=== PATIENT | female | born 1945 | race Caucasian/White ===

== ENCOUNTER → 2016-05-22 11:53 | Day surgery (SDC) | payer MEDICARE ==
[~2016-05-22 11:53] MED LIST: Buffered Lidocaine 1% SYR 3ML* 3 ML/SYR SYRINGE INTRADERM ONE; Buffered Lidocaine 1% SYR 3ML* 3 ML/SYR SYRINGE ONE; Bupivacaine 0.25% EPI 200,000* 30 ML SDV ONE; Dexamethasone IV* 4 MG/ML 1 ML (4 MG) ONE; DiMENhydriNATE IV* 50 MG/ML VIAL IV PUSH PRN; Famotidine IV* 10 MG/ML 2 ML (20 mg) IV ONE; Famotidine IV* 10 MG/ML 2 ML (20 mg) ONE; Gelfoam 12-7 ADSORBABL SPONGE* 1 EA SPONGE ONE; HYDROmorphone INJ* 1 MG/ML CARPUJECT SYRINGE IV PRN; KETAMINE HCL* 50 MG/ML 10 ML VIAL ONE; Ketorolac INJ* 30 MG/ML 1 ML VIAL ONE; Lidocaine 2% MPF* 2 ML VIAL ONE; Methylene Blue 1%* 10 ML VIAL ONE; Metoclopramide TAB* 10 MG ONE; Metoclopramide TAB* 10 MG PO ONE; Midazolam* 1 MG/ML 5 ML VIAL (5 MG) ONE; Ondansetron INJ* 2 MG/ML VIAL IV PRN; Ondansetron INJ* 2 MG/ML VIAL ONE; Propofol* 10 MG/ML 20 ML BTL IV PUSH ONE; ceFAZolin 2 GM PREMIX (*) 2 GM/50 ML BAG IVPB ONE; fentaNYL* 50 MCG/ML 2 ML VIAL (100 MCG VIAL) IV PRN; fentaNYL* 50 MCG/ML 2 ML VIAL (100 MCG VIAL) ONE; oxyCODONE/Acetamin 5/325 MG* TAB PO PRN
--- NOTE | 2016-05-22 15:58 | SURGPN ---
Brief Operative Note - Surgery Procedures: Procedures Pre-OP Diagnoses: Hemorrhoids Post-op Diagnosis: same Procedure: Exam under anesthesia, hemorrhoidectomy Surgeon: Candace Asst: none Anethesia: DARSHANA Togene EBL: minimal IVF: 900cc crystalloid Specimen: hemorrhoids Drains: none
[2016-05-22 17:19] VITALS: BP 121/88
--- NOTE | 2016-06-06 10:17 | OP ---
CC: [facility]; Barbara Jacinto MD OPERATIVE REPORT: This is a delayed dictation. DATE OF OPERATION: 05/22/16 DATE OF : 49 SURGEON: Markus Maria MD. FACILITY ENVIRONMENTAL TECHNICIAN: None. ANESTHESIOLOGIST: Carlos Olivares MD ANESTHESIA: General. PRE-OP DIAGNOSIS: Hemorrhoids. POST-OP DIAGNOSIS: Hemorrhoids. OPERATIVE PROCEDURE: Exam under anesthesia and hemorrhoidectomy. ESTIMATED BLOOD LOSS: Minimal blood loss. IV FLUIDS: 900 cc of crystalloid fluid given. SPECIMEN: Hemorrhoids. DRAINS: None. INDICATIONS: Ms. Bang is a 70-year-old female who I saw in my office two days prior to surgical intervention with complaints of hemorrhoidal pain. She underwent attempt at hemorrhoidal banding i n the office, but this failed with rubber bands falling off by the first postprocedure day. She was seen by my partner who booked her for surgical intervention with me. DESCRIPTION OF PROCEDURE: On day of surgery, I described the details of the procedure going over th e risks, benefits and alternatives. We spoke of again banding, but I did not recommend this, versus excision. We spoke about the possible complications which included but not limited to bleeding, in fection, incontinence, and need for additional procedures and recurrence. The patient agreed and si gned consent. Was taken to the operating room, general anesthesia delivered. The patient was place d prone on the OR table. Buttocks were taped apart and the anal area was prepped and draped in emerald dard surgical fashion. Time- out was performed. A digital rectal exam was performed, dilating the anus to three fingers. This allowed us to place t he anal retractors in, and review of the anal canal showed the hemorrhoids anteriorly in the midline and anteriorly just to the right. They extended towards the skin tag around the perianal skin. I placed a 2-0 Polysorb suture distal to the hemorrhoid and the anal mucosa to allow for traction. We injected lidocaine with epinephrine along the perianal skin and to the hemorrhoidal tissue. The skin was incised and, with the ligature device, we extended our dissection proximally to the 2-0 Jaret ysorb suture that was placed. This hemorrhoid was then passed off as specimen, and the suture was u tilized to gain hemostasis and reapproximate the mucosa as well as extend it subcuticularly at the a tiff of the perianal skin. Similar hemorrhoidectomy was carried out at the right side of the hemorrhoid in the exact same fashi on. We took care on dissection of the hemorrhoid not to extend into the musculature of the sphincte r. Hemostasis was excellent. Gelfoam was inserted into the anal canal. The patient was woken up, transferred to the stretcher extubated, and transferred to PACU in stable condition. [id number]/[facility] #: [id number]
== END | disposition home or self-care (01) ==
LOC: OR 11:53
PROVIDERS: ATTEND Surgery
DX: K64.1 Second degree hemorrhoids (principal); I10 Essential (primary) hypertension; D50.9 Iron deficiency anemia, unspecified
CPT/HCPCS: 88304; A9270-GY; J0690; J1100; J1885; J2250; J2405; J2704; J3010

== ENCOUNTER 2018-02-03 18:49 | Emergency (ER) | payer MEDICARE ==
--- OUTSIDE RECORDS SUMMARY | 2018-02-03 18:56 | XMS REPORT | Continuity of Care Document ---
:1945 External Reference #:[id number] Author Name Gunnar Wooten M.D. Address [address] [place] [address] Care Team Providers Name Role Phone Barbara Castro M.D. Primary Care Physician Unavailable Payers Type Date Identification Numbers Payment Provider Subscriber Policy Number: [id number] Medicare - [facility] Katherine Bang PayID: [id number] [address] [place] [address] Policy Number: [id number] [facility] Katherine Bang PayID: [id number] [address] [place] [address] Advance Directives Description No Information Available Problems Date Description Provider Status Onset: Essential hypertension Active Onset: Spinal stenosis Active Onset: Migraine Active Onset: 01/20/2018 Vitreous degeneration Gunnar Wooten M.D. Active Onset: 01/20/2018 Combined form of senile cataract Gunnar Wooten M.D. 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 ETOH Use Occasionally consumes alcohol Recreational Drug Use Denies Drug Use Tobacco Use Start: Unknown Patient has never smoked Smoking Status Reviewed: 01/20/18 Patient has never smoked Allergies, Adverse Reactions, Alerts Date Description Reaction Status Severity Comments 01/20/2018 Quinidina Active 01/20/2018 Sulfa Antibiotics Active 01/20/2018 Beta Blockers Active 01/20/2018 Cipro Active 01/20/2018 Paxil Active Medications Medication Date Status Form Strength Qnty SIG Indications Ordering Provider Pantoprazole / Active Tablets DR 40mg Take 1 Unknown Sodium 0000 Tablet By Mouth Two Times Daily Gabapentin / Active Capsules 300mg Take Two Unknown 0000 Capsules By Mouth Three Times A Day Oxycodone-Aceta / Active Tablets 10-325mg Take 1 Unknown minophen 0000 Tablet By Mouth Two Times Daily May Take A Third as Needed Maximum Daily Dose Of 3 Per Day Benazepril HCL / Active Tablets 10mg Take 1 Unknown 0000 Tablet By Mouth Every Day Amlodipine / Active Tablets 10mg Take 1 Unknown Besylate 0000 Tablet By Mouth Every Day Lorazepam / Active Tablets 1mg Take 1 Unknown 0000 Tablet By Mouth AT Bedtime. May Take Second Tablet as Needed. Maximum Daily Dose Of 2 Per Day. Vitamin D3 / Active Capsules 5000Unit Unknown 0000 B Complex / Active Tablets Unknown 0000 Vitamin B12 / Active Tablets ER 1000mcg Unknown 0000 Ferrous Sulfate / Active Tablets 325(65Fe) Unknown 0000 mg Immunizations Description No Information Available Vital Signs Description No Information Available Results Description No Information Available Procedures Description No Information Available Encounters Description No Information Available Plan of Treatment 01/20/2018 - Gunnar Wooten M.D.H35.371 Puckering of macula, right eyeComments :Smoking can increase the risk of developing or worsening any eye related disease, as well as affect your overall health. If you are a smoker, we strongly recommend that you quit.If you are not a smoker, we strongly recommend that you do not start. A Macular Pucker is a wrinkling of the retina tissue. It can cause distortion in your vision. Please contact the office if you notice any changes or new distortion in your vision.H35.342 Macular cyst, hole, or pseudohole, left eyeH25.813 Combined forms of age-related cataract, bilateralComments:You have been diagnosed with cataracts. They are limiting your vision, and I am unable to improve you with new glasses. Our next step is to schedule Cataract surgery and all necessary appointments, which [facility] will do for you. We recommend that you write down any questions you may have and bring them to your preoperative appointment so that Dr. Wooten can answer them for you. If you have any questions or concerns, you can reach Khushbu Pickens at .Follow up:For preop exam before surgery.H43.812 Vitreous degeneration, left eyeComments:You have a Posterior Vitreous Detachment in your left eye. If you have any changes in your floaters or flashing lights, please contact this office.
--- OUTSIDE RECORDS SUMMARY | 2018-02-03 18:56 | XMS REPORT ---
:1945 External Reference #:[id number] Author Organization [facility] Address [address] [address] Phone [phone] Care Team Providers Name Role Phone Barbara Castro MD Care Team Information Automatic Presser Unavailable Payers Type Date Identification Numbers Payment Provider Subscriber Medicare Primary Policy Number: [id number] Medicare Katherine Bang Group Name: [facility] [address] PayID: [id number] [place] [address] Medigap Part B Effective: Policy Number: [facility] Katherine Bang 2012 [id number] Options PayID: [id number] [address] [place] [address] Medigap Part B Effective: 2012 Policy Number: Medicare Katherine Bang [id number] Expires: 2014 Group Name: [facility] [address] PayID: [id number] [place] [address] Medigap Part B Expires: Policy Number: [facility] Katherine Bang 2014 [id number] Options PayID: [id number] [address] [place] [address] Problems Date Description Provider Status Onset: 02/23/2008 Benign essential hypertension Barbara Castro MD Active Onset: 01/29/2013 Peptic reflux disease Barbara Castro MD Active Onset: 05/16/2014 Spinal stenosis of lumbar region Barbara Castro MD Active Onset: 05/16/2014 Chronic pain syndrome Barbara Castro MD Active Onset: 01/16/2015 Lumbosacral stenosis Barbara Castro MD Active Onset: 01/16/2015 Essential hypertension Barbara Castro MD Active Onset: 02/21/2015 Essential hypertension Barbara Castro MD Active Family History Date Family Member(s) Problem(s) Comments First Son Parkinson's Disease First Daughter Parkinson's Disease Social History Type Date Description Comments Cigarette Use Never Smoked Cigarettes Smoking Patient has never smoked Allergies, Adverse Reactions, Alerts Date Description Reaction Status Severity Comments 01/29/2006 Sulfa active 01/29/2006 Inderal active Memory Loss 01/29/2006 Quinidine active 01/29/2006 Beta Blockers active 09/21/2015 Paxil active 09/21/2015 Cipro active Medications Medication Date Status Form Strength Qnty SIG Indications Ordering Provider Sucralfate 01/26/ Active Suspension 1GM/10ML 420ml 10ml Matthew, 2018 orally Barbara 4times MD Burke qac/hs prn Diclofenac 05/30/ Active Gel 1% 200gm apply 1 G89.4 Matthew, Sodium 2018 gram per Barbara joint MD Burke four times a day as needed for pain Fluticasone 05/23/ Active Suspension 50mcg/Act 16unit 2 sprays Matthew , Propionate 2018 s in each Barbara nostril MD Burke daily Amlodipine 05/16/ Active Tablets 10mg 1 by I10 Matthew Besylate 2018 mouth Barbara every day MD Burke Benazepril HCL 05/16/ Active Tablets 10mg 1 by I10 Matthew, 2018 mouth Barbara every day MD Burke TENS Unit 01/31/ Active dx: lbp G89.4 Matthew 2016 Barbara Kirkland MD Flector 10/14/ Active Patches 1.3% 60unit apply S39.012A Matthew 2016 s patch Barbara twice a MD Burke day as needed for acute pain G89.4 Narcan 06/07/2016 Active Liquid 4mg/0.1ML 2units as needed G89.4 Matthew intranasal for Barbara emergency MD Burke overdose only Ferrous 02/26/2016 Active Tablets 325(65Fe) 30tabs take 1 tablet D50.9 Jenniferdam, Sulfate mg by mouth bid Barbara with vitamin MD Burke c. Premarin 10/24/2015 Active Cream 0.625mg/GM 42.500g . 5 g every N95.2 burke Castro night at Barbara bedtime x 2 MD Burke wks then 2x/wk Lorazepam 09/26/2015 Active Tablets 1mg 60tabs take one every F41.9 Matthew, night at Barbara bedtime, august MD Burke take a second as needed Oxycodone-A 09/26/2014 Active Tablets 10-325mg 90tabs 1 by mouth G89.4 Matthew, cetaminophe twice a day Barbara n august take third MD Burke as needed Proair HFA 03/30/2013 Active Aerosol 108(90Base 8.5unit Inhale 2 Puffs Matthew, ) mcg/Act s By Mouth Four Barbara Times A Day as MD Burke Needed Vitamin B12 09/25/2012 Active Tablets ER 1000mcg 1 po qod D51.9 Barbara Castro MD Pantoprazol 02/27/[address] 40mg 180tabs Take 1 Tablet K21.0 Matthew, e Sodium By Mouth Two Barbara Times Daily MD Burke Vitamin D 07/22/2008 Active Capsules 1000Unit 2 po bid E55.9 Barbara Castro MD Gabapentin Active Capsules 300mg 2 by mouth G89.4 Unknown three times a day Tetracyclin 05/20/2017 Hx Capsules 250mg 28caps 1 po qid Matthew, e HCL - Barbara 05/22/2017 MD Burke Nitrofurant 05/19/2017 Hx Capsules 100mg 14caps 1 by mouth Matthew, oin Monohyd - twice a day Barbara Macro 08/15/2017 MD Burke Nitrofurant 05/16/2017 Hx Capsules 100mg 14caps 1 by mouth N30.01 Macajose antonio, oin Monohyd - twice a day Barbara Macro 05/16/2017 MD Burke Cephalexin 05/16/2017 Hx Capsules 500mg 28caps 1 by mouth N30.01 Macadam, - four times a Barbara 05/19/2017 day MD Burke Phenazopyri 05/15/2017 Hx Tablets 100mg 10tabs 1 by mouth Matthew, dine HCL - three times a Barbara 08/15/2017 day as needed MD Burke Nitrofurant 10/14/2016 Hx Capsules 100mg 14caps 1 by mouth N39.0 Matthew, oin Monohyd - twice a day Barbara Macro 01/27/2017 MD Burke Diclofenac 08/02/2016 Hx Gel 1% 100gm apply 1 gram M25.51 Macadam, Sodium - per joint four 1 Barbara 10/14/2016 times a day as MD Burke needed for pain Flector 07/25/2016 Hx Patches 1.3% 60units apply patch Macadam, - twice a day as Barbara 08/02/2016 needed MD Burke Lidoderm 05/06/2016 Hx Patches 5% 60units apply as Macadam, - directed 1-3 Barbara 10/14/2016 patches on x MD Burke 12 hours Ketorolac 12/18/2015 Hx Solution 60mg/2ML q 2 wks M48.07 Matthew, Tromethamin - Barbara e 06/07/2016 MD Burke Blood Draw 12/18/2015 Hx 2x/month-bmp I10 Macajose antonio, - (for med Barbara 01/27/2017 nanagement) MD Burke Metronidazo 10/26/2015 Hx Tablets 500mg 14tabs 1 by mouth two Macadam, le - times a day x Barbara 12/18/2015 7 d no etoh MD Burke with Gabapentin 10/10/2015 Hx Capsules 300mg 90caps Take One To F41.9 Macadam, - Three Capsules Barbara 01/27/2017 By Mouth Every MD Burke Night AT Bedtime as Needed Lorazepam 08/14/2015 Hx Tablets 2mg 30tabs 1 by mouth F41.9 Macadam, - every night at Barbara 09/26/2015 bedtime MD Burke Tizanidine 08/04/2015 Hx Tablets 4mg 90tabs 1 by mouth M48.07 Macadam, HCL - three times a Barbara 09/26/2015 day as needed MD Burke Voltaren 07/31/2015 Hx Gel 1% 300gm apply 1 g per Macadam, - joint four Barbara 09/26/2015 times a day as MD Burke needed Amoxicillin 07/18/2015 Hx Tablets 500mg 30tabs 1 by mouth Macadam, - three times a Barbara 09/21/2015 day MD Burke Tizanidine 06/20/2015 Hx Tablets 2mg 90tabs take 3 tablets M48.07 Macadam, HCL - by mouth every Barbara 08/04/2015 night at MD Burke bedtime as needed monitor bp's closely Cephalexin 05/29/2015 Hx Tablets 500mg 28tabs 1 by mouth Matthew, - four times a Barbara 07/10/2015 day MD Burke TENS Unit 05/26/2015 Hx 1units M48.07 Matthew, - Barbara 09/26/2015 MD Burke Gabapentin 02/21/2015 Hx Capsules 300mg 90caps take 1 to 3 M48.07 Matthew, - capsules by Barbara 08/04/2015 mouth every MMD evening at bedtime as needed Carisoprodo 11/22/2014 Hx Tablets 350mg 30tabs take 1/2 to 1 G47.00 Matthew l - every night at Barbara 06/20/2015 bedtime as MD Burke needed sleep/muscle spasm Lorazepam 10/21/2014 Hx Tablets 1mg 90tabs 1-3 every F41.9 Matthew, - night at Barbara 08/14/2015 bedtime as MD Burke needed sleep/nerves Sertraline 10/17/2014 Hx Tablets 50mg 30tabs 1 by mouth 309.81 Matthew, HCL - every day Barbara 10/17/2014 MD Burke Paroxetine 10/17/2014 Hx Tablets 20mg 30tabs take one half 309.81 Matthew, HCL - x 4 d then one Barbara 10/18/2014 tablet by MD Burke mouth once daily at bedtime Oxycontin 09/26/2014 Hx Tab ER 12H 40mg 60tabs 1 po bid-dose 338.4 Matthew, - Abuse-Det increase Barbara 10/17/2014 MD Burke Hydromorpho 09/12/2014 Hx Tablets 2mg 60tabs 1-2 pill by 338.4 perry Castro HCL - mouth every 6 Barbara 09/26/2014 hours as MD Burke needed pain Oxycontin 09/12/2014 Hx Tab ER 12H 30mg 60tabs 1 by mouth 338.4 Matthew , - Abuse-Det twice a day Barbara 09/26/2014 MD Burke Augmentin 08/18/2014 Hx Tablets 875-125mg 20tabs 1 tab by mouth Angel, - twice a day x Siomara 09/12/2014 10 days MD Shelly Ondansetron 07/11/2014 Hx Tablets 4mg 30tabs 1 by mouth 787.02 VIPUL Castro - three times a Barbara 11/15/2014 day as needed MD Burke n/v Fentanyl 07/11/2014 Hx Patches 100mcg/HR 10units on x 3 d then 338.4 Macadam, - 72HR replace every Barbara 09/12/2014 3 d MD Burke Fentanyl 06/13/2014 Hx Patches 75mcg/HR 10units on x 3 d 338.4 Macadam, - 72HR Barbara 07/11/2014 MD Burke Amlodipine 06/07/2014 Hx Tablets 5mg 30tabs Take 1 Tablet I10 Macadam, Besylate - By Mouth Every Barbara 05/16/2017 Day MD Burke Benazepril 06/07/2014 Hx Tablets 20mg 90tabs Take 1 Tablet I10 Macadam, HCL - By Mouth Every Barbara 05/16/2017 Day MD Burke Metaxalone 05/16/2014 Hx Tablets 800mg 90tabs take 1/2-1 po 719.41 Macadam, - bid 1 po qhs Barbara 01/16/2015 prn MD Burke Levofloxaci 05/02/2014 Hx Tablets 500mg 14tabs 1 by mouth 595.0 Macadam , n - every day Barbara 05/16/2014 MD Burke Levofloxaci 04/05/2014 Hx Tablets 500mg 10tabs 1 by mouth 461.0 Macadam , n - every day Barbara 05/02/2014 MD Burke Flector 03/14/2014 Hx Patches 1.3% 60units aply to Macadam, - painful area Barbara 10/24/2015 twice a day MD Burke dx: new acute shoulder pain, post op Fluticasone 02/22/2014 Hx Suspension 50mcg/Act 16units Inhale 2 J30.1 Macadam, Propionate - Sprays Into Barbara 01/27/2017 Each Nostril MD Burke One Time Daily Fentanyl 01/25/2014 Hx Patches 50mcg/HR 10units on x 3d 338.4 Macadam, - 72HR Barbara 06/13/2014 MD Burke Amoxicillin 01/25/2014 Hx Tablets 875mg 20tabs 1 by mouth 780.60 Macadam, - twice a day Barbara 02/22/2014 MD Burke Oxycodone-A 10/18/2013 Hx Tablets 10-325mg 120tabs 1/2-1 by mouth 338.4 Macadam, cetaminophe - four times a Barbara n 09/12/2014 day as needed MD Burke pain Work Note 05/17/2013 Hx this pt has no Macadam, - medical Barbara 08/27/2013 contraindicati MD Burke ons to fulltime employment Alprazolam 11/13/2012 Hx Tablets 0.25mg 10tabs 1/2-2 po tid [place], - prn anxiety Enedina 01/29/2013 Modesta, RN [employer] Viibryd 08/24/2012 Hx Tablets 40mg 30tabs 1 po qd 296.31 Macajose antonio, - Barbara 09/25/2012 MD Burke Lidoderm 06/02/2012 Hx Patches 5% 30units apply as 789.01 Macajose antonio, - directed 1-3 Barbara 05/17/2013 patches on x MD Burke 12 hrs Augmentin 05/14/2012 Hx Tablets 875-125mg 28tabs one tab bid Jens, - till gone Enedina 06/02/2012 Modesta RN [employer] Proair HFA 04/10/2012 Hx Aerosol 108(90Base 1Can 2 p qid prn 461.0 Macajose antonio, - ) mcg/ac Barbara 03/30/2013 MD Burke Amoxicillin 04/10/2012 Hx Tablets 875-125mg 28tabs 1 po bid 461.0 Macajose antonio, /Potassium - Barbara Clavulanate 05/14/2012 MD Burke Tramadol 03/24/2012 Hx Tablets ER 100mg 90tabs take one 338.4 Matthew, HCL ER - 24HR tablet by Barbara 05/17/2013 mouth tid as MD Burke needed Thumb Spica 03/24/2012 Hx 2units bilat dx: 727.04 Matthew, - dequervain's Barbara 06/02/2012 MD Burke Carisoprodo 03/24/2012 Hx Tablets 350mg 120tabs 1/2-1 by mouth 338.4 Matthew, l - four times a Barbara 10/21/2014 day as needed MD Burke Oxycodone/A 03/24/2012 Hx Tablets 10-325mg 120tabs 1/2-1 po Qid 733.90 Matthew cetaminophe - prn pain Barbara n 10/18/2013 MD Burke Premarin 02/04/2012 Hx Cream 0.625mg/GM 42.5uni use 627.3 Macajose antonio, - ts intravaginally Barbara 05/17/2013 twice weekly MD Burke as directed Dexilant 02/04/2012 Hx Capsules 60mg 90caps 1 po qd 787.02 Macajose antonio, - DR Jimenez 03/24/2012 M,MD Irizarry 11/04/2011 Hx Tablets 250mg 1Pack 2 tabs day one 461.0 Matthew, n - and 1 tab Barbara 12/09/2011 daily till M,MD martell Amlodipine 11/04/2011 Hx Capsules 5-20mg 30caps take one 401.1 Macajose antonio, Besylate/Be - capsule by Barbara nazepril 06/07/2014 mouth every M, Hydrochlorrani day de Amlodipine 10/15/2011 Hx Tablets 5mg 30tabs 1 po qd 401.1 Matthew, Besylate - Barbara 10/15/2011 MD Burke Amlodipine 10/15/2011 Hx Capsules 5-40mg 30caps 1 po qd 401.1 Matthew, Besylate/Be - Barbara nazepril 10/15/2011 MD Burke HCL Amlodipine 10/15/2011 Hx Capsules 5-10mg 30caps 1 po qd 401.1 Matthew, Besylate/Be - Barbara nazepril 11/04/2011 MMD Peterson de Azithromyci 07/19/2011 Hx Tablets 250mg 1Pack 2 tabs day one 461.0 Matthew, n - and 1 tab Barbara 10/15/2011 daily till M, gone Medrol 07/19/2011 Hx Tablets 4mg 1Pack as dir 461.0 Matthew, Dosepak - Barbara 10/15/2011 MD Burke Robitussin 07/19/2011 Hx 120ml 10 ml qid prn 466.0 Matthew, ac - Barbara 10/15/2011 MD Burke Meloxicam 06/21/2011 Hx Tablets 7.5mg 60tabs take 2 tablet 719.49 Macadam, - by mouth every Barbara 02/04/2012 day for pain MMD Gabapentin 06/21/2011 Hx Capsules 300mg 120caps take 1 338.4 Macadam, - capsules by Barbara 11/15/2014 mouth twice a M,MD day and 2 at bedtime Azithromyci 03/01/2011 Hx Tablets 250mg 6tabs 2 tabs day one Jens, n - and 1 tab [place]ed[place] 05/10/2011 daily till Modesta RN MS [employer] Tramadol 11/30/2010 Hx Tablets 50mg 60tabs take 1 to 2 Macadam, HCL - tablets 4 Barbara 03/24/2012 times a day as MD Burke needed for pain. Flector 11/30/2010 Hx Patches 1.3% 60units aply to 726.5 Macadam, - painful area Barbara 03/30/2013 bid MD Burke Alprazolam 10/08/2010 Hx Tablets 0.25mg 10tabs 1/2-2 po tid Macadam, - prn anxiety Barbara 10/15/2011 MD Burke Tramadol 08/10/2010 Hx Tablets ER 100mg 60tabs 1 PO bid prn Macadam, HCL ER - 24HR Barbara 11/30/2010 MD Burke Tramadol 07/24/2010 Hx Tablets 50mg 20tabs take 1 to 2 729.1 Macadam, HCL - tablets 4 Barbara 08/10/2010 times a day as MD Burke needed for pain. Percocet 04/24/2010 Hx Tablets 10-325mg 90tabs 1/2-1 po tid 733.90 Macadam, - prn pain Barbara 03/24/2012 MD Burke Flonase 04/04/2010 Hx Suspension 50mcg/Act 16gm 1 [place] q Macadam, - Nostril qd Barbara 05/17/2013 MD Burke Ciprofloxac 01/26/2010 Hx Tablets 500mg 14tabs 1 po bid 787.91 Macadam, in HCL - Barbara 07/24/2010 MD Burke Proctofoam 01/26/2010 Hx Foam 1-1% 10gm apply pr bid 569.3 Macadam, HC - prn Barbara 07/24/2010 MD Burke Blood Draw 01/26/2010 Hx cbc, bmp 401.1 Macadam, - Barbara 07/19/2011 dx: MD Burke HTN Flovent HFA 08/29/2009 Hx Aerosol 44mcg/Act 1Can 2 p bid rise [place], - mouth after Enedina 06/02/2012 C, RN [employer] Zithromax 02/27/2009 Hx Tablets 250mg 1Pak as dir 466.0 Matthew, Z-Kobe - Barbara 01/26/2010 MD Burke Silvadene 02/27/2009 Hx Cream 1% 1LGTube to aff area 786.2 Macajose antonio, - bid Barbara 01/26/2010 MD Burke Symbicort 02/27/2009 Hx Aerosol 160-4.5mcg 2 P bid 786.2 Macajose antonio, - /A Barbara 08/29/2009 MD Burke Meclizine 02/07/2009 Hx Tablets 25mg 20tabs 1/2-1 po tid 780.4 Macajose antonio, HCL - prn Barbara 07/24/2010 MD Burke Prednisone 02/07/2009 Hx Tablets 10mg 30tabs 4tabs qam x 3 493.00 Matthew, - days then 3 po Barbara 02/27/2009 qam x 3d then MD Burke 2 po qam x 3d then 1 po qam x 3 d Lidoderm 02/07/2009 Hx Patches 5% 30units apply as 493.00 Matthew, - directed 1-3 Barbara 01/26/2010 patches on x MD Burke 12 hrs Ventolin 02/07/2009 Hx Aerosol 108(90Base 1Can 2 p qid prn 493.00 LADY ColindresA - ) sob Enedina 04/10/2012 Modesta, RN [employer] Amoxicillin 01/30/2009 Hx Tablets 875mg 20tabs 1 po bid Jenniferdam, - Barbara 02/27/2009 MD Burke Blood Draw 01/23/2009 Hx cbc, cmp, esr, 268.9 Macadam, - crp, lipid Barbara 02/27/2009 panel, 25 oh MD Burke vit D, TSH dx: 719.49, 401.1, tremor Aspirin 01/23/2009 Hx Tablets 81mg 1 po qd 435.9 Matthew, - Barbara 08/27/2013 MD Burke Premarin 01/23/2009 Hx Cream 0.625mg/GM 42.5uni Use 627.3 Matthew, W/Applicato - ts Intravaginally Barbara r 02/04/2012 Twice Weekly MD Burke as Directed Vitamin D 03/22/2008 Hx Tablets 1000Unit 1 PO qd 268.9 Matthew, - Barbara 07/22/2008 MD Jacob Kirklandsol HC 03/22/2008 Hx 1% 1Bottle to ears 4 gtt 268.9 Matthew, - qid prn Barbara 01/26/2010 MD Burke Vitamin D 02/25/2008 Hx Capsules 63444Unts 8caps 1 PO QWK X 8 Macajose antonio, - WKS Barbara 03/22/2008 MD Burke Intal 02/23/2008 Hx Aerosol 800mcg/Act 1Can 2 p bid prn Jenniferjose antonio, Inhaler - Barbara 08/29/2009 MD Abisai Kirkland 02/23/[address] 30mg Sample 1 PO qd X 1 296.32 Matthew, - Part Week With Food Barbara 03/01/2008 Then 60 MG MD Abisai Kirkland 02/23/[address] 60mg 30caps 1 PO qd 296.32 Macadam, - Part Barbara 03/22/2008 MD Burke Fexofenadin 01/02/2007 Hx Tablets 180mg 30tabs 1 po qd prn Matthew, e HCL - Barbara 05/17/2013 MD Burke Medrol 11/25/2006 Hx Tablets 4mg 1Pack as Dir 724.2 Matthew, Dosepak - Barbara 01/02/2007 MD Burke Lidoderm 11/25/2006 Hx Patches 5% 30units apply as 724.2 Matthew, - directed 1-3 Barbara 07/22/2008 patches on x MD Burke 12 hrs Darvocet-N 11/25/2006 Hx Tablets 100 60tabs 1 po qid prn 724.2 Matthew, 100 - pain Barbara 04/24/2010 MD Burke Physical 11/25/2006 Hx eval and treat Macadam, Therapy - lbp Barbara 01/02/2007 MD Burke Alebarbara 10/20/2006 Hx 2 PO bid 724.2 Jenniferdam, - Barbara 07/22/2008 MD Burke Physical 09/30/2006 Hx eval and treat 845.00 Macadam, Therapy - l ankle Barbara 01/02/2007 MD Burke Protonix 09/30/[address] 40mg Sample 1 PO qd X 2 530.11 Matthew, - WKS Then prn Barbara 02/27/2009 MD Burke Stool 09/30/2006 Hx test for c 787.91 Matthew, Sample - diff Barbara 07/22/2008 MD Burke dx: diarrhea following abx Soma 09/30/2006 Hx Tablets 350mg 90tabs 1/2-1 po tid 724.2 Macadam, - prn Barbara 03/24/2012 MD Burke Lisinopril 01/29/2006 Hx Tablets 10mg 30tabs 1 po qd 401.1 Macajose antonio, - Barbara 10/15/2011 MD Burke Lunesta 01/29/2006 Hx Tablets 3mg 30tabs one po qhs prn Jens, - En[place] 09/30/2006 Modesta RN [employer] Bernadette 01/29/2006 Hx Tablets 60mg 60tabs bid [place], - [place] 09/30/2006 Modesta RN [employer] Flonase 01/29/2006 Hx Suspension 50mcg/Spra 1units 1 [place] q Macadam, - y Nostril qd Barbara 04/04/2010 MD Burke Lortab 01/29/2006 Hx Tablets 7.5mg;500 60tabs 1 po q4 hours 733.90 Jens, - mg prn pain [place] 01/29/2006 Modesta RN [facility] Percocet 01/29/2006 Hx Tablets 10mg;325 50tabs 1/2-1 po tid 733.90 Macadam, - mg prn pain Barbara 04/24/2010 MD Burke Medications Administered in Office Medication Date Status Form Strength Qnty SIG Indications Ordering Provider Depo Medrol 80 Administered Injection Macadam, MG 016 Barbara Kirkland MD Depo Medrol 80 Administered Injection [place], MG 015 Barbara Kirkland MD Depo Medrol 80 Administered Injection Macadam, MG 015 Barbara Kirkland MD Depo Medrol 80 Administered Injection Macadam, MG 012 Barbara Kirkland MD Depo Medrol 80 Administered Injection Macadam, MG 012 Barbara Kirkland MD PPD Administered Injection Nurses 012 Schedule Amalia Depo Medrol 80 Administered Injection Macadam, MG 011 Barbara Kirkland MD Immunizations CPT Code Status Date Vaccine Lot # 22650 Given 03/03/2003 Immunization Td 7 Yrs Or Older 87037 Refused 02/26/2016 Pneumococcal 23 Immunization Adult Or Immunosuppressed Patient 13846 Refused 02/26/2016 Tetanus And Diptheria Toxoids For Adult Use- preservative free 97958 Refused 02/26/2016 Influenza Virus Vaccine,Quadrivalent,Split,Preserv Free 3 Yrs+ 38289 Refused 02/26/2016 Prevnar 13 Pneumococal Conjugate Vaccine Vital Signs Date Vital Result Comment 01/26/2018 Weight 208.25 lb Heart Rate 95 /min BP Systolic 112 mmHg BP Diastolic 84 mmHg Height 64 inches 5'4" BMI (Body Mass Index) 35.7 kg/m2 12/05/2017 Weight 197.00 lb Heart Rate 76 /min BP Systolic 120 mmHg BP Diastolic 78 mmHg Height 64 inches 5'4" BMI (Body Mass Index) 33.8 kg/m2 10/10/2017 Weight 203.00 lb Heart Rate 96 /min BP Systolic 120 mmHg BP Diastolic 76 mmHg Height 64 inches 5'4" BMI (Body Mass Index) 34.8 kg/m2 08/15/2017 Weight 211.00 lb Heart Rate 60 /min BP Systolic 126 mmHg BP Diastolic 80 mmHg Height 64 inches 5'4" BMI (Body Mass Index) 36.2 kg/m2 05/16/2017 Weight 211.00 lb Heart Rate 88 /min BP Systolic 128 mmHg BP Diastolic 78 mmHg Height 64 inches 5'4" BMI (Body Mass Index) 36.2 kg/m2 01/27/2017 Body Temperature 98.5 F Weight 210.00 lb Heart Rate 80 /min BP Systolic 132 mmHg BP Diastolic 82 mmHg Height 64 inches 5'4" BMI (Body Mass Index) 36.0 kg/m2 10/14/2016 Body Temperature 97.9 F Weight 205.00 lb Heart Rate 80 /min BP Systolic 126 mmHg BP Diastolic 80 mmHg Height 64 inches 5'4" BMI (Body Mass Index) 35.2 kg/m2 08/02/2016 Weight 200.00 lb Heart Rate 76 /min BP Systolic 128 mmHg BP Diastolic 76 mmHg Height 64 inches 5'4" BMI (Body Mass Index) 34.3 kg/m2 06/07/2016 Body Temperature 98.3 F Weight 202.00 lb Heart Rate 80 /min BP Systolic 130 mmHg BP Diastolic 80 mmHg Height 64 inches 5'4" BMI (Body Mass Index) 34.7 kg/m2 02/26/2016 Weight 206.00 lb Heart Rate 80 /min BP Systolic 134 mmHg BP Diastolic 84 mmHg Height 64 inches 5'4" BMI (Body Mass Index) 35.4 kg/m2 12/18/2015 Weight 195.00 lb Heart Rate 98 /min BP Systolic 136 mmHg BP Diastolic 80 mmHg Height 64 inches 5'4" BMI (Body Mass Index) 33.5 kg/m2 10/24/2015 Weight 189.00 lb Heart Rate 98 /min BP Systolic 128 mmHg BP Diastolic 74 mmHg BP Systolic Recheck 118 mmHg BP Diastolic Recheck 68 mmHg Height 64 inches 5'4" BMI (Body Mass Index) 32.4 kg/m2 10/10/2015 Weight 185.00 lb Heart Rate 88 /min BP Systolic 140 mmHg BP Diastolic 82 mmHg BP Systolic Recheck 158 mmHg PTS Cuff BP Diastolic Recheck 110 mmHg PTS Cuff Height 64 inches 5'4" BMI (Body Mass Index) 31.8 kg/m2 09/26/2015 Weight 184.00 lb Heart Rate 120 /min BP Systolic 122 mmHg BP Diastolic 92 mmHg Height 64 inches 5'4" BMI (Body Mass Index) 31.6 kg/m2 09/21/2015 Weight 190.38 lb Heart Rate 92 /min BP Systolic 104 mmHg BP Diastolic 75 mmHg Height 64 inches 5'4" BMI (Body Mass Index) 32.7 kg/m2 07/10/2015 Weight 200.00 lb Heart Rate 88 /min BP Systolic 160 mmHg BP Diastolic 100 mmHg BP Systolic Recheck 142 mmHg BP Diastolic Recheck 96 mmHg Height 64 inches 5'4" BMI (Body Mass Index) 34.3 kg/m2 05/26/2015 Weight 193.00 lb Heart Rate 80 /min BP Systolic 130 mmHg BP Diastolic 82 mmHg Height 64 inches 5'4" BMI (Body Mass Index) 33.1 kg/m2 02/21/2015 Weight 181.00 lb Heart Rate 92 /min BP Systolic 120 mmHg BP Diastolic 80 mmHg Height 64 inches 5'4" BMI (Body Mass Index) 31.1 kg/m2 01/16/2015 Weight 176.00 lb Heart Rate 88 /min BP Systolic 120 mmHg BP Diastolic 78 mmHg Height 64 inches 5'4" BMI (Body Mass Index) 30.2 kg/m2 11/15/2014 Weight 183.00 lb Heart Rate 88 /min BP Systolic 128 mmHg BP Diastolic 78 mmHg Height 64 inches 5'4" BMI (Body Mass Index) 31.4 kg/m2 10/17/2014 Weight 185.00 lb Heart Rate 88 /min BP Systolic 120 mmHg BP Diastolic 90 mmHg Height 64 inches 5'4" BMI (Body Mass Index) 31.8 kg/m2 09/26/2014 Weight 185.00 lb Heart Rate 88 /min BP Systolic 136 mmHg BP Diastolic 92 mmHg Height 64 inches 5'4" BMI (Body Mass Index) 31.8 kg/m2 09/12/2014 Weight 187.38 lb Heart Rate 113 /min BP Systolic 101 mmHg BP Diastolic 74 mmHg Height 64 inches 5'4" BMI (Body Mass Index) 32.2 kg/m2 08/18/2014 Weight 188.00 lb Heart Rate 87 /min BP Systolic 131 mmHg BP Diastolic 86 mmHg Height 64 inches 5'4" BMI (Body Mass Index) 32.3 kg/m2 08/01/2014 Body Temperature 98.9 F Weight 184.00 lb Heart Rate 80 /min BP Systolic 140 mmHg BP Diastolic 82 mmHg Height 64 inches 5'4" BMI (Body Mass Index) 31.6 kg/m2 07/11/2014 Weight 186.00 lb Heart Rate 80 /min BP Systolic 126 mmHg BP Diastolic 72 mmHg Height 64 inches 5'4" BMI (Body Mass Index) 31.9 kg/m2 06/13/2014 Weight 192.00 lb Heart Rate 60 /min BP Systolic 130 mmHg BP Diastolic 74 mmHg Height 64 inches 5'4" BMI (Body Mass Index) 33.0 kg/m2 05/16/2014 Body Temperature 99.1 F Weight 191.00 lb Heart Rate 88 /min BP Systolic 124 mmHg BP Diastolic 78 mmHg Height 64 inches 5'4" BMI (Body Mass Index) 32.8 kg/m2 05/02/2014 Body Temperature 98.9 F Weight 193.00 lb Heart Rate 80 /min BP Systolic 130 mmHg BP Diastolic 80 mmHg Height 64 inches 5'4" BMI (Body Mass Index) 33.1 kg/m2 04/05/2014 Body Temperature 99.3 F Weight 197.00 lb Heart Rate 80 /min BP Systolic 130 mmHg BP Diastolic 78 mmHg Height 64 inches 5'4" BMI (Body Mass Index) 33.8 kg/m2 02/22/2014 Body Temperature 98.8 F Weight 202.00 lb Heart Rate 76 /min BP Systolic 110 mmHg BP Diastolic 72 mmHg Height 64 inches 5'4" BMI (Body Mass Index) 34.7 kg/m2 01/25/2014 Body Temperature 98.7 F Weight 201.00 lb Heart Rate 76 /min BP Systolic 130 mmHg BP Diastolic 84 mmHg Height 64 inches 5'4" BMI (Body Mass Index) 34.5 kg/m2 08/27/2013 Weight 200.00 lb Heart Rate 88 /min BP Systolic 126 mmHg BP Diastolic 78 mmHg Height 64 inches 5'4" BMI (Body Mass Index) 34.3 kg/m2 03/30/2013 Weight 204.00 lb Heart Rate 88 /min BP Systolic 126 mmHg BP Diastolic 76 mmHg Height 64 inches 5'4" BMI (Body Mass Index) 35.0 kg/m2 01/29/2013 Weight 203.00 lb Heart Rate 99 /min BP Systolic 119 mmHg BP Diastolic 78 mmHg 09/25/2012 Weight 200.00 lb Heart Rate 88 /min BP Systolic 100 mmHg BP Diastolic 64 mmHg Height 64 inches 5'4" BMI (Body Mass Index) 34.3 kg/m2 08/24/2012 Weight 204.00 lb Heart Rate 92 /min BP Systolic 128 mmHg BP Diastolic 88 mmHg Height 64 inches 5'4" BMI (Body Mass Index) 35.0 kg/m2 06/02/2012 Weight 201.00 lb Heart Rate 88 /min BP Systolic 132 mmHg BP Diastolic 88 mmHg Height 64 inches 5'4" BMI (Body Mass Index) 34.5 kg/m2 05/14/2012 Weight 209.00 lb Heart Rate 71 /min BP Systolic 121 mmHg BP Diastolic 90 mmHg 04/10/2012 Body Temperature 99.0 F Weight 199.00 lb Heart Rate 76 /min BP Systolic 130 mmHg BP Diastolic 86 mmHg Height 64 inches 5'4" BMI (Body Mass Index) 34.2 kg/m2 03/24/2012 Weight 204.00 lb Heart Rate 76 /min BP Systolic 130 mmHg BP Diastolic 80 mmHg Height 64 inches 5'4" BMI (Body Mass Index) 35.0 kg/m2 02/04/2012 Weight 204.00 lb Heart Rate 88 /min BP Systolic 126 mmHg BP Diastolic 78 mmHg Height 64.75 inches 5'4.75" BMI (Body Mass Index) 34.2 kg/m2 11/04/2011 Weight 196.00 lb Heart Rate 88 /min BP Systolic 120 mmHg BP Diastolic 78 mmHg BP Systolic Recheck 125 mmHg 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 BP Diastolic Recheck 82 mmHg 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 Height 64.75 inches 5'4.75" BMI (Body Mass Index) 32.9 kg/m2 10/15/2011 Weight 196.00 lb Heart Rate 72 /min BP Systolic 110 mmHg BP Diastolic 70 mmHg Height 64.75 inches 5'4.75" BMI (Body Mass Index) 32.9 kg/m2 07/19/2011 Body Temperature 97.7 F Weight 203.00 lb Heart Rate 76 /min BP Systolic 126 mmHg BP Diastolic 84 mmHg Height 64.75 inches 5'4.75" BMI (Body Mass Index) 34.0 kg/m2 06/21/2011 Weight 200.00 lb Heart Rate 88 /min BP Systolic 120 mmHg BP Diastolic 88 mmHg Height 64.75 inches 5'4.75" BMI (Body Mass Index) 33.5 kg/m2 11/30/2010 Weight 195.00 lb Heart Rate 80 /min BP Systolic 122 mmHg BP Diastolic 80 mmHg 08/20/2010 Weight 193.00 lb Heart Rate 72 /min BP Systolic 104 mmHg BP Diastolic 66 mmHg 07/24/2010 Weight 199.00 lb Heart Rate 80 /min BP Systolic 112 mmHg BP Diastolic 72 mmHg Height 64.75 inches 5'4.75" BMI (Body Mass Index) 33.4 kg/m2 01/26/2010 Body Temperature 97.7 F Weight 202.00 lb Heart Rate 88 /min BP Systolic 114 mmHg BP Diastolic 74 mmHg 08/29/2009 Body Temperature 97.9 F Weight 202.00 lb Heart Rate 80 /min BP Systolic 108 mmHg BP Diastolic 72 mmHg 08/29/2009 Weight 169.00 lb Heart Rate 92 /min BP Systolic 130 mmHg BP Diastolic 72 mmHg 02/27/2009 Body Temperature 96.7 F Weight 201.00 lb Heart Rate 96 /min BP Systolic 108 mmHg BP Diastolic 70 mmHg 02/07/2009 Weight 200.00 lb Heart Rate 77 /min BP Systolic 142 mmHg BP Diastolic 99 mmHg BP Systolic Recheck 138 mmHg BP Diastolic Recheck 92 mmHg 01/23/2009 Weight 200.00 lb Heart Rate 92 /min BP Systolic 126 mmHg BP Diastolic 78 mmHg Height 64.5 inches 5'4.50"With Shoes BMI (Body Mass Index) 33.8 kg/m2 07/22/2008 Weight 200.00 lb Heart Rate 72 /min BP Systolic 120 mmHg BP Diastolic 80 mmHg 03/22/2008 Weight 200.00 lb Heart Rate 88 /min BP Systolic 120 mmHg BP Diastolic 83 mmHg 02/23/2008 Body Temperature 97.4 F Weight 196.00 lb Heart Rate 88 /min BP Systolic 120 mmHg BP Diastolic 80 mmHg 01/02/2007 Weight 197.00 lb Heart Rate 70 /min BP Systolic 112 mmHg BP Diastolic 76 mmHg 11/25/2006 Weight 201.00 lb Heart Rate 70 /min BP Systolic 134 mmHg BP Diastolic 88 mmHg 10/20/2006 Weight 198.00 lb Heart Rate 120 /min BP Systolic 132 mmHg BP Diastolic 86 mmHg Urine Dipstick - Blood NEGATIVE Urine Dipstick - Protein NEGATIVE Urine Dipstick - Glucose NEGATIVE 09/30/2006 Weight 192.00 lb Stated Heart Rate 64 /min BP Systolic 138 mmHg BP Diastolic 90 mmHg Urine Dipstick - Blood NEGATIVE Urine Dipstick - Protein NEGATIVE Urine Dipstick - Glucose NEGATIVE 01/29/2006 Weight 200.00 lb Heart Rate 72 /min BP Systolic 108 mmHg BP Diastolic 62 mmHg Results Test Date Test Result H/L Range Note Drugs Of 12/05/2017 Amphetamines,Urine NEGATIVE <1000 ng/mL Abuse,Urine-[facility]G Barbiturates,Urine NEGATIVE <200 ng/mL Benzodiazepines, Urine NEGATIVE <200 ng/mL Bupernorphrine/Norbu,Urine NEGATIVE <10 ng/mL Cocaine Metabolites,Urine NEGATIVE <300 ng/mL Methadone,Urine NEGATIVE <300 ng/mL Opiates,Urine NEGATIVE <300 ng/mL Oxycodone,Urine POSITIVE <100 ng/mL Phencyclidine,Urine NEGATIVE <25 ng/mL Cannabinoids,Urine NEGATIVE <50 ng/mL Laboratory test finding 10/10/2017 Esr 34 mm/hr High 0-20 1 CRP (C-Reactive) 0.42 mg/dL 0.00-0.75 1 Lyme Igm/Igg AB -RL 10/10/2017 Lyme Igm/Igg AB @ NEGATIVE (Neg) 2, 3 Laboratory test finding 08/15/2017 Urine Culture <pending> CBC with Auto Diff-fcmg 08/15/2017 WBC 5.7 K/uL 4.1-11.0 2 RBC 4.46 M/uL 4.00-5.40 2 Hemoglobin 14.3 gm/dL 12.0-16.0 2 Hematocrit 42.3 % 36.0-47.0 2 MCV 94.8 fL 80.0-97.0 2 MCH 32.1 pg High 27.0-32.0 2 MCHC 33.9 g/dL 32.0-36.0 2 RDW 14.3 % 11.5-14.5 2 PLT Count 179 K/ul 140-400 2 MPV 9.5 FL 7.1-10.7 2 Neutrophil 55.6 % 35.0-75.0 2 Lymphocyte 34.3 % 16.0-52.0 2 Monocyte 7.4 % 2.0-10.0 2 Eosinophil 2.3 % 0.0-5.0 2 Basophil 0.4 % 0.0-4.0 2 Abs Neutrophils 3.2 K/uL 2.1-8.0 2 Abs Lymphocytes 2.0 K/uL 0.8-5.5 2 Abs Monocytes 0.4 K/uL 0.1-1.0 2 Abs Eosinophils 0.1 K/uL 0.0-0.5 2 Abs Basophils 0.0 K/uL 0.0-0.3 2 Comprehensive Met Panel[place] [place] 08/15/2017 Sodium 141 mmol/L 135-146 2, 4 Potassium 3.5 mmol/L 3.5-5.2 2 Chloride# 101 mmol/L 97-110 2, 5 Carbon Dioxide 31 mmol/L 24-34 2 Glucose 97 mg/dL 70-105 2 BUN 10 mg/dL 6-26 2 Creatinine 0.8 mg/dL 0.5-1.4 2 Calcium 9.5 mg/dL 8.5-10.2 2 Total Protein 7.0 g/dL 6.0-8.0 2 Albumin 4.6 g/dL 3.6-4.9 2 Globulin 2.4 g/dL 2.0-3.5 2 A/G Ratio 1.9 Ratio 1.0-2.2 2 Total Bilirubin 0.6 mg/dL 0.1-1.3 2 Alkaline Phosphatase 54 U/L 24-140 2 Alt 12 U/L 3-42 2 Ast 18 U/L 8-42 2 Milly Egfr >60 >60 2, 6 Non Milly Egfr >60 >60 2, 7 Anion Gap 9 mmol/L 5-15 2, 8 Lipid 08/15/2017 Cholesterol 161 mg/dL 50-199 2 Triglycerides 164 mg/dL 30-200 2 HDL 43 mg/dL 35-85 2, 9 Chol/ HDL Ratio 3.8 ratio 3.7-5.6 2 VLDL 33 mg/dL High 2-29 2 LDL (Calc) 85 mg/dL 20-99 2, 10 Iron Panel 08/15/2017 Iron, Total 92 g/dL 50-170 2 Transferrin 299.0 mg/dL 203.0-362.0 2 Tibc (calc) 419 g/dL 261-478 2 % Iron Saturation 22.0 % 13.0-45.0 2 Laboratory test finding 08/15/2017 Vitamin B12 700 pg/mL 180-914 2 Vitamin D 25 Hydroxy 69 ng/mL 30-100 2, 11 Laboratory test 05/16/2017 Urine Culture Microbiology res <SEE 12 finding NOTE> CMB Reflex 01/27/2017 CKMB 1.2 ng/mL (0.0-5.0) CKMB Relative Index 1.0 {index_val} (0.0-4.0) Laboratory test finding 01/27/2017 Troponin I <0.06 ng/mL (0.00-0.10) 2 , 13 CKMB Panel-RL 01/27/2017 CK 119 U/L (26-192) 2, 14 Laboratory test finding 01/27/2017 NT Pro BNP 52 pg/mL (0-125) 2, 15 CBC With Auto Diff 01/27/2017 WBC 8.0 K/uL 4.1-11.0 2 RBC 4.56 M/uL 4.00-5.40 2 Hemoglobin 14.9 gm/dL 12.0-16.0 2 Hematocrit 44.3 % 36.0-47.0 2 MCV 97.3 fL High 80.0-97.0 2 MCH 32.6 pg High 27.0-32.0 2 MCHC 33.5 g/dL 32.0-36.0 2 RDW 14.8 % High 11.5-14.5 2 PLT Count 200 K/ul 140-400 2 MPV 9.9 FL 7.1-10.7 2 Neutrophil 55.7 % 35.0-75.0 2 Lymphocyte 34.6 % 16.0-52.0 2 Monocyte 7.0 % 2.0-10.0 2 Eosinophil 2.4 % 0.0-5.0 2 Basophil 0.3 % 0.0-4.0 2 Abs Neutrophils 4.5 K/uL 2.1-8.0 2 Abs Lymphocytes 2.8 K/uL 0.8-5.5 2 Abs Monocytes 0.6 K/uL 0.1-1.0 2 Abs Eosinophils 0.2 K/uL 0.0-0.5 2 Abs Basophils 0.0 K/uL 0.0-0.3 2 Laboratory test finding 01/27/2017 Ferritin 24.4 ng/ml 11.0-306.0 2 Iron Panel 01/27/2017 Iron, Total 156 g/dL 50-170 2 Transferrin 350.0 mg/dL 203.0-362.0 2 Tibc (calc) 490 g/dL High 261-478 2 % Iron Saturation 31.8 % 13.0-45.0 2 Comprehensive Met Panel-[facility] 01/27/2017 Sodium 144 mmol/L 135-146 2, 16 Potassium 3.9 mmol/L 3.5-5.2 2 Chloride# 104 mmol/L 97-110 2, 17 Carbon Dioxide 25 mmol/L 24-34 2 Glucose 96 mg/dL 70-105 2 BUN 14 mg/dL 6-26 2 Creatinine 0.9 mg/dL 0.5-1.4 2 Calcium 10.1 mg/dL 8.5-10.2 2 Total Protein 7.6 g/dL 6.0-8.0 2 Albumin 4.8 g/dL 3.6-4.9 2 Globulin 2.8 g/dL 2.0-3.5 2 A/G Ratio 1.7 Ratio 1.0-2.2 2 Total Bilirubin 0.7 mg/dL 0.1-1.3 2 Alkaline Phosphatase 54 U/L 24-140 2 Alt 23 U/L 3-42 2 Ast 29 U/L 8-42 2 Milly Egfr >60 >60 2, 18 Non Milly Egfr >60 >60 2, 19 Anion Gap 15 mmol/L 7-16 2, 20 Laboratory test finding 01/27/2017 Vitamin B12 876 pg/mL 180-914 2 Vit D25oh 63 ng/mL 31-100 2 TSH 3.18 uIU/mL 0.35-4.94 2 Free T4 0.89 ng/dL 0.70-1.48 2 Magnesium 1.9 mg/dL 1.5-2.7 2 Lipid 01/27/2017 Cholesterol 166 mg/dL 50-199 2 Triglycerides 158 mg/dL 30-200 2 HDL 50 mg/dL 35-85 2, 21 Chol/ HDL Ratio 3.3 ratio Low 3.7-5.6 2 VLDL 32 mg/dL High 2-29 2 LDL (Calc) 85 mg/dL 20-99 2, 22 Laboratory test 01/27/2017 Urine Culture Microbiology res <SEE 2, 23 finding NOTE> Drugs Of 10/14/2016 Amphetamines,Uri Negative <1000 Abuse,Urine-FCMG ne ng/mL Barbiturates,Urine Negative <200 ng/mL Benzodiazepines, Urine Negative <200 ng/mL Bupernorphrine/Norbu,Urine Negative <10 ng/mL Cocaine Metabolites,Urine Negative <300 ng/mL Methadone,Urine Negative <300 ng/mL Opiates,Urine Negative <300 ng/mL Oxycodone,Urine Positive <100 ng/mL Phencyclidine,Urine Negative <25 ng/mL Cannabinoids,Urine Negative <50 ng/mL Laboratory test 10/14/2016 Urine Culture Microbiology res <SEE 24 finding NOTE> Laboratory test 02/26/2016 TSH 0.60 uIU/mL 0.35-4.94 25 finding Vit D,25 Hydroxy 63 ng/mL 31-100 25 Vitamin B12 575 pg/mL 180-914 25 Iron Panel 02/26/2016 Iron, Total 37 g/dL Low 50-170 25 Transferrin 372.5 mg/dL High 203.0-362.0 25 Tibc (calc) 522 g/dL High 261-478 25 % Iron Saturation 7.1 % Low 13.0-45.0 25 Lipid 02/26/2016 Cholesterol 160 mg/dL 50-199 25 Triglycerides 157 mg/dL 30-200 25 HDL 45 mg/dL 35-85 25, 26 Chol/ HDL Ratio 3.6 ratio Low 3.7-5.6 25 VLDL 31 mg/dL High 2-29 25 LDL (Calc) 84 mg/dL 20-99 25, 27 Comprehensive Metabolic (CMP) 02/26/2016 Sodium 139 mmol/L 134-142 25 Potassium 4.4 mmol/L 3.5-5.2 25 Chloride 103 mmol/L 97-109 25 Carbon Dioxide 32 mmol/L 24-34 25 Glucose 108 mg/dL High 70-105 25 BUN 9 mg/dL 6-26 25 Creatinine 0.9 mg/dL 0.5-1.4 25 Calcium 9.8 mg/dL 8.5-10.2 25 Total Protein 6.9 g/dL 6.0-8.0 25 Albumin 4.3 g/dL 3.6-4.9 25 Globulin 2.6 g/dL 2.0-3.5 25 A/G Ratio 1.7 Ratio 1.0-2.2 25 Total Bilirubin 0.5 mg/dL 0.1-1.3 25 Alkaline Phosphatase 58 U/L 24-140 25 Alt 11 U/L 3-42 25 Ast 20 U/L 8-42 25 Anion Gap 8 mmol/L 6-14 25 Milly Egfr >60 >60 25, 28 Non Milly Egfr >60 >60 25, 29 CBC With Auto Diff 02/26/2016 WBC 6.2 K/uL 4.1-11.0 25 RBC 4.13 M/uL 4.00-5.40 25 Hemoglobin 10.7 gm/dL Low 12.0-16.0 25 Hematocrit 34.0 % Low 36.0-47.0 25 MCV 82.2 fL 80.0-97.0 25 MCH 26.0 pg Low 27.0-32.0 25 MCHC 31.6 g/dL Low 32.0-36.0 25 RDW 18.7 % High 11.5-14.5 25 PLT Count 199 K/ul 140-400 25 Neutrophil 63.5 % 35.0-75.0 25 Lymphocyte 24.8 % 16.0-52.0 25 Monocyte 6.6 % 2.0-10.0 25 Eosinophil 4.6 % 0.0-5.0 25 Basophil 0.5 % 0.0-4.0 25 Abs Neutrophils 3.9 K/uL 2.1-8.0 25 Abs Lymphocytes 1.5 K/uL 0.8-5.5 25 Abs Monocytes 0.4 K/uL 0.1-1.0 25 Abs Eosinophils 0.3 K/uL 0.0-0.5 25 Abs Basophils 0.0 K/uL 0.0-0.3 25 Affirm 10/24/2015 Trichomonas Vaginalis Negative Negative Gardnerella Vaginalis Positive Negative Noemí Species Negative Negative Laboratory test 10/10/2015 Methylmalonic Acid (S) 0.23 umol/L (0.00-0.40 ) 30, 31 finding Laboratory test 10/10/2015 TSH 1.31 uIU/mL 0.35-4.94 30 finding Vitamin B12 482 pg/mL 180-914 30 Folate 7.5 ng/ml 5.9-24.8 30 Urine Culture Microbiology res <SEE NOTE> 30, 32 Iron Panel 10/10/2015 Iron, Total 35 g/dL Low 50-170 30 Transferrin 377.7 mg/dL High 203.0-362.0 30 Tibc (calc) 529 g/dL High 261-478 30 % Iron Saturation 6.6 % Low 13.0-45.0 30 Comprehensive Metabolic (CMP) 10/10/2015 Sodium 139 mmol/L 134-142 30 Potassium 4.1 mmol/L 3.5-5.2 30 Chloride 101 mmol/L 97-109 30 Carbon Dioxide 32 mmol/L 24-34 30 Glucose 118 mg/dL High 70-105 30 BUN 14 mg/dL 6-26 30 Creatinine 0.8 mg/dL 0.5-1.4 30 Calcium 10.2 mg/dL 8.5-10.2 30 Total Protein 7.6 g/dL 6.0-8.0 30 Albumin 4.7 g/dL 3.6-4.9 30 Globulin 2.9 g/dL 2.0-3.5 30 A/G Ratio 1.6 Ratio 1.0-2.2 30 Total Bilirubin 0.7 mg/dL 0.1-1.3 30 Alkaline Phosphatase 47 U/L 24-140 30 Alt 11 U/L 3-42 30 Ast 13 U/L 8-42 30 Anion Gap 10 mmol/L 6-14 30 Milly Egfr >60 >60 30, 33 Non Milly Egfr >60 >60 30, 34 CBC With Auto Diff 10/10/2015 WBC 5.7 K/uL 4.1-11.0 30 RBC 4.46 M/uL 4.00-5.40 30 Hemoglobin 12.3 gm/dL 12.0-16.0 30 Hematocrit 37.7 % 36.0-47.0 30 MCV 84.5 fL 80.0-97.0 30 MCH 27.5 pg 27.0-32.0 30 MCHC 32.6 g/dL 32.0-36.0 30 RDW 17.2 % High 11.5-14.5 30 PLT Count 232 K/ul 140-400 30 Neutrophil 62.7 % 35.0-75.0 30 Lymphocyte 27.8 % 16.0-52.0 30 Monocyte 6.1 % 2.0-10.0 30 Eosinophil 3.0 % 0.0-5.0 30 Basophil 0.4 % 0.0-4.0 30 Abs Neutrophils 3.6 K/uL 2.1-8.0 30 Abs Lymphocytes 1.6 K/uL 0.8-5.5 30 Abs Monocytes 0.3 K/uL 0.1-1.0 30 Abs Eosinophils 0.2 K/uL 0.0-0.5 30 Abs Basophils 0.0 K/uL 0.0-0.3 30 Laboratory test 07/10/2015 Urine Culture Microbiology res <SEE 35 finding NOTE> Laboratory test 05/26/2015 Urine Culture Microbiology res <SEE 36 finding NOTE> CBC With Auto Diff 01/16/2015 WBC 5.3 K/uL 4.1-11.0 30 RBC 4.37 M/uL 4.00-5.40 30 Hemoglobin 11.2 gm/dL Low 12.0-16.0 30 Hematocrit 36.1 % 36.0-47.0 30 MCV 82.8 fL 80.0-97.0 30 MCH 25.6 pg Low 27.0-32.0 30 MCHC 30.9 g/dL Low 32.0-36.0 30 RDW 18.0 % High 11.5-14.5 30 PLT Count 199 K/ul 140-400 30 Neutrophil 64.9 % 35.0-75.0 30 Lymphocyte 24.0 % 16.0-52.0 30 Monocyte 8.2 % 2.0-10.0 30 Eosinophil 2.5 % 0.0-5.0 30 Basophil 0.4 % 0.0-4.0 30 Abs Neutrophils 3.4 K/uL 2.1-8.0 30 Abs Lymphocytes 1.3 K/uL 0.8-5.5 30 Abmon 0.4 K/uL 0.1-1.0 30 Abs Eosinophils 0.1 K/uL 0.0-0.5 30 Abs Basophils 0.0 K/uL 0.0-0.3 30 Comprehensive Metabolic (CMP) 01/16/2015 Sodium 142 mmol/L 134-142 30 Potassium 4.1 mmol/L 3.5-5.2 30 Chloride 104 mmol/L 97-109 30 Carbon Dioxide 31 mmol/L 24-34 30 Glucose 115 mg/dL High 70-105 30 BUN 12 mg/dL 6-26 30 Creatinine 0.7 mg/dL 0.5-1.4 30 Calcium 9.2 mg/dL 8.5-10.2 30 Total Protein 6.8 g/dL 6.0-8.0 30 Albumin 4.5 g/dL 3.6-4.9 30 Globulin 2.3 g/dL 2.0-3.5 30 A/G Ratio 2.0 Ratio 1.0-2.2 30 Total Bilirubin 0.3 mg/dL 0.1-1.3 30 Alkaline Phosphatase 48 U/L 24-140 30 Alt 8 U/L 3-42 30 Ast 14 U/L 8-42 30 Anion Gap 11 mmol/L 6-14 30 Milly Egfr >60 >60 30, 37 Non Milly Egfr >60 >60 30, 38 Lipid 01/16/2015 Cholesterol 177 mg/dL 50-199 30 Triglycerides 145 mg/dL 30-200 30 HDL 55 mg/dL 35-85 30, 39 Chol/ HDL Ratio 3.2 ratio Low 3.7-5.6 30 VLDL 29 mg/dL 2-29 30 LDL (Calc) 93 mg/dL 20-99 30, 40 CBC With Auto Diff 08/01/2014 WBC 4.7 K/uL 4.1-11.0 41 RBC 4.38 M/uL 4.00-5.40 41 Hemoglobin 11.6 gm/dL Low 12.0-16.0 41 Hematocrit 36.1 % 36.0-47.0 41 MCV 82.4 fL 80.0-97.0 41 MCH 26.4 pg Low 27.0-32.0 41 MCHC 32.0 g/dL 32.0-36.0 41 RDW 17.5 % High 11.5-14.5 41 PLT Count 200 K/ul 140-400 41 Neutrophil 58.3 % 35.0-75.0 41 Lymphocyte 29.1 % 16.0-52.0 41 Monocyte 8.2 % 2.0-10.0 41 Eosinophil 3.8 % 0.0-5.0 41 Basophil 0.6 % 0.0-4.0 41 Abs Neutrophils 2.8 K/uL 2.1-8.0 41 Abs Lymphocytes 1.4 K/uL 0.8-5.5 41 Abmon 0.4 K/uL 0.1-1.0 41 Abs Eosinophils 0.2 K/uL 0.0-0.5 41 Abs Basophils 0.0 K/uL 0.0-0.3 41 Basic (BMP) 08/01/2014 Sodium 141 mmol/L 134-142 41 Potassium 4.8 mmol/L 3.5-5.2 41 Chloride 105 mmol/L 97-109 41 Carbon Dioxide 31 mmol/L 24-34 41 Glucose 92 mg/dL 70-105 41 BUN 13 mg/dL 6-26 41 Creatinine 0.8 mg/dL 0.5-1.4 41 Calcium 9.5 mg/dL 8.5-10.2 41 Anion Gap 10 mmol/L 6-14 41 Non Milly Egfr >60 >60 41, 42 Milly Egfr >60 >60 41, 43 Laboratory test 05/02/2014 Urine Culture Microbiology res <SEE 44, 45 finding NOTE> CBC With Auto Diff 05/02/2014 WBC 6.1 K/uL 4.1-11.0 44 RBC 4.54 M/uL 4.00-5.40 44 Hemoglobin 12.2 gm/dL 12.0-16.0 44 Hematocrit 38.0 % 36.0-47.0 44 MCV 83.7 fL 80.0-97.0 44 MCH 26.8 pg Low 27.0-32.0 44 MCHC 32.1 g/dL 32.0-36.0 44 RDW 18.3 % High 11.5-14.5 44 PLT Count 215 K/ul 140-400 44 Neutrophil 44.6 % 35.0-75.0 44 Lymphocyte 41.8 % 16.0-52.0 44 Monocyte 9.3 % 2.0-10.0 44 Eosinophil 3.9 % 0.0-5.0 44 Basophil 0.4 % 0.0-4.0 44 Abs Neutrophils 2.7 K/uL 2.1-8.0 44 Abs Lymphocytes 2.5 K/uL 0.8-5.5 44 Abmon 0.6 K/uL 0.1-1.0 44 Abs Eosinophils 0.2 K/uL 0.0-0.5 44 Abs Basophils 0.0 K/uL 0.0-0.3 44 Laboratory test finding 05/02/2014 TSH 1.90 uIU/mL 0.34-5.60 44 Free T4 0.75 ng/dL 0.50-1.60 44 Esr 22 mm/hr High 0-20 44 Hepatitis C Virus Antibody Non reactive Non reactive 44 Comprehensive Metabolic (CMP) 05/02/2014 Sodium 141 mmol/L 134-142 44 Potassium 4.1 mmol/L 3.5-5.2 44 Chloride 104 mmol/L 97-109 44 Carbon Dioxide 30 mmol/L 24-34 44 Glucose 81 mg/dL 70-105 44 BUN 14 mg/dL 6-26 44 Creatinine 0.8 mg/dL 0.5-1.4 44 Calcium 9.7 mg/dL 8.5-10.2 44 Total Protein 7.1 g/dL 6.0-8.0 44 Albumin 4.6 g/dL 3.6-4.9 44 Globulin 2.5 g/dL 2.0-3.5 44 A/G Ratio 1.8 Ratio 1.0-2.2 44 Total Bilirubin 0.5 mg/dL 0.1-1.3 44 Alkaline Phosphatase 59 U/L 24-140 44 Alt 16 U/L 3-42 44 Ast 32 U/L 8-42 44 Anion Gap 11 mmol/L 6-14 44 Milly Egfr >60 >60 44, 46 Non Milly Egfr >60 >60 44, 47 Rout Urine W/ Micro -RL 04/05/2014 Color LEXY Appearance TURBID Spec Grav Urine 1.034 High (1.003-1.030) PH Urine 5.5 (5.0-7.5) Leuk Esterase 1+ (Neg) Nitrite Urine NEGATIVE (Neg) Protein Urine NEGATIVE (Neg) Glucose Urine NEGATIVE (Neg) Ketone Urine NEGATIVE (Neg) Urobilinogen 0.2 mg/dL (0-1.0) Bilirubin Urine 1+ (Neg) 48 Blood/HGB Urine NEGATIVE (Neg) Urine WBC 0-2 [HPF] (0-5) Urine RBC 0-2 [HPF] (0-2) Amorphous 4+ [HPF] Caox Crystals 3+ [HPF] 49 Laboratory test 04/05/2014 Urine Culture Microbiology res <SEE 50 finding NOTE> Laboratory test 01/25/2014 Urine Culture Microbiology res <SEE 51 finding NOTE> CBC With Auto Diff 03/30/2013 WBC 8.4 K/uL 4.1-11.0 44 RBC 4.19 Consistent <SEE NOTE> M/uL 4.00-5.40 44, 52 Hemoglobin 11.1 Consistent <SEE NOTE> gm/dL Low 12.0-16.0 44, 53 Hematocrit 34.1 % Low 36.0-47.0 44 MCV 81.4 fL 80.0-97.0 44 MCH 26.6 pg Low 27.0-32.0 44 MCHC 32.7 g/dL 32.0-36.0 44 RDW 18.1 % High 11.5-14.5 44 PLT Count 211 K/ul 140-400 44 Neutrophil 66.2 % 35.0-75.0 44 Lymphocyte 21.7 % 16.0-52.0 44 Monocyte 8.4 % 2.0-10.0 44 Eosinophil 3.4 % 0.0-5.0 44 Basophil 0.3 % 0.0-4.0 44 Abs Neutrophils 5.6 K/uL 2.1-8.0 44 Abs Lymphocytes 1.8 K/uL 0.8-5.5 44 Abmon 0.7 K/uL 0.1-1.0 44 Abs Eosinophils 0.3 K/uL 0.0-0.5 44 Abs Basophils 0.0 K/uL 0.0-0.3 44 Iron Panel 03/30/2013 Iron, Total 26 g/dL Low 50-170 44 Transferrin 373.3 mg/dL High 203.0-362.0 44 Tibc (calc) 523 g/dL High 261-478 44 % Iron Saturation 5.0 % Low 13.0-45.0 44 CBC With Auto Diff 01/29/2013 WBC 6.8 K/uL 4.1-11.0 54 RBC 4.30 M/uL 4.00-5.40 54 Hemoglobin 11.4 gm/dL Low 12.0-16.0 54 Hematocrit 35.7 % Low 36.0-47.0 54 MCV 83.1 fL 80.0-97.0 54 MCH 26.5 pg Low 27.0-32.0 54 MCHC 31.9 g/dL Low 32.0-36.0 54 RDW 17.5 % High 11.5-14.5 54 PLT Count 221 K/ul 140-400 54 Neutrophil 63.5 % 35.0-75.0 54 Lymphocyte 25.1 % 16.0-52.0 54 Monocyte 6.9 % 2.0-10.0 54 Eosinophil 3.9 % 0.0-5.0 54 Basophil 0.6 % 0.0-4.0 54 Abs Neutrophils 4.3 K/uL 2.1-8.0 54 Abs Lymphocytes 1.7 K/uL 0.8-5.5 54 Abmon 0.5 K/uL 0.1-1.0 54 Abs Eosinophils 0.3 K/uL 0.0-0.5 54 Abs Basophils 0.0 K/uL 0.0-0.3 54 Comprehensive Metabolic (CMP) 01/29/2013 Sodium 141 mmol/L 134-142 54 Potassium 5.0 mmol/L 3.5-5.2 54 Chloride 105 mmol/L 97-109 54 Carbon Dioxide 31 mmol/L 24-34 54 Glucose 110 mg/dL High 70-105 54 BUN 18 mg/dL 6-26 54 Creatinine 1.0 mg/dL 0.5-1.4 54 Calcium 10.2 mg/dL 8.5-10.2 54 Total Protein 7.2 g/dL 6.0-8.0 54 Albumin 4.6 g/dL 3.6-4.9 54 Globulin 2.6 g/dL 2.0-3.5 54 A/G Ratio 1.8 Ratio 1.0-2.2 54 Total Bilirubin 0.4 mg/dL 0.1-1.3 54 Alkaline Phosphatase 64 U/L 24-140 54 Alt 11 U/L 3-42 54 Ast 18 U/L 8-42 54 Anion Gap 10 mmol/L 6-14 54 Milly Egfr >60 >60 54, 55 Non Milly Egfr 54 Low >60 54, 56 Laboratory test finding 01/29/2013 Vitamin B12 365 pg/mL 180-914 54 Vit D,25 Hydroxy 48 ng/mL 31-100 54 CBC With Auto Diff 08/24/2012 WBC 5.7 K/uL 4.1-11.0 57 RBC 4.25 M/uL 4.00-5.40 57 Hemoglobin 12.2 gm/dL 12.0-16.0 57 Hematocrit 37.8 % 36.0-47.0 57 MCV 89.1 fL 80.0-97.0 57 MCH 28.7 pg 27.0-32.0 57 MCHC 32.2 g/dL 32.0-36.0 57 RDW 16.4 % High 11.5-14.5 57 PLT Count 207 K/ul 140-400 57 Neutrophil 49.6 % 35.0-75.0 57 Lymphocyte 36.4 % 16.0-52.0 57 Monocyte 7.1 % 2.0-10.0 57 Eosinophil 6.3 % High 0.0-5.0 57 Basophil 0.6 % 0.0-4.0 57 Abs Neutrophils 2.8 K/uL 2.1-8.0 57 Abs Lymphocytes 2.1 K/uL 0.8-5.5 57 Abs Monocytes 0.4 K/uL 0.1-1.0 57 Abs Eosinophils 0.4 K/uL 0.0-0.5 57 Abs Basophils 0.0 K/uL 0.0-0.3 57 Comprehensive Metabolic (CMP) 08/24/2012 Sodium 140 mmol/L 134-142 57 Potassium 4.7 mmol/L 3.5-5.2 57 Chloride 102 mmol/L 97-109 57 Carbon Dioxide 33 mmol/L 24-34 57 Glucose 105 mg/dL 70-105 57 BUN 12 mg/dL 6-26 57 Creatinine 0.9 mg/dL 0.5-1.4 57 Calcium 9.9 mg/dL 8.5-10.2 57 Total Protein 7.1 g/dL 6.0-8.0 57 Albumin 4.3 g/dL 3.6-4.9 57 Globulin 2.8 g/dL 2.0-3.5 57 A/G Ratio 1.5 Ratio 1.0-2.2 57 Total Bilirubin 0.3 mg/dL 0.1-1.3 57 Alkaline Phosphatase 64 U/L 24-140 57 Alt 13 U/L 3-42 57 Ast 20 U/L 8-42 57 Anion Gap 10 mmol/L 6-14 57 Milly Egfr >60 >60 57, 58 Non Milly Egfr >60 >60 57, 59 Laboratory test finding 08/24/2012 Vitamin B12 314 pg/mL 180-914 57 Magnesium 2.0 mg/dL 1.5-2.7 57 Esr 17 mm/hr 0-20 57 Laboratory test 06/02/2012 Urine Culture Microbiology res <SEE 60 finding NOTE> Laboratory test 06/02/2012 [facility] Pap SEE NOTE 61 finding Laboratory test 03/24/2012 Vit D,25 Hydroxy 48 ng/mL 31-100 57 finding Amylase 47 U/L 29-103 57 Lipase 28 U/L 11-82 57 Comprehensive Metabolic (CMP) 03/24/2012 Sodium 142 mmol/L 134-142 57 Potassium 4.1 mmol/L 3.5-5.2 57 Chloride 102 mmol/L 97-109 57 Carbon Dioxide 32 mmol/L 24-34 57 Glucose 109 mg/dL High 70-105 57 BUN 13 mg/dL 6-26 57 Creatinine 1.0 mg/dL 0.5-1.4 57 Calcium 9.9 mg/dL 8.5-10.2 57 Total Protein 7.0 g/dL 6.0-8.0 57 Albumin 4.5 g/dL 3.6-4.9 57 Globulin 2.5 g/dL 2.0-3.5 57 A/G Ratio 1.8 Ratio 1.0-2.2 57 Total Bilirubin 0.5 mg/dL 0.1-1.3 57 Alkaline Phosphatase 62 U/L 24-140 57 Alt 13 U/L 3-42 57 Ast 17 U/L 8-42 57 Anion Gap 12 mmol/L 6-14 57 Milly Egfr >60 >60 57, 62 Non Milly Egfr 59 Low >60 57, 63 CBC With Auto Diff 03/24/2012 WBC 6.2 K/uL 4.1-11.0 57 RBC 4.08 M/uL 4.00-5.40 57 Hemoglobin 13.1 gm/dL 12.0-16.0 57 Hematocrit 38.5 % 36.0-47.0 57 MCV 94.2 fL 80.0-97.0 57 MCH 32.2 pg High 27.0-32.0 57 MCHC 34.2 g/dL 32.0-36.0 57 RDW 14.9 % High 11.5-14.5 57 PLT Count 189 K/ul 140-400 57 Neutrophil 58.4 % 35.0-75.0 57 Lymphocyte 30.9 % 16.0-52.0 57 Monocyte 7.1 % 2.0-10.0 57 Eosinophil 3.1 % 0.0-5.0 57 Basophil 0.5 % 0.0-4.0 57 Abs Neutrophils 3.6 K/uL 2.1-8.0 57 Abs Lymphocytes 1.9 K/uL 0.8-5.5 57 Abs Monocytes 0.4 K/uL 0.1-1.0 57 Abs Eosinophils 0.2 K/uL 0.0-0.5 57 Abs Basophils 0.0 K/uL 0.0-0.3 57 Laboratory test finding 02/04/2012 H Pylori AB Igg <0.40 U/ML (<0.90) 57 , 64 Laboratory test finding 02/04/2012 TSH 1.97 uIU/mL 0.34-5.60 57 CBC With Auto Diff 02/04/2012 WBC 5.6 K/uL 4.1-11.0 57 RBC 3.98 M/uL Low 4.00-5.40 57 Hemoglobin 12.7 gm/dL 12.0-16.0 57 Hematocrit 37.8 % 36.0-47.0 57 MCV 95.1 fL 80.0-97.0 57 MCH 31.9 pg 27.0-32.0 57 MCHC 33.6 g/dL 32.0-36.0 57 RDW 15.1 % High 11.5-14.5 57 PLT Count 184 K/ul 140-400 57 Neutrophil 52.5 % 35.0-75.0 57 Lymphocyte 35.5 % 16.0-52.0 57 Monocyte 7.3 % 2.0-10.0 57 Eosinophil 4.1 % 0.0-5.0 57 Basophil 0.6 % 0.0-4.0 57 Abs Neutrophils 3.0 K/uL 2.1-8.0 57 Abs Lymphocytes 2.0 K/uL 0.8-5.5 57 Abs Monocytes 0.4 K/uL 0.1-1.0 57 Abs Eosinophils 0.2 K/uL 0.0-0.5 57 Abs Basophils 0.0 K/uL 0.0-0.3 57 Laboratory test finding 02/23/2008 Esr 17 MM/HR 0-20 65 TSH 2.03 uIU/ml 0.34-5.60 65 Vitamin D, 25 Hydroxy 21 ng/mL 19-58 65 CMP 09/25/2001 Sodium 142 mmol/L 137-145 Potassium 3.8 mmol/L 3.6-5.0 Chloride 102 mmol/L 98-107 Carbon Dioxide 26 mmol/L 22-30 Glucose 94 mg/dL 65-105 BUN 14 mg/dL 7-18 Creatinine, Serum 0.9 mg/dL 0.7-1.2 BUN/CR Ratio 15.7 Ratio 12-20 Calcium 9.5 mg/dL 8.7-10.5 Total Protein 7.9 g/dL 6.3-8.2 Albumin 4.6 g/dL 3.5-5.0 Globulin 3.4 g/dL 2.7-4.3 A/G Ratio 1.4 1.0-2.2 Total Bilirubin 0.8 mg/dL 0.2-1.3 Ast 29 U/L 14-36 Alt 29 U/L 9-52 Alkaline Phosphatase 85 U/L 38-126 Laboratory test finding 09/25/2001 Esr 17 MM/HR 0-20 TSH 1.13 uIU/ml 0.50-6.00 66 CBC 09/25/2001 WBC 5.4 K/ul 4.1-10.9 RBC 4.54 M/ul 4.2-6.3 Hemoglobin 14.2 GM/dl 12.0-16.0 Hematocrit 42.1 % 37.0-51.0 MCV 92.8 FL 80-97 MCH 31.3 pg 26.0-32.0 MCHC 33.7 g/dL 31.0-36.0 RDW 14.2 % 11.5-14.5 Platelet Count 199 K/ul 140-440 Neutrophils 50.9 % 50-70 Lymphocytes 38.9 % 20-44 Monocytes 6.9 % 2-9 Eosinophil 2.9 % 0-4 Basophil 0.4 % 0-2 Absolute Neutrophils 2.7 K/ul 2.05-7.63 Absolute Lymphocytes 2.1 K/ul 0.8-4.8 Absolute Monocytes 0.4 K/ul 0.1-1.0 Absolute Eosinophils 0.2 K/ul 0.1-0.5 Absolute Basophils 0.0 K/ul Low 0.1-0.3 1 Specimen received unspun This sample is drawn by:NB. 2 This sample is drawn by:NB. 3 A Negative serologic test for Lyme Disease indicates no serologic evidence of infection with B burgdorferi at the time this specimen was collected. A repeat specimen should be collected in 2 to 4 weeks if clinically indicated. Unless otherwise specified, testing performed by [facility] ([facility]) [address] [place] [address] [id number] 4 Updated reference range on new analyzer 5 Updated reference range on new analyzer 6 Concerning GFR Guidelines for Americans: Normal function or mild renal disease, if clinically at risk: >/=60 mL/min Moderately decreased: 30-59 Severely decreased: 15-29 Renal failure: <15 7 Concerning GFR Guidelines: Normal function or mild renal disease, if clinically at risk: >/=60 mL/min Moderately decreased: 30-59 Severely decreased: 15-29 Renal failure: <15 Glomerular Filtration Rate (GFR) is estimated based on the MDRD equation, which assumes a steady state for creatinine as recommended by the National Kidney Disease Education Program in conjunction with the National Institutes of Health and the National Kidney Foundation. Clinical conditions in which it may be necessary to measure GFR by using clearance methods include extremes of age and body size, severe malnutrition or obesity, diseases of skeletal muscle, paraplegia or quadriplegia, vegetarian diet, rapidly changing kidney function, and calculation of the dose of potentially toxic drugs that are excreted by the kidneys. 8 Updated Reference Range 9 Per NCEP ATP III Guidelines: Results lower than 40 mg/dL are suggestive of increased risk for coronary artery disease. Results > or=to 60 mg/dL are considered a negative risk factor. 10 Per NCEP ATP III Guidelines: Normal Population <130 Patients with medical conditions: CHD/DM Optimal: <100 Borderline high: 130-159 High: 160-189 Very high: >189 11 Clinical Guidelines for recommended serum 25(OH)Vitamin D Deficient at less than 20 ng/mL Insufficient at 20 to <30 ng/mL Sufficient at 30-100 ng/mL Toxicity at greater than 100 ng/mL 12 Microbiology results SOURCE Clean Catch Midstream COLONY COUNT >100,000 CFU/ML FINAL RESULT Staphylococcus epidermidis (Isolate 1) Sensitivity Analysis Isolate 1 --------- CIPROFLOXACIN <=1 S GENTAMYCIN <=4 S LINEZOLID 2 S NITROFURANTOIN <=32 S TETRACYCLINE <=4 S TRIMETHOPRIM/SULFAMETHOXAZ > R VANCOMYCIN 2 S S=Sensitive;I=Indeterminate;R=Resistant 13 TROPONIN LEVELS TWO TIMES THE UPPER LIMIT OF NORMAL ARE MORE PREDICTIVE OF MYOCARDIAL INJURY THAN LESSER ELEVATIONS. ([facility] 361:9, 2009) Unless otherwise specified, testing performed by [facility] [employer] [place] [address] 14 Unless otherwise specified, testing performed by [facility] [employer] [place] [address] 15 Unless otherwise specified, testing performed by [facility] [employer] [place] [address] 16 Updated reference range on new analyzer 17 Updated reference range on new analyzer 18 Concerning GFR Guidelines for Americans: Normal function or mild renal disease, if clinically at risk: >/=60 mL/min Moderately decreased: 30-59 Severely decreased: 15-29 Renal failure: <15 19 Concerning GFR Guidelines: Normal function or mild renal disease, if clinically at risk: >/=60 mL/min Moderately decreased: 30-59 Severely decreased: 15-29 Renal failure: <15 Glomerular Filtration Rate (GFR) is estimated based on the MDRD equation, which assumes a steady state for creatinine as recommended by the National Kidney Disease Education Program in conjunction with the National Institutes of Health and the National Kidney Foundation. Clinical conditions in which it may be necessary to measure GFR by using clearance methods include extremes of age and body size, severe malnutrition or obesity, diseases of skeletal muscle, paraplegia or quadriplegia, vegetarian diet, rapidly changing kidney function, and calculation of the dose of potentially toxic drugs that are excreted by the kidneys. 20 Updated reference range on new analyzer 21 Per NCEP ATP III Guidelines: Results lower than 40 mg/dL are suggestive of increased risk for coronary artery disease. Results > or=to 60 mg/dL are considered a negative risk factor. 22 Per NCEP ATP III Guidelines: Normal Population <130 Patients with medical conditions: CHD/DM Optimal: <100 Borderline high: 130-159 High: 160-189 Very high: >189 23 Microbiology results SOURCE Clean Catch Midstream FINAL RESULT No growth 24 Microbiology results SOURCE Clean Catch Midstream FINAL RESULT <10,000 CFU/ML Urogenital iona consistent with contamination. Request fresh specimen if indicated. 25 Fax Phone This sample is drawn by:STEPHANI. 26 Per NCEP ATP III Guidelines: Results lower than 40 mg/dL are suggestive of increased risk for coronary artery disease. Results > or=to 60 mg/dL are considered a negative risk factor. 27 Per NCEP ATP III Guidelines: Normal Population <130 Patients with medical conditions: CHD/DM Optimal: <100 Borderline high: 130-159 High: 160-189 Very high: >189 28 Concerning GFR Guidelines for Americans: Normal function or mild renal disease, if clinically at risk: >/=60 mL/min Moderately decreased: 30-59 Severely decreased: 15-29 Renal failure: <15 29 Concerning GFR Guidelines: Normal function or mild renal disease, if clinically at risk: >/=60 mL/min Moderately decreased: 30-59 Severely decreased: 15-29 Renal failure: <15 Glomerular Filtration Rate (GFR) is estimated based on the MDRD equation, which assumes a steady state for creatinine as recommended by the National Kidney Disease Education Program in conjunction with the National Institutes of Health and the National Kidney Foundation. Clinical conditions in which it may be necessary to measure GFR by using clearance methods include extremes of age and body size, severe malnutrition or obesity, diseases of skeletal muscle, paraplegia or quadriplegia, vegetarian diet, rapidly changing kidney function, and calculation of the dose of potentially toxic drugs that are excreted by the kidneys. 30 This sample is drawn by:STEPHANI. 31 PLEASE NOTE: METHOD IS LC/MS/MS Unless otherwise specified, testing performed by [facility] ([facility]) [address] [place] [address] [id number] 32 Microbiology results SOURCE URINE FINAL RESULT No growth 33 Concerning GFR Guidelines for Americans: Normal function or mild renal disease, if clinically at risk: >/=60 mL/min Moderately decreased: 30-59 Severely decreased: 15-29 Renal failure: <15 34 Concerning GFR Guidelines: Normal function or mild renal disease, if clinically at risk: >/=60 mL/min Moderately decreased: 30-59 Severely decreased: 15-29 Renal failure: <15 Glomerular Filtration Rate (GFR) is estimated based on the MDRD equation, which assumes a steady state for creatinine as recommended by the National Kidney Disease Education Program in conjunction with the National Institutes of Health and the National Kidney Foundation. Clinical conditions in which it may be necessary to measure GFR by using clearance methods include extremes of age and body size, severe malnutrition or obesity, diseases of skeletal muscle, paraplegia or quadriplegia, vegetarian diet, rapidly changing kidney function, and calculation of the dose of potentially toxic drugs that are excreted by the kidneys. 35 Microbiology results SOURCE URINE COLONY COUNT 50,000 CFU/ML FINAL RESULT Beta hemolytic strep group B. NOTE: Streptococcal sensitivities are predictable and are therefore not routinely performed. If you need specific antibiotics tested, please consult the laboratory. 36 Microbiology results SOURCE URINE COLONY COUNT 25,000 CFU/ML FINAL RESULT Beta Hemolytic Streptococci Group B 37 Concerning GFR Guidelines for Americans: Normal function or mild renal disease, if clinically at risk: >/=60 mL/min Moderately decreased: 30-59 Severely decreased: 15-29 Renal failure: <15 38 Concerning GFR Guidelines: Normal function or mild renal disease, if clinically at risk: >/=60 mL/min Moderately decreased: 30-59 Severely decreased: 15-29 Renal failure: <15 Glomerular Filtration Rate (GFR) is estimated based on the MDRD equation, which assumes a steady state for creatinine as recommended by the National Kidney Disease Education Program in conjunction with the National Institutes of Health and the National Kidney Foundation. Clinical conditions in which it may be necessary to measure GFR by using clearance methods include extremes of age and body size, severe malnutrition or obesity, diseases of skeletal muscle, paraplegia or quadriplegia, vegetarian diet, rapidly changing kidney function, and calculation of the dose of potentially toxic drugs that are excreted by the kidneys. 39 Per NCEP ATP III Guidelines: Results lower than 40 mg/dL are suggestive of increased risk for coronary artery disease. Results > or=to 60 mg/dL are considered a negative risk factor. 40 Per NCEP ATP III Guidelines: Normal Population <130 Patients with medical conditions: CHD/DM Optimal: <100 Borderline high: 130-159 High: 160-189 Very high: >189 41 This sample is drawn by:STEPHANI.FAX RESULTS [phone] 42 Concerning GFR Guidelines: Normal function or mild renal disease, if clinically at risk: >/=60 mL/min Moderately decreased: 30-59 Severely decreased: 15-29 Renal failure: <15 Glomerular Filtration Rate (GFR) is estimated based on the MDRD equation, which assumes a steady state for creatinine as recommended by the National Kidney Disease Education Program in conjunction with the National Institutes of Health and the National Kidney Foundation. Clinical conditions in which it may be necessary to measure GFR by using clearance methods include extremes of age and body size, severe malnutrition or obesity, diseases of skeletal muscle, paraplegia or quadriplegia, vegetarian diet, rapidly changing kidney function, and calculation of the dose of potentially toxic drugs that are excreted by the kidneys. 43 Concerning GFR Guidelines for Americans: Normal function or mild renal disease, if clinically at risk: >/=60 mL/min Moderately decreased: 30-59 Severely decreased: 15-29 Renal failure: <15 44 This sample is drawn by:STEPHANI. 45 Microbiology results SOURCE URINE COLONY COUNT 50,000 CFU/ML FINAL RESULT Beta hemolytic strep group B. NOTE: Streptococcal sensitivities are predictable and are therefore not routinely performed. If you need specific antibiotics tested, please consult the laboratory. 46 Concerning GFR Guidelines for Americans: Normal function or mild renal disease, if clinically at risk: >/=60 mL/min Moderately decreased: 30-59 Severely decreased: 15-29 Renal failure: <15 47 Concerning GFR Guidelines: Normal function or mild renal disease, if clinically at risk: >/=60 mL/min Moderately decreased: 30-59 Severely decreased: 15-29 Renal failure: <15 Glomerular Filtration Rate (GFR) is estimated based on the MDRD equation, which assumes a steady state for creatinine as recommended by the National Kidney Disease Education Program in conjunction with the National Institutes of Health and the National Kidney Foundation. Clinical conditions in which it may be necessary to measure GFR by using clearance methods include extremes of age and body size, severe malnutrition or obesity, diseases of skeletal muscle, paraplegia or quadriplegia, vegetarian diet, rapidly changing kidney function, and calculation of the dose of potentially toxic drugs that are excreted by the kidneys. 48 CONFIRMATION TEST TEMPORARILY NOT AVAILABLE DUE TO A NATIONAL REAGENT BACKORDER. 49 Unless otherwise specified, testing performed by [facility] ([facility]) [address] [place] [id number] 50 Microbiology results SOURCE URINE COLONY COUNT 75,000 CFU/ML FINAL RESULT Beta hemolytic strep group B. NOTE: Streptococcal sensitivities are predictable and are therefore not routinely performed. If you need specific antibiotics tested, please consult the laboratory. 51 Microbiology results SOURCE URINE FINAL RESULT Mixed urethral iona consistent with contamination. No further workup. 52 4.19 Consistent with previous result(s). 53 11.1 Consistent with previous result(s). 54 This sample is drawn by:CT 55 Concerning GFR Guidelines for Americans: Normal function or mild renal disease, if clinically at risk: >/=60 mL/min Moderately decreased: 30-59 Severely decreased: 15-29 Renal failure: <15 56 Concerning GFR Guidelines: Normal function or mild renal disease, if clinically at risk: >/=60 mL/min Moderately decreased: 30-59 Severely decreased: 15-29 Renal failure: <15 Glomerular Filtration Rate (GFR) is estimated based on the MDRD equation, which assumes a steady state for creatinine as recommended by the National Kidney Disease Education Program in conjunction with the National Institutes of Health and the National Kidney Foundation. Clinical conditions in which it may be necessary to measure GFR by using clearance methods include extremes of age and body size, severe malnutrition or obesity, diseases of skeletal muscle, paraplegia or quadriplegia, vegetarian diet, rapidly changing kidney function, and calculation of the dose of potentially toxic drugs that are excreted by the kidneys. 57 This sample is drawn by:STEPHANI. 58 Concerning GFR Guidelines for Americans: Normal function or mild renal disease, if clinically at risk: >/=60 mL/min Moderately decreased: 30-59 Severely decreased: 15-29 Renal failure: <15 59 Concerning GFR Guidelines: Normal function or mild renal disease, if clinically at risk: >/=60 mL/min Moderately decreased: 30-59 Severely decreased: 15-29 Renal failure: <15 Glomerular Filtration Rate (GFR) is estimated based on the MDRD equation, which assumes a steady state for creatinine as recommended by the National Kidney Disease Education Program in conjunction with the National Institutes of Health and the National Kidney Foundation. Clinical conditions in which it may be necessary to measure GFR by using clearance methods include extremes of age and body size, severe malnutrition or obesity, diseases of skeletal muscle, paraplegia or quadriplegia, vegetarian diet, rapidly changing kidney function, and calculation of the dose of potentially toxic drugs that are excreted by the kidneys. 60 Microbiology results SOURCE URINE FINAL RESULT No growth 61 [facility] [address] GYNECOLOGIC CYTOLOGY REPORT Accession Number: [id number] Source of Specimen(s): A: [facility] Vaginal/ Cervical/ Endocervical Pap Smear - One Vial Clinical Diagnosis and History: Date of Last Menstrual Period: None Provided Other Clinical Conditions: REFLEX TO DIGENE HPV ASSAY IF RESULTS OF THIS PAP ARE ASCUS Specimen Adequacy Satisfactory for evaluation Absence of endocervical/transformation zone component General Categorization Negative for intraepithelial lesion or malignancy Interpretation NEGATIVE FOR INTRAEPITHELIAL LESION OR MALIGNANCY Reported: 06/04/2012 Electronically Signed Out By Ya De La Fuente SCT(ASCP)([facility]) Oil Dispatcher: Odilia Santiago CT(ASCP) [facility] QC Reviewed: Y Unless otherwise specified, [facility] [address] [id number] 62 Concerning GFR Guidelines for Americans: Normal function or mild renal disease, if clinically at risk: >/=60 mL/min Moderately decreased: 30-59 Severely decreased: 15-29 Renal failure: <15 63 Concerning GFR Guidelines: Normal function or mild renal disease, if clinically at risk: >/=60 mL/min Moderately decreased: 30-59 Severely decreased: 15-29 Renal failure: <15 Glomerular Filtration Rate (GFR) is estimated based on the MDRD equation, which assumes a steady state for creatinine as recommended by the National Kidney Disease Education Program in conjunction with the National Institutes of Health and the National Kidney Foundation. Clinical conditions in which it may be necessary to measure GFR by using clearance methods include extremes of age and body size, severe malnutrition or obesity, diseases of skeletal muscle, paraplegia or quadriplegia, vegetarian diet, rapidly changing kidney function, and calculation of the dose of potentially toxic drugs that are excreted by the kidneys. 64 < 0.90 NEGATIVE > 0.89 AND < 1.09 INDETERMINATE > 1.09 POSITIVE Unless otherwise specified, testing performed by [facility] ([facility]) [address] [place] [id number] 65 This sample is drawn by:STEPHANI 66 New Method as of 09/17/01 using Third Generation TSH methodolgy Procedures Date CPT Code Description Status Comment 08/15/2017 13145 Brief Emotional/Behav Completed Assessment W/ Scoring Doc Per Standard Inst 08/15/2017 17791 Electrocardiogram Complete Completed 06/25/2017 Mammogram Completed 01/27/2017 69960 Electrocardiogram Complete Completed 05/22/2016 Colonoscopy Completed Document: 05/22/16 - Colonoscopy 03/15/2016 Mammogram Completed 08/19/2015 Colonoscopy Completed 08/17/2015 Colonoscopy Completed 07/10/201559263 Inject/Drain Joint/Bursa Major Completed W/Out Ultrasound Guidance 02/21/201537300 Inject/Drain Joint/Bursa Major Completed W/Out Ultrasound Guidance 02/21/201525644 Inject/Drain Joint/Bursa Major Completed W/Out Ultrasound Guidance 01/30/2015 Mammogram Completed 01/16/2015 68314 Electrocardiogram Complete Completed 08/01/2014 98621 Electrocardiogram Complete Completed 09/17/2012 Bone Mineral Density Test Completed 09/17/2012 Mammogram Completed 04/29/2011 52111 Admin Of Inj (Therapeutic Completed Phrophylactic Or Diagnostic Subq Inj 11/30/2010 Inject/Drain Joint/Bursa Major Completed W/Out Ultrasound Guidance 11/30/2010 57322 Electrocardiogram Complete Completed 08/09/2010 Mammogram Completed 07/24/2010 87392 Electrocardiogram Complete Completed 03/15/2010 Colonoscopy Completed 01/23/2009 02791 Electrocardiogram Complete Completed 09/26/2008 Mammogram Completed 03/09/2008 95987 Mammography Screening Bilateral Completed 08/20/2000 33402 Electrocardiogram Complete Completed Encounters Type Date Location Provider CPT E/M Dx Office Visit 12/05/2017 11:00[place] [address] I10 R51 G89.4 M25.50 K21.0 E55.9 D51.9 M16.0 Z68.33 Office Visit 10/10/2017 11:30[place] [address] I10 F33.40 R51 M54.5 G89.4 F41.9 M25.50 Z68.34 Office Visit 08/15/2017 11:00a Barbara Rivera MD G0439 Z00.01 I10 F33.40 N95.2 F41.9 M54.5 G89.4 D50.9 E55.9 D51.9 R00.2 Z12.11 Z12.31 E04.2 K21.0 Z13.89 M25.551 M13.0 Z01.818 Z68.36 Office Visit 05/16/2017 2:15p [place] [address] N30.01 D48.5 N95.2 I10 S39.012A F41.9 Office Visit 01/27/2017 10:30[place] [address] I10 R06.02 H53.9 G89.4 F41.9 D50.9 E55.9 D51.9 R00.2 N39.0 Office Visit 10/14/2016 4:15p [place] [address] I10 D50.9 M48.07 G89.4 M25.511 F41.9 N39.0 D73.89 Z12.11 R92.2 N64.4 Z79.891 Office Visit 08/02/2016 3:00[place] [address] I10 G89.4 M48.07 D50.9 D73.89 R25.3 F41.9 Z79.891 M25.511 M25.512 Office Visit 06/07/2016 4:00[place] [address] I10 G89.4 M48.07 D50.9 K64.8 R19.7 D73.89 F41.9 R25.3 Office Visit 02/26/2016 3:15p Barbara Rivera MD G0439 Z00.00 I10 G89.4 M48.07 F41.9 D50.9 N95.2 D51.9 E55.9 M54.2 K21.0 Z12.31 Z12.11 F33.40 R63.5 Office Visit 12/18/2015 3:00[place] [address] I10 G89.4 M48.07 Office Visit 10/24/2015 2:00[place] [address] I10 G89.4 F41.9 D50.9 N95.2 Office Visit 10/10/2015 1:45[place] [address] I10 R55 G89.4 F41.9 D64.9 D51.9 E55.9 N39.0 M54.2 Office Visit 09/26/2015 11:00[place] [address] R55 N18.9 G89.4 F41.9 Z79.899 I10 S06.0x1A Office Visit 09/21/2015 1:00p Enedina Jiang RN [facility] [address]3044 R55 Z48.02 G89.4 Office Visit 07/10/2015 4:45[place] [address] M25.511 G89.4 I10 M70.62 M48.07 N30.00 Office Visit 05/26/2015 1:00[place] [address] G89.4 I10 M16.12 N30.00 M48.07 M70.62 K21.0 F41.9 Office Visit 02/21/2015 1:00p Barbara Rivera MD G0439 Z00.00 M70.62 G89.4 M48.07 K21.0 G47.00 F41.9 I10 Z00.01 Office Visit 01/16/2015 1:00[place] [address] Z00.01 G89.4 I10 K21.0 M48.07 Z12.39 Z12.11 G47.00 F41.9 Office Visit 11/15/2014 10:30[place] [address] 300.00 338.4 719.41 787.01 787.91 362.50 Office Visit 10/17/2014 8:45[place] [address] 401.1 338.4 719.41 787.02 530.11 477.0 362.50 309.81 Office Visit 09/26/2014 2:45[place] [address] 338.4 401.1 Office Visit 09/12/2014 1:00[place] [address] 401.1 338.4 719.41 724.02 787.02 461.8 Office Visit 08/18/2014 2:40[place] [address] 461.8 Office Visit 08/01/2014 3:00[place] [address] 719.41 338.4 787.02 V72.81 401.1 Office Visit 07/11/2014 11:15[place] [address] 719.41 338.4 724.02 787.02 401.1 Office Visit 06/13/2014 11:15[place] [address] 724.02 719.41 338.4 401.1 788.41 598.9 296.32 Office Visit 05/16/2014 2:45[place] [address] 719.41 724.02 788.41 780.60 338.4 Office Visit 05/02/2014 2:00[place] [address] 788.41 595.0 780.60 041.02 787.02 783.21 280.8 338.4 789.07 719.45 V69.8 Office Visit 04/05/2014 4:00[place] [address] 461.0 724.2 595.0 719.45 Office Visit 02/22/2014 1:15p Barbara Rivera MD G0439 V70.0 401.1 780.60 338.4 530.11 V76.10 V76.51 477.0 780.52 Office Visit 01/25/2014 3:15[place] [address] 780.60 338.4 532.30 268.9 281.1 401.1 780.52 Office Visit 08/27/2013 3:30[place] [address] 401.1 338.4 530.11 296.31 719.49 368.9 Office Visit 03/30/2013 8:00[place] [address] 401.1 338.4 285.9 530.11 Office Visit 01/29/2013 2:00[place] [address] 401.1 338.4 530.11 281.1 268.9 790.21 593.2 Office Visit 09/25/2012 11:00[place] [address] 296.31 401.1 V82.81 532.30 Office Visit 08/24/2012 11:00[place] [address] 401.1 532.30 593.2 719.49 281.1 275.2 V76.10 V82.81 783.1 296.31 719.40 Office Visit 06/02/2012 10:45a Barbara Rivera MD G0402 V72.31 401.1 780.60 V76.10 V82.81 780.52 790.21 268.9 530.11 789.01 V70.0 789.06 627.3 Office Visit 05/14/2012 1:00p Enedina Jiang RN [facility] [employer] [facility] 55232 780.60 Office Visit 04/10/2012 2:30[place] [address] 461.0 Office Visit 03/24/2012 10:45[place] [address] 401.1 787.02 726.5 338.4 727.04 789.06 Office Visit 02/04/2012 11:15[place] [address] 787.02 401.1 338.4 726.5 Office Visit 11/04/2011 11:00[place] [address] 401.1 461.0 Office Visit 10/15/2011 1:45[place] [address] 786.51 401.1 719.49 Office Visit 07/19/2011 11:00[place] [address] 401.1 780.52 719.49 461.0 790.21 466.0 Office Visit 06/21/2011 1:45[place] [address] 726.5 780.52 401.1 719.49 786.51 Office Visit 11/30/2010 11:30[place] [address] 401.1 726.5 786.51 Office Visit 08/20/2010 12:45[place] [address] 611.72 786.2 726.5 401.1 Office Visit 07/24/2010 2:30[place] [address] 401.1 786.2 V76.10 729.1 611.72 Office Visit 01/26/2010 3:45[place] [address] 723.1 787.91 569.3 401.1 Office Visit 08/29/2009 2:30[place] [address] 466.0 Office Visit 02/27/2009 1:30[place] [address] 786.2 Office Visit 02/07/2009 2:00[place] [address] 493.00 780.4 Office Visit 01/23/2009 3:00[place] [address] V72.31 268.9 719.49 401.1 296.32 477.0 627.3 333.1 435.9 530.11 V76.51 Office Visit 07/22/2008 2:00[place] [address] 268.9 719.49 401.1 V76.10 Office Visit 03/22/2008 2:00[place] [address] 296.32 268.9 Office Visit 02/23/2008 2:15p [place] [address] 719.49 401.1 530.11 296.32 V76.10 Office Visit 01/02/2007 2:45[place] [address] 724.2 477.0 Office Visit 11/25/2006 10:00[place] [address] 724.2 Office Visit 10/20/2006 4:45p [place] [address] 724.2 530.11 Office Visit 09/30/2006 3:30[place] [address] 401.1 845.00 787.91 530.11 724.2 Office Visit 01/29/2006 11:00a Enedina Jiang RN [facility] [employer] 65853 733.90 719.41 401.1 Office Visit 03/03/2003 9:40a [place] [address] 627.2 Office Visit 08/17/2002 11:00[place] [address] 627.2 733.90 Office Visit 10/23/2001 1:30p [place] [address] 780.79 789.00 780.52 Office Visit 09/25/2001 1:50p [place] [address] 780.79 789.00 789.36 240.9 790.0 729.1 Office Visit 08/20/2000 6:50[place] [address] Plan of Care Future Appointment(s):04/10/2018 11:15 am - Barbara Castro MD at [place]8801/26 - Rex Oakes PAZ01.818 Encounter for other preprocedural examinationComments:Moderate risk for a low risk surgery. HTN controlled. Cardio to complete a Holter monitor for 24hrs this week.She is clear for cataract surgery pending cardio okay.I10 Essential (primary) hypertensionComments:well controlled. Sinus tachy with cardio and to get Holter monitor for 24hrs.F33.40 Major depressive disorder, recurrent, in remission, unspComments:no uytciixnbN60.0 Bilateral primary osteoarthritis of hipComments:see tjjdqC67.5 Low back painComments:see ycjmqF73.07 Spinal stenosis , lumbosacral regionComments:see goesuN68.4 Chronic pain syndromeComments: treatment and injections with pain mgt.R51 HeadacheComments:h/o migraines. stable and seeing MhidoT22.2 Nontoxic multinodular goiterComments:[address] by Dr Benavides.Z68.35 Body mass index (BMI) 35.0-35.9, adultAllNew Medication:Sucralfate 1 GM/10ML
--- OUTSIDE RECORDS SUMMARY | 2018-02-03 18:56 | XMS REPORT ---
:1945 External Reference #:[id number] Author Organization [facility] Address [address] [place] [address] [place] [address] Phone [phone] Care Team Providers Name Role Phone Barbara Castro MD Primary Care Physician Unavailable Payers Type Date Identification Numbers Payment Provider Subscriber Medicare Primary Effective: Policy Number: Medicare Katherine Ramirez 2012 [id number] PayID: [id number] [address] [place] [address] [facility] Part [facility] Effective: Policy Number: [facility] Katherine Ramirez 2015 [id number] Healthcare PayID: [id number] [address] [place] [address] Problems Date Description Provider Status Onset: 06/01/2015 Sciatica Omkar Muller M.D. Active Onset: 06/01/2015 Iliotibial band friction syndrome Omkar Muller M.D. Active Onset: 03/24/2017 Abnormal results function studies of Luis Felipe Caal M.D. Active central nervous system Onset: 03/24/2017 Palpitations Luis Felipe Caal M.D. Active Onset: 12/12/2017 Trochanteric bursitis Michelle Arenas M.D. 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 Active Family History Date Family Member(s) Problem(s) Comments General No Current Problems Father due to surgical complications. 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 ETOH Use Rarely consumes alcohol Smoking Patient has never smoked Recreational Drug Use Denies Drug Use Daily Caffeine Does Not Consume Caffeine Exercise Type/Frequency Exercises sporadically Allergies, Adverse Reactions, Alerts Date Description Reaction Status Severity Comments 06/01/2015 Quinidine Rash active Moderate to Severe 06/01/2015 Sulfa Antibiotics Bone Marrow active Severe Suppression 06/01/2015 Paxil "Electric shock active Moderate to Severe feeling" 06/01/2015 Cipro Nausea and Vomiting active Moderate to Severe 05/20/2016 Beta Blockers memory & eye sight active Severe loss, bone marrow suppression 04/22/2017 Verapamil insomnia, head active Moderate pressure 04/22/2017 Diltiazem insomnia, head active Moderate pressure, HTN Medications Medication Date Status Form Strength Qnty SIG Indications Ordering Provider Amlodipine 05/12/ Active Tablets 10mg 90tabs 1 by I10 Jay Banks 2018 mouth F. Mauser, every day M.DJimmy Lorazepam 01/29/ Active Tablets 1mg 1 tab by Unknown 2017 mouth at night Vitamin D / Active Tablets 5000Unita every Unknown 0000 other day by mouth Vitamin B / Active Tablets 1 by Unknown Complex 0000 mouth every day Pantoprazole / Active Tablets DR 20mg 1 by Unknown Sodium 0000 mouth bid Percocet / Active Tablets 10-325mg 1/2 tab Unknown 0000 by mouth every 12 hours as needed pain Benazepril HCL / Active Tablets 10mg 90tabs 1 by Aldo 0000 mouth S. every day David Conroy Dayquil / Active 15cc prn Unknown 0000 Melatonin / Active Tablets 10mg hs Unknown 0000 Vitamin B12 / Active Tablets ER 1000mcg 1 by Unknown 0000 mouth 2x month Iron / Active Tablets 325mg 1 by Unknown High-Potency 0000 mouth every day Flector / Active Patches 1.3% apply 1 Unknown 0000 patch to the skin two times daily as needed Gabapentin / Active Capsules 300mg 1 cap in Unknown 0000 the morning, 1 at 2 pm, 2 at hs and 1-2 through out the night Amlodipine 04/22/ Hx Tablets 5mg 30tabs 2 tabs by I10 Aldo Banks 2017 - mouth S. 05/12/ every day Marycarmen 2018 David Verapamil HCL 04/14/ Hx Tablets ER 120mg 30tabs 1 tab Qutaybeh ER 2017 - daily S. 04/22/ Marycarmen, 2016 David Dilt-CD 03/19/ Hx Caps ER 120mg 30caps one po Qutaybeh 2017 - 24HR daily S. 04/16/ Marycarmen, 2016 David Bernadette Allergy / Hx Tablets 60mg 1 by Unknown 0000 mouth every day as needed Soma / Hx Tablets 250mg 1 tab q8 Unknown 0000 hours by mouth as needed muscle spasms Lorazepam / Hx Tablets 0.25mg 1 at Unknown 0000 - bedtime 01/30/ as needed 2017 Gabapentin / Hx Capsules 300mg 2 po QHS Unknown 0000 - 2016 Amlodipine / Hx Tablets 5mg 1 by Unknown Besylate 0000 - mouth 03/19/ every day 2016 Ferrous Sulfate / Hx Tablets 325mg 1 by Unknown 0000 mouth twice a day Medications Administered in Office Medication Date Status Form Strength Qnty SIG Indications Ordering Provider Triamcinolone 11/25/ Administered Injection Zaneb (Kenalog) 2017 MD Kevin Triamcinolone 11/25/ Administered Injection Zaneb (Kenalog) 2017 MD Kevin Triamcinolone 10/10/ Administered Injection Zaneb (Kenalog) 2017 MD Kevin Triamcinolone 10/10/ Administered Injection Zaneb (Kenalog) 2017 MD Kevin Triamcinolone 08/28/ Administered Injection Zaneb (Kenalog) 2017 MD Kevin Triamcinolone 08/28/ Administered Injection Zaneb (Kenalog) 2017 MD Kevin Vital Signs Date Vital Result Comment 01/16/2018 Height 64 inches 5'4" Weight 205.25 lb w/ shoes Heart Rate 90 /min 45 BP Systolic Sitting 102 mmHg lue large cuff BP Diastolic Sitting 78 mmHg lue large cuff BMI (Body Mass Index) 35.2 kg/m2 Ejection Fraction 55-60% echo 02/27/17 12/12/2017 Height 64 inches 5'4" Weight 202.00 lb Heart Rate 76 /min BP Systolic Sitting 114 mmHg BP Diastolic Sitting 78 mmHg Body Temperature 98.6 F Pain Level 0 BMI (Body Mass Index) 34.7 kg/m2 11/25/2017 Height 63 inches 5'3" Weight 201.00 lb Respiratory Rate 15 /min Pain Level 6 BMI (Body Mass Index) 35.6 kg/m2 10/10/2017 Height 63 inches 5'3" Weight 206.00 lb BP Systolic 114 mmHg BP Diastolic 66 mmHg Respiratory Rate 20 /min Pain Level 4 BMI (Body Mass Index) 36.5 kg/m2 09/12/2017 Height 64 inches 5'4" Weight 200.00 lb Heart Rate 76 /min BP Systolic Sitting 120 mmHg BP Diastolic Sitting 90 mmHg Respiratory Rate 16 /min BMI (Body Mass Index) 34.3 kg/m2 08/28/2017 Height 63 inches 5'3" Weight 206.00 lb Heart Rate 88 /min BP Systolic 100 mmHg BP Diastolic 74 mmHg Respiratory Rate 20 /min Body Temperature 97.8 F Pain Level 4 constant BMI (Body Mass Index) 36.5 kg/m2 05/12/2017 Heart Rate 84 /min BP Systolic Sitting 126 mmHg BP Diastolic Sitting 84 mmHg Respiratory Rate 18 /min Body Temperature 97.1 F 04/22/2017 Height 63 inches 5'3" Weight 210.00 lb No shoes Heart Rate 98 /min BP Systolic Sitting 130 mmHg Rue lrg cuff BP Diastolic Sitting 88 mmHg Rue lrg cuff BP Systolic Standing 124 mmHg Rue lrg cuff BP Diastolic Standing 86 mmHg Rue lrg cuff Respiratory Rate 17 /min BMI (Body Mass Index) 37.2 kg/m2 Ejection Fraction 55-60% 02/27/2017-echo 04/04/2017 Heart Rate 88 /min Apical BP Systolic 142 mmHg Ra, lcuff BP Diastolic 84 mmHg Ra, lcuff BP Systolic Sitting 144 mmHg LA, lcuff BP Diastolic Sitting 82 mmHg LA, lcuff BP Systolic Standing 138 mmHg Ra, lcuff BP Diastolic Standing 88 mmHg Ra, lcuff 03/24/2017 Height 64 inches 5'4" Weight 206.00 lb Heart Rate 72 /min BP Systolic 122 mmHg BP Diastolic 78 mmHg Respiratory Rate 14 /min BMI (Body Mass Index) 35.4 kg/m2 03/19/2017 Height 64 inches 5'4" Weight 208.00 lb with shoes Heart Rate 98 /min BP Systolic Sitting 125 mmHg LA large cuff BP Diastolic Sitting 76 mmHg LA large cuff BMI (Body Mass Index) 35.7 kg/m2 Ejection Fraction 55-60% 02/27/17 echo 01/30/2017 Height 64 inches 5'4" Weight 209.25 lb with shoes Heart Rate 112 /min BP Systolic Sitting 122 mmHg LA lrg cuff BP Diastolic Sitting 78 mmHg LA lrg cuff BMI (Body Mass Index) 35.9 kg/m2 11/13/2016 Height 64 inches 5'4" Weight 203.00 lb Heart Rate 74 /min BP Systolic 122 mmHg BP Diastolic 78 mmHg Respiratory Rate 18 /min Body Temperature 99.1 F BMI (Body Mass Index) 34.8 kg/m2 07/04/2016 Heart Rate 90 /min BP Systolic 118 mmHg BP Diastolic 82 mmHg Respiratory Rate 18 /min Body Temperature 98.1 F 06/06/2016 Height 65 inches 5'5" Weight 200.00 lb Heart Rate 72 /min BP Systolic 126 mmHg BP Diastolic 80 mmHg Respiratory Rate 16 /min Body Temperature 96.7 F BMI (Body Mass Index) 33.3 kg/m2 05/21/2016 Weight 200.00 lb BP Systolic Sitting 120 mmHg BP Diastolic Sitting 82 mmHg 05/20/2016 Height 65 inches 5'5" Weight 200.00 lb Heart Rate 84 /min BP Systolic 124 mmHg BP Diastolic 72 mmHg Respiratory Rate 18 /min Body Temperature 98.1 F BMI (Body Mass Index) 33.3 kg/m2 06/01/2015 Height 65 inches 5'5" Weight 180.00 lb BP Systolic Sitting 128 mmHg BP Diastolic Sitting 78 mmHg Respiratory Rate 16 /min Pain Level 0 BMI (Body Mass Index) 30.0 kg/m2 Results Test Date Test Result H/L Range Note Laboratory test finding 03/13/2017 Cytology Non-Beta Tester SEE RESULT BELOW 1 Laboratory test finding 11/21/2016 Ferritin 20.2 ng/mL 11-307 Iron & Iron Binding 11/21/2016 Iron 75 g/dL 50-212 Capacity Unsaturated Iron Binding 367 g/dL Total Iron Binding Capacity 442 g/dL 250-450 % Iron Saturation 17 % 15-55 CBC Auto Diff 11/21/2016 White Blood Count 5.6 10^3/uL 3.5-10.8 Red Blood Count 4.24 10^6/uL 4.0-5.4 Hemoglobin 13.8 g/dL 12.0-16.0 Hematocrit 42 % 35-47 Mean Corpuscular Volume 98 fL High 80-97 Mean Corpuscular Hemoglobin 33 pg High 27-31 Mean Corpuscular HGB Conc 33 g/dL 31-36 Red Cell Distribution Width 14 % 10.5-15 Platelet Count 184 10^3/uL 150-450 Mean Platelet Volume 10 um3 7.4-10.4 Abs Neutrophils 3.1 10^3/uL 1.5-7.7 Abs Lymphocytes 1.9 10^3/uL 1.0-4.8 Abs Monocytes 0.4 10^3/uL 0-0.8 Abs Eosinophils 0.1 10^3/uL 0-0.6 Abs Basophils 0 10^3/uL 0-0.2 Abs Nucleated RBC 0 10^3/uL Granulocyte % 55.8 % 38-83 Lymphocyte % 33.6 % 25-47 Monocyte % 7.7 % 1-9 Eosinophil % 2.5 % 0-6 Basophil % 0.4 % 0-2 Nucleated Red Blood Cells % 0.1 Laboratory test finding 07/31/2016 Iron (Fe) 124 g/dL 50-212 Ferritin 30.7 ng/mL 11-307 Basic Metabolic Panel 07/31/2016 Sodium 139 mmol/L 133-145 Potassium 3.9 mmol/L 3.5-5.0 Chloride 103 mmol/L 101-111 Co2 Carbon Dioxide 29 mmol/L 22-32 Anion Gap 7 mmol/L 2-11 Glucose 104 mg/dL High 70-100 Blood Urea Nitrogen 10 mg/dL 6-24 Creatinine 0.91 mg/dL 0.51-0.95 BUN/Creatinine Ratio 11.0 8-20 Calcium 9.5 mg/dL 8.6-10.3 Egfr Non- 61.3 >60 Egfr 78.8 >60 2 CBC No Diff 07/31/2016 White Blood Count 6.2 10^3/uL 3.5-10.8 Red Blood Count 4.50 10^6/uL 4.0-5.4 Hemoglobin 14.5 g/dL 12.0-16.0 Hematocrit 43 % 35-47 Mean Corpuscular Volume 96 fL 80-97 Mean Corpuscular Hemoglobin 32 pg High 27-31 Mean Corpuscular HGB Conc 34 g/dL 31-36 Red Cell Distribution Width 14 % 10.5-15 Platelet Count 168 10^3/uL 150-450 Mean Platelet Volume 10 um3 7.4-10.4 Laboratory test finding 05/22/2016 Surgical Pathology SEE RESULT BELOW 3 1 SEE RESULT BELOW Name: KATHERINE RAMIREZ : [address]: Brandon Pruitt MD Acct: [id number] Unit: [id number] AGE: 71 Location: THYROID Re03/13/17 SEX: F Status: REG REF SPEC: [id number] [place]: 03/13/[address] [facility] [address]: Brandon Pruitt MD REQ: [id number] RECD: 03/13/17 STATUS: CED GUPTA DR: Barbara Farias MD _ ORDERED: FNA-IMG GUID BX, CYTO ADEQ-1ST P FINAL DIAGNOSIS Thyroid, left, Ultrasound guided, fine needle aspiration: Benign thyroid nodule- involutional type ([place] class II). The specimen demonstrates abundant watery proteinaceous fluid, an abundant amount of benign appearing follicular epithelium arranged in uniform sheets, medium sized follicles and only occasional small groups. Abundant pigmented and non-pigmented macrophages are seen in the background. No features of papillary carcinoma are seen. In this clinical setting the risk of malignancy is less than 3%. Clinical management of this thyroid nodule should be based on clinical and radiographic features as well as the above findings. THYROID LEFT - US GUIDED FINE NEEDLE ASPIRATION CLINICAL HISTORY Left nodule-1.5x 1.0x 1.1cm CONTINUED ON NEXT PAGE * ML=Testing performed at Main Lab DEPARTMENT OF PATHOLOGY, [address] [place] [address] Jona Head M.D. Director ARCHIE # [id number] RUN DATE: 03/13/17 [facility] LAB LIVE PAGE 2 Patient: KATHERINE RAMIREZ [id number] (Continued) IMMEDIATE INTERPRETATION (Continued) IMMEDIATE INTERPRETATION Pass 1, and 2-adequate GROSS DESCRIPTION 3- alcohol fixed slide(s) 2- passes Signed (signature on file) Joan Head MD 1000 END OF REPORT * ML=Testing performed at Main Lab DEPARTMENT OF PATHOLOGY, [address] [place] [address] Jona Head M.D. Director ARCHIE # [id number] 2 Because ethnic data is not always readily available, this report includes an eGFR for both -Americans and non- Americans. The National Kidney Disease Education Program (NKDEP) does not endorse the use of the MDRD equation for patients that are not between the ages of 18 and 70, are , have extremes of body size, muscle mass, or nutritional status, or are non- or non-. According to the National Kidney Foundation, irrespective of diagnosis, the stage of the disease is based on the level of kidney function: Stage Description GFR(mL/min/1.73 m(2)) 1 Kidney damage with normal or decreased GFR 90 2 Kidney damage with mild decrease in GFR 60-89 3 Moderate decrease in GFR 30-59 4 Severe decrease in GFR 15-29 5 Kidney failure <15 (or dialysis) 3 SEE RESULT BELOW Name: KATHERINE RAMIREZ : [address]: Markus Maria MD Acct: [id number] Unit: [id number] AGE: 70 Location: OR Re05/22/16 SEX: F Status: REG [facility] SPEC: [id number] ANDERSON: 05/22/16-[address] [facility] [address]: Markus Maria MD REQ: [id number] RECD: 05/22/16 STATUS: SOUT _ ORDERED: LEVEL III FINAL DIAGNOSIS Anal mucosa, excision: -- Benign anal mucosa with thrombosed, dilated vessels in the lamina propria , compatible with hemorrhoids. -- No evidence of neoplasia. PRE-OPERATIVE DIAGNOSIS Second degree hemorrhoids GROSS DESCRIPTION The specimen is received in formalin labeled, Hemorrhoids, and consists of three redman-mark irregular wrinkled mucosal tissue fragments ranging from 1.7 x 0.8 x 0.7 cm to 3.2 x 1.8 x 0.6 cm. Sectioning reveals engorged vessels. The specimen is inked, serially sectioned and entirely submitted in cassettes A through D to include largest fragment in cassettes A and B. Signed (signature on file) Patricia Carrillo MD 1356 END OF REPORT * ML=Testing performed at Main Lab DEPARTMENT OF PATHOLOGY, [address] [place] [address] Jona Head M.D. Director [facility] # [id number] Procedures Date CPT Code Description Status 01/16/2018 09997 EKG Tracing & Interpretation Completed 11/25/201779036 Inject/Drain Joint/Bursa Major W/O US Completed 10/10/2017 Inj/Aspir Major JT Or Bursa W/ US Completed 08/28/2017 25062 Inject/Drain Joint/Bursa Major W/O US Completed 06/25/2017 Mammogram Completed 03/05/2017 42679 Treadmill Interp/Report Only Completed 03/05/2017 81107 Stress Test Supervsn W/Out I/R Completed 02/27/2017 40727 ECHO Transthoracic, Real-Time 2D With Doppler And Color Completed Flow 02/26/2017 09886 Holter Monitor Review (24 hr)dr review & interp only Completed 02/25/2017 81421 ECG Monitor/Recording W/Visual Superimposition Scanning Completed 01/30/2017 89949 EKG Tracing & Interpretation Completed 05/22/2016 12396 Hemorrhoidectomy Internal & External 2 Or More Completed Columns/Groups 05/20/2016 53346 Hemorrhoidectomy, Internal, By Rubber Band Ligation(S) Completed 03/15/2016 Mammogram Completed 09/24/2015 31971 EKG, Interpretation Only Completed 09/19/2015 92289 EKG, Interpretation Only Completed Encounters Type Date Location Provider CPT E/M Dx Office Visit 12/12/2017 11:00a [facility] Arenas M.D. 23398 M16.0 [facility] M70.62 M70.61 M25.551 M25.552 Office Visit 11/25/2017 3:30p [facility] [place] [address] M16.0 [facility] M54.5 Office Visit 09/12/2017 2:15p [facility] Luis Felipe Caal [address] R51 Services Of Farrah Hernandez Office Visit 08/28/2017 8:30a [place] [address] M54.5 Of [facility] M16.0 M70.62 M70.61 Office Visit 05/12/2017 1:30p [facility] [place] [address] N64.4 [facility] R92.8 Office Visit 04/22/2017 2:00p [facility] KIARA Valles 36292 R00.2 I10 Office Visit 04/04/2017 11:00a [facility] Nurse Visit 78037 I10 Office Visit 03/24/2017 8:30a [facility] Luis Felipe Caal 26434 R94.02 [facility] Farrah Hernandez R00.2 Office Visit 03/19/2017 4:20p [facility] Aldo Conroy 69410 I10 MSamantha I49.3 I49.1 Office Visit 01/30/2017 3:00p [facility] Aldo Conroy 00408 R00.0 David R00.2 R06.02 R53.83 I10 E66.9 R94.31 Office Visit 11/13/2016 10:45a [facility] [place] [address] N63 [facility] N64.4 Office Visit 05/20/2016 2:30p [facility] [place] [address] K64.1 [facility] K62.5 Office Visit 09/23/2015 11:12a [facility] Scott Karmaximiliano, 45030 N17.9 Hospitalists David R29.6 M79.7 Office Visit 09/19/2015 10:17a [facility] [address] N17.9 Hospitalists S06.0x1A S01.81xA I10 Office Visit 09/18/2015 10:[facility] [address] N17.9 Assoc,pc Hospitalists David S06.0x1A S01.81xA Office Visit 06/01/2015 11:00a [facility] Omkar Muller, 61094 M54.32 C.[facility]Gilda Hernandez M76.32 Office Visit 09/10/2014 5:24p [facility], 18825 719.41 Assoc,pc Hospitalists David Plan of Care Future Appointment(s):02/16/2018 2:30 pm - Bibiana Altman NP at [facility]01/29/2018 1:30 pm - Nurse Visit cc at [facility]01/28/2018 3 :00 pm - Nurse Visit cc at [facility]03/27/2018 1:00 pm - Michelle Arenas M.D. at [facility]03/11/2018 8:30 am - Christy Diego MD at [facility]03/27/2018 11:00 am - Luis Felipe Caal M.D. 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
--- NOTE | 2018-02-03 19:07 | UC ---
General HPI - HPI Summary HPI Summary: 72 yo female presents with a question about her prescriptions. She tells me that tomorrow she is scheduled for cataract surgery with Dr. Wooten and her discharge paperwork from her OV a few days ago says to begin her CIPRO eye drops the day before surgery, but today she realized that she has an rx for gentamicin and not cipro. She tried to call Dr. Wooten, but their office is closed. She does have an allergy to Cipro, but this is nausea from the po pill. - History of Current Complaint Stated Complaint: PRESCIPTION REFILL Time Seen by Provider: 02/03/18 19:06 Current Severity: None - Allergy/Home Medications Allergies/Adverse Reactions: Allergies Allergy/AdvReac Type Severity Reaction Status Date / Time ciprofloxacin [From Cipro] Allergy Nausea Verified 02/03/18 19:22 duloxetine [From Cymbalta] Allergy Unknown Verified 02/03/18 19:22 Reaction Details paroxetine [From Paxil] Allergy Shakes Verified 02/03/18 19:22 quinidine Allergy Rash Verified 02/03/18 19:22 Sulfa (Sulfonamide Allergy Unknown Verified 02/03/18 19:22 Antibiotics) Reaction Details BETA BLOCKERS Allergy Intermediate See Comment Uncoded 02/03/18 19:22 Home Medications: Home Medications Ketorolac 0.5% OPHTH (NF) 02/03/18 [History] Predforte Eye Drops* 02/03/18 [History] PMH/Surg Hx/FS Hx/Imm Hx Psychological History: Anxiety, Depression - Surgical History Surgical History: Yes Surgery Procedure, Year, and Place: gallbladder, tubal ligation, partial hysterectomy, right breast lumpectomy, right shoulder rotator cuff. MACULAR PUCKER - REMOVAL OF EXCESS TISSUE/FILM ON EYE - Family History Known Family History: Positive: None - Social History Occupation: Retired Lives: With Family Alcohol Use: Occasionally Alcohol Amount: 2 DRINKS A MONTH Substance Use Type: None Smoking Status (MU): Never Smoked Tobacco Have You Smoked in the Last Year: No Household Exposure Type: Cigarettes - Immunization History Most Recent Influenza Vaccination: 2014 Most Recent Tetanus Shot: unknown Most Recent Pneumonia Vaccination: declined Review of Systems Constitutional: Negative Skin: Negative Eyes: Negative ENT: Negative Respiratory: Negative Cardiovascular: Negative Gastrointestinal: Negative Neurovascular: Negative Neurological: Negative Psychological: Negative All Other Systems Reviewed And Are Negative: Yes Physical Exam - Summary Physical Exam Summary: GENERAL: NAD. WDWN. No pain distress. SKIN: No streaking, bleeding, or drainage. CHEST: No accessory muscle use. Breathing comfortably and in no distress. CV: Pulses intact. Cap refill <2seconds NEURO: Alert. PSYCH: Age appropriate behavior. Triage Information Reviewed: Yes Vital Signs: Vital Signs: Temp Pulse Resp BP Pulse Ox 97.8 F 125 20 113/77 96 02/03/18 19:14 02/03/18 19:14 02/03/18 19:14 02/03/18 19:14 02/03/18 19:14 Course/Dx - Course Course Of Treatment: I spoke to Dr. Randall (Dr. Wooten's on-call) and she informed me that - per Dr. Wooten's visit notes - he wants her on gentamicin. I discussed this with the pt and she voiced understanding. - Differential Dx - Multi-Symptom Provider Diagnoses: Right eye cataract Discharge - Sign-Out/Discharge Documenting (check all that apply): Patient Departure All imaging exams completed and their final reports reviewed: No Studies - Discharge Plan Condition: Stable Disposition: HOME Referrals: Barbara Jacinto MD [Primary Care Provider] - Additional Instructions: If you develop a fever, shortness of breath, chest pain, new or worsening symptoms - please call your PCP or go to the ED. - Billing Disposition and Condition Condition: STABLE Disposition: Home
[2018-02-03 19:21] VITALS: BP 113/77
== END 2018-02-03 19:59 | disposition home or self-care (01) ==
LOC: UCEAST 18:49
DX: H25.11 Age-related nuclear cataract, right eye (principal); Z88.1 Allergy status to other antibiotic agents; Z88.2 Allergy status to sulfonamides; Z88.8 Allergy status to other drugs, medicaments and biological substances
CPT/HCPCS: 99212; G0463

== ENCOUNTER 2018-02-04 10:28 | Day surgery (SDC) | payer MEDICARE ==
[~2018-02-04 10:28] MED LIST changes: +Acetaminophen TAB* 325 MG PO PRN; +Buffered Lidocaine 0.9% SYRIN* 5 ML/SYR SYRINGE INTRADERM ONE; -Buffered Lidocaine 1% SYR 3ML* 3 ML/SYR SYRINGE INTRADERM ONE; -Buffered Lidocaine 1% SYR 3ML* 3 ML/SYR SYRINGE ONE; -Bupivacaine 0.25% EPI 200,000* 30 ML SDV ONE; -Dexamethasone IV* 4 MG/ML 1 ML (4 MG) ONE; -DiMENhydriNATE IV* 50 MG/ML VIAL IV PUSH PRN; -Famotidine IV* 10 MG/ML 2 ML (20 mg) IV ONE; -Famotidine IV* 10 MG/ML 2 ML (20 mg) ONE; -Gelfoam 12-7 ADSORBABL SPONGE* 1 EA SPONGE ONE; -HYDROmorphone INJ* 1 MG/ML CARPUJECT SYRINGE IV PRN; -KETAMINE HCL* 50 MG/ML 10 ML VIAL ONE; -Ketorolac INJ* 30 MG/ML 1 ML VIAL ONE; -Lidocaine 2% MPF* 2 ML VIAL ONE; -Methylene Blue 1%* 10 ML VIAL ONE; -Metoclopramide TAB* 10 MG ONE; -Metoclopramide TAB* 10 MG PO ONE; -Midazolam* 1 MG/ML 5 ML VIAL (5 MG) ONE; -Ondansetron INJ* 2 MG/ML VIAL IV PRN; -Ondansetron INJ* 2 MG/ML VIAL ONE; -Propofol* 10 MG/ML 20 ML BTL IV PUSH ONE; -ceFAZolin 2 GM PREMIX (*) 2 GM/50 ML BAG IVPB ONE; -fentaNYL* 50 MCG/ML 2 ML VIAL (100 MCG VIAL) IV PRN; -fentaNYL* 50 MCG/ML 2 ML VIAL (100 MCG VIAL) ONE; -oxyCODONE/Acetamin 5/325 MG* TAB PO PRN
[2018-02-04] MEDS ORDERED: Midazolam* 1 MG/ML 5 ML VIAL (5 MG) ONE (12:13)
[2018-02-04] MEDS ORDERED: fentaNYL* 50 MCG/ML 2 ML VIAL (100 MCG VIAL) ONE (12:13)
[2018-02-04] MEDS ORDERED: Ketorolac 0.5% OPHTH (NF) 0.5 % 5 ML BTL ONE (13:07)
[2018-02-04] MEDS ORDERED: Neomycin/Polymy/Dex OPTH.SUSP* MAXITROL 0.1% 5 ML ONE (13:07)
[2018-02-04] MEDS ORDERED: Cyclopentolate 1% OPTH.SOL* 2 ML BTL ONE (13:07)
[2018-02-04] MEDS ORDERED: Lidocaine 2% EPI 1:200000 MPF*10-20 ML VIAL ONE (13:07)
[2018-02-04] MEDS ORDERED: Lidocaine 1%* 5 ML VIAL ONE (13:07)
[2018-02-04] MEDS ORDERED: Phenylephrine 2.5% OPTH.SOL* 2 ML BTL ONE (13:07)
[2018-02-04] MEDS ORDERED: Povidone Iodine 5% OPTH* 30 ML BTL ONE (13:07)
[2018-02-04] MEDS ORDERED: Proparacaine 0.5% OPHTH.SOL* 15 ML BTL ONE (13:08)
[2018-02-04 13:12] VITALS: BP 117/77
--- NOTE | 2018-02-05 09:26 | OP ---
OPERATIVE NOTE: DATE OF OPERATION: 02/04/18 - [facility] DATE OF : 49 SURGEON: Gunnar Wooten M.D. PREOPERATIVE DIAGNOSIS: Cataract, right eye. POSTOPERATIVE DIAGNOSIS: Cataract, right eye. OPERATIVE PROCEDURE: Extracapsular cataract extraction with intraocular lens implant and CTR, right eye. PROCEDURE: The patient was brought to the operating room after being given 1/2 % Alcaine with epinephrine drops in the preoperative area. The eye was prepped and draped in the usual sterile fashion. Sterile drape and eyelid speculum were placed. Again, topical 1/2% Alcaine with epinephrine was given. A paracentesis incision was made at the 9 o'clock position with the No.75 blade. Clear cornea incision 2.2 x 2.2-mm was created at the 12 o'clock position starting at the anterior limbus using the 2.2-mm keratome. The anterior chamber was irrigated with 0.4 mL of 1% non-preservative intracameral lidocaine and filled with DisCoVisc. A capsulorrhexis was completed using the cystotome and the Utrata forceps. Hydrodissection was performed with balanced salt solution. The lens nucleus was removed with the Phacoemulsification handpiece without incident. Cortex was removed with the irrigation-aspiration handpiece. The capsular bag was re-inflated using DisCoVisc and an SN60WF 23.5 followed by an ACTR10 capsular tension ring inserted with its shooter. The irrigation- aspiration handpiece was used to remove all residual DisCoVisc. The eye was refilled with balanced salt solution and the wound checked and found to be watertight. Topical Maxitrol drops were given. Indication for complex cataract surgery: Status post vitrectomy requiring capsular tension device. [id number] #: [id number] MTDD
== END 2018-02-04 13:18 | disposition home or self-care (01) ==
LOC: OREAST 10:28
PROVIDERS: ATTEND Specialist
DX: H25.811 Combined forms of age-related cataract, right eye (principal); H35.371 Puckering of macula, right eye; H35.342 Macular cyst, hole, or pseudohole, left eye; H43.812 Vitreous degeneration, left eye; I10 Essential (primary) hypertension; D50.9 Iron deficiency anemia, unspecified
CPT/HCPCS: A9270-GY; J2250; J3010; V2632

== ENCOUNTER → 2018-02-12 13:16 | Emergency (ER) | payer MEDICARE ==
[~2018-02-12 13:16] MED LIST changes: -Acetaminophen TAB* 325 MG PO PRN; -Buffered Lidocaine 0.9% SYRIN* 5 ML/SYR SYRINGE INTRADERM ONE; +Ketorolac INJ* 30 MG/ML 1 ML VIAL IV PUSH ONE; +LORazepam TAB(*) 1 MG PO ONE; +NS 0.9% 1000 ML* 1,000 ML IV ONE; +PROCHLORPERAZINE INJ 5 MG/ML 2 ML VIAL IV ONE
[2018-02-12 14:39] LABS: ABS Basophils 0 10^3/ul (0-0.2); ABS Eosinophils 0.1 10^3/ul (0-0.6); ABS Lymphocytes 1.9 10^3/ul (1.0-4.8); ABS Monocytes 0.6 10^3/ul (0-0.8); ABS Neutrophils 4.9 10^3/ul (1.5-7.7); ABS Nucleated RBC 0 10^3/ul; Eosinophil % 0.7 % (0-6); Hematocrit 43 % (35-47); Hemoglobin 14.7 g/dl (12.0-16.0); Lymphocyte % 25.4 % (25-47); Mean Corpuscular HGB Conc 34 g/dl (31-36); Mean Corpuscular Hemoglobin 33 pg (27-31); Mean Corpuscular Volume 98 fL (80-97); Nucleated Red Blood Cells % 0.1; Platelet Count 198 10^3/ul (150-450); Red Blood Count 4.44 10^6/ul (4.00-5.40); Red Cell Distribution Width 15 % (10.5-15); White Blood Count 7.5 10^3/ul (3.5-10.8)
--- NOTE | 2018-02-12 14:50 | ED ---
Headache - HPI Summary HPI Summary: This patient is a 72 year old F presenting to [facility] accompanied by her friend with a chief complaint of diffuse pressure 7/10 migraine since 2100. 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 Pt denies visual sx and emesis. Pt notes SHx eye surgery yesterday (02/11/18), felt no sx s/p surgery; she was able to sleep afterwards, then sx onset after eating dinner. Pt endorses taking lorazepam and gabapentin due to onset of neuropathy, knowing these meds sometimes help with GARCIA sx. She denies taking other medications. PMHx denies angina, ND. She endorses PMHx HTN, migraines (past year, MRI non-diagnostic). - History Of Current Complaint Chief Complaint: EDHeadache Stated Complaint: HEADACHE/WEAKNESS/CHEST PRESSURE Time Seen by Provider: 02/12/18 14:08 Hx Obtained From: Patient Onset/Duration: Gradual Onset, Started hours ago, Still Present, Worse Since - gradually Initially Headache Was: Moderate Currently Pain Is: Current Pain Scale(0-10)= - 7, Moderate Timing: Constant Character: Pressure, Migraine Location of Headache: Diffuse Aggravating Factor: Nothing Allevating Factors: Nothing Associated Signs And Symptoms: Nausea, Other (Noted In Comments) - CP Related History: Similar Episode/DX As: - PMHx migraines 1 year, Recent Trauma: - eye surgery yesterday - Allergies/Home Medications Allergies/Adverse Reactions: Allergies Allergy/AdvReac Type Severity Reaction Status Date / Time ciprofloxacin [From Cipro] Allergy Nausea Verified 02/12/18 13:19 duloxetine [From Cymbalta] Allergy Unknown Verified 02/12/18 13:19 Reaction Details paroxetine [From Paxil] Allergy Shakes Verified 02/12/18 13:19 quinidine Allergy Rash Verified 02/12/18 13:19 Sulfa (Sulfonamide Allergy Unknown Verified 02/12/18 13:19 Antibiotics) Reaction Details BETA BLOCKERS Allergy Intermediate See Comment Uncoded 02/12/18 13:19 PMH/Surg Hx/FS Hx/Imm Hx Endocrine/Hematology History: Reports: Hx Thyroid Disease - 5 POLYPS FOUND 1 NEG 4 REMAINING ON NO MEDS Denies: Hx Diabetes, Hx Anemia Cardiovascular History: Reports: Hx Angina, Hx Hypertension Denies: Hx Congestive Heart Failure, Hx Hypercholesterolemia, Hx Myocardial Infarction, Hx Pacemaker/ICD, Hx Valvular Heart Disease, Other Cardiovascular Problems/Disorders Respiratory History: Reports: Hx Asthma - A CHILD GI History: Reports: Hx Gall Bladder Disease - [place] 1967, Hx Ulcer - bleeding ulcers in past, Other GI Disorders - HX OF POLYPS IN COLON Denies: Hx Jaundice History: Reports: Other Problems/Disorders - UTIs Denies: Hx Renal Disease Musculoskeletal History: Reports: Hx Arthritis - GENERALIZED, Hx Back Problems, Hx Bursitis, Hx Fibromyalgia - pt describes as having for "years", Hx Orthopedic Injury - torn right shoulder, Hx Osteoporosis Denies: Hx Rheumatoid Arthritis Sensory History: Reports: Hx Cataracts - BILAT, Hx Contacts or Glasses Denies: Hx Deafness, Hx Hearing Aid Opthamlomology History: Reports: Hx Cataracts - BILAT, Hx Contacts or Glasses EENT History: Denies: Hx Deafness Neurological History: Reports: Hx Headaches, Hx Migraine - 2-3 WEEKLY LAST ONE 01/23/18, Hx Nerve Disease - NEUOPATHY IN RIGHT LEG, Other Neuro Impairments/ Disorders - pt states she has nerve problems that cause "shocks down her arms and body" Psychiatric History: Denies: Hx Panic Disorder - Cancer History Hx Chemotherapy: No Hx Radiation Therapy: No - Surgical History Surgery Procedure, Year, and Place: gallbladder, tubal ligation, partial hysterectomy, right breast lumpectomy, right shoulder rotator cuff. 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 PUCKER - REMOVAL OF EXCESS TISSUE/FILM ON EYE Hx Anesthesia Reactions: No Infectious Disease History: No Infectious Disease History: Denies: Hx Clostridium Difficile, Hx Hepatitis, Hx Human Immunodeficiency Virus (HIV), Hx of Known/Suspected MRSA, Hx Shingles, Hx Tuberculosis, Hx Known/ Suspected VRE, Hx Known/Suspected VRSA, History Other Infectious Disease, Traveled Outside the [place] in Last 30 Days - Family History Known Family History: Negative: Blood Disorder - Social History Occupation: Retired Alcohol Use: Occasionally Alcohol Amount: 2 DRINKS A MONTH Substance Use Type: Reports: None Smoking Status (MU): Never Smoked Tobacco Have You Smoked in the Last Year: No Review of Systems Positive: Fatigue. Negative: Fever Negative: Blurred Vision, Diplopia Positive: Chest Pain Positive: no symptoms reported Positive: Headache, Weakness All Other Systems Reviewed And Are Negative: Yes Physical Exam - Summary Physical Exam Summary: This patient is a 72 year old F presenting to [facility] accompanied by her friend with a chief complaint of diffuse pressure 7/10 migraine since 2100. 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 Pt denies visual sx and emesis. Pt notes SHx eye surgery yesterday (02/11/18), felt no sx s/p surgery; she was able to sleep afterwards, then sx onset after eating dinner. Pt endorses taking lorazepam and gabapentin due to onset of neuropathy, knowing these meds sometimes help with GARCIA sx. She denies taking other medications. PMHx denies angina, ND. She endorses PMHx HTN, migraines (past year, MRI non-diagnostic). Triage Information Reviewed: Yes Vital Signs On Initial Exam: Initial Vitals Temp Pulse Resp BP Pulse Ox 97.1 F 131 22 128/99 90 02/12/18 13:19 02/12/18 13:19 02/12/18 13:19 02/12/18 13:19 02/12/18 13:19 Vital Signs Reviewed: Yes Diagnostics - Vital Signs Vital Signs Temp Pulse Resp BP Pulse Ox 02/12/18 13:19 97.1 F 131 22 128/99 90 - Laboratory Lab Results: Lab Results 02/12/18 Range/Units 14:23 WBC 7.5 (3.5-10.8) 10^3/ul RBC 4.44 (4.00-5.40) 10^6/ul Hgb 14.7 (12.0-16.0) g/dl Hct 43 (35-47) % MCV 98 H (80-97) fL MCH 33 H (27-31) pg MCHC 34 (31-36) g/dl RDW 15 (10.5-15) % Plt Count 198 (150-450) 10^3/ul MPV 9.0 (7.4-10.4) um3 Neut % (Auto) 65.2 (38-83) % Lymph % (Auto) 25.4 (25-47) % Hamilton % (Auto) 8.1 H (0-7) % Eos % (Auto) 0.7 (0-6) % Baso % (Auto) 0.6 (0-2) % Absolute Neuts (auto) 4.9 (1.5-7.7) 10^3/ul Absolute Lymphs (auto) 1.9 (1.0-4.8) 10^3/ul Absolute Monos (auto) 0.6 (0-0.8) 10^3/ul Absolute Eos (auto) 0.1 (0-0.6) 10^3/ul Absolute Basos (auto) 0 (0-0.2) 10^3/ul Absolute Nucleated RBC 0 10^3/ul Nucleated RBC % 0.1 Result Diagrams: 02/12/18 14:23 02/12/18 14:23 Lab Statement: Any lab studies that have been ordered have been reviewed, and results considered in the medical decision making process. - Radiology CXR Xray Interpretation: No Acute Changes Radiology Interpretation Completed By: Radiologist - No active cardiopulmonary disease. Dr. Levy has reviewed this report. - EKG 1422 Cardiac Rate: NL - 91 EKG Rhythm: Sinus Rhythm ST Segment: Normal Ectopy: None EKG Interpretation: Nl EKG, no STEMI Re-Evaluation - Re-Evaluation First Eval Re-Evaluation Time: 15:58 Change: Improved Comment: Per RN Dwight, pt feels better and desires discharge. Headache Course/Dx - Course Course Of Treatment: A 72-year-old F presents to the ED with a CC of pressure 7/ 10 migraine GARCIA for hours. (+) weakness, fatigue, insomnia, nausea, CP. (-) emesis, visual changes/sx. Eye surgery yesterday, noted no sx s/p; they onset many hours later. PMHx migraine, an MRI was (-). An EKG reveals NSR at 91 BPM with no STEMI. A CXR was (-). In the ED course, pt was given ativan, toradol, nl saline, and compazine. Pt labs show high MCV, high MCH, high mono %, high creatinine, high glucose. - Diagnoses Provider Diagnoses: Migraine headache Discharge - Sign-Out/Discharge Documenting (check all that apply): Patient Departure - discharge - Discharge Plan Referrals: Barbara Jacinto MD [Primary Care Provider] - - Attestation Statements Document Initiated by Scribe: Yes Documenting Scribe: Karri Sanches Provider For Whom Scribe is Documenting (Include Credential): Dr. Ruperto Levy MD Scribe Attestation: I, Karri Sanches, scribed for Dr. Ruperto Levy MD on 02/12/18 at 1558.
--- NOTE | 2018-02-12 14:58 | RAD ---
HISTORY: chest pain,tachycardia COMPARISONS: September 23, 2015 VIEWS: 1: frontal AP view of the chest at 2:50 PM FINDINGS: LINES AND TUBES: None. CARDIOMEDIASTINAL SILHOUETTE: The cardiomediastinal silhouette is normal for portable technique. PLEURA: The costophrenic angles are sharp. No pleural abnormalities are noted. LUNG PARENCHYMA: The lungs are clear. ABDOMEN: The upper abdomen is clear. There is no subphrenic gas. BONES AND SOFT TISSUES: No bone or soft tissue abnormalities are noted. IMPRESSION: NO ACTIVE CARDIOPULMONARY DISEASE.
[2018-02-12 15:04] LABS: EGFR Non-African American 56.8 (>60)
[2018-02-12 16:31] VITALS: BP 122/82
== END | disposition home or self-care (01) ==
LOC: ED 13:16
DX: G43.909 Migraine, unspecified, not intractable, without status migrainosus (principal); I10 Essential (primary) hypertension; E07.9 Disorder of thyroid, unspecified; G62.9 Polyneuropathy, unspecified
CPT/HCPCS: 36415; 71045; 80053; 84484; 85025; 93005; 96361; 96374; 99282; A9270-GY; J0780; J1885

== ENCOUNTER 2018-04-09 04:08 | Observation (INO) | payer MEDICARE ==
--- OUTSIDE RECORDS SUMMARY | 2018-04-09 04:22 | XMS REPORT | Continuity of Care Document ---
:1945 External Reference #:[id number] Author Name Teresa Ceja Care Team Providers Name Role Phone Barbara Castro MD Primary Care Physician Unavailable Payers Type Date Identification Numbers Payment Provider Subscriber Effective: Policy Number: [id number] Medicare Katherine Ramirez 2012 PayID: [id number] [address] [place] [address] Effective: 2015 Policy Number: [facility] Katherine Ramirez [id number] PayID: [id number] [address] [place] [address] Advance Directives Description No Information Available Problems Date Description Provider Status Onset: 06/01/2015 [...] 2 Social History Type Date Description Comments Sex Unknown Marital Status Lives With Alone 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 ETOH Use Rarely consumes alcohol Tobacco Use Start: Unknown Patient has never smoked Recreational Drug Use Denies Drug Use Smoking Status Reviewed: 03/25/18 Patient has never smoked Exercise Type/Frequency Exercises sporadically Allergies, Adverse Reactions, Alerts Date Description Reaction Status Severity Comments 06/01/2015 Quinidine Rash Active Severe 06/01/2015 Sulfa Antibiotics Bone Marrow Suppression Active Severe 06/01/2015 Paxil "Electric shock feeling" Active Severe 06/01/2015 Cipro Nausea and Vomiting Active Severe 05/20/2016 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 Mauser, every day M.DJimmy Lorazepam 01/29/ Active Tablets 1mg 2 tab by Unknown 2017 mouth at night as needed Vitamin D / Active Tablets 5000Unita every [...] / Active Tablets 10mg 90tabs 1 by Qutaybeh 0000 mouth S. every day David Conroy Dayquil / Active 15cc prn Unknown 0000 Melatonin / Active Tablets 10mg hs prn Unknown 0000 Vitamin B12 / Active Tablets ER 1000mcg 1 by Unknown 0000 mouth once a month Iron / Active Tablets 325mg 1 by Unknown High-Potency 0000 mouth every day Flector / Active Patches 1.3% apply 1 Unknown 0000 patch to the skin two times daily as needed Gabapentin / Active Capsules 300mg 2 at hs Unknown 0000 and 1-2 through out the night Amlodipine 04/22/ Hx Tablets 5mg 30tabs 2 tabs by I1Bao Banks 2017 - mouth S. 05/12/ every day Alysia Conroy M.D. Verapamil HCL 04/14/ Hx Tablets ER 120mg [...] Unknown 0000 - bedtime 01/30/ as needed 2016 Gabapentin / Hx Capsules 300mg 2 po QHS Unknown 0000 - 2016 Amlodipine / Hx Tablets 5mg 1 by Unknown Besylate 0000 - mouth every day 2016 Ferrous Sulfate / Hx [...] Administered Injection Zaneb (Kenalog) 2017 MD Kevin Immunizations Description No Information Available Vital Signs Date Vital Result Comment 03/25/2018 10:39am Height 64 inches 5'4" Weight 202.00 lb BP Systolic 127 mmHg BP Diastolic 74 mmHg Respiratory Rate 16 /min Pain Level 3 BMI (Body Mass Index) 34.7 kg/m2 03/24/2018 2:49pm Height 64 inches 5'4" Weight 202.00 lb Heart Rate 78 /min reg BP Systolic Sitting 138 mmHg left , reg BP Diastolic Sitting 72 mmHg left , reg BMI (Body Mass Index) 34.7 kg/m2 Ejection Fraction 55%-60% echo 02/27/17 02/16/2018 2:19pm Height 64 inches 5'4" Weight 207.12 lb w/ shoes Heart Rate 84 /min BP Systolic Sitting 118 mmHg Rue Reg Cuff BP Diastolic Sitting 82 mmHg Rue Reg Cuff BMI (Body Mass Index) 35.5 kg/m2 Ejection Fraction 55-60% echo 02/27/17 01/16/2018 1:27pm Height 64 inches 5'4" Weight 205.25 lb w/ shoes Heart Rate 90 /min 45 BP Systolic Sitting 102 mmHg lue large cuff BP Diastolic Sitting 78 mmHg lue large cuff BMI (Body Mass Index) 35.2 kg/m2 Ejection Fraction 55-60% echo 02/27/17 12/12/2017 11:17am Height 64 inches 5'4" Weight 202.00 lb Heart Rate 76 /min BP Systolic Sitting 114 mmHg BP Diastolic Sitting 78 mmHg Body Temperature 98.6 F Pain Level 0 BMI (Body Mass Index) 34.7 kg/m2 11/25/2017 3:35pm Height 63 inches 5'3" Weight 201.00 lb Respiratory Rate 15 /min Pain Level 6 BMI (Body Mass Index) 35.6 kg/m2 10/10/2017 8:52am Height 63 inches 5'3" Weight 206.00 lb BP Systolic 114 mmHg BP Diastolic 66 mmHg Respiratory Rate 20 /min Pain Level 4 BMI (Body Mass Index) 36.5 kg/m2 09/12/2017 1:56pm Height 64 inches 5'4" Weight 200.00 lb Heart Rate 76 /min BP Systolic Sitting 120 mmHg BP Diastolic Sitting 90 mmHg Respiratory Rate 16 /min BMI (Body Mass Index) 34.3 kg/m2 08/28/2017 8:33am Height 63 inches 5'3" Weight 206.00 lb Heart Rate 88 /min BP Systolic 100 mmHg BP Diastolic 74 mmHg Respiratory Rate 20 /min Body Temperature 97.8 F Pain Level 4 constant BMI (Body Mass Index) 36.5 kg/m2 05/12/2017 1:27pm Heart Rate 84 /min BP Systolic Sitting 126 mmHg BP Diastolic Sitting 84 mmHg Respiratory Rate 18 /min Body Temperature 97.1 F 04/22/2017 1:42pm Height 63 inches 5'3" Weight 210.00 lb No shoes Heart Rate 98 /min BP Systolic Sitting 130 mmHg Rue lrg cuff BP Diastolic Sitting 88 mmHg Rue lrg cuff BP Systolic Standing 124 mmHg Rue lrg cuff BP Diastolic Standing 86 mmHg Rue lrg cuff Respiratory Rate 17 /min BMI (Body Mass Index) 37.2 kg/m2 Ejection Fraction 55-60% 02/27/2017-echo 04/04/2017 11:02am Heart Rate 88 /min Apical BP Systolic 142 mmHg Ra, lcuff BP Diastolic 84 mmHg Ra, lcuff BP Systolic Sitting 144 mmHg LA, lcuff BP Diastolic Sitting 82 mmHg LA, lcuff BP Systolic Standing 138 mmHg Ra, lcuff BP Diastolic Standing 88 mmHg Ra, lcuff 03/24/2017 8:18am Height 64 inches 5'4" Weight 206.00 lb Heart Rate 72 /min BP Systolic 122 mmHg BP Diastolic 78 mmHg Respiratory Rate 14 /min BMI (Body Mass Index) 35.4 kg/m2 03/19/2017 3:49pm Height 64 inches 5'4" Weight 208.00 lb with shoes Heart Rate 98 /min BP Systolic Sitting 125 mmHg LA large cuff BP Diastolic Sitting 76 mmHg LA large cuff BMI (Body Mass Index) 35.7 kg/m2 Ejection Fraction 55-60% 02/27/17 echo 01/30/2017 2:21pm Height 64 inches 5'4" Weight 209.25 lb with shoes Heart Rate 112 /min BP Systolic Sitting 122 mmHg LA lrg cuff BP Diastolic Sitting 78 mmHg LA lrg cuff BMI (Body Mass Index) 35.9 kg/m2 11/13/2016 10:31am Height 64 inches 5'4" Weight 203.00 lb Heart Rate 74 /min BP Systolic 122 mmHg BP Diastolic 78 mmHg Respiratory Rate 18 /min Body Temperature 99.1 F BMI (Body Mass Index) 34.8 kg/m2 07/04/2016 9:47am Heart Rate 90 /min BP Systolic 118 mmHg BP Diastolic 82 mmHg Respiratory Rate 18 /min Body Temperature 98.1 F 06/06/2016 10:49am Height 65 inches 5'5" Weight 200.00 lb Heart Rate 72 /min BP Systolic 126 mmHg BP Diastolic 80 mmHg Respiratory Rate 16 /min Body Temperature 96.7 F BMI (Body Mass Index) 33.3 kg/m2 05/21/2016 11:22am Weight 200.00 lb BP Systolic Sitting 120 mmHg BP Diastolic Sitting 82 mmHg 05/20/2016 2:29pm Height 65 inches 5'5" Weight 200.00 lb Heart Rate 84 /min BP Systolic 124 mmHg BP Diastolic 72 mmHg Respiratory Rate 18 /min Body Temperature 98.1 F BMI (Body Mass Index) 33.3 kg/m2 06/01/2015 11:24am Height 65 inches 5'5" Weight 180.00 lb BP Systolic Sitting 128 mmHg BP Diastolic Sitting 78 mmHg Respiratory Rate 16 /min Pain Level 0 BMI (Body Mass Index) 30.0 kg/m2 Results Test Date Facility Test Result H/L Range Note Lipid Panel - 02/19/2018 [facility] Creatine 34 U/L N 10-223 1 [address]) [place] [address] [phone] Comp Metabolic 02/19/2018 [facility] Sodium 140 mmol/L N 135- [address] [place] [address] [phone] Potassium 4.3 mmol/L N 3.5-5.0 Chloride 103 mmol/L N 101-111 Co2 Carbon Dioxide 29 mmol/L N 22-32 Anion Gap 8 mmol/L N 2-11 Glucose 105 mg/dL High 70-100 Blood Urea Nitrogen 25 mg/dL High 6-24 Creatinine 0.95 mg/dL N 0.51-0.95 BUN/Creatinine Ratio 26.3 High 8-20 Calcium 9.6 mg/dL N 8.6-10.3 Total Protein 6.6 g/dL N 6.4-8.9 Albumin 4.2 g/dL N 3.2-5.2 Globulin 2.4 g/dL N 2-4 Albumin/Globulin Ratio 1.8 N 1-3 Total Bilirubin 0.70 mg/dL N 0.2-1.0 Alkaline Phosphatase 54 U/L N 34-104 Alt 14 U/L N 7-52 Ast 15 U/L N 13-39 Egfr Non- 58.2 >60 Egfr 70.4 >60 2 Lipid Profile 02/19/2018 [facility] Triglycerides 126 mg/dL 3 (Trig/Chol/HDL) [place] [address] [phone] Cholesterol 178 mg/dL 4 HDL Cholesterol 58.7 mg/dL 5 LDL Cholesterol 94 mg/dL 6 Laboratory test 02/19/2018 [facility] TSH (Thyroid 0.79 mcIU/mL N 0.34-5.60 7 finding Stim [place]orm) [place] [address] [phone] Free T4 (Free Thyroxine) 0.77 ng/dL N 0.61-1.12 8 T3 Free 3.00 pg/mL N 2.5-3.9 9 Laboratory test 03/13/2017 [facility] Cytology SEE RESULT [address] [employer] [place] [place] [address] [phone] Laboratory test 11/21/2016 [facility] Ferritin 20.2 ng/mL N 11 -[address] [place] [address] [phone] Iron & Iron 11/21/2016 [facility] Iron 75 g/dL N 50-212 Binding Capacity [address] [place] [address] [phone] Unsaturated Iron Binding 367 g/dL N Total Iron Binding Capacity 442 g/dL N 250-450 % Iron Saturation 17 % N 15-55 CBC Auto Diff 11/21/2016 [facility] White Blood 5.6 10^3/uL N 3.5-10.[address] [place] [address] [phone] Red Blood Count 4.24 10^6/uL N 4.0-5.4 Hemoglobin 13.8 g/dL N 12.0-16.0 Hematocrit 42 % N 35-47 Mean Corpuscular Volume 98 fL High 80-97 Mean Corpuscular Hemoglobin 33 pg High 27-31 Mean Corpuscular HGB Conc 33 g/dL N 31-36 Red Cell Distribution Width 14 % N 10.5-15 Platelet Count 184 10^3/uL N 150-450 Mean Platelet Volume 10 um3 N 7.4-10.4 Abs Neutrophils 3.1 10^3/uL N 1.5-7.7 Abs Lymphocytes 1.9 10^3/uL N 1.0-4.8 Abs Monocytes 0.4 10^3/uL N 0-0.8 Abs Eosinophils 0.1 10^3/uL N 0-0.6 Abs Basophils 0 10^3/uL N 0-0.2 Abs Nucleated RBC 0 10^3/uL N Granulocyte % 55.8 % N 38-83 Lymphocyte % 33.6 % N 25-47 Monocyte % 7.7 % N 1-9 Eosinophil % 2.5 % N 0-6 Basophil % 0.4 % N 0-2 Nucleated Red Blood Cells % 0.1 N Laboratory test 07/31/2016 [facility] Iron (Fe) 124 g/dL N 50-[address] [place] [address] [phone] Ferritin 30.7 ng/mL N 11-307 Basic Metabolic Panel 07/31/2016 [facility] Sodium 139 mmol/L N 133-[address] [place] [address] [phone] Potassium 3.9 mmol/L N 3.5-5.0 Chloride 103 mmol/L N 101-111 Co2 Carbon Dioxide 29 mmol/L N 22-32 Anion Gap 7 mmol/L N 2-11 Glucose 104 mg/dL High 70-100 Blood Urea Nitrogen 10 mg/dL N 6-24 Creatinine 0.91 mg/dL N 0.51-0.95 BUN/Creatinine Ratio 11.0 N 8-20 Calcium 9.5 mg/dL N 8.6-10.3 Egfr Non- 61.3 N >60 Egfr 78.8 N >60 11 CBC No Diff 07/31/2016 [facility] White Blood 6.2 10^3/uL N 3.5-10.[address] [place] [address] [phone] Red Blood Count 4.50 10^6/uL N 4.0-5.4 Hemoglobin 14.5 g/dL N 12.0-16.0 Hematocrit 43 % N 35-47 Mean Corpuscular Volume 96 fL N 80-97 Mean Corpuscular Hemoglobin 32 pg High 27-31 Mean Corpuscular HGB Conc 34 g/dL N 31-36 Red Cell Distribution Width 14 % N 10.5-15 Platelet Count 168 10^3/uL N 150-450 Mean Platelet Volume 10 um3 N 7.4-10.4 Laboratory test 05/22/2016 [facility] Surgical SEE RESULT [address] [place] [address] [phone] 1 FASTING 2 Because ethnic data is not always [...] 5 Kidney failure <15 (or dialysis) 3 Desirable: <150 Borderline High: 150-199 High: 200-499 Very High: >500 4 Desirable: <200 Borderline High: 200-239 High: >239 5 Low: <40 Desirable: 40-60 High: >60 6 Desirable: <100 Near Optimal: 100-129 Borderline High: 130-159 High: 160-189 Very High: >189 7 FASTING 8 FASTING 9 FASTING 10 SEE RESULT BELOW Name: KATHERINE RAMIREZ : [address]: Brandon Pruitt MD Acct: [id number] Unit: [id number] AGE: 71 Location: THYROID Re03/13/17 SEX: F Status: REG REF SPEC: [id number] ANDERSON: 03/13/17-[address] [facility] [address]: Brandon Pruitt MD REQ: [id number] RECD: 03/13/17 STATUS: CED GUPTA DR: Barbara Farias MD _ ORDERED: FNA-IMG GUID BX, CYTO ADEQ-1ST P FINAL DIAGNOSIS Thyroid, left, Ultrasound guided, fine needle aspiration: Benign thyroid nodule- involutional type ([place] class II). The specimen demonstrates abundant watery [...] performed at Main Lab DEPARTMENT OF PATHOLOGY, [address] [place] [address] Jona Head M.D. Director [facility] # [id number] RUN DATE: 03/13/17 [facility] LAB LIVE PAGE 2 Patient: KATHERINE RAMIREZ [id number] (Continued) IMMEDIATE INTERPRETATION (Continued) IMMEDIATE INTERPRETATION Pass 1, and 2-adequate GROSS DESCRIPTION 3- alcohol fixed slide(s) 2- passes Signed (signature on file) Jona Head MD 1000 END OF REPORT * ML=Testing performed at Main Lab DEPARTMENT OF PATHOLOGY, [address] [place] [address] Jona Head M.D. Director [facility] # [id number] 11 Because ethnic data is not always readily [...] 15-29 5 Kidney failure <15 (or dialysis) 12 SEE RESULT BELOW Name: KATHERINE RAMIREZ : [address]: Markus Maria MD Acct: [id number] Unit: [id number] AGE: 70 Location: OR Re05/22/16 SEX: F Status: REG SDC SPEC: [id number] ANDERSON: 05/22/16-[address] [facility] [address]: Markus Maria MD REQ: [id number] RECD: 05/22/16 STATUS: SOUT _ ORDERED: LEVEL [...] performed at Main Lab DEPARTMENT OF PATHOLOGY, [address] [place] [address] Jona Head M.D. Director [facility] # [id number] Procedures Date Code Description Status 01/29/2018 73235 Holter Monitor Review (24 hr)dr review & interp only Completed 01/28/2018 94957 ECG Monitor/Recording W/Visual Superimposition Scanning Completed 01/28/2018 10750 ECG Monitor/Recording W/Visual Superimposition Scanning Completed 01/16/2018 40997 EKG Tracing & Interpretation Completed 11/25/201775246 Inject/Drain Joint/Bursa Major W/O US Completed 10/10/2017 40294 Inj/Aspir Major JT Or Bursa W/ US Completed 08/28/2017 37276 Inject/Drain Joint/Bursa Major W/O US Completed 06/25/2017 55031934 Mammogram Completed 03/05/2017 65423 Stress Test Supervsn W/Out I/R Completed 03/05/2017 89844 Treadmill Interp/Report Only Completed 02/27/2017 17420 ECHO Transthoracic, Real-Time 2D With Doppler And Color Completed Flow 02/26/2017 88498 Holter Monitor Review (24 hr)dr review & interp only Completed 02/25/2017 65544 ECG Monitor/Recording W/Visual Superimposition Scanning Completed 01/30/2017 37968 EKG Tracing & Interpretation Completed 05/22/2016 30874 Hemorrhoidectomy Internal & External 2 Or More Completed Columns/Groups 05/20/2016 44109 Hemorrhoidectomy, Internal, By Rubber Band Ligation(S) Completed 03/15/2016 82990764 Mammogram Completed 09/24/2015 14051 EKG, Interpretation Only Completed 09/19/2015 51448 EKG, Interpretation Only Completed Encounters Type Date Location Provider Dx Diagnosis Office Visit 02/16/2018 [facility] Bibiana Altman NP R07.89 Other chest pain 2:30p R00.0 Tachycardia, unspecified I10 Essential (primary) hypertension Office Visit 01/16/2018 1:40p [facility] Aldo Alegria I10 Essential David Conroy (primary) hypertension R94.31 Abnormal electrocardiogram [ECG] [EKG] E66.9 Obesity, unspecified R00.0 Tachycardia, unspecified Office Visit 12/12/2017 11:00a Orthopedic Michelle M16.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 hip M70.62 Trochanteric bursitis, left hip M70.61 Trochanteric bursitis, right hip M25.551 Pain in right hip M25.552 Pain in left hip Office Visit 11/25/2017 3:30p Orthopedic Miguel Brown, M16.0 Bilateral primary Services Of osteoarthritis of C.M.A. hip M54.5 Low back pain Office Visit 09/12/2017 2:15p [facility] Luis Felipe Caal, R51 Headache Services Of Farrah Kirkland.DJimmy Office Visit 08/28/2017 8:30a Orthopedic Miguel Brown MD M54.5 Low back pain Services Of C.[facility]. M16.0 Bilateral primary osteoarthritis of hip M70.62 Trochanteric bursitis, left hip M70.61 Trochanteric bursitis, right hip Office Visit 05/12/2017 1:30p [facility] Christy Diego, N64.4 Mastodynia Of [facility] R92.8 Oth abn and inconclusive findings on dx imaging of breast Office Visit 04/22/2017 2:00p [facility] Of KIARA Valles R00.2 Palpitations [facility] I10 Essential (primary) hypertension Office Visit 04/04/2017 [facility] Nurse Visit cc I10 Essential 11:00a Cardiology (primary) hypertension Office Visit 03/24/2017 [facility] Luis Felipe Caal, R94.02 Abnormal brain 8:30a Neurologic MJimmyDJimmy scan [facility] R00.2 Palpitations Office Visit 03/19/2017 4:20p [facility] Georgiataroseeh S. I10 Essential David Conroy (primary) hypertension I49.3 Ventricular premature depolarization I49.1 Atrial premature depolarization Office Visit 01/30/2017 [facility] Qutaybeh S. R00.0 Tachycardia, 3:00p Cardiology David Conroy unspecified R00.2 Palpitations R06.02 Shortness of breath R53.83 Other fatigue I10 Essential (primary) hypertension E66.9 Obesity, unspecified R94.31 Abnormal electrocardiogram [ECG] [EKG] Office Visit 11/13/2016 10:45a Surgical Christy Ortiz N63 Unspecified lump [facility] Farrah Diego MD in breast N64.4 Mastodynia Office Visit 05/20/2016 2:30p Surgical Markus Valdez K64.1 Second degree [facility] MD Candace, hemorrhoids FACS K62.5 Hemorrhage of anus and rectum Office [facility] 09/23[facility]2015 [facility] N17.9 [facility] kidney Assoc,odilia Eid M.D. failure, Hospitalists unspecified R29.6 Repeated falls M79.7 Fibromyalgia Office Visit 09/19/2015 10:17a [facility] Oskar N17.9 Acute kidney Assoc,odilia Jeong MD failure, Hospitalists unspecified S06.0x1A Concussion w Loc of 30 minutes or less, init S01.81xA Laceration w/o foreign body of oth part of head, init encntr I10 Essential (primary) hypertension Office Visit 09/18/2015 [facility] N17.9 Acute kidney 10:16a Assoc,odilia AKINS M.D. failure, Hospitalists unspecified S06.0x1A Concussion w Loc of 30 minutes or less, init S01.81xA Laceration w/o foreign body of oth part of head, init encntr Office Visit 06/01/2015 11:00a Orthopedic Omkar Muller, M54.32 Sciatica , left Services Of David side C.M.A. M76.32 Iliotibial band syndrome, left leg Office Visit 09/10/2014 [facility] 719.41 Pain Joint 5:24p Assocodilia II, M.D. [facility] Hospitalists [facility] Plan of Treatment Future Appointment(s):04/16/2018 1:30 pm - Christy Diego MD at [facility]03/27/2018 11:00 am - Luis Felipe Caal M.D. at [facility]03/25/2018 - Michelle Arenas M.D.M25.551 Pain in right hipM25.552 Pain in left hipM70.62 Trochanteric bursitis, left hipM70.61 Trochanteric bursitis, right hipFollow up:Follow up: As [id number] Unilateral primary osteoarthritis, left hipM16.11 Unilateral primary osteoarthritis, right hip
--- OUTSIDE RECORDS SUMMARY | 2018-04-09 04:22 | XMS REPORT | Continuity of Care Document ---
:1945 External Reference #:[id number] Author Name Roshan Hughes Care Team Providers Name Role Phone Barbara Castro MD Primary Care Physician Unavailable Payers Type Date Identification Numbers Payment Provider Subscriber Effective: Policy Number: [id number] Medicare Katherine Ramirez 2012 PayID: [id number] [address] [place] [address] Effective: 2015 Policy Number: [facility] Katherine Ramirez [id number] PayID: [id number] [address] [place] [address] Advance Directives Description No Information Available Problems [...] Use Denies Drug Use Smoking Status Reviewed: 03/24/18 Patient has never smoked Exercise Type/Frequency Exercises [...] 0.25mg 1 at Unknown 0000 - bedtime as needed 2017 Gabapentin / Hx Capsules [...] Available Vital Signs Date Vital Result Comment 03/24/2018 2:49pm Height 64 inches 5'4" Weight [...] H/L Range Note Lipid Panel - 02/19/2018 [facility] Creatine 34 U/L N 10-[address] Kinase(CK) [place] [address] [phone] Comp Metabolic 02/19/2018 [facility] Sodium 140 mmol/L N 135- [address] [place] [address] [phone] Potassium 4.3 mmol/L N 3.5-5.0 Chloride 103 [...] Egfr 70.4 >60 2 Lipid Profile 02/19/2018 [facility] Triglycerides 126 mg/dL 3 (Trig/Chol/HDL) [place] [address] [phone] Cholesterol 178 mg/dL 4 HDL Cholesterol 58.7 mg/dL 5 LDL Cholesterol 94 mg/dL 6 Laboratory test 02/19/2018 [facility] TSH (Thyroid 0.79 mcIU/mL N 0.34-5.[address] Stim [place]) [place] [address] [phone] Free T4 (Free Thyroxine) 0.77 ng/dL N 0.61-1.12 8 T3 Free 3.00 pg/mL N 2.5-3.9 9 Laboratory test 03/13/2017 [facility] Cytology SEE RESULT [address] [employer] [address] [phone] Laboratory test 11/21/2016 [facility] Ferritin 20.2 ng/mL N 11 -[address] [place] [address] [phone] Iron & Iron 11/21/2016 [facility] Iron 75 g/dL N 50-[address] [place] [address] [phone] Unsaturated Iron Binding 367 g/dL N Total Iron Binding Capacity 442 g/dL N 250-450 % Iron Saturation 17 % N 15-55 CBC Auto Diff 11/21/2016 [facility] White Blood 5.6 10^3/uL N 3.5-10.[address] [place] [address] [phone] Red Blood Count 4.24 10^6/uL N 4.0-5.4 [...] Cells % 0.1 N Laboratory test 07/31/2016 [facility] Iron (Fe) 124 g/dL N 50-[address] [place] [address] [phone] Ferritin 30.7 ng/mL N 11-307 Basic Metabolic Panel 07/31/2016 [facility] Sodium 139 mmol/L N 133-[address] [place] [address] [phone] Potassium 3.9 mmol/L N 3.5-5.0 Chloride 103 [...] N >60 11 CBC No Diff 07/31/2016 [facility] White Blood 6.2 10^3/uL N 3.5-10.[address] [place] [address] [phone] Red Blood Count 4.50 10^6/uL N 4.0-5.4 Hemoglobin 14.5 g/dL N 12.0-16.0 Hematocrit 43 % N 35-47 Mean Corpuscular Volume 96 fL N 80-97 Mean Corpuscular Hemoglobin 32 pg High 27-31 Mean Corpuscular HGB Conc 34 g/dL N 31-36 Red Cell Distribution Width 14 % N 10.5-15 Platelet Count 168 10^3/uL N 150-450 Mean Platelet Volume 10 um3 N 7.4-10.4 Laboratory test 05/22/2016 [facility] Surgical SEE RESULT [address] [place] [address] [phone] 1 FASTING 2 Because ethnic data is [...] [address]: Brandon Pruitt MD Acct: [id number] Unit: [id number] AGE: 71 Location: THYROID Re03/13/17 SEX: F Status: REG REF SPEC: [id number] ANDERSON: 03/13/17-[address] [facility] [address]: Brandon Pruitt MD REQ: [id number] RECD: 03/13/17 STATUS: CED GUPTA DR: Barbara Farias MD _ ORDERED: FNA-IMG GUID BX, CYTO ADEQ-1ST P FINAL DIAGNOSIS Thyroid, left, Ultrasound guided, fine needle aspiration: Benign thyroid nodule- involutional type ([place] class II). The specimen demonstrates abundant watery [...] performed at Main Lab DEPARTMENT OF PATHOLOGY, [address] [place] [address] Jona Head M.D. Director [facility] # [id number] RUN DATE: 03/13/17 [facility] LAB LIVE PAGE 2 Patient: KATHERINE RAMIREZ [id number] (Continued) IMMEDIATE INTERPRETATION (Continued) IMMEDIATE INTERPRETATION Pass 1, and 2-adequate GROSS DESCRIPTION 3- alcohol fixed slide(s) 2- passes Signed (signature on file) Jona Head MD 1000 END OF REPORT * ML=Testing performed at Main Lab DEPARTMENT OF PATHOLOGY, [address] [place] [address] Jona Head M.D. Director [facility] # [id number] 11 Because ethnic data is not always [...] [address]: Markus Maria MD Acct: [id number] Unit: [id number] AGE: 70 Location: OR Re05/22/16 SEX: F Status: REG [facility] [place]: [id number] ANDERSON: 05/22/16-[address] [facility] [address]: Markus Maria MD REQ: [id number] RECD: 05/22/16 STATUS: SOUT _ ORDERED: LEVEL III FINAL DIAGNOSIS Anal mucosa, excision: -- Benign anal mucosa with thrombosed, dilated vessels in the lamina propria , compatible with hemorrhoids. -- No evidence of neoplasia. PRE-OPERATIVE DIAGNOSIS Second degree hemorrhoids GROSS DESCRIPTION The specimen is received in formalin labeled, Hemorrhoids, and consists of three redmna-mark irregular wrinkled mucosal tissue fragments ranging from [...] performed at Main Lab DEPARTMENT OF PATHOLOGY, [address] [place] [address] Jona Head M.D. Director [facility] # [id number] Procedures Date Code Description Status 01/29/2018 77144 Holter Monitor Review (24 hr)dr review & interp only Completed 01/28/2018 50610 ECG Monitor/Recording W/Visual Superimposition Scanning Completed 01/28/2018 45583 ECG Monitor/Recording W/Visual Superimposition Scanning Completed 01/16/2018 04759 EKG Tracing & Interpretation Completed 11/25/201759832 Inject/Drain Joint/Bursa Major W/O US Completed 10/10/2017 01318 Inj/Aspir Major JT Or Bursa W/ US Completed 08/28/2017 82216 Inject/Drain Joint/Bursa Major W/O US Completed 06/25/2017 61307910 Mammogram Completed 03/05/2017 00440 Stress Test Supervsn W/Out I/R Completed 03/05/2017 18428 Treadmill Interp/Report Only Completed 02/27/2017 27021 ECHO Transthoracic, Real-Time 2D With Doppler And Color Completed Flow 02/26/2017 87862 Holter Monitor Review (24 hr)dr review & interp only Completed 02/25/2017 69404 ECG Monitor/Recording W/Visual Superimposition Scanning Completed 01/30/2017 09052 EKG Tracing & Interpretation Completed 05/22/2016 27690 Hemorrhoidectomy Internal & External 2 Or More Completed Columns/Groups 05/20/2016 24158 Hemorrhoidectomy, Internal, By Rubber Band Ligation(S) Completed 03/15/2016 80532444 Mammogram Completed 09/24/2015 71355 EKG, Interpretation Only Completed 09/19/2015 97664 EKG, Interpretation Only Completed Encounters Type Date Location Provider Dx Diagnosis Office Visit 02/16/2018 [facility] Bibiana Altman NP R07.89 Other chest pain 2:30p R00.0 Tachycardia, unspecified I10 Essential (primary) hypertension Office Visit 01/16/2018 1:40p [facility] Aldo Alegria I10 Essential David Conroy [...] Low back pain Office Visit 09/12/2017 2:15p [place] [facility] Luis Felipe Caal, R51 [facility] Office Visit 08/28/2017 8:30a Orthopedic Miguel Brown MD M54.5 Low back [facility] M16.0 Bilateral primary osteoarthritis of hip M70.62 Trochanteric bursitis, left hip M70.61 Trochanteric bursitis, right hip Office Visit 05/12/2017 1:30p [facility] Christy Diego, N64.4 Mastodynia Of [facility] R92.8 Oth abn and inconclusive findings on dx imaging of breast Office Visit 04/22/2017 2:00p [facility] KIARA Valles R00.2 Palpitations [facility] I10 Essential (primary) hypertension Office Visit 04/04/2017 [place] Nurse Visit cc I10 Essential 11:00a Cardiology (primary) hypertension Office Visit 03/24/2017 [place] Luis Felipe Caal, R94.02 Abnormal brain 8:30a Neurologic M.DJimmy scan Services [facility] R00.2 Palpitations Office Visit 03/19/2017 4:20p [facility] Aldo S. I10 Essential David Conroy (primary) hypertension I49.3 Ventricular premature depolarization I49.1 Atrial premature depolarization Office Visit 01/30/2017 [place] Ququinn S. R00.0 Tachycardia, 3:00p Cardiology David Conroy unspecified R00.2 Palpitations R06.02 Shortness of breath R53.83 Other fatigue I10 Essential (primary) hypertension E66.9 Obesity, unspecified R94.31 Abnormal electrocardiogram [ECG] [EKG] Office Visit 11/13/2016 10:45a Surgical Christy Ortiz N63 Unspecified lump [facility] MD in breast N64.4 Mastodynia Office Visit 05/20/2016 2:30p Surgical Markus Valdez K64.1 Second degree [facility] Maria MD, hemorrhoids FACS K62.5 Hemorrhage of anus and rectum Office Visit 09/23/2015 11:12a [place] [facility] Scott N17.9 Acute kidney Assoc,odilia Eid M.D. failure, Hospitalists unspecified R29.6 Repeated falls M79.7 Fibromyalgia Office Visit 09/19/2015 10:17a [facility] Oskar N17.9 Acute kidney Assoc,odilia Jeong MD failure, Hospitalists unspecified S06.0x1A Concussion w Loc of 30 minutes or less, init S01.81xA Laceration w/o foreign body of oth part of head, init encntr I10 Essential (primary) hypertension Office Visit 09/18/2015 [facility] N17.9 Acute kidney 10:16a Assoc,odilia AKINS M.D. failure, Hospitalists unspecified S06.0x1A Concussion w Loc of 30 minutes or less, init S01.81xA Laceration w/o foreign body of oth part of head, init encntr Office Visit 06/01/2015 11:00a Orthopedic Omkar Muller, M54.32 Sciatica , left Services [facility] M76.32 Iliotibial band syndrome, left leg Office Visit 09/10/2014 [facility] 719.41 Pain Joint 5:24p Assoc,odilia AKINS M.D. Shoulder Hospitalists [facility] Plan of Treatment Future Appointment(s):04/16/2018 1:30 pm - Christy Diego MD at [facility]03/25/2018 10:15 am - Michelle Arenas M.D. at [facility]03/27/2018 11:00 am - Luis Felipe Caal M.D. at [place] [facility]03/24/2018 - Aldo Conroy M.D.R00.0 Tachycardia, [id number] Essential (primary) hypertensionFollow up:10 months ovE66.9 Obesity, unspecified
[2018-04-09] MEDS ORDERED: NS 0.9% 1000 ML* 1,000 ML IV ONE (05:03)
[2018-04-09] MEDS ORDERED: Morphine VIAL* 4 MG/ML VIAL (1 ml vial) IV ONE ×2 (05:04→05:55)
[2018-04-09] MEDS ORDERED: Ondansetron INJ* 2 MG/ML VIAL IV ONE (05:04)
[2018-04-09] MEDS ORDERED: Pantoprazole IV* 40 MG IV ONE (05:04)
--- NOTE | 2018-04-09 05:07 | ED ---
GI/ HPI - HPI Summary HPI Summary: This patient is a 72 year old F presenting to [facility] accompanied by her with a chief complaint of nausea and vomiting since 19:00 last night. Patient notes that she thinks she ate bad [place] food and that no one in her family ate the same food as her. The patient rates the pain 0/10 in severity. Symptoms aggravated by nothing. Symptoms alleviated by nothing. Patient reports epigastric pain that began after vomiting. Patient denies diarrhea. Patient notes her last BM was this morning. Hx cholecystectomy. - History of Current Complaint Chief Complaint: EDNauseaVomitDiarrh Time Seen by Provider: 04/09/18 04:51 Stated Complaint: VOMITING Hx Obtained From: Patient Onset/Duration: Started Hours Ago, Atraumatic, Still Present Timing: Constant Severity: Mild Current Severity: Mild Pain Intensity: 0 Location of Pain: Epigastric Associated Signs and Symptoms: Positive: Nausea, Vomiting. Negative: Diarrhea Aggravating Factor(s): Nothing Alleviating Factor(s): Nothing - Additional Pertinent History Primary Care Physician: RON - Allergy/Home Medications Allergies/Adverse Reactions: Allergies Allergy/AdvReac Type Severity Reaction Status Date / Time ciprofloxacin [From Cipro] Allergy Nausea Verified 04/09/18 04:16 duloxetine [From Cymbalta] Allergy Unknown Verified 04/09/18 04:16 Reaction Details paroxetine [From Paxil] Allergy Shakes Verified 04/09/18 04:16 quinidine Allergy Rash Verified 04/09/18 04:16 Sulfa (Sulfonamide Allergy Unknown Verified 04/09/18 04:16 Antibiotics) Reaction Details BETA BLOCKERS Allergy Intermediate See Comment Uncoded 04/09/18 04:16 PMH/Surg Hx/FS Hx/Imm Hx Endocrine/Hematology History: Reports: Hx Thyroid Disease - 5 POLYPS FOUND 1 NEG 4 REMAINING ON NO MEDS Denies: Hx Diabetes, Hx Anemia Cardiovascular History: Reports: Hx Angina, Hx Hypertension Denies: Hx Congestive Heart Failure, Hx Coronary Artery Disease, Hx Hypercholesterolemia, Hx Myocardial Infarction, Hx Pacemaker/ICD, Hx Valvular Heart Disease, Other Cardiovascular Problems/Disorders Respiratory History: Reports: Hx Asthma - A CHILD GI History: Reports: Hx Gall Bladder Disease - [place] 1968, Hx Ulcer - bleeding ulcers in past, Other GI Disorders - HX OF POLYPS IN COLON Denies: Hx Jaundice History: Reports: Other Problems/Disorders - UTIs Denies: Hx Renal Disease Musculoskeletal History: Reports: Hx Arthritis - GENERALIZED, Hx Back Problems, Hx Bursitis, Hx Fibromyalgia - pt describes as having for "years", Hx Orthopedic Injury - torn right shoulder, Hx Osteoporosis Denies: Hx Rheumatoid Arthritis Sensory History: Reports: Hx Cataracts - BILAT, Hx Contacts or Glasses Denies: Hx Deafness, Hx Hearing Aid Opthamlomology History: Reports: Hx Cataracts - BILAT, Hx Contacts or Glasses Neurological History: Reports: Hx Headaches, Hx Migraine - 2-3 WEEKLY LAST ONE 01/23/18, Hx Nerve Disease - 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 Psychiatric History: Denies: Hx Panic Disorder - Cancer History Hx Chemotherapy: No Hx Radiation Therapy: No - Surgical History Surgery Procedure, Year, and Place: gallbladder, tubal ligation, partial hysterectomy, right breast lumpectomy, right shoulder rotator cuff. 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 02/11/18 - bilateral cataract removal Hx Anesthesia Reactions: No Infectious Disease History: No Infectious Disease History: Denies: Hx Clostridium Difficile, Hx Hepatitis, Hx Human Immunodeficiency Virus (HIV), Hx of Known/Suspected MRSA, Hx Shingles, Hx Tuberculosis, Hx Known/ Suspected VRE, Hx Known/Suspected VRSA, History Other Infectious Disease, Traveled Outside the [place] in Last 30 Days - Family History Known Family History: Negative: Blood Disorder - Social History Alcohol Use: Weekly Alcohol Amount: 1 DRINK Substance Use Type: Reports: None Smoking Status (MU): Never Smoked Tobacco Have You Smoked in the Last Year: No Review of Systems Negative: Fever Negative: Epistaxis Negative: Chest Pain Negative: Shortness Of Breath Positive: Abdominal Pain - epigastric pain, Vomiting, Nausea. Negative: Diarrhea All Other Systems Reviewed And Are Negative: Yes Physical Exam - Summary Physical Exam Summary: VITAL SIGNS: Reviewed. GENERAL: Patient is a well-developed and nourished FEMALE who is lying comfortable in the stretcher. Patient is not in any acute respiratory distress. HEAD AND FACE: No signs of trauma. No ecchymosis, hematomas or skull depressions. No sinus tenderness. EYES: PERRLA, EOMI x 2, No injected conjunctiva, no nystagmus. EARS: Hearing grossly intact. Ear canals and tympanic membranes are within normal limits. MOUTH: Oropharynx within normal limits. NECK: Supple, trachea is midline, no adenopathy, no JVD, no carotid bruit, no c- spine tenderness, neck with full ROM. CHEST: Symmetric, no tenderness at palpation LUNGS: Clear to auscultation bilaterally. No wheezing or crackles. CVS: Regular rate and rhythm, S1 and S2 present, no murmurs or gallops appreciated. ABDOMEN: Soft. Mild mid-abdominal tenderness and epigastric tenderness. No signs of distention. No rebound no guarding, and no masses palpated. Hyperactive bowel sounds. EXTREMITIES: FROM in all major joints, no edema, no cyanosis or clubbing. NEURO: Alert and oriented x 3. No acute neurological deficits. Speech is normal and follows commands. SKIN: Dry and warm Triage Information Reviewed: Yes Vital Signs On Initial Exam: Initial Vitals Temp Pulse Resp BP Pulse Ox 97.5 F 98 16 138/91 92 04/09/18 04:09 04/09/18 04:09 04/09/18 04:09 04/09/18 04:09 04/09/18 04:09 Vital Signs Reviewed: Yes Diagnostics - Vital Signs Vital Signs Temp Pulse Resp BP Pulse Ox 04/09/18 04:09 97.5 F 98 16 138/91 92 - Laboratory Result Diagrams: 04/09/18 05:13 04/09/18 05:13 Lab Statement: Any lab studies that have been ordered have been reviewed, and results considered in the medical decision making process. GIGU Course/Dx - Course Course Of Treatment: This patient is a 72 year old F with hx cholecystectomy reporting nausea and vomiting since 19:00 last night. Patient notes that she thinks she ate bad [place] food. Patient reports epigastric pain began after vomiting. Patient denies diarrhea. Patient notes her last BM was this morning. Test results with no significant abnormalities. In the ED course the patient was given morphine, IV fluids, Protonix, and Zofran. Patient will be signed out to Dr. Lewis upon provider shift change pending CT Abd/Pelvis. - Diagnoses Provider Diagnoses: Abdominal pain Discharge - Sign-Out/Discharge Documenting (check all that apply): Sign-Out Patient Signing out patient TO: Travis Lewis - Discharge Plan Condition: Stable Referrals: Barbara Jacinto MD [Primary Care Provider] - - Attestation Statements Document Initiated by Scribe: Yes Documenting Scribe: Patricia Jimenez Provider For Whom Scribe is Documenting (Include Credential): Clemente Matthew MD Scribe Attestation: Patricia Park, scribed for Clemente Matthew MD on 04/09/18 at 0626. Status of Scribe Document: Ready
[2018-04-09 05:20] LABS: ABS Basophils 0.1 10^3/ul (0-0.2); ABS Eosinophils 0.1 10^3/ul (0-0.6); ABS Lymphocytes 1.8 10^3/ul (1.0-4.8); ABS Monocytes 0.5 10^3/ul (0-0.8); ABS Neutrophils 4.2 10^3/ul (1.5-7.7); ABS Nucleated RBC 0 10^3/ul; Eosinophil % 1.3 %; Hematocrit 42 % (35-47); Hemoglobin 14.4 g/dl (12.0-16.0); Lymphocyte % 26.6 %; Mean Corpuscular HGB Conc 34 g/dl (31-36); Mean Corpuscular Hemoglobin 33 pg (27-31); Mean Corpuscular Volume 95 fL (80-97); Mean Platelet Volume 9.4 fL (7.4-10.4); Nucleated Red Blood Cells % 0; Platelet Count 191 10^3/ul (150-450); Red Blood Count 4.41 10^6/ul (4.00-5.40); Red Cell Distribution Width 15 % (10.5-15); White Blood Count 6.6 10^3/ul (3.5-10.8)
[2018-04-09 05:36] LABS: EGFR Non-African American 56.1 (>60); INR 0.92 (0.77-1.02)
[2018-04-09] MEDS ORDERED: Metoclopramide IV* 5 MG/ML 2 ML VIAL IV SLOW PU ONE (05:55)
[2018-04-09] MEDS ORDERED: Iodixanol 320 (CONTRAST) 100 ML SDV IV ONE (06:27)
--- NOTE | 2018-04-09 07:25 | ED ---
Progress - Progress Note Progress Note: Receiving sign out from Dr. Matthew, pending CT A/P. CT A/P: 1. Right renal cyst. 2. Subtle area of diminished attenuation involving the lower aspect of the liver, most likely small perfusion defect. 3. Cholecystectomy. 4. Dilatation of the common hepatic duct and some of the intrahepatic biliary radicles. 5. Hepatomegaly. 6. Hysterectomy. 7. Colonic diverticulosis. Liver US: 1. BILIARY DILATATION WITHOUT APPRECIABLE CHOLEDOCHOLITHIASIS. 2. STATUS POST CHOLECYSTECTOMY. 3. FATTY INFILTRATION OF THE LIVER. Pt is admitted to Dr. Eid, with final dx of nausea and vomiting and dilation of biliary duct. Re-Evaluation - Re-Evaluation First Eval Re-Evaluation Time: 07:53 Change: Unchanged Comment: Informed pt of CT results. Pt has RUQ tenderness. Will repeat LFTs and get an US. Second Eval Re-Evaluation Time: 08:56 Change: Unchanged Comment: Pt is now having some jovita magdi. Course/Dx - Course Course Of Treatment: Patient with persistent nausea and dilated biliary tree. Ultrasound fails to reveal any stone. Discussed with GI who wishes to have the patient admitted given her persistent nausea for MRI/MRCP. Discussed with the hospitalist who will admit. Stability of choledocholithiasis, obstructing mass , etc. LFT 2 have been negative. - Diagnoses Provider Diagnoses: Nausea & vomiting, Dilation of biliary tract - Provider Notifications Discussed Care Of Patient With: Severino Eid Time Discussed With Above Provider: 08:03 Instructed by Provider To: Other - Dr. Eid would like to wait for the LFTs and US. At 8:[address] De Souza, who said if the pt is still nauseated to admit her and do MRCP. At 9:32 Dr. Eid accepts pt for admission. - Critical Care Time Critical Care Time: 30-74 min - CCT is EXCLUSIVE of separately billable procedures Discharge - Sign-Out/Discharge Documenting (check all that apply): Patient Departure - Admit, Receiving Sign- Out Receiving patient FROM: Clemente Matthew - Discharge Plan Condition: Fair Disposition: ADMITTED TO [facility] Referrals: Barbara Jacinto MD [Primary Care Provider] - - Billing Disposition and Condition Condition: FAIR Disposition: Admitted to [facility] - Attestation Statements Document Initiated by Scribe: Yes Documenting Scribe: Destinee Hinds Provider For Whom Scribe is Documenting (Include Credential): Travis Lewis MD Scribe Attestation: IDestinee, scribed for Travis Lewis MD on 04/09/18 at 1046. Scribe Documentation Reviewed: Yes Provider Attestation: The documentation as recorded by the eleuterioibeDestinee accurately reflects the service I personally performed and the decisions made by me, Travis Lewis MD Status of Scribe Document: Viewed
[2018-04-09] MEDS ORDERED: PROCHLORPERAZINE INJ 5 MG/ML 2 ML VIAL IV ONE (08:00)
[2018-04-09] MEDS: DiMENhydriNATE IV* 50 MG/ML VIAL IV PUSH ONE ×2 (08:09→08:32)
[2018-04-09] MEDS ORDERED: Acetaminophen TAB* 325 MG PO PRN (10:54)
[2018-04-09] MEDS ORDERED: oxyCODONE/Acetamin 5/325 MG* TAB PO PRN (10:54)
[2018-04-09] MEDS ORDERED: Magnesium Sulfate 1 GM IV* 1 GM/100 ML BAG IV ONE (10:57)
[2018-04-09] MEDS ORDERED: Gabapentin CAP(*) 300 MG PO PRN (10:58)
[2018-04-09] MEDS ORDERED: NON FORMULARY MED* (Melatonin [Melatonin] 10 MG) PO PRN (10:58)
[2018-04-09 12:04] LABS: Urine Appearance Clear; Urine Blood Negative (Negative); Urine Color Yellow; Urine Ketones Negative (Negative); Urine Protein Negative (Negative); Urine Specific Gravity 1.054 (1.010-1.030); Urine Urobilinogen Negative (Negative)
[2018-04-09] MEDS: Heparin VIAL(*) 5000 UNITS/ML VIAL (FIVE THOUSAND) SUBCUT SCH ×2 (14:18→22:23)
[2018-04-09] MEDS: Ondansetron ODT TAB* 4 MG SL PRN ×2 (14:18→20:47)
[2018-04-09] MEDS ORDERED: amLODIPine TAB* 5 MG PO SCH (18:00)
--- NOTE | 2018-04-09 19:37 | CONS ---
CC: Dr. Vijay Tim; Dr. Barbara Castro; Dr. Otero * CONSULTATION REPORT: DATE OF CONSULT: 04/09/18 REASON FOR CONSULT: Nausea, vomiting, abnormal CT scan. HISTORY OF PRESENT ILLNESS: This is a very pleasant 72-year-old female with a history of hypertension, remote cholecystectomy in 1967, peptic ulcer disease, and colon polyps, presenting with abrupt onset of nausea and vomiting about 7 hours after eating [place]ese food on 04/08/18. She states that she believes the [place] food was a little bit undercooked and she was not feeling well. She denies any diarrhea, but around 1900 last night, started to have profuse nausea with emesis. The emesis was mostly clear in nature with some retching. She did have associated epigastric and right upper quadrant pain. The nausea persisted through the evening. It was not cyclic in nature and was not related to prandial association. She denies any dysphagia, odynophagia. She denies any NSAID use after her previous run-in with peptic ulcer disease in the past. She states that her son accompanied her to the [place] food buffet, but they ate separate dishes from the buffet. She was seen in the emergency room and her nausea was unable to be controlled and she was admitted for further workup. She did have a CT scan in the emergency room, which showed dilation to not only the CBD of 1 cm, but also to some intrahepatic dilation as well. She denies any episodes of jaundice. No history of hepatitis in the past. She states that her gallbladder did come out for gallstones in 1967 and it was an open procedure. She denies any black or blood in her stool. No other abdominal pain. She states at this point that her nausea is improved, but is still having some epigastric tenderness. She normally takes pantoprazole 1 to 2 times daily, but over the last month has had to supplement this with additional Carafate. She denies any weight loss or weight gain. The remainder of the 14- point review of systems is grossly negative. PAST MEDICAL HISTORY: Significant for hypertension, lumbosacral stenosis and peptic ulcer disease. PAST SURGICAL HISTORY: Esophagogastroduodenoscopy on 04/11/16 revealed gastric polyp and gastritis. She had a colonoscopy in July 2015 that revealed a cecal ulceration and a single colon polyp and internal and external hemorrhoids. In addition, she had a small bowel capsule endoscopy on 05/08/16 that did not reveal any cause of anemia, but the image quality was poor. Additional surgical history includes cholecystectomy in 1967. MEDICATIONS: Home medications include: 1. Amlodipine. 2. Benazepril. 3. Carafate. 4. Fluticasone. 5. Gabapentin. 6. Iron. 7. Lorazepam. 8. Oxycodone. 9. Pantoprazole. 10. Tramadol. 11. Vitamin D. ALLERGIES TO MEDICATIONS: Include CIPROFLOXACIN, DULOXETINE, PAROXETINE, QUINIDINE, SULFA, and BETA-BLOCKERS. SOCIAL HISTORY: Denies tobacco. Has less than 1 drink a week. REVIEW OF SYSTEMS: The remainder of the 14-point review of systems is grossly negative. OBJECTIVE DATA: Vital Signs: Blood pressure is 102/69, pulse is 58, respiratory rate of 20, she is 94% on room air, temperature is 97.7. In general , she is alert and oriented, no acute distress. HEENT: Atraumatic, normocephalic. Pupils equal, round, reactive to light. Extraocular movements are intact. Sclerae are anicteric. Conjunctivae are pink. Cardiovascular: Regular rate and rhythm. S1, S2. Respiratory: Clear to auscultation bilaterally. Abdomen: Obese, soft with tenderness to palpation in the epigastric region that is moderate in intensity. No guarding or rebound. Bowel sounds are positive times all 4 quadrants. Extremities: No clubbing, no cyanosis, no edema. DIAGNOSTIC STUDIES/LAB DATA: She had a CT of the abdomen and pelvis that showed diminished attenuation in the inferior tip of the liver measuring 1.9 x 3 x 1 cm. In addition, there is a 1 cm CBD dilation. In addition, the common hepatic duct is dilated with diameter of 1.7 mm. There is also dilation of a few of the intrahepatic biliary ducts as well. Laboratory data: Hemoglobin is 14.4, platelet count is 191, INR is 0.92. Her bilirubin is 0.90, AST is 14, ALT is 11, creatinine 0.98, glucose 128, magnesium 1.7, alkaline phosphatase 57. Amylase and lipase were 80 and 35 respectively. ASSESSMENT AND PLAN: This is a 72-year-old female with rapid onset nausea, vomiting, and abnormal CT scan. 1. Abnormal nausea and vomiting, seems to have a temporal correlation to her recent illness of undercooked [place] food, it was not reheated, it was at a buffet, but she said that it tasted very unusual from the normal food she has had. Her nausea does seem to be improving with antiemetics and IV fluid hydration at this point. I would recommend continued supportive care. However , she does have quite a bit of epigastric discomfort. If there is ongoing epigastric discomfort, would have low threshold for endoscopic evaluation. 2. Epigastric pain. Continue with PPI and Carafate p.r.n., may need endoscopic evaluation if ongoing. 3. Biliary dilation, both common bile duct and hepatic duct and some intrahepatic dilation. Given this constellation of findings, it is hard to lay the blame completely at the prior cholecystectomy and age. I would recommend MRCP for better evaluation. [id number]/[facility] #: [id number] MTDEverardo
[2018-04-09] MEDS ORDERED: Lisinopril TAB* 10 MG PO SCH (21:00)
[2018-04-09] MEDS: Pantoprazole TAB (NF) 20 MG TAB PO SCH (21:05)
[2018-04-10] MEDS ORDERED: Sucralfate TAB* 1 GM PO PRN (00:12)
[2018-04-10] MEDS: Ondansetron ODT TAB* 4 MG SL PRN ×3 (02:07→17:02)
[2018-04-10] MEDS: Heparin VIAL(*) 5000 UNITS/ML VIAL (FIVE THOUSAND) SUBCUT SCH ×2 (05:18→13:20)
[2018-04-10 07:09] LABS: ABS Basophils 0 10^3/ul (0-0.2); ABS Eosinophils 0.1 10^3/ul (0-0.6); ABS Lymphocytes 1.8 10^3/ul (1.0-4.8); ABS Monocytes 0.4 10^3/ul (0-0.8); ABS Neutrophils 2.8 10^3/ul (1.5-7.7); ABS Nucleated RBC 0 10^3/ul; Eosinophil % 2.7 %; Hematocrit 40 % (35-47); Hemoglobin 13.3 g/dl (12.0-16.0); Lymphocyte % 34.1 %; Mean Corpuscular HGB Conc 33 g/dl (31-36); Mean Corpuscular Hemoglobin 32 pg (27-31); Mean Corpuscular Volume 97 fL (80-97); Mean Platelet Volume 9.2 fL (7.4-10.4); Nucleated Red Blood Cells % 0.2; Platelet Count 163 10^3/ul (150-450); Red Blood Count 4.15 10^6/ul (4.00-5.40); Red Cell Distribution Width 15 % (10.5-15); White Blood Count 5.2 10^3/ul (3.5-10.8)
[2018-04-10 07:26] LABS: EGFR Non-African American 61.9 (>60)
[2018-04-10] MEDS: Pantoprazole TAB (NF) 20 MG TAB PO SCH (08:16)
--- NOTE | 2018-04-10 08:34 | HP ---
CC: Dr. Jacinto * HISTORY AND PHYSICAL: DATE OF ADMISSION: 04/09/18 PROVIDER: Kiesha Christensen NP PRIMARY CARE PROVIDER: Dr. Barbara Jacinto. ATTENDING PHYSICIAN WHILE IN THE HOSPITAL: Dr. Severino Eid * (dictated by Kiesha Christensen NP). CHIEF COMPLAINT: Nausea and vomiting. HISTORY OF PRESENT ILLNESS: Ms. Bang is a 72-year-old female with a past medical history significant for hypertension, peptic ulcer disease, history of colon polyps, lumbar sacral stenosis, iron-deficiency anemia, who presented to the emergency room with complaints of nausea and vomiting that was abrupt onset , approximately 7 hours after eating [place] food on 04/08/18. The patient reports that approximately 7 p.m. on 04/08/18, she started with nausea and vomiting. She denied any fever or chills. She did have some upper epigastric pain that lasted through the night but has since resolved since presentation to the emergency room. She does continue to complain of nausea. She does report that she did eat at a [place] buffet, and approximately 7 hours after eating at the [place] buffet, she developed nausea and vomiting. She denied any diarrhea. She denied any fever, loss of appetite, chest pain, shortness of breath, cough, or hemoptysis. She does report nausea and vomiting. No diarrhea. Does report upper abdominal pain. Denies any gross hematuria or dysuria. Denies any focal weakness or sensory loss. Denies any visual complaints. Denies any dysphagia, arthralgias, myalgias, rashes, lesions, psychosis, or anxiety. Due to her intractable nausea and vomiting, we were asked to see and evaluate her for admission. While in the emergency room, the patient had routine lab works drawn and GI, Dr. De Souza, was consulted, who recommended an MRCP. PAST MEDICAL HISTORY: Significant for: 1. Hypertension. 2. Iron-deficiency anemia. 3. Peptic ulcer disease. 4. History of colon polyps. 5. Lumbar sacral stenosis. PAST SURGICAL HISTORY: 1. Cholecystectomy in 1967. 2. Lumpectomy on the right. 3. Rotator cuff repair in 2014. 4. Bilateral cataract surgeries in January 2018. 5. Partial hysterectomy. MEDICATIONS: Home medications include: 1. Pantoprazole 20 mg p.o. b.i.d. 2. Ferrous sulfate 325 mg p.o. b.i.d. 3. Vitamin D 5000 units. 4. Amlodipine 5 mg, which is weaning to be discontinued. 5. Acetaminophen 650 mg p.o. q.6 hours as needed. 6. Oxycodone 5/325 one tablet p.o. b.i.d. 7. Vitamin B complex 1 tablet p.o. q.a.m. 8. Melatonin 10 mg p.o. at bedtime. 9. Lorazepam 2 mg p.o. at bedtime. 10. Gabapentin 300 mg at bedtime. 11. Diclofenac 1.3% patch b.i.d. p.r.n. 12. Vitamin D3 of 5000 units p.o. every other day. 13. Benazepril 10 mg p.o. at bedtime. 14. Vitamin B12 1000 mcg sublingually. ALLERGIES TO MEDICATIONS: Allergy to CIPRO, DULOXETINE, PAROXETINE, QUINIDINE, SULFA, and BETA BLOCKERS. FAMILY HISTORY: Brother with a history of hypertension. No reported history of diabetes. Mother with a history of colon cancer. Grandfather with a history of kidney cancer. SOCIAL HISTORY: Denies any tobacco or illicit drug use. Reports rare alcohol use. She is ; she lives with her son. Unique Merino would be her surrogate decision maker in the event she is unable to make her own decisions. She is a full code. REVIEW OF SYSTEMS: There is no documented fever. No unintended weight loss. Denies any chest pain or edema. Denies any cough, hemoptysis, or shortness of breath. She does report nausea and vomiting. She denies any diarrhea. She does report upper epigastric pain and right upper quadrant pain. Denies any gross hematuria, dysuria, focal weakness, or sensory loss. Denies any visual complaints. Denies any dysphagia, arthralgias, myalgias, rashes, lesions, psychosis, or anxiety. Review of 14 systems was completed and all others were negative. PHYSICAL EXAMINATION GENERAL: At this time, Ms. Bang is a 72-year-old female, she appears well, sitting on the stretcher in the emergency room. She is not in any acute distress. VITAL SIGNS: Temperature was 98.4, heart rate was 60, respirations 16, O2 saturation 93% on room air, and blood pressure 105/71. HEENT: Head: Atraumatic and normocephalic. Eyes: EOMs are intact. Sclerae anicteric and not pale. Oral mucosa appeared to be moist. NECK: Supple. LUNGS: Clear to auscultation bilaterally. No wheezes, rales, or rhonchi. CARDIAC: S1 and S2. Regular rate and rhythm. No murmurs, rubs, or gallops. ABDOMEN: Right upper quadrant with tenderness with palpation. Mid upper abdomen, epigastric region, with tenderness with palpation. Bowel sounds are present x4. EXTREMITIES: Pedal pulses are +2 bilaterally. She is able to move all 4 extremities with 5/5 strength. NEUROLOGIC: She is awake, alert, and oriented x3. Speech is clear. There are no gross focal deficits. SKIN: Intact. DIAGNOSTIC STUDIES/LAB DATA: WBCs are 6.6, RBC 4.41, hemoglobin 14.4, hematocrit was 42, platelet count 191. INR was 0.92. Sodium 148, potassium 3.7 , chloride 104, carbon dioxide was 27, anion gap was 9, BUN was 12, creatinine 0.98, magnesium was 1.7, lactic acid was 1.4. Total bilirubin 0.8, ASTs were 14 , ALTs were 11, alkaline phosphatase of 57. C-reactive protein 5.72. Lipase was 35, repeat was 25. Amylase was 80. Urine was yellow; clear; pH was 5.0; specific gravity 0.054; urine protein, ketones, blood, nitrites, bilirubin, urobilinogen, leukocyte esterase, and urine glucose were all negative. She had a liver ultrasound. Radiology impression: Biliary dilation without appreciable cholelithiasis, status post cholecystectomy, fatty infiltration of the liver. She had a CT of the abdomen and pelvis. Radiologist's impression: Right renal cyst; area of diminished attenuation and volume, lower aspect of the liver , most likely small perfusion deficit. Cholecystectomy, dilation of the common hepatic duct and some of the intrahepatic biliary radicles, hepatomegaly, hysterectomy, and colonic diverticulosis. ASSESSMENT AND PLAN: Ms. Bang is a 72-year-old female, who presented to the emergency room with complaints of intractable nausea and vomiting. We were asked to evaluate her due to her nausea and vomiting. She will be admitted under observation for: 1. Intractable nausea and vomiting. The patient reports significant amount of nausea and vomiting since last night at 7 p.m. She will be admitted under observation. We will give her gentle IV hydration and antiemetics with Zofran as needed for nausea. She was seen in consultation by Gastroenterology, who recommended an MRCP, which will be completed. We will continue on PPI and Carafate as needed for upper epigastric pain. I suspect this is probably related to the [place] buffet that the patient ate and she probably has some mild gastroenteritis, but we will rule out any biliary duct dilation or concern for stones in the bile duct. 2. Iron-deficiency anemia. We will continue ferrous sulfate 325 mg p.o. daily. 3. Hypertension. We will continue on amlodipine 5 mg with medication currently being weaned and benazepril 10 mg p.o. daily. 4. Gastroesophageal reflux disease. We will continue on pantoprazole 20 mg p.o. b.i.d. and add Carafate as needed for upper epigastric discomfort. 5. FEN. She can have a regular diet as tolerated. 6. Code status. She is a full code. 7. DVT prophylaxis. I will place her on heparin subcu. TIME SPENT: Time spent on this admission was 60 minutes, greater than half that time was spent [id number] with the patient obtaining my history and physical and the other half the time was spent performing my physical exam and reviewing my plan of care. I have discussed this with my attending, Dr. Severino Eid; he is in agreement with my plan. KIESHA CHRISTENSEN, BRODY [id number]/[facility] #: [id number] HERIBERTO
[2018-04-10] MEDS ORDERED: Ferrous Sulfate TAB* 325 MG PO SCH (09:00)
[2018-04-10 15:41] VITALS: BP 118/78
[2018-04-11] MEDS ORDERED: Cholecalciferol TAB* 1000 UNITS PO SCH (09:00)
--- NOTE | 2018-04-11 14:40 | DS ---
CC: Dr. Jacinto * DISCHARGE SUMMARY: DATE OF ADMISSION: 04/09/18 DATE OF DISCHARGE: 04/10/18 PRIMARY CARE PROVIDER: Dr. Barbara Jacinot. ATTENDING FOR THIS ADMISSION: Dr. Severino Eid.* (DICTATED BY CORA LARIOS NP) HOSPITAL COURSE: This is a 72-year-old female with a past medical history of hypertension, peptic ulcer disease, lumbar stenosis and some mild iron- deficiency anemia, who presented with intractable nausea and vomiting after eating [place] food on 04/08/18. The patient states that she felt the [place] food was undercooked and was attributing her symptoms to the recent intake of this meal. The patient denied any hematemesis. No diarrhea. However, she was not able to keep down any fluids or food. She came to the emergency department and was admitted for intractable nausea and vomiting. She was given IV fluids, kept on observation. She had antiemetics in the form of Zofran IV for her nausea. She was seen by Gastroenterology because the patient had a history of cholecystectomy. They recommended MRCP. She had the MRCP, which was negative for any acute pathology. She was continued on a PPI and Carafate for her epigastric pain and also to enable the patient to be able tolerate fluids. Her diet was advanced from clear liquids to full liquids and then ultimately soft diet. She tolerated well throughout the day today and responded well to fluids. The patient stated that her abdomen was still a bit sore; however, she was tolerating meals just fine and showed no signs or symptoms of dehydration or further decompensation. The patient was cleared for discharge on 04/10/18. She was instructed to follow up with Dr. Jacinto, her primary care provider, on an as needed basis. There was not a need for her to follow up with GI on an outpatient basis unless she had a change in status. DISCHARGE DIAGNOSES: 1. Intractable nausea and vomiting, likely secondary to gastroenteritis from undercooked food. 2. Iron deficiency anemia, on ferrous sulfate. H and H stable. 3. Hypertension, stable on current home medication regimen. 4. History of gastroesophageal reflux disease, on PPI. DISCHARGE MEDICATIONS: No changes to medication regimen. The patient was discharged on her home medications, which are: 1. Norvasc 5 mg in the evening. 2. Vitamin D 5000 units every other day. 3. Ferrous sulfate 325 mg daily. 4. Gabapentin 300 mg p.o. at bedtime. 5. Diclofenac patch topical b.i.d. as needed. 6. Vitamin B12 1000 mcg sublingual daily. 7. Pantoprazole 20 mg p.o. b.i.d. 8. Benazepril 10 mg at bedtime. 9. Melatonin 10 mg p.o. at bedtime as needed. 10. B complex one cap p.o. daily. 11. Percocet 10/325, half a tablet p.o. b.i.d. as needed. REVIEW OF SYSTEMS: On the day of discharge, the patient denies any fever, fatigue or chills. No chest pain. No shortness of breath. She has some mild epigastric pain that improved with oral intake. No nausea, vomiting or diarrhea active. No arthralgias or myalgias and no further constitutional complaints. PHYSICAL EXAMINATION: Physical exam reveals a well-appearing woman, in no acute distress. Vital signs are blood pressure 118/78, heart rate 85, respiratory rate 18, O2 saturation 93% on room air, with a temperature of 98.2. HEENT: The patient is atraumatic, normocephalic. PERRLA, with anicteric sclerae. Oral mucosa is moist. Tongue is midline. Neck is supple, nontender. No thyromegaly appreciated. No JVD noted. Cardiovascular: S1 and S2 present. Rate and rhythm are regular. No murmurs, gallops or rubs noted. Lungs : Clear bilaterally to auscultation, with no wheezing, rhonchi or rales. Abdomen: Soft, nontender, no organomegaly appreciated. Positive bowel sounds in all 4 quadrants. : Deferred. Musculoskeletal: There is no clubbing, no cyanosis, no edema. She has +2 distal pulses palpable. Gross motor and sensation are intact. She has a stead gait. Full range of motion. Neurologic: Grossly intact, with no focal deficits. Psychiatric: She is cooperative and appropriate. DIAGNOSTIC STUDIES/LAB DATA: WBC is 5.2, RBC is 4.15, hemoglobin 13.3, hematocrit 40, platelets 163. Sodium 141, potassium 3.7, chloride 106, CO2 of 28, BUN 6, creatinine 0.90, down from 0.98, GFR 61.9, glucose 105, lactic acid 1.4, calcium 9.2, bilirubin 0.80, direct bili 0.10, indirect bili 0.7, AST 14, ALT 11, alk phos 57. CRP 5.72, total protein 6.5, albumin 3.9, globulin 2.6. Amylase 80, lipase 35 and 25 upon discharge. Urinalysis is negative for any acute infective process. Coagulation time is well within normal range. Imaging: Liver ultrasound dated 04/09/18 showed biliary dilatation without appreciable cholelithiasis, status post cholecystectomy, fatty infiltration of the liver. MRCP dated 04/09/18, also showed post-cholecystectomy biliary dilatation, with no choledocholithiasis, type 1 pancreatic divisum, Bosniak type 1 renal cyst, no followup indicated. DISPOSITION: The patient was discharged to home to the care of family. All questions were answered. The patient stated understanding of her discharge diagnoses. FOLLOWUP: The patient was instructed to follow up with her primary care physician as needed. DIET: She was instructed to have a soft diet as tolerated and advance as tolerated. She was advised to stay hydrated. ACTIVITY: As tolerated. The patient was discharged in stable condition to the care of family. The patient states her understanding of her discharge instructions. CORA LARIOS NP [id number]/[facility] #: [id number] HERIBERTO
== END 2018-04-10 17:20 | disposition home or self-care (01) ==
LOC: ED 04:08 → MED 11:55
PROVIDERS: ADMIT Internal Medicine; ATTEND Internal Medicine
DX: R11.2 Nausea with vomiting, unspecified (principal); D50.9 Iron deficiency anemia, unspecified; I10 Essential (primary) hypertension; K21.9 Gastro-esophageal reflux disease without esophagitis; Z88.6 Allergy status to analgesic agent
CPT/HCPCS: 36415; 74177; 74181; 76376; 76705; 80048; 80053; 80076; 81003; 82150; 83605; 83690; 83735; 85025; 85610; 85730; 86140; 96365; 96366; 96375; 96376; 99282; A9270-GY; G0378; J0780; J1240; J1644; J2270; J2405; J2765; J3475; Q9967

== ENCOUNTER 2018-10-12 11:12 | Inpatient (IN) | payer MEDICARE ==
[2018-10-12] MEDS ORDERED: NS 0.9% 1000 ML** 1,000 ML IV ONE (11:18)
--- NOTE | 2018-10-12 11:20 | ED ---
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 She states she was on the way to work, and suddenly became lost and confused. Her vision turned "silvery" and she was missing vision in her central field of vision on the L. She states waking up at baseline. ED provider met patient in SW immediately from triage. - History of Current Complaint Stated Complaint: POSS STROKE PER PT Hx Obtained From: Patient Onset/Duration: Sudden Onset, Started minutes ago, Still Present Timing: Constant Onset Severity: Moderate Current Severity: Moderate Number of Seizures: 0 Character: Confusion Associated Signs and Symptoms: Positive: Visual Changes - Additional Pertinent History Primary Care Physician: RON - Allergy/Home Medications Allergies/Adverse Reactions: Allergies Allergy/AdvReac Type Severity Reaction Status Date / Time ciprofloxacin [From Cipro] Allergy Nausea Verified 08/14/18 10:50 diltiazem Allergy Insomnia, Verified 08/14/18 10:50 head pressure, HTN duloxetine [From Cymbalta] Allergy Unknown Verified 08/14/18 10:50 Reaction Details paroxetine [From Paxil] Allergy Shakes Verified 08/14/18 10:50 quinidine Allergy Rash Verified 08/14/18 10:50 Sulfa (Sulfonamide Allergy Unknown Verified 08/14/18 10:50 Antibiotics) Reaction Details verapamil Allergy Insomnia, Verified 08/14/18 10:50 head pressure BETA BLOCKERS Allergy Intermediate See Comment Uncoded 04/29/18 10:06 Home Medications: Home Medications Benazepril HCl 40 mg PO BEDTIME 10/12/18 [History Confirmed 10/12/18] Gabapentin CAP(*) [Neurontin 300 CAP(*)] 600 mg PO BEDTIME MDD 1200mg 10/12/18 [ History Confirmed 10/12/18] LORazepam TAB(*) [Ativan 1 MG TAB (*)] 1 mg PO BID PRN 10/12/18 [History Confirmed 10/12/18] Pantoprazole TAB * [Protonix TAB*] 40 mg PO QAM 10/12/18 [History Confirmed ] PMH/Surg Hx/FS Hx/Imm Hx Previously Healthy: No Endocrine/Hematology History: Reports: Hx Thyroid Disease - 5 POLYPS FOUND 1 NEG 4 REMAINING ON NO MEDS Denies: Hx Diabetes, Hx Anemia Cardiovascular History: Reports: Hx Angina, Hx Hypertension Denies: Hx Congestive Heart Failure, Hx Coronary Artery Disease, Hx Hypercholesterolemia, Hx Myocardial Infarction, Hx Pacemaker/ICD, Hx Valvular Heart Disease, Other Cardiovascular Problems/Disorders Respiratory History: Reports: Hx Asthma - A CHILD GI History: Reports: Hx Gall Bladder Disease - [place] 1967, Hx Ulcer - bleeding ulcers in past, Other GI Disorders - HX OF POLYPS IN COLON Denies: Hx Jaundice History: Reports: Other Problems/Disorders - UTIs Denies: Hx Renal Disease Musculoskeletal History: Reports: Hx Arthritis - GENERALIZED, Hx Back Problems, Hx Bursitis, Hx Fibromyalgia - pt describes as having for "years", Hx Orthopedic Injury - torn right shoulder, Hx Osteoporosis Denies: Hx Rheumatoid Arthritis Sensory History: Reports: Hx Cataracts - BILAT Denies: Hx Contacts or Glasses, Hx Deafness, Hx Hearing Aid Opthamlomology History: Reports: Hx Cataracts - BILAT Denies: Hx Contacts or Glasses Neurological History: Reports: Hx Headaches, Hx Migraine - 2-3 WEEKLY LAST ONE 01/23/18, Hx Nerve Disease - 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 Psychiatric History: Denies: Hx Panic Disorder - Cancer History Hx Chemotherapy: No Hx Radiation Therapy: No - Surgical History Surgery Procedure, Year, and Place: CHOLECYSECTOMY; RIGHT LUMPECTOMY; RIGHT RTC REPAIR; BILAT CATARACTS Hx Anesthesia Reactions: No Infectious Disease History: Denies: Hx Clostridium Difficile, Hx Hepatitis, Hx Human Immunodeficiency Virus (HIV), Hx of Known/Suspected MRSA, Hx Shingles, Hx Tuberculosis, Hx Known/ Suspected VRE, Hx Known/Suspected VRSA, History Other Infectious Disease - Family History Known Family History: Negative: Blood Disorder - Social History Occupation: Retired Lives: Alone Alcohol Use: Rare Alcohol Amount: 1 DRINK Hx Substance Use: No Substance Use Type: Reports: None Hx Tobacco Use: No Smoking Status (MU): Never Smoked Tobacco Have You Smoked in the Last Year: No Review of Systems Positive: Other - pos: "silvery" vision, loss of vision in central L field Neurological: Other - pos: confusion All Other Systems Reviewed And Are Negative: Yes Physical Exam - Summary Physical Exam Summary: Appearance: The patient is well-nourished in no acute distress and in no acute pain. Skin: The skin is warm and dry and skin color reflects adequate perfusion. HEENT: The head is normocephalic and atraumatic. The pupils are equal and reactive. The conjunctivae are clear and without drainage. Nares are patent and without drainage. Mouth reveals moist mucous membranes and the throat is without erythema and exudate. The external ears are intact. The ear canals are patent and without drainage. The tympanic membranes are intact. Neck: the neck is supple with full range of motion and non-tender. There are no carotid bruits. There is no neck vein distension. Respiratory: Chest is non-tender. Lungs are clear to auscultation and breath sounds are symmetrical and equal. Cardiovascular: Heart is regular rate and rhythm. There is no murmur or rub auscultated. There is no peripheral edema and pulses are symmetrical and equal. Abdomen: The abdomen is soft and non-tender. There are normal bowel sounds heard in all four quadrants and there is no organomegaly palpated. Musculoskeletal: There is no back tenderness noted. Extremities are non-tender with full range of motion. There is good capillary refill. There is no peripheral edema or calf tenderness elicited. Neurological: Patient is alert and oriented to person, place and time. The patient has symmetrical motor strength in all four extremities. Cranial nerves are grossly intact. Deep tendon reflexes are symmetrical and equal in all four extremities. Psychiatric: The patient has an appropriate affect and does not exhibit any anxiety or depression. Triage Information Reviewed: Yes Vital Signs Reviewed: Yes - Scot Coma Scale Best Eye Response: 4 - Spontaneous Best Motor Response: 6 - Obeys Commands Best Verbal Response: 5 - Oriented Coma Scale Total: 15 Diagnostics - Laboratory Result Diagrams: 10/12/18 11:47 10/12/18 11:47 Lab Statement: Any lab studies that have been ordered have been reviewed, and results considered in the medical decision making process. - Radiology CXR Radiology Interpretation Completed By: Radiologist Summary of Radiographic Findings: IMPRESSION: NO ACTIVE CARDIOPULMONARY DISEASE. ED provider has reviewed this report. - CT Brain CT CT Interpretation Completed By: Radiologist Summary of CT Findings: IMPRESSION: 1. NO EVIDENCE FOR GROSS ACUTE INFARCT, MASS EFFECT OR HEMORRHAGE. 2. FINDINGS SUGGESTIVE OF MILD CHRONIC SMALL VESSELS ISCHEMIC CHANGES. ED provider has reviewed this report. Head/Neck CTA CT Interpretation Completed By: Radiologist Summary of CT Findings: IMPRESSION: NO INTERNAL CAROTID ARTERY STENOSIS BY NASCET CRITERIA. NO ANEURYSM, VASCULAR MALFORMATION, OCCLUSION, OR STENOSIS OF THE VISUALIZED INTRACRANIAL CIRCULATION. ED provider has reviewed this report. - EKG 1157 Cardiac Rate: NL - 90 bpm EKG Rhythm: Sinus Rhythm ST Segment: Normal Ectopy: None Summary of EKG Findings: No STEMI. 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-Paretic Hand: Both Correctly Best Gaze (Only Horizontal Eye Movement): Normal Visual Field Testing: Partial Hemianopia Facial Paresis-Pt to Smile & Close Eyes or Grimace Symmetry: Normal/Symmetrical Motor Function - Right Arm: No Drift-Holds 10 Seconds Motor Function - Left Arm: No Drift-Holds 10 Seconds Motor Function - Right Leg: No Drift-Holds 10 Seconds Motor Function - Left Leg: No Drift-Holds 10 Seconds Limb Ataxia-Must be out of Proportion to Weakness Present: Absent Sensory (Use Pinprick to Test Arms/Legs/Trunk/Face): Normal Best Language (Describe Picture, Name Items): No Aphasia Dysarthria (Read Several Words): Normal Extinction and Inattention: No Abnormality Total Score: 1 Course/Dx - Course Course Of Treatment: Ms. Bang presented about 45 minutes after the acute onset of visual changes. She was driving to work and all of a sudden she was having difficulty seeing in the left visual field. She tells me she can see the right side of my face but not the left however she can see peripheral vision on her left. She denies a headache. She is rates that she was confused but it seems more like she was having difficulty figuring out where she was because of her visual cut. Her NIH stroke scale is 1 for her vision although she did have good peripheral vision. A megan mark was called and Dr. Mcdonald came to see her after CT scan was negative. He felt that this quite possibly was an atypical migraine but recommended admission to the hospitalist for further workup. - Diagnoses Provider Diagnoses: Atypical migraine, CVA (cerebral vascular accident) During the Visit The Following Alert/Code Occurred: Megan Rico - called at 11:17 - Physician Notifications Discussed Care Of Patient With: Kelechi Mcdonald - neuro Time Discussed With Above Provider: 11:26 Instructed by Provider To: Will See In ED - Discussing case. Consulted again at 11:50: Patient has PMHx: occular migraines that lasts for days; recommends CTA. - Critical Care Time Critical Care Time: 30-74 min Discharge - Sign-Out/Discharge Documenting (check all that apply): Patient Departure - ADMIT Patient Received Moderate/Deep Sedation with Procedure: No - Discharge Plan Condition: Stable Disposition: ADMITTED TO [facility] Referrals: Barbara Jacinto MD [Primary Care Provider] - - Billing Disposition and Condition Condition: STABLE Disposition: Admitted to [facility] - Attestation Statements Document Initiated by Scribe: Yes Documenting Scribe: Woo Durand Provider For Whom Orliniblatha is Documenting (Include Credential): Dr. Ruperto Catherine MD Scribe Attestation: Woo [place], scribed for Dr. Ruperto Catherine MD on 10/12/18 at 1521. Scribe Documentation Reviewed: Yes Provider Attestation: The documentation as recorded by the orlinibe, Woo Durand accurately reflects the service I personally performed and the decisions made by me, Dr. Ruperto Catherine MD Status of Scribe Document: Viewed Consult Consult: 1133: Consult with Dr Olivia, radiology Brain CT is negative. 1251: Consult with Dr. Pleitez, hospitalist Will admit patient.
[2018-10-12 12:04] LABS: ABS Lymphocytes 2.3 10^3/ul (1.0-4.8); ABS Monocytes 0.6 10^3/ul (0-0.8); ABS Neutrophils 5.1 10^3/ul (1.5-7.7); Eosinophil % 0.6 %; Hematocrit 42 % (35-47); Hemoglobin 14.3 g/dL (12.0-16.0); Lymphocyte % 28.3 %; Mean Corpuscular HGB Conc 34 g/dL (31-36); Mean Corpuscular Hemoglobin 33 pg (27-31); Mean Corpuscular Volume 97 fL (80-97); Mean Platelet Volume 9.6 fL (7.4-10.4); Platelet Count 180 10^3/uL (150-450); Red Blood Count 4.36 10^6 /uL (3.70-4.87); Red Cell Distribution Width 16 % (10-15)
[2018-10-12] MEDS ORDERED: Magnesium Sulfate 1 GM IV* 1 GM/100 ML BAG IV ONE (12:16)
[2018-10-12 12:17] LABS: Albumin 4.3 g/dL (3.2-5.2); Albumin/Globulin Ratio 1.3 (1-3); BUN/Creatinine Ratio 16.2 (8-20); Calcium 10.3 mg/dL (8.6-10.3); EGFR African American 58.6 (>60); EGFR Non-African American 48.5 (>60); Globulin 3.2 g/dL (2-4); HDL Cholesterol 48.5 mg/dL; Potassium 3.7 mmol/L (3.5-5.0); Total Protein 7.5 g/dL (6.4-8.9)
[2018-10-12 12:22] LABS: Activated Partial Thrombo Time 35.5 seconds (26.0-38.0); INR 0.97 (0.82-1.09)
[2018-10-12] MEDS ORDERED: Iodixanol* (CONTRAST) 320 MG/ML 100 ML SDV IV ONE (12:25)
--- NOTE | 2018-10-12 15:22 | CONS ---
CC: Dr. Caal; Dr. Castro * NEUROLOGY CONSULTATION: REFERRING PROVIDER: Dr. Catherine DATE OF CONSULTATION: 10/12/18 LOCATION: She is in the emergency room to be admitted. CHIEF COMPLAINT: Head pressure, visual changes. HISTORY OF PRESENT ILLNESS: Katherine Bang is a 73-year-old woman who was driving to work this morning when she noted some blurry vision out of her left eye. It involved a central area, but to the left side of the center. She could see in the periphery. First it was a bright and shimmery pattern, but overtime it became just distorted and dark. She has experienced episodes like this before, but it was more profound than usual. She had some left hemicranial and posterior head pressure, but it was not very bad. There is no photophobia or nausea. She felt disoriented in terms of driving herself and when she looked at the car in front of her, she could not see to the left portion of her visual field out of the left eye only. She presented to the emergency room and a code mark was called. When I evaluated her, it has been going on for about 45 minutes initially and since then I reevaluated her a couple of more times. She has a persistent visual field defect out of the left eye only. When she looks at my face, she has difficulty seeing my right eye, but can see around it and to the left side clearly. When she looks out of her right eye, her vision is clear. Her head pressure has built over the hour or more that she has been here. She has not had any nausea or photophobia. She says that she has been diagnosed with ocular migraines in the past. She said the episodes were similar to this, but not as dense of visual deficit. She says the episodes could last for days. She said she does not take anything preventively for them. She says it has been perhaps 2 months since her last one. In reviewing the records, she has had MRIs of the brain in 2016 and 2017 and interpretation is showing stable nonspecific white matter changes. PAST MEDICAL HISTORY: Notable for chronic back pain, chronic gastric ulcers, insomnia, anxiety, a fall with concussion in 2016 for which she was hospitalized overnight, hypertension, and osteoarthritis. MEDICATIONS AT HOME: Consist of: 1. Gabapentin 600 mg p.o. q.h.s. 2. Lorazepam 1 mg p.o. b.i.d. p.r.n. 3. Protonix 40 mg p.o. q.a.m. 4. Vitamin B12 1000 mcg sublingual monthly. 5. Oxycodone 10/325 one to one-half tablet p.o. q. day as needed. 6. Vitamin B-complex. 7. Benazepril 40 mg p.o. q.h.s. 8. Diclofenac gel topically q. day. 9. Diclofenac patch. 10. Ferrous sulphate 325 mg p.o. 2 days per week. ALLERGIES: She has reactions or allergies to several medications. VERAPAMIL caused insomnia and head pressure, QUINIDINE caused a rash, PAROXETINE caused tremor, DILTIAZEM aggravated insomnia and head pressure, CIPROFLOXACIN caused nausea. REVIEW OF SYSTEMS: Negative for recent weight change. She has been taking her oxycodone typically about every third day. No recent falls or head injuries. No history of heart disease or diabetes. She was evaluated for benign thyroid nodule in the past. No recent fevers or infections. No new medications recently. No faints or lightheadedness. She goes to the pain treatment center for her chronic back pain. No history of stroke or seizures. PHYSICAL EXAMINATION: She is well-nourished and little overweight. Temperature is 99.1 by temporal scan, blood pressure 122/87, heart rate in the 90s and regular. Respiratory rate is 16 and oxygen saturation is 93% on room air. Lungs are clear bilaterally. Heart is in a regular rate and rhythm without murmurs. Neck is supple. Carotid pulses are present. There were no cervical bruits. Oral mucosa is moist and atraumatic. Neurological exam: Pupils react equally to light from 4 down to 2 mm. There is no afferent pupillary defect. Eye movements are normal. Funduscopic exam is normal bilaterally. I do not see any embolic material. Visual garcia are normal in the right eye. When checked in the left eye, she describes a scotoma in the central area, but a little left to midline. She describes it as blurry and hard to make out any detail. She can see fine in the periphery of the visual garcia when tested in the each quadrant separately. Facial musculature is symmetric. Facial sensation to light touch and pin are symmetrical. Palate and tongue appear normal, palate rises symmetrically, there is no dysarthria. Motor exam reveals normal strength in the limbs proximally and distally. There is no drift of any limb. [id number] maneuver is normal bilaterally. [id number] maneuver is normal bilaterally. Sensory exam to pin and light touch is intact in the hands and feet symmetrically. Reflexes are present and symmetric. Plantar responses are flexor. I did not ambulate her. She is alert, oriented, and a good detailed historian. Memory is intact and language is fluent. She has adequate attention , concentration, fund of knowledge. DIAGNOSTIC STUDIES/LABORATORY DATA: Laboratory data includes a CT scan of the brain interpreted as normal other than possible chronic ischemic changes. I reviewed the images and I agree. She also had MRI of the brain from 2017, I reviewed which revealed a small amount of nonspecific white matters changes. She had a carotid ultrasound study done in January 2017, which revealed some atheromatous changes, but no stenosis. Laboratory data today is notable for normal CBC. Chemistry profile is normal other than the creatinine of 1.11, which is similar to her historical norms. Glucose today is 112. Cholesterol this morning is 149 and LDL is 75. Rest of the chemistry profile is unremarkable. 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 She has had episodes like this before, but she finds this to be a bit more intense. It is present in just one eye and it could be ischemic, but it is not following a vascular pattern. Specifically, it is more of a central and left of the central rather than a quadrant, altitudinal, or hemianopia. I think she should have a CT angiogram of her neck. I think she should be admitted to get an MRI scan. Prolonged visual events lasting hours to even days would be very atypical for primary migrainous phenomena. Nevertheless that has been her history and it seems to be fairly consistent with that prior history. She has a history of peptic ulcer disease and avoids nonsteroidals and so I will hold off on antiplatelet agents. If we did opt to use an antiplatelet agent, I would probably use Plavix as this is less likely to cause gastric irritation, but nonetheless could increase risk of GI bleeding. I have ordered for some intravenous magnesium sulphate to see if that will help with her visual symptoms and head pain. I will continue to follow her along with you. [id number]/[facility] #: [id number] [facility]
--- NOTE | 2018-10-12 16:57 | ECHO ---
*[facility]* [place] [address] Fax #: [phone] Transthoracic Echocardiogram Patient: Beti, Height: 65 in / Katherine Perdue 165.1 cm : 1945 Weight: 187.6 lb / Study Date: 10/12/2018 85.3 kg Age: 73 BP: 115 / 83 Gender: F BMI/BSA: 31.3 kg/m^2 HR: 83 bpm / 1.93 m^2 *Data Migration Lead: * Rukhsana Andrews [facility] *Referring Physician: * Karolyn Pleitez *Reading Physician: * Anton Taylor MD Indications: CVA. History: Angina pectoris. Risk factors: Hypertension. Conclusions Summary: 1. Left ventricle: Systolic function is normal. The estimated ejection fraction is 60-65%. Wall motion is normal; there are no regional wall motion abnormalities. 2. Right ventricle: Systolic function is normal. 3. Atrial septum: A PFO is demonstrated by agitated saline contrast. 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 4. Mitral valve: There is trace regurgitation. 5. Aortic valve: There is no evidence of stenosis. There is no significant regurgitation. 6. Tricuspid valve: There is physiologic regurgitation. 7. Pericardium, extracardiac: There is no significant pericardial effusion. 8. Study data: No prior study is available for comparison. Study data: Transthoracic echocardiogram. Procedure: Transthoracic echocardiography was performed. Image quality was fair. The study was technically limited due to body habitus. A bubble study was performed. Complete 2D, spectral Doppler, and color flow Doppler. Location: Emergency department. Patient status: Inpatient. Patient room number: ED-17. No prior study is available for comparison. Rhythm: Normal sinus rhythm. Findings Left ventricle: The cavity size is normal. Wall thickness is normal. Systolic function is normal. The estimated ejection fraction is 60-65%. Wall motion is normal; there are no regional wall motion abnormalities. Doppler parameters are consistent with abnormal left ventricular relaxation (grade 1 diastolic dysfunction). Right ventricle: The cavity size is normal. Systolic function is normal. The tricuspid jet envelope definition is inadequate for estimation of RV systolic pressure. There are no indirect findings (abnormal RV volume or geometry, altered pulmonary flow velocity profile, or leftward septal displacement) which would suggest moderate or severe pulmonary hypertension. Left atrium: The atrium is mildly dilated. Right atrium: The atrium is at the upper limits of normal in size. Atrial septum: A PFO is demonstrated by agitated saline contrast. Images 11-13. 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 Mitral valve: The leaflets are mildly thickened. There is no evidence of stenosis. There is trace regurgitation. Aortic valve: The valve is trileaflet. The leaflets are mildly thickened. There is no evidence of stenosis. There is no significant regurgitation. Tricuspid valve: The leaflets are normal thickness. There is no evidence of stenosis. There is physiologic regurgitation. Pulmonic valve: Not well visualized. The leaflets are normal thickness. There is no evidence of stenosis. There is trivial regurgitation. Aorta: Aortic root: The aortic root is mildly dilated. Ascending aorta: The ascending aorta is mildly dilated. Aortic arch: The aortic arch is appears normal. Pericardium: A prominent pericardial fat pad is present. There is no significant pericardial effusion. Pulmonary arteries: Not well visualized. Systolic pressure can not be accurately estimated. Systemic veins: Inferior vena cava: The vessel is normal in size. The respirophasic diameter changes are in the normal range (>= 50%). Measurements Left ventricle Value Ref Right atrium continued Value Ref DEJUAN, LAX 4.4 cm 3.8 - 5.2 SI dim, ES, A4C 5.3 cm 3.4 - 5.3 ESD, LAX 2.6 cm 2.2 - 3.5 Estimated RAP 3 mm Hg --------- FS, LAX 41 % 27 - 45 PW, ED, LAX (H) 1.0 cm 0.6 - 0.9 Aortic valve Value Ref FS 41 % 27 - 45 Phyllis diam, ED 1.9 cm --------- PW, ED (H) 1.0 cm 0.6 - 0.9 Peak v, S 1.09 m/sec --------- E', lat phyllis, TDI (L) 7.4 cm/sec >=10.0 VTI, S 18.7 cm -- ------- E/e', lat phyllis, 9 Mean grad, S 2.0 mm Hg ----- ---- TDI Peak grad, S 5.0 mm Hg --------- E', med phyllis, TDI 7.4 cm/sec >=7.0 LVOT/AV, VTI ratio 1.07 -- ------- E/e', med phyllis, 9 TDI Mitral valve Value Ref E', avg, TDI 7.4 cm/sec Peak E 0.66 m/sec ----- ---- E/e', avg, TDI 9 <=14 Peak A 1.13 m/sec -- ------- Decel time 190 ms --------- LVOT Value Ref Peak E/A ratio 0.6 --------- Peak leann, S 1.07 m/sec VTI, S 20.0 cm Pulmonic valve Value Ref Mean grad, S 2 mm Hg Peak v, S 0.83 m/sec --------- Peak grad, S 3.0 mm Hg --------- Ventricular septum Value Ref IVS, ED 0.9 cm 0.6 - 0.9 Aortic root Value Ref Root diam 3.9 cm <4.1 Right ventricle Value Ref DEJUAN, LAX 3.7 cm Ascending aorta Value Ref DEJUAN minor ax, (H) 3.7 cm 1.9 - 3.5 AAo AP diam, S 3.7 cm --------- A4C mid Aortic arch Value Ref Left atrium Value Ref Arch diam 2.4 cm --------- AP dim, ES (H) 4.00 cm 2.70 - 3.80 Decending aorta Value Ref ML dim, A4C 3.4 cm Kamini peak leann 0.52 m/sec --------- SI dim, A4C 4.9 cm Vol/bsa, ES, 1-p 18 ml/m^2 11 - 40 Inferior vena cava Value Ref A4C Diam 1.7 cm --------- Vol/bsa, ES, A/L 20 ml/m^2 16 - 34 Right atrium Value Ref SI dim, ES 5.3 cm 3.4 - 5.3 ML dim, ES, A4C 2.9 cm 2.6 - 4.4 Legend: (L) and (H) stefany values outside specified reference range. Prepared and electronically signed by Anton Taylor MD 10/12/2018 16:57
[2018-10-12] MEDS: Acetaminophen TAB* 325 MG PO PRN (17:04)
[2018-10-12] MEDS: Enoxaparin(*) 30 MG/0.3 ML SYR SUBCUT SCH (17:04)
[2018-10-12] MEDS ORDERED: LORazepam TAB(*) 1 MG PO PRN (19:09)
[2018-10-12] MEDS ORDERED: Melatonin 3 MG TAB PO PRN (19:09)
[2018-10-12] MEDS ORDERED: Gabapentin CAP(*) 300 MG PO SCH (21:00)
[2018-10-12] MEDS ORDERED: Lisinopril TAB* 10 MG PO SCH (21:00)
--- NOTE | 2018-10-12 21:12 | HP ---
CC: Dr. Barbara Castro * HISTORY AND PHYSICAL: DATE OF ADMISSION: 10/12/18 PRIMARY CARE PHYSICIAN: Barbara Castro MD. HEALTHCARE PROXY: The patient denies having one. CODE STATUS: Full code. CHIEF COMPLAINT: Visual field changes for several hours. HISTORY OF PRESENT ILLNESS: Ms. Bang is a 73-year-old woman with hypertension, ocular migraines with aura, peptic ulcer disease, lumbar stenosis and iron- deficiency anemia, who is presenting with several hours of changes in her visual garcia. 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 She reports that this is because she was not able to see clearly. She states that her vision in the center was obscured by a sparkling mark cloud. This visual field deficit was associated with diffuse head pressure. She denies associated dysarthria, focal weakness or numbness, nausea or vomiting, abdominal pain, chest pain, shortness of breath, and dysuria. She states that she does have a history of ocular headaches, which present similarly with pressure and visual field changes. However, she reports the visual field changes with her ocular headaches are seeing her legs as "numbers" and seeing other people's faces as " a fidencio of spades and the lorena of hearts." She states that she has never had this sparkling mark cloud before. She also reports that her ocular migraines can frequently last hours to days. Given the confusion on her way to work and the new visual changes, she decided to present to the emergency room. She was considered a code mark here in the emergency room. She had an evaluation by Neurology with a brain CT and head CTA that were largely unremarkable. It was thought that she likely was having a migrainous scotoma, but given the new nature of her visual aura, it was recommended that she be admitted for brain MRI. So, Medicine was contacted for admission. In the ER she was given fluids and IV magnesium. PAST MEDICAL HISTORY: 1. Hypertension. 2. Peptic ulcer disease. 3. Lumbar stenosis. 4. Ocular headaches with associated aura. 5. History of colon polyps. 6. History of iron-deficiency anemia HOME MEDICATIONS: 1. Percocet 10/325, half-a-tab daily as needed for her back pain. 2. Pantoprazole 40 mg daily. 3. Lorazepam 1 mg nightly as needed for sleep. 4. Gabapentin 600 mg nightly. 5. Ferrous sulfate 325 daily. 6. Benazepril 40 mg daily. 7. Hydrochlorothiazide 25 mg daily. 8. Vitamin D, vitamin B complex, melatonin, B12. 9. Diclofenac gel 1% applied topically as needed for pain. 10. Fluticasone nasal spray. ALLERGIES: The patient with multiple allergies, reviewed. Please see chart for further details. FAMILY HISTORY: Mother with history of stroke. Mother also had colon cancer and Alzheimer's disease. Colon cancer and stroke were of unknown ages. Brother with history of hypertension. SOCIAL HISTORY: The patient lives alone. 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 She denies tobacco or illicit drug use. She reports 1 glass of wine per week. She states that she does not have a healthcare proxy currently, but her children all very involved, most notably her daughter, Janelle, is her emergency contact. PHYSICAL EXAMINATION GENERAL: She is a well-appearing woman, alert and interactive, answering questions appropriately, in no acute distress. VITAL SIGNS: T. max 99.1, heart rate 80, blood pressure 116/81, respiratory rate 14, oxygen saturation 97% on room air. NECK: Supple. Full range of motion. No JVD. LUNGS: Clear to auscultation bilaterally. HEART: Regular rate and rhythm. No murmurs, gallops or rubs. ABDOMEN: Soft, nontender, nondistended. BACK: No CVA tenderness. EXTREMITIES: Warm and well perfused. No evidence of edema. NEUROLOGIC: CN II through XII are intact. Strength 5/5 in 4 extremities. Sensation intact bilaterally. No pronator drift. [id number] normal bilaterally. DIAGNOSTIC STUDIES/LAB DATA: CBC, coags, LFTs, and lipids are unremarkable. BMP significant for creatinine of 1.11, which is the patient's baseline. Brain CT without evidence for gross acute infarct, mass effect or hemorrhage, with findings suggestive of mild chronic small vessel ischemic changes. Head CTA with no internal carotid artery stenosis or aneurysm, vascular malformation, occlusion, or stenosis of the visualized intracranial circulation. ASSESSMENT AND PLAN: 1. Visual field disturbance: Ms. Bang is a 73-year-old woman with a history of ocular migraines and hypertension, who is presenting with symptoms concerning for a migrainous scotoma. This is moderately different than her history of aura preceding ocular migraines. It was recommended by neurology consult to obtain a brain MRI. TTE with bubbles has also been ordered. Recommended to hold off on on starting antiplatelet agents for now given the history of peptic ulcer disease. 2. Hypertension: Continue the patient's home hydrochlorothiazide and benazepril. 3. History of peptic ulcer disease: Continue PPI. 4. History of back pain: Continue home oxycodone/acetaminophen 10/325, half tablet. 5. Insomnia: Continue the patient's home lorazepam nightly as needed and melatonin nightly. 6. DVT prophylaxis: Initiate Lovenox 30 mg subcu daily. 7. Code status: Full code. TIME SPENT: Approximately 60 minutes were spent on the admission of this patient, more than of half of which was spent at the bedside for interview and exam. [id number]/[facility] #: [id number] HERIBERTO
[2018-10-12] MEDS: Sucralfate TAB* 1 GM PO SCH (21:25)
[2018-10-12] MEDS: Pantoprazole TAB * 40 MG TAB PO SCH (21:25)
[2018-10-12] MEDS: oxyCODONE/Acetamin 5/325 MG* TAB PO PRN (21:26)
[2018-10-12] MEDS ORDERED: SUMAtriptan TAB* 100 MG PO ONE (22:32)
[2018-10-13] MEDS: Acetaminophen TAB* 325 MG PO PRN (01:27)
[2018-10-13] MEDS ORDERED: Ondansetron INJ* 2 MG/ML VIAL IV PRN (04:45)
[2018-10-13] MEDS: Sucralfate TAB* 1 GM PO SCH ×3 (07:15→16:23)
[2018-10-13] MEDS: Pantoprazole TAB * 40 MG TAB PO SCH (07:15)
[2018-10-13 07:23] LABS: BUN/Creatinine Ratio 14.5 (8-20); Calcium 9.6 mg/dL (8.6-10.3); EGFR African American 59.2 (>60); Magnesium 2.1 mg/dL (1.9-2.7); Potassium 3.4 mmol/L (3.5-5.0)
[2018-10-13] MEDS: oxyCODONE/Acetamin 5/325 MG* TAB PO PRN (08:19)
[2018-10-13] MEDS ORDERED: Hydrochlorothiazide TAB* 25 MG PO SCH (09:00)
[2018-10-13] MEDS ORDERED: Ferrous Sulfate TAB* 325 MG PO SCH (09:00)
[2018-10-13] MEDS ORDERED: Pantoprazole TAB * 40 MG TAB PO SCH (09:00)
[2018-10-13] MEDS ORDERED: Potassium Chlor TAB* 20 MEQ TAB.ER PO ONE (12:28)
[2018-10-13] MEDS ORDERED: Morphine INJ* 2 MG/ML 1 ML SYRINGE (TWO MG - NEW SYRINGE VERSION) IV PRN (14:05)
[2018-10-13] MEDS: Enoxaparin(*) 30 MG/0.3 ML SYR SUBCUT SCH (14:08)
--- NOTE | 2018-10-13 19:40 | PN ---
NEUROLOGICAL FOLLOWUP NOTE: DATE OF SERVICE: 10/13/18. PATIENT OF: Dr. Pleitez and Dr. Caal.* HISTORY: This is a 73-year-old woman I am seeing in followup for her visual symptoms. Her sparkling mark cloud in her central vision is persisting today more than 24 hours and she notes that her visual symptoms with headache which occurred once or twice a month often last including the visual symptoms for more than a day, sometimes 2 days. She still has a central scotomata sparkling today but she is no longer confused. She, of note, still has active gastritis. She has had a prior concussion in 2016, insomnia, anxiety, and some depression. MEDICINES AT HOME: Include: 1. Oxycodone p.r.n. 2. For her migraines, gabapentin 600 at night. 3. Lorazepam p.r.n. 4. Diclofenac patch. ALLERGIES: She has been on CYMBALTA in the past and may have caused vomiting. PHYSICAL EXAM: On exam, temperature 98.4, pulse 77, respirations 16, blood pressure 88/56. She is alert and oriented with normal speech and comprehension. Cranial nerves II through XII were normal. Motor exam revealed normal tone and strength, finger to nose. Chest: Clear. Cardiovascular: Regular rate and rhythm. Abdomen: Soft. DIAGNOSTIC STUDIES/LABORATORY DATA: Her MRI scan reviewed and showed mild white matter disease that is stable by report. She has had a negative CTA of the neck. Her left atrium is mildly dilated. There is a PFO that is demonstrated by a bubble study with a septum secundum aneurysm. She has no temporal tenderness on exam. I discussed this patient with hospitalist that her visual symptoms with her headaches are most likely migrainous, but the concern is that they are persisting for a long time and she is at some risk for migrainous stroke. I would recommend that she be on aspirin if at all tolerated, possibly if the primary would prefer rectal aspirin as this may help both her headache but also limit the chance of persistent visual symptoms that could be permanent related to her migraines rather migrainous stroke. I would also send off anticardiolipin antibodies. She has no temporal tenderness. This does not sound like temporal arteritis, but I am recommending that the sed rate be checked now. Significance of the PFO on bubble study is unclear and I refer to Dr. Taylor how significant he thinks it is. There is a septal aneurysm but does not appear that she had a stroke. I would begin the aspirin and she needs to follow up with Dr. Caal as well as her primary neurologist to sort this out within the next 2 to 3 weeks. Thank you for sharing her case and I am also recommending low dose of Cymbalta to see if this helps her migraines as well as her psychological symptoms. Thank you for sharing her case. [id number]/[facility] #: [id number] HERIBERTO
--- NOTE | 2018-10-13 23:24 | DS ---
CC: Dr. Barbara Castro; Dr. Chay Real; Dr. Luis Felipe Caal* DISCHARGE SUMMARY: DATE OF ADMISSION: 10/12/18 DATE OF DISCHARGE: 10/13/18 PRIMARY CARE PROVIDER: Dr. Barbara Castro. ATTENDING PHYSICIAN: Dr. Alicja Easton* (dictated by Gavi Dominguez NP). PRIMARY DIAGNOSIS: 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 ocular manifestation. SECONDARY DIAGNOSES: 1. Hypertension. 2. History of peptic ulcer disease. 3. Chronic back pain. STUDIES WHILE IN THE HOSPITAL: 1. Brain CT on 10/12/18, reads as no evidence for gross acute infarct, mass effect, or hemorrhage. Findings suggestive of mild chronic small vessel ischemic changes. 2. Chest x-ray on 10/12/18, reads as no active cardiopulmonary disease. 3. EKG on 10/12/18, shows normal sinus rhythm with a rate of 90, QTc 465, Q waves present in III and aVF, inverted T waves in A1 and V2. This was consistent with previous EKG on file from 2018. 4. Chest CTA on 10/12/18, reads as no internal carotid artery stenosis by NASCET criteria. No aneurysm, vascular malformation, occlusion, or stenosis of the visualized intracranial circulation. 5. Brain MRI on 10/12/18, reads as stable scattered nonspecific white matter changes. No restricted diffusion to suggest acute infarct. 6. Transthoracic echocardiogram on 10/12/18, reads as the left ventricular systolic function is normal. The estimated ejection fraction is 60% to 65%. Wall motion is normal. There are no regional wall motion abnormalities. Right ventricular systolic function is normal. A PFO is demonstrated by agitated saline contrast. 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 There is trace mitral regurgitation. There is no evidence of aortic stenosis. There is no significant aortic regurgitation. There is physiologic tricuspid regurgitation. There is no significant pericardial effusion. No prior study is available for comparison. HISTORY OF PRESENT ILLNESS AND HOSPITAL COURSE: Ms. Bang is a 73-year-old female with past medical history of hypertension, peptic ulcer disease, chronic back pain, and ocular migraines, who presented to the emergency room on with complaints of visual field changes. Please see the history and physical by Dr. Pleitez for complete summary of the events leading up to this hospitalization. In short, the patient reported sudden onset of visual disturbances which were different from her typical visual changes that she has had with ocular migraines in the past. Because of this, she presented to the emergency room. In the emergency room, a code mark was called, although, was felt that there was low probability of CVA. was seen by Dr. Mcdonald from Neurology in the emergency room who felt that all those represented a migrainous scotoma. He recommended CTA of the head and neck and a brain MRI. The patient was admitted by the hospitalist service. The patient did have a relatively uneventful night though continued to have what she describes as band-like pain around her head with continued visual disturbances, similar to those she experienced on arrival to the emergency room. She was monitored on telemetry without any notable arrhythmias. She did have imaging as noted above and there was no CVA noted on MRI. She is noted to have a PFO on echocardiogram, although, at this point this is just an incidental finding. On exam today, the patient reports continued 6/10 pain with continued visual disturbances such as areas of missing vision, although, no other focal neurological deficits. On exam, her heart rate is regular rate and rhythm without murmurs, rubs, or gallops. Her lungs are clear to auscultation without rhonchi, wheezes, or rales. Physical exam is otherwise benign. The patient was seen today by Dr. Berman from Neurology, who felt as though this did represent migraine activity. He did recommend checking labs to rule out antiphospholipid syndrome as well as checking an ESR to rule out temporal arteritis. ESR came back at 28 and so temporal arteritis is not a concern at this point. Labs to rule out antiphospholipid syndrome are pending at this point as they are sent out and will take approximately 3 to [address] Berman did feel as though she was stable for discharge. He did recommend that she be placed on Cymbalta and/or aspirin. 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 Additionally, she had used CYMBALTA in the past and it is listed as an allergy as she experienced vomiting, so she is unwilling to start this medication at this time. The patient does have Percocet at home that she feels she can use to adequately manage her headache and she is agreeable to discharge today. Ms. Bang is stable for discharge today. Vital signs are as follows: Temp 98.4, heart rate 77, respiratory rate 16, oxygen saturation 93% on room air, blood pressure 88/56. DISCHARGE MEDICATIONS: Continued medications: 1. Benazepril 40 mg p.o. at bedtime. 2. Ferrous sulfate 325 mg p.o. Friday and Friday. 3. Gabapentin 600 mg p.o. at bedtime. 4. Lorazepam 1 mg p.o. b.i.d. p.r.n. anxiety. 5. Melatonin 10 mg p.o. at bedtime p.r.n. insomnia. 6. Percocet 10/325 one-half tab p.o. daily p.r.n. pain. 7. Pantoprazole 40 mg p.o. daily. 8. Cholecalciferol 5000 units p.o. weekly. 9. Vicks DayQuil 30 mL p.o. daily p.r.n. cough or cold. 10. Diclofenac 1% gel 1 application topically daily p.r.n. pain. 11. Diclofenac 1.3% patch, 1 patch transdermal q. 12 hours p.r.n. pain. 12. Fluticasone nasal spray, 2 sprays both nares daily. 13. Methylcobalamin 1000 mcg sublingual monthly. 14. Vitamin B complex, 1 cap p.o. daily. DISCHARGE PLAN: Ms. Bang will be discharged home. Activity will be as tolerated. Diet will be regular as tolerated. Medications are noted above. The patient can continue her usual medications and there has not been any changes made at this time. As noted above, her recommended that the patient be placed on a daily aspirin and/or low-dose Cymbalta to try to manage her migraine symptoms, though she is not willing to start either of these medications at this time. She would like to speak with her snow technician and primary care provider before making any medication changes. She should follow up with her primary care provider in 4 to 7 days and should follow up with Dr. Caal in the next 1 to 2 weeks. She can follow up with Dr. Real as needed. The patient has been advised to return to the emergency room or nearest hospital for any worsening of symptoms, shortness of breath, lightheadedness, dizziness, chest discomfort, high fever, chills, night sweats, loss of consciousness, or any other worrisome signs or symptoms. DISCHARGE CONDITION: Stable. DISCHARGE DISPOSITION: Home. This is a summarized report of a complex medical history and hospital stay. For further details, please see the entire medical record. TIME SPENT: Approximately 60 minutes was spent on this discharge. GAVI DOMINGUEZ, VIROLOGY TEACHER [id number]/[facility] #: [id number] HERIBERTO
[2018-10-13 23:47] VITALS: BP 90/55
[2018-10-14] MEDS ORDERED: Aspirin 81 mg CHEW TAB* 81 MG TAB.CHEW PO SCH (09:00)
[2018-10-14 14:09] LABS: LAC APTT 35 sec (26 - 36)
[2018-10-14] MEDS ORDERED: DULoxetine DR CAP* 30 MG CAP.DR PO SCH (15:48)
[2018-10-15 12:46] LABS: Phospholipid Ab IgG < 9.4 GPL; Phospholipid Ab IgM, S < 9.4 MPL
[2018-10-15 16:45] LABS: Beta 2 Glycoprotein IgG <9.4 U/mL
== END 2018-10-13 19:54 | disposition home or self-care (01) | DRG 103 ==
LOC: ED 11:12 → MEDTELE 14:16
PROVIDERS: ADMIT Internal Medicine; ATTEND Internal Medicine
DX: G43.101 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 aura, not intractable, with status migrainosus (principal); Q21.1 Atrial septal defect; I10 Essential (primary) hypertension; M54.89 Other dorsalgia; K27.9 Peptic ulcer, site unspecified, unspecified as acute or chronic, without hemorrhage or perforation; M48.061 Spinal stenosis, lumbar region without neurogenic claudication; G47.00 Insomnia, unspecified; K29.70 Gastritis, unspecified, without bleeding; Z79.899 Other long term (current) drug therapy; Z82.3 Family history of stroke; Z82.49 Family history of ischemic heart disease and other diseases of the circulatory system; Z80.0 Family history of malignant neoplasm of digestive organs; Z88.1 Allergy status to other antibiotic agents; Z88.2 Allergy status to sulfonamides; Z88.8 Allergy status to other drugs, medicaments and biological substances
CPT/HCPCS: 36415; 70450; 70496; 70498; 70551; 71045; 80048; 80053; 80061; 83605; 83735; 84484; 85025; 85610; 85613; 85652; 85730; 86146; 86147; 86850; 86900; 86901; 93005; 93306; 99284; A9270-GY; G8978-GP-CI; G8979-GP-CI; G8987-GO-CH; G8988-GO-CH; G8989-GO-CH; J1650; J2270; J2405; J3475; Q9967

== ENCOUNTER 2018-11-05 15:27 | Emergency (ER) | payer MEDICARE ==
--- OUTSIDE RECORDS SUMMARY | 2018-11-05 15:54 | XMS REPORT | Continuity of Care Document ---
:1945 External Reference #:[id number] Author Name Latoya Mckeon Care Team Providers Name Role Phone Barbara Jacinto MD Care Team Information Ingredient Handler Unavailable Barbara Jacinto MD Primary Care Physician Unavailable Payers Date Identification Numbers Payment Provider Subscriber Effective: 2012 Policy Number: [id number] Medicare Katherine Ramirez PayID: [id number] [address] [place] [address] Effective: 2015 Policy Number: [facility] Katherine Ramirez [id number] PayID: [id number] [address] [place] [address] Problems Active Problems Provider Date Sciatica Omkar Muller M.D. Onset: 06/01/2015 Iliotibial band friction syndrome Omkar Muller M.D. Onset: 06/01/2015 Abnormal results function studies of central Luis Felipe Caal M.D. Onset: nervous system Palpitations Luis Felipe Caal M.D. Onset: 03/24/2017 Headache Luis Felipe Caal M.D. Onset: 09/12/2017 Note: migraine admission 10/12/18 Localized, primary osteoarthritis of the Miguel Brown MD Onset: 10/10/2017 pelvic region and thigh Trochanteric bursitis Michelle Arenas M.D. Onset: 12/12/2017 Gastric ulcer Chay Real MD Onset: 07/03/2012 Note: - HP / Clotest negative while on much Excedrin Iron deficiency anemia Chay Real MD Onset: 03/31/2013 Note: many arthritic pelvic girdle pains and chronic headaches; MCV dipped to 80 with Hg 11.6 this date; on Fe SO4 in 2019 with no listings for parenteral iron at [facility]; [facility] consult 04/13/17 Family History Date Family Member(s) Observation Comments General No Current Problems Father due to surgical complications. 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 ETOH Use Currently consumes alcohol Tobacco Use Start: Unknown Patient has never smoked Recreational Drug Use Denies Drug Use Smoking Status Reviewed: 10/26/18 Patient has never smoked Exercise Type/Frequency Exercises sporadically Allergies, Adverse Reactions, Alerts Active Allergies Reaction Severity Comments Date Quinidine Rash Severe 06/01/2015 Sulfa Antibiotics Bone Marrow Suppression Severe 06/01/2015 Paxil "Electric shock feeling" Severe 06/01/2015 Cipro Nausea and Vomiting Severe 06/01/2015 Beta Blockers memory & eye sight loss, bone Severe 05/20/2016 marrow suppression Verapamil insomnia, head pressure Moderate 04/22/2017 Diltiazem insomnia, head pressure, HTN Moderate 04/22/2017 Calcium Channel Blockers 05/21/2018 Amlodipine 05/28/2018 Medications Active Medications SIG Qnty Indications Ordering Date Provider Benazepril HCL one by mouth 60tabs Georgiatalala S. 05/21/2018 20mg Tablets daily David Conroy Lorazepam 2 tab by mouth Unknown 01/29/2017 1mg Tablets at night as needed Carafate Take 10ML (2 Unknown 1GM/10ML Suspension Teaspoonfuls) By Mouth Up To 4 Times Daily, Take 1/2 Hour Prior To Eating For Stomach Pain Hydrochlorothiazide Take 1 Tablet Unknown 25mg Tablets By Mouth Every Morning Pantoprazole Sodium 1 daily Unknown 40mg Tablets DR Diclofenac Sodium apply 1 grams Unknown 1% Gel as needed at hs Iron (Ferrous Gluconate) 1 by mouth Unknown 65mg twice a week Tablets Fluticasone Propionate 2 sprays each Unknown 50mcg/Act nostril qd.prn Suspension Gabapentin 2 at hs and Unknown 300mg Capsules 1-2 through out the night Flector apply 1 patch Unknown 1.3% Patches to the skin as needed Vitamin B12 1 by mouth Unknown 1000mcg Tablets ER once a month Melatonin hs prn Unknown 10mg Tablets Dayquil 15cc prn Unknown Percocet 1 tab by mouth Unknown 5-325mg Tablets every 12 hours as needed pain Vitamin B Complex 1 by mouth Unknown Tablets twice weekly Vitamin D 1 tab per week Unknown 5000Unita Tablets History Medications Amlodipine Besylate 1 by mouth every 90tabs I10 Jay Lovell 05/12/2017 - 10mg day David Sr Unknown Tablets Amlodipine Besylate 2 tabs by mouth 30tabs I10 Aldo S. 04/22/2017 - 5mg every day David Conroy 05/12/2017 Tablets Verapamil HCL ER 1 tab daily 30tabs Aldo S. 04/14/2017 - 120mg David Conroy 04/22/2017 Tablets ER Dilt-CD one po daily 30caps Aldo S. 03/19/2017 - 120mg Caps ER David Conroy 04/16/2017 24HR Benazepril HCL 1 by mouth every Unknown - 20mg day 05/21/2018 Tablets Zofran 1 every 12 hours Unknown - 4mg Tablets as needed Unknown Premarin Unknown - 0.625mg Tablets 05/20/2018 Zolpidem Tartrate 1/2 to 1 tab by Unknown - 10mg mouth every night 05/20/2018 Tablets at bedtime as needed Amoxicillin 1 three times a Unknown - 250mg day for 10 days 05/27/2018 Capsules Metronidazole three times a day Unknown - 250mg for 7 days 05/27/2018 Tablets Iron High-Potency 1 by mouth every Unknown - 325mg day 05/20/2018 Tablets Ferrous Sulfate 1 by mouth twice a Unknown - 325mg day Unknown Tablets Benazepril HCL 2 by mouth every 90tabs Bibiana Altman, - 10mg day (med increased CLAY ARTISAN 05/20/2018 Tablets by PMD) Amlodipine Besylate 1 by mouth every Unknown - 5mg day 03/19/2017 Tablets Gabapentin 2 po QHS Unknown - 300mg Capsules 01/29/2017 Lorazepam 1 at bedtime as Unknown - 0.25mg Tablets needed 01/30/2017 Soma 1 tab q8 hours by Unknown - 250mg Tablets mouth as needed Unknown muscle spasms Bernadette Allergy 1 by mouth every Unknown - 60mg day as needed Unknown Tablets Pantoprazole Sodium 1 by mouth bid Unknown - 20mg 05/20/[address] Medications Administered in Office Medication SIG Qnty Indications Ordering Provider Date Depomedrol 40MG Michelle Arenas M.D. 07/20/2018 Injection Depomedrol 40MG Mihcelle Arenas M.D. 07/20/2018 Injection Triamcinolone (Kenalog) Miguel Brown MD 11/25/2017 Injection Triamcinolone (Kenalog) Miguel Brown MD 11/25/2017 Injection Triamcinolone (Kenalog) Miguel Brown MD 10/10/2017 Injection Triamcinolone (Kenalog) Miguel Brown MD 10/10/2017 Injection Triamcinolone (Kenalog) Miguel Brown MD 08/28/2017 Injection Triamcinolone (Kenalog) Miguel Brown MD 08/28/2017 Injection Vital Signs Date Vital Result Comment 10/26/2018 11:05am Height 65 inches 5'5" Weight 190.00 lb Heart Rate 103 /min BP Systolic 118 mmHg BP Diastolic 92 mmHg BMI (Body Mass Index) 31.6 kg/m2 10/15/2018 11:35am Height 65 inches 5'5" Weight 191.00 lb Heart Rate 93 /min BP Systolic 93 mmHg BP Diastolic 71 mmHg O2 % BldC Oximetry 94 % BMI (Body Mass Index) 31.8 kg/m2 09/17/2018 1:23pm Weight 193.00 lb Heart Rate 72 /min BP Systolic 118 mmHg BP Diastolic 82 mmHg Respiratory Rate 16 /min Body Temperature 98.7 F 07/20/2018 10:47am Height 65 inches 5'5" Weight 193.00 lb Heart Rate 126 /min Body Temperature 96.9 F O2 % BldC Oximetry 98 % BMI (Body Mass Index) 32.1 kg/m2 05/28/2018 1:42pm Heart Rate 96 /min BP Systolic Sitting 128 mmHg Lue, large cuff BP Diastolic Sitting 90 mmHg Lue, large cuff BP Systolic Standing 110 mmHg Lue, large cuff BP Diastolic Standing 84 mmHg Lue, large cuff Respiratory Rate 16 /min 05/21/2018 1:43pm Height 64 inches 5'4" Weight 201.00 lb no shoes Heart Rate 88 /min BP Systolic Sitting 132 mmHg lue reg cuff BP Diastolic Sitting 90 mmHg lue reg cuff BP Systolic Standing 134 mmHg lue reg cuff BP Diastolic Standing 90 mmHg lue reg cuff Respiratory Rate 14 /min BMI (Body Mass Index) 34.5 kg/m2 Ejection Fraction 55-60% echo. 02/27/17 04/24/2018 9:34am Height 64 inches 5'4" Weight 202.12 lb Heart Rate 118 /min BP Systolic 133 mmHg BP Diastolic 93 mmHg Body Temperature 98.6 F Pain Level 5 mid abdomen radiating to right upper quadrant. O2 % BldC Oximetry 94 % BMI (Body Mass Index) 34.7 kg/m2 04/16/2018 2:08pm Height 64 inches 5'4" Weight 201.00 lb Heart Rate 80 /min BP Systolic 128 mmHg BP Diastolic 82 mmHg Respiratory Rate 16 /min Body Temperature 97.8 F BMI (Body Mass Index) 34.5 kg/m2 03/25/2018 10:39am Height 64 inches 5'4" Weight [...] Date Facility Test Result H/L Range Note Laboratory test 05/08/2018 [facility] Surgical SEE RESULT [address] [place] [address] [phone] Laboratory test 05/08/2018 [facility] Clotest SEE RESULT [address] [place] [address] [phone] Comp Metabolic 04/24/2018 [facility] Sodium 143 mmol/L N 135- [address] [place] [address] [phone] Potassium 3.7 mmol/L N 3.5-5.0 Chloride 105 mmol/L N 101-111 Co2 Carbon Dioxide 30 mmol/L N 22-32 Anion Gap 8 mmol/L N 2-11 Glucose 104 mg/dL High 70-100 Blood Urea Nitrogen 13 mg/dL N 6-24 Creatinine 1.03 mg/dL High 0.51-0.95 BUN/Creatinine Ratio 12.6 N 8-20 Calcium 9.7 mg/dL N 8.6-10.3 Total Protein 6.5 g/dL N 6.4-8.9 Albumin 4.3 g/dL N 3.2-5.2 Globulin 2.2 g/dL N 2-4 Albumin/Globulin Ratio 2.0 N 1-3 Total Bilirubin 0.50 mg/dL N 0.2-1.0 Alkaline Phosphatase 59 U/L N 34-104 Alt 12 U/L N 7-52 Ast 23 U/L N 13-39 Egfr Non- 53.0 >60 Egfr 64.1 >60 3 Liver Function 04/24/2018 [facility] Direct 0.10 mg/dL N 0.03- 0.[address] [place] [address] [phone] Indirect Bilirubin 0.4 mg/dL N 0.3-1.0 CBC Auto Diff 04/24/2018 [facility] White Blood 7.1 10^3/uL N 3.5-10.[address] [place] [address] [phone] Red Blood Count 4.58 10^6/uL N 4.00-5.40 Hemoglobin 14.7 g/dL N 12.0-16.0 Hematocrit 44 % N 35-47 Mean Corpuscular Volume 96 fL N 80-97 Mean Corpuscular Hemoglobin 32 pg High 27-31 Mean Corpuscular HGB Conc 33 g/dL N 31-36 Red Cell Distribution Width 15 % N 10.5-15 Platelet Count 196 10^3/uL N 150-450 Mean Platelet Volume 10.0 fL N 7.4-10.4 Abs Neutrophils 4.6 10^3/uL N 1.5-7.7 Abs Lymphocytes 1.8 10^3/uL N 1.0-4.8 Abs Monocytes 0.6 10^3/uL N 0-0.8 Abs Eosinophils 0.1 10^3/uL N 0-0.6 Abs Basophils 0 10^3/uL N 0-0.2 Abs Nucleated RBC 0 10^3/uL Granulocyte % 64.3 % Lymphocyte % 26.0 % Monocyte % 8.2 % Eosinophil % 0.8 % Basophil % 0.7 % Nucleated Red Blood Cells % 0.1 Lipid Panel - 02/19/2018 [facility] Creatine 34 U/L N 10-223 [address] Kinase(CK) [place] [address] [phone] Comp Metabolic 02/19/2018 [facility] Sodium 140 N 135-[address] mmol/L [place], [place] [id number] [phone] Potassium 4.3 mmol/L N 3.5-5.0 Chloride 103 [...] Egfr Non- 58.2 >60 Egfr 70.4 >60 5 Lipid Profile 02/19/2018 [facility] Triglycerides 126 mg/dL 6 (Trig/Chol/HDL) [place] [address] [phone] Cholesterol 178 mg/dL 7 HDL Cholesterol 58.7 mg/dL 8 LDL Cholesterol 94 mg/dL 9 Laboratory test 02/19/2018 [facility] TSH (Thyroid 0.79 mcIU/mL N 0.34-5.60 10 finding [facility] Stim Horm) [place] [address] [phone] Free T4 (Free Thyroxine) 0.77 ng/dL N 0.61-1.12 11 T3 Free 3.00 pg/mL N 2.5-3.9 12 Laboratory test 03/13/2017 [facility] Cytology SEE RESULT 13 finding [facility] [place] [address] [phone] Laboratory test 11/21/2016 [facility] Ferritin 20.2 ng/mL N 11 -307 [place] [address] [phone] Iron & Iron 11/21/2016 [facility] Iron 75 g/dL N 50-212 [place] [address] [phone] Unsaturated Iron Binding 367 g/dL N Total Iron Binding Capacity 442 g/dL N 250-450 % Iron Saturation 17 % N 15-55 CBC Auto Diff 11/21/2016 [facility] White Blood 5.6 10^3/uL N 3.5-10.8 [facility] [place] [address] [phone] Red Blood Count 4.24 10^6/uL N 4.0-5.4 [...] Cells % 0.1 N Laboratory test 07/31/2016 [facility] Iron (Fe) 124 g/dL N 50-212 finding [address] [place] [address] [phone] Ferritin 30.7 ng/mL N 11-307 Basic Metabolic Panel 07/31/2016 [facility] Sodium 139 mmol/L N 133-145 [address] [place] [address] [phone] Potassium 3.9 mmol/L N 3.5-5.0 Chloride 103 mmol/L N 101-111 Co2 Carbon Dioxide 29 mmol/L N 22-32 Anion Gap 7 mmol/L N 2-11 Glucose 104 mg/dL High 70-100 Blood Urea Nitrogen 10 mg/dL N 6-24 Creatinine 0.91 mg/dL N 0.51-0.95 BUN/Creatinine Ratio 11.0 N 8-20 Calcium 9.5 mg/dL N 8.6-10.3 Egfr Non- 61.3 N >60 Egfr 78.8 N >60 14 CBC No Diff 07/31/2016 [facility] White Blood 6.2 10^3/uL N 3.5-10.[address] [place] [address] [phone] Red Blood Count 4.50 10^6/uL N 4.0-5.4 Hemoglobin 14.5 g/dL N 12.0-16.0 Hematocrit 43 % N 35-47 Mean Corpuscular Volume 96 fL N 80-97 Mean Corpuscular Hemoglobin 32 pg High 27-31 Mean Corpuscular HGB Conc 34 g/dL N 31-36 Red Cell Distribution Width 14 % N 10.5-15 Platelet Count 168 10^3/uL N 150-450 Mean Platelet Volume 10 um3 N 7.4-10.4 Laboratory test 05/22/2016 [facility] Surgical SEE RESULT [address] [place] [address] [phone] 1 SEE RESULT BELOW Name: KATHERINE RAMIREZ : [address]: Chay Real MD Acct: [id number] Unit: [id number] AGE: 72 Location: ENDO Re05/08/18 SEX: F Status: DEP REF SPEC: [id number] ANDERSON: 05/08/18- [facility] DR: Chay Real MD REQ: [id number] RECD: 05/08/18 STATUS: CED GUPTA DR: Barbara Jacinto MD _ ORDERED: LEVEL 4/2 FINAL DIAGNOSIS 1. Stomach, greater curvature, biopsy: -- Body-type gastric mucosa with mild chronic gastritis. -- No evidence of Helicobacter organisms. 2. Stomach, fundus, biopsy: -- Fundic gland polyp. CLINICAL HISTORY Epigastric pain; weight - no change; emesis for 5 days in March POST-OPERATIVE DIAGNOSIS EGD: larynx - symmetric; esophagus - normal esophagogastric junction 39 cm; stomach - gastropathy biopsy (4); polyps approximately 10 largest cold snare; duodenum - normal x 35 cm; conclusions: PPI gastropathy with polyps; abdominal pain - unknown; iron deficiency anemia GROSS DESCRIPTION 1. The specimen is received in formalin labeled, Gastric Greater Curvature Biopsy, and consists of two redman irregular soft tissue fragments measuring 0.5 x 0.3 x 0.2 cm and 0.9 x 0.2 x 0.1 cm which are submitted entirely in one cassette. 2. The specimen is received in formalin labeled, Gastric Fundus Polyp, and consists of a 0.6 x 0.4 x 0.2 cm aggregate of redman-brown irregular to polypoid soft tissue fragments which is submitted entirely in one cassette. CONTINUED ON NEXT PAGE DEPARTMENT OF PATHOLOGY, [address] [place] [address] Jona Head M.D. Director [facility] # [id number] RUN DATE: 05/12/18 [facility] LAB LIVE PAGE 2 Patient: KATHERINE RAMIREZ [id number] (Continued) GROSS DESCRIPTION (Continued) Signed by and Reported on: aPtricia Carrillo MD 05/12/18 1036 END OF REPORT DEPARTMENT OF PATHOLOGY, [address] [place] [address] Jona Head M.D. Director [facility] # [id number] 2 SEE RESULT BELOW Name: KATHERINE RAMIREZ : [address]: Chay Real MD Acct: [id number] Unit: [id number] AGE: 72 Location: ENDO Re05/08/18 SEX: F Status: REG REF SPEC: [id number] ANDERSON: 05/08/18-[address] [facility] [address]: Chay Real MD REQ: [id number] RECD: 05/08/181224 STATUS: COMP LEONELA DR: Barbara Benavides MD _ SOURCE: GAS ANTRUM SPDESC: ORDERED: Clotest Procedure Result Reported Site Clotest Final 05/09/18- 736 ML Clotest Negative * ML - [facility] . END OF REPORT DEPARTMENT OF PATHOLOGY, [address] [place] [address] Jona Head M.D. Director [facility] # [id number] 3 Because ethnic data is not always readily [...] 15-29 5 Kidney failure <15 (or dialysis) 4 FASTING 5 Because ethnic data is not always readily [...] 15-29 5 Kidney failure <15 (or dialysis) 6 Desirable: <150 Borderline High: 150-199 High: 200-499 Very High: >500 7 Desirable: <200 Borderline High: 200-239 High: >239 8 Low: <40 Desirable: 40-60 High: >60 9 Desirable: <100 Near Optimal: 100-129 Borderline High: 130-159 High: 160-189 Very High: >189 10 FASTING 11 FASTING 12 FASTING 13 SEE RESULT BELOW Name: KATHERINE RAMIREZ : [address]: Brandon Pruitt MD Acct: [id number] Unit: [id number] AGE: 71 Location: THYROID Re03/13/17 SEX: F Status: REG REF SPEC: [id number] ANDERSON: 03/13/17-[address] [facility] [address]: Brandon Pruitt MD REQ: [id number] RECD: 03/13/17 STATUS: CED GUPTA DR: Barbara Farias MD _ ORDERED: FNA-IMG GUID BX, CYTO ADEQ-1ST P FINAL DIAGNOSIS Thyroid, left, Ultrasound guided, fine needle aspiration: Benign thyroid nodule- involutional type ([place] class II). The specimen demonstrates abundant watery [...] performed at Main Lab DEPARTMENT OF PATHOLOGY, [address] [place] [address] Jona Head M.D. Director [facility] # [id number] RUN DATE: 03/13/17 [facility] LAB LIVE PAGE 2 Patient: KATHERINE RAMIREZ [id number] (Continued) IMMEDIATE INTERPRETATION (Continued) IMMEDIATE INTERPRETATION Pass 1, and 2-adequate GROSS DESCRIPTION 3- alcohol fixed slide(s) 2- passes Signed (signature on file) Jona Head MD 1000 END OF REPORT * ML=Testing performed at Main Lab DEPARTMENT OF PATHOLOGY, [address] [place] [address] Jona Head M.D. Director [facility] # [id number] 14 Because ethnic data is not always readily [...] 15-29 5 Kidney failure <15 (or dialysis) 15 SEE RESULT BELOW Name: KATHERINE RAMIREZ : [address]: Markus Maria MD Acct: [id number] Unit: [id number] AGE: 70 Location: OR Re05/22/16 SEX: F Status: REG [facility] SPEC: [id number] ANDERSON: 05/22/16-[address] [facility] [address]: Markus Maria MD REQ: [id number] RECD: 05/22/16 STATUS: SOUT _ ORDERED: LEVEL [...] performed at Main Lab DEPARTMENT OF PATHOLOGY, [address] [place] [address] Jona Head M.D. Director [facility] # [id number] Procedures Date Code Description Status 10/12/2018 30709 ECHO Transthorasic Realtime 2D W Doppler & Color Flow Completed Hosp 09/15/2018 37496561 Mammogram Completed 07/20/201823127 Inject/Drain Joint/Bursa Major W/O US Completed 05/21/2018 59884 EKG Tracing & Interpretation Completed 05/08/2018 45617 Endoscopy Upper GI Remove Tumor/Polyp/Lesion Snare Completed Technique 05/08/2018 23356 Endoscopy Upper GI Biopsy Completed 03/11/2018 13404 Treadmill Interp/Report Only Completed 03/11/2018 92324 Stress Test Supervsn W/Out I/R Completed 01/29/2018 04102 Holter Monitor Review (24 hr)dr review & interp only Completed 01/28/2018 51017 ECG Monitor/Recording W/Visual Superimposition Scanning Completed 01/28/2018 59185 ECG Monitor/Recording W/Visual Superimposition Scanning Completed 01/16/2018 29863 EKG Tracing & Interpretation Completed 11/25/201778408 Inject/Drain Joint/Bursa Major W/O US Completed 10/10/201722422 Inj/Aspir Major JT Or Bursa W/ US Completed 08/28/201730477 Inject/Drain Joint/Bursa Major W/O US Completed 06/25/2017 18538805 Mammogram Completed 03/05/2017 81340 Stress Test Supervsn W/Out I/R Completed 03/05/2017 07084 Treadmill Interp/Report Only Completed 02/27/2017 37956 ECHO Transthoracic, Real-Time 2D With Doppler And Color Completed Flow 02/26/2017 41043 Holter Monitor Review (24 hr)dr review & interp only Completed 02/25/2017 85973 ECG Monitor/Recording W/Visual Superimposition Scanning Completed 01/30/2017 67309 EKG Tracing & Interpretation Completed 05/22/2016 05609 Hemorrhoidectomy Internal & External 2 Or More Completed Columns/Groups 05/20/2016 87999 Hemorrhoidectomy, Internal, By Rubber Band Ligation(S) Completed 03/15/2016 49347579 Mammogram Completed 09/24/2015 16907 EKG, Interpretation Only Completed 09/19/2015 07211 EKG, Interpretation Only Completed 08/17/2015 16592540 Colonoscopy Completed 03/15/2010 93073372 Colonoscopy Completed Encounters Type Date Location Provider Dx Diagnosis Office Visit 10/15/2018 [facility] Chay Colin D50.9 Iron deficiency 11:00a MD Farhan anemia, unspecified K21.9 Gastro-esophageal reflux disease without esophagitis Z79.899 Other intermission coordinator (current) drug therapy E66.9 Obesity, unspecified R19.7 Diarrhea, unspecified K59.00 Constipation, unspecified R51 Headache M79.7 Fibromyalgia K27.7 Chronic peptic ulcer, site unsp, w/o hemorrhage or perf Office Visit 09/17/2018 1:00p Surgical Christy Ortiz N64.59 Other signs and Associates Of Farrah Diego MD symptoms in breast Office Visit 07/20/2018 10:00a Orthopedic Michelle Dagoberto, M25.551 Pain in right Services Of M.D. hip C.M.A. M25.552 Pain in left hip M70.62 Trochanteric bursitis, left hip M70.61 Trochanteric bursitis, right hip M16.12 Unilateral primary osteoarthritis, left hip M16.11 Unilateral primary osteoarthritis, right hip Office Visit 05/28/2018 1:30p [facility] Nurse Visit IC I10 Essential (primary) Of [facility] hypertension Office Visit 05/21/2018 2:00p [facility] Qutaybeh S. I10 Essential (primary) Of [facility] David Conroy hypertension R94.31 Abnormal electrocardiogram [ECG] [EKG] Office Visit 04/24/2018 [facility] Roseline R10.13 Epigastric pain 9:45a BRODY Dunne K21.9 Gastro-esophageal reflux disease without esophagitis Office Visit 04/16/2018 Surgical Christy Ortiz N64.59 Other signs and 2:00p [facility] Diego MD symptoms in breast Office Visit 04/10/2018 [facility] Nelia R11.2 Nausea with 9:13a Assoc,pc Angie Porter, vomiting, Hospitalists CLAY ARTISAN unspecified D50.9 Iron deficiency anemia, unspecified I10 Essential (primary) hypertension Office Visit 04/09/2018 [facility] Kiesha R11.2 Nausea with 9:12a Assoc,pc Fermin, CLAY ARTISAN vomiting, Hospitalists unspecified D50.9 Iron deficiency anemia, unspecified I10 Essential (primary) hypertension K21.9 Gastro-esophageal reflux disease without esophagitis Office Visit 03/25/2018 10:15a Orthopedic Services Michelle Arenas, M25.551 Pain in right Of C.M.A. M.D. hip M25.552 Pain in left hip M70.62 Trochanteric bursitis, left hip M70.61 Trochanteric bursitis, right hip M16.12 Unilateral primary osteoarthritis, left hip M16.11 Unilateral primary osteoarthritis, right hip Office Visit 03/24/2018 [facility] Aldo S. R00.0 Tachycardia, 3:00p Cardiology Saul Conroy M.D. unspecified Cheese Sprayer I10 Essential (primary) hypertension E66.9 Obesity, unspecified Office Visit 02/16/2018 2:30p [facility] Bibiana Altman, R07.89 Other chest CLAY ARTISAN pain R00.0 Tachycardia, unspecified I10 Essential (primary) hypertension Office Visit 01/16/2018 1:40p [facility] Aldo SJimmy I10 Essential David Conroy (primary) hypertension R94.31 Abnormal electrocardiogram [ECG] [EKG] E66.9 Obesity, unspecified R00.0 Tachycardia, unspecified Office Visit 12/12/2017 11:00a Orthopedic Michelle M16.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 hip M70.62 Trochanteric bursitis, left hip M70.61 Trochanteric bursitis, right hip M25.551 Pain in right hip M25.552 Pain in left hip Office Visit 11/25/2017 3:30p Orthopedic Miguel Brown M16.0 Bilateral primary Services Of osteoarthritis of C.M.A. hip M54.5 Low back pain Office Visit 09/12/2017 2:15p [facility] Luis Felipe Caal, R51 Headache Services Of [facility] M.DJimmy Office Visit 08/28/2017 8:30a Orthopedic Miguel Brown MD M54.5 Low back pain Services Of Stephan M16.0 Bilateral primary osteoarthritis of hip M70.62 Trochanteric bursitis, left hip M70.61 Trochanteric bursitis, right hip Office Visit 05/12/2017 1:30p Surgical Associates Christy Diego, N64.4 Mastodynia Of [facility] R92.8 Oth abn and inconclusive findings on dx imaging of breast Office Visit 04/22/2017 2:00p [facility] Of KIARA Valles R00.2 Palpitations [facility] I10 Essential (primary) hypertension Office Visit 04/04/2017 [facility] Nurse Visit cc I10 Essential 11:00a Cardiology (primary) hypertension Office Visit 03/24/2017 [facility] Luis Felipe Caal, R94.02 Abnormal brain 8:30a Neurologic M.DJimmy scan Services Of [facility] R00.2 Palpitations Office Visit 03/19/2017 4:20p [facility] Georgiatalala S. I10 Essential David Conroy (primary) hypertension I49.3 Ventricular premature depolarization I49.1 Atrial premature depolarization Office Visit 01/30/2017 [facility] Aldo S. R00.0 Tachycardia, 3:00p Cardiology David Conroy [...] anus and rectum Office Visit 09/23/2015 11:12a [facility] N17.9 Acute kidney Assoc,odilia Eid M.D. failure, Hospitalists unspecified R29.6 Repeated falls M79.7 Fibromyalgia Office Visit 09/19/2015 10:17a [facility] Oskar N17.9 Acute kidney Assoc,odilia Jeong MD failure, Hospitalists unspecified S06.0x1A Concussion w Loc of 30 minutes or less, init S01.81xA Laceration w/o foreign body of oth part of head, init encntr I10 Essential (primary) hypertension [facility] 10:16a Assoc,odilia AKINS M.D. failure, Hospitalists unspecified S06.0x1A Concussion w Loc of 30 minutes or less, init S01.81xA Laceration w/o foreign body of oth part of head, init encntr Office Visit 06/01/2015 11:00a Orthopedic Omkar Muller, M54.32 Sciatica , left Services Of David side C.M.AJimmy M76.32 Iliotibial band syndrome, left leg Office Visit 09/10/2014 [facility] 719.41 Pain Joint 5:24p Assoc,odilia AKINS M.D. [facility] Hospitalists [facility] Plan of Treatment Future Appointment(s):02/05/2019 11:45 am - Luis Feilpe Caal M.D. at [facility]10/26/2018 - Iron Varela N.P.M79.7 AgtixpvrfnfoJ74.009 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out aura, not intractable, without status migraReferral:Gunnar Wooten MD, OphthalmologyFollow up:3 months and as need with Dr Jerryommendations:Riboflavin 400mg (vitamin b-2) take daily by bpianX30.2 PalpitationsNew Orders:Event Monitor, Ordered: 10/26/18Referral: Aldo Conroy MD FACC, Cardiovsclr Disease
--- OUTSIDE RECORDS SUMMARY | 2018-11-05 15:55 | XMS REPORT | Continuity of Care Document ---
:1945 External Reference #:[id number] Author Name Ariadne Zhanna Care Team Providers Name Role Phone Barbara Jacinto MD Primary Care Physician Unavailable Payers Date Identification Numbers Payment Provider Subscriber Effective: 2012 Policy Number: [id number] Medicare Katherine Ramirez PayID: [id number] [address] [place] [address] Effective: 2015 Policy Number: [facility] Katherine Ramirez [id number] PayID: [id number] [address] [place] [address] Problems Active Problems Provider Date Sciatica Omkar Muller M.D. Onset: 06/01/2015 Iliotibial band friction syndrome Omkar Muller M.D. Onset: 06/01/2015 Abnormal results function studies of central Luis Felipe Caal M.D. Onset: nervous system Palpitations Luis Felipe Caal M.D. Onset: 03/24/2017 Headache Luis Felipe Caal M.D. Onset: 09/12/2017 Localized, primary osteoarthritis of the Miguel Brown MD Onset: 10/10/2017 pelvic region and thigh Trochanteric bursitis Michelle Arenas M.D. Onset: 12/12/2017 Epigastric pain Roseline Dunne NP Onset: 04/24/2018 Family History Date Family Member(s) Observation Comments [...] Use Denies Drug Use Smoking Status Reviewed: 10/15/18 Patient has never smoked Exercise Type/Frequency Exercises [...] Qnty Indications Ordering Date Provider Benazepril HCL two po daily 60tabs Georgiatalala S. 05/21/2018 20mg Tablets David Conroy Lorazepam 2 tab by mouth [...] 10mg Tablets Dayquil 15cc prn Unknown Percocet 1/2 tab by Unknown 10-325mg Tablets mouth every 12 hours as needed pain Vitamin B Complex 1 by mouth Unknown Tablets twice weekly Vitamin D 1 tab per week Unknown 5000Unita Tablets History Medications Amlodipine Besylate 1 by mouth every 90tabs I10 Jay Lovell 05/12/2017 - 10mg day David Sr Unknown Tablets Amlodipine Besylate 2 tabs by mouth 30tabs I10 Georgiataybjayleen S. 04/22/2017 - 5mg every day David Conroy 05/12/2017 Tablets Verapamil HCL ER 1 tab daily 30tabs Georgiataybjayleen S. 04/14/2017 - 120mg David Conroy 04/22/2017 Tablets ER Dilt-CD one po daily 30caps Georgiatalala S. 03/19/2017 - 120mg Caps ER David [...] HCL 2 by mouth every 90tabs [facility] (med increased BILLING ASSOCIATE 05/20/2018 Tablets by PMD) Amlodipine Besylate 1 [...] Michelle Arenas M.D. 07/20/2018 Injection Depomedrol 40MG Michelle Arenas M.D. 07/20/2018 Injection Triamcinolone (Kenalog) Miguel Brown MD 11/25/2017 Injection Triamcinolone (Kenalog) Miguel Brown MD 11/25/2017 Injection Triamcinolone (Kenalog) Miguel Brown MD 10/10/2017 Injection Triamcinolone (Kenalog) Miguel Brown MD 10/10/2017 Injection Triamcinolone (Kenalog) Miguel Brown MD 08/28/2017 Injection Triamcinolone (Kenalog) Miguel Brown MD 08/28/2017 Injection Vital Signs Date Vital Result Comment 10/15/2018 11:35am Height 65 inches 5'5" Weight [...] Result H/L Range Note Laboratory test 05/08/2018 [facility] Clotest SEE RESULT [address] [place] [address] [phone] Laboratory test 05/08/2018 [facility] Surgical SEE RESULT [address] [place] [address] [phone] Liver Function 04/24/2018 [facility] Direct 0.10 mg/dL N 0.03- 0.[address] [place] [address] [phone] Indirect Bilirubin 0.4 mg/dL N 0.3-1.0 CBC Auto Diff 04/24/2018 [facility] White Blood 7.1 10^3/uL N 3.5-10.[address] [place] [address] [phone] Red Blood Count 4.58 10^6/uL N 4.00-5.40 [...] % Nucleated Red Blood Cells % 0.1 Comp Metabolic Panel 04/24/2018 [facility] Sodium 143 mmol/L N 135-[address] [place] [address] [phone] Potassium 3.7 mmol/L N 3.5-5.0 Chloride 105 [...] Non- 53.0 >60 Egfr 64.1 >60 3 Lipid Panel - 02/19/2018 [facility] Creatine 34 U/L N 10-223 [address] Kinase(CK) [place] [address] [phone] Comp Metabolic 02/19/2018 [facility] Sodium 140 N 135-[address] mmol/[place] [address] [phone] Potassium 4.3 mmol/L N 3.5-5.0 Chloride 103 [...] Egfr 70.4 >60 5 Lipid Profile 02/19/2018 [facility] Triglycerides 126 mg/dL 6 (Trig/Chol/HDL) [address] [place] [address] [phone] Cholesterol 178 mg/dL 7 HDL Cholesterol 58.7 mg/dL 8 LDL Cholesterol 94 mg/dL 9 Laboratory test 02/19/2018 [facility] TSH (Thyroid 0.79 mcIU/mL N 0.34-5.60 [address] Stim Horm) [place] [address] [phone] Free T4 (Free Thyroxine) 0.77 ng/dL N 0.61-1.12 11 T3 Free 3.00 pg/mL N 2.5-3.9 12 Laboratory test 03/13/2017 [facility] Cytology SEE RESULT [address] Non-Learning [employer] [place] [address] [phone] Laboratory test 11/21/2016 [facility] Ferritin 20.2 ng/mL N 11 -[address] [place] [address] [phone] Iron & Iron 11/21/2016 [facility] Iron 75 g/dL N 50-212 Binding Capacity [address] [place] [address] [phone] Unsaturated Iron Binding 367 g/dL N Total Iron Binding Capacity 442 g/dL N 250-450 % Iron Saturation 17 % N 15-55 CBC Auto Diff 11/21/2016 [facility] White Blood 5.6 10^3/uL N 3.5-10.[address] [place] [address] [phone] Red Blood Count 4.24 10^6/uL N 4.0-5.4 [...] Nucleated Red Blood Cells % 0.1 N CBC No Diff 07/31/2016 [facility] White Blood 6.2 10^3/uL N 3.5-10.[address] [place] [address] [phone] Red Blood Count 4.50 10^6/uL N 4.0-5.4 Hemoglobin 14.5 g/dL N 12.0-16.0 Hematocrit 43 % N 35-47 Mean Corpuscular Volume 96 fL N 80-97 Mean Corpuscular Hemoglobin 32 pg High 27-31 Mean Corpuscular HGB Conc 34 g/dL N 31-36 Red Cell Distribution Width 14 % N 10.5-15 Platelet Count 168 10^3/uL N 150-450 Mean Platelet Volume 10 um3 N 7.4-10.4 Basic Metabolic Panel 07/31/2016 [facility] Sodium 139 mmol/L N 133-145 [address] [place] [address] [phone] Potassium 3.9 mmol/L N 3.5-5.0 Chloride 103 mmol/L N 101-111 Co2 Carbon Dioxide 29 mmol/L N 22-32 Anion Gap 7 mmol/L N 2-11 Glucose 104 mg/dL High 70-100 Blood Urea Nitrogen 10 mg/dL N 6-24 Creatinine 0.91 mg/dL N 0.51-0.95 BUN/Creatinine Ratio 11.0 N 8-20 Calcium 9.5 mg/dL N 8.6-10.3 Egfr Non- 61.3 N >60 Egfr 78.8 N >60 14 Laboratory test 07/31/2016 [facility] Iron (Fe) 124 g/dL N 50-212 finding [address] [place] [address] [phone] Ferritin 30.7 ng/mL N 11-307 Laboratory test 05/22/2016 [facility] Surgical SEE RESULT 15 finding [address] [facility] [place] [address] [phone] 1 SEE RESULT BELOW Name: KATHERINE RAMIREZ : [address]: Chay Real MD Acct: [id number] Unit: [id number] AGE: 72 Location: ENDO Re05/08/18 SEX: F Status: REG REF SPEC: [id number] ANDERSON: 05/08/18-[address]: Chay Real MD REQ: [id number] RECD: 05/08/18 STATUS: EVANGELIST GUPTA DR: Barbara Benavides MD _ SOURCE: GAS ANTRUM SPDESC: ORDERED: Clotest Procedure Result Reported Site Clotest Final 05/09/18- 736 ML Clotest Negative * - [facility] . END OF REPORT DEPARTMENT OF PATHOLOGY, [address] [place] [address] Jona Head M.D. Director [facility] # [id number] 2 SEE RESULT BELOW Name: KATHERINE RAMIREZ : [address]: Chay Real MD Acct: [id number] Unit: [id number] AGE: 72 Location: ENDO Re05/08/18 SEX: F Status: DEP REF SPEC: [id number] ANDERSON: 05/08/18- [facility] DR: Chay Real MD REQ: [id number] RECD: 05/08/18 STATUS: CED GUPTA DR: Barbara [...] CONTINUED ON NEXT PAGE DEPARTMENT OF PATHOLOGY, [address] [place] [address] Jona Head M.D. Director [facility] # [id number] RUN DATE: 05/12/18 [facility] LAB LIVE PAGE 2 Patient: KATHERINE RAMIREZ [id number] (Continued) GROSS DESCRIPTION (Continued) Signed by and Reported on: Patricia Carrillo MD 05/12/18 1036 END OF REPORT DEPARTMENT OF PATHOLOGY, [address] [place] [address] Jona Head M.D. Director [facility] # [id number] 3 Because ethnic data is not always [...] [address]: Brandon Pruitt MD Acct: [id number] Unit: [id number] AGE: 71 Location: THYROID Re03/13/17 SEX: F Status: REG REF SPEC: [id number] ANDERSON: 03/13/17 [facility] DR: Brandon Pruitt MD REQ: [id number] RECD: 03/13/17 STATUS: CED GUPTA DR: Barbara Farias MD _ ORDERED: FNA-IMG GUID BX, CYTO ADEQ-1ST P FINAL DIAGNOSIS Thyroid, left, Ultrasound guided, fine needle aspiration: Benign thyroid nodule- involutional type ([place] class II). The specimen demonstrates abundant watery [...] performed at Main Lab DEPARTMENT OF PATHOLOGY, [address] [place] [address] Jona Head M.D. Director CLIA # [id number] RUN DATE: 03/13/17 [facility] LAB LIVE PAGE 2 Patient: KATHERINE RAMIREZ [id number] (Continued) IMMEDIATE INTERPRETATION (Continued) IMMEDIATE INTERPRETATION Pass 1, and 2-adequate GROSS DESCRIPTION 3- alcohol fixed slide(s) 2- passes Signed (signature on file) Jona Head MD 1000 END OF REPORT * ML=Testing performed at Main Lab DEPARTMENT OF PATHOLOGY, [address] [place] [address] Jona Head M.D. Director [facility] # [id number] 14 Because ethnic data is not always [...] 15 SEE RESULT BELOW Name: KATHERINE RAMIREZ Iron : [address]: Markus Maria MD Acct: [id number] Unit: [id number] AGE: 70 Location: OR Re05/22/16 SEX: F Status: REG [facility] SPEC: [id number] ANDERSON: 05/22/16-[address] [facility] [address]: Markus Maria MD REQ: [id number] RECD: 05/22/16 STATUS: SOUT _ ORDERED: LEVEL [...] performed at Main Lab DEPARTMENT OF PATHOLOGY, [address] [place] [address] Jona Head M.D. Director [facility] # [id number] Procedures Date Code Description Status 09/15/2018 28071136 Mammogram Completed 07/20/2018 60834 Inject/Drain Joint/Bursa Major W/O US Completed 05/21/2018 97885 EKG Tracing & Interpretation Completed 05/08/2018 96761 Endoscopy Upper GI Remove Tumor/Polyp/Lesion Snare Completed Technique 05/08/2018 32840 Endoscopy Upper GI Biopsy Completed 03/11/2018 11532 Treadmill Interp/Report Only Completed 03/11/2018 35299 Stress Test Supervsn W/Out I/R Completed 01/29/2018 45176 Holter Monitor Review (24 hr)dr review & interp only Completed 01/28/2018 05231 ECG Monitor/Recording W/Visual Superimposition Scanning Completed 01/28/2018 81862 ECG Monitor/Recording W/Visual Superimposition Scanning Completed 01/16/2018 46122 EKG Tracing & Interpretation Completed 11/25/2017 25283 Inject/Drain Joint/Bursa Major W/O US Completed 10/10/2017 55597 Inj/Aspir Major JT Or Bursa W/ US Completed 08/28/2017 61653 Inject/Drain Joint/Bursa Major W/O US Completed 06/25/2017 35363129 Mammogram Completed 03/05/2017 80495 Stress Test Supervsn W/Out I/R Completed 03/05/2017 12004 Treadmill Interp/Report Only Completed 02/27/2017 14191 ECHO Transthoracic, Real-Time 2D With Doppler And Color Completed Flow 02/26/2017 71222 Holter Monitor Review (24 hr)dr review & interp only Completed 02/25/2017 56021 ECG Monitor/Recording W/Visual Superimposition Scanning Completed 01/30/2017 37197 EKG Tracing & Interpretation Completed 05/22/2016 54050 Hemorrhoidectomy Internal & External 2 Or More Completed Columns/Groups 05/20/2016 09872 Hemorrhoidectomy, Internal, By Rubber Band Ligation(S) Completed 03/15/2016 70258846 Mammogram Completed 09/24/2015 07554 EKG, Interpretation Only Completed 09/19/2015 70759 EKG, Interpretation Only Completed 08/17/2015 51201399 Colonoscopy Completed 03/15/2010 08328336 Colonoscopy Completed Encounters Type Date Location Provider Dx Diagnosis Office Visit 09/17/2018 Surgical Christy Diego, N64.59 Other signs and 1:00p [facility] symptoms in breast Office Visit 07/20/2018 Orthopedic Michelle Arenas, M25.551 Pain in right hip 10:00a Services Of C.M.A. M.D. M25.552 Pain in left hip M70.62 Trochanteric bursitis, left hip M70.61 Trochanteric bursitis, right hip M16.12 Unilateral primary osteoarthritis, left hip M16.11 Unilateral primary osteoarthritis, right hip Office Visit 05/28/2018 1:30p [facility] Nurse Visit IC I10 Essential (primary) Of [facility] hypertension Office Visit 05/21/2018 2:00p [facility] Aldo SJimmy I10 Essential (primary) Of [facility] David Conroy hypertension R94.31 Abnormal electrocardiogram [ECG] [EKG] Office Visit 04/24/2018 [facility] Gastroenterology Roseline R10.13 Epigastric pain 9:45a BRODY Dunne K21.9 Gastro-esophageal reflux disease without esophagitis Office Visit 04/16/2018 Surgical Christyfrancisco j Ortiz N64.59 Other signs and 2:00p [facility] MD Johnathon symptoms in breast Office Visit 04/10/2018 [facility] Nelia R11.2 Nausea with 9:13a Assoc,odilia Porter, vomiting, Hospitalists BILLING ASSOCIATE unspecified D50.9 Iron deficiency anemia, unspecified I10 Essential (primary) hypertension Office Visit 04/09/2018 [facility] Kiesha R11.2 Nausea with 9:12a Assoc,odilia Christensen, BILLING ASSOCIATE vomiting, Hospitalists unspecified D50.9 Iron deficiency anemia, [...] primary osteoarthritis, right hip Office Visit 03/24/2018 [place] Aldo Gonzales. R00.0 Tachycardia, 3:00p Cardiology Saul Conroy M.D. unspecified [facility] I10 Essential (primary) hypertension E66.9 Obesity, unspecified Office Visit 02/16/2018 2:30p [facility] Bibiana Altman, R07.89 Other chest BILLING ASSOCIATE pain R00.0 Tachycardia, unspecified I10 Essential (primary) hypertension Office Visit 01/16/2018 1:40p [facility] Aldo S. I10 Essential David Conroy (primary) hypertension R94.31 Abnormal electrocardiogram [ECG] [EKG] E66.9 Obesity, unspecified R00.0 Tachycardia, unspecified Office Visit 12/12/2017 11:00a Orthopedic Michelle M16.0 Bilateral primary Services Of Dvaid Arenas osteoarthritis of C.M.A. hip M70.62 Trochanteric bursitis, left hip M70.61 Trochanteric bursitis, right hip M25.551 Pain in right hip M25.552 Pain in left hip Office Visit 11/25/2017 3:30p Orthopedic Miguel Brown M16.0 Bilateral primary Services Of osteoarthritis of C.M.A. hip M54.5 Low back pain Office Visit 09/12/2017 2:15p [place] [facility] Luis Felipe Caal, R51 Headache Services Of Farrah Hernandez Office Visit 08/28/2017 8:30a Orthopedic Miguel Brown MD M54.5 Low back pain Services Of C.M.A. M16.0 Bilateral primary osteoarthritis of hip M70.62 Trochanteric bursitis, left hip M70.61 Trochanteric bursitis, right hip Office Visit 05/12/2017 1:30p [facility] Christy Diego, N64.4 Mastodynia Of [facility] R92.8 Oth abn and inconclusive findings on dx imaging of breast Office Visit 04/22/2017 2:00p [place] [facility] Of KIARA Valles R00.2 Palpitations [facility] I10 Essential (primary) hypertension Office Visit 04/04/2017 [place] Nurse Visit cc I10 Essential 11:00a Cardiology (primary) hypertension Office Visit 03/24/2017 [place] Luis Felipe Caal, R94.02 Abnormal brain 8:30a Neurologic David scan Services Of [facility] R00.2 Palpitations Office Visit 03/19/2017 4:20p [facility] Aldo SJimmy I10 Essential David Conroy (primary) hypertension I49.3 Ventricular premature depolarization I49.1 Atrial premature depolarization Office Visit 01/30/2017 [place] Aldo Gonzales. R00.0 Tachycardia, 3:00p Cardiology David Conroy unspecified R00.2 Palpitations R06.02 Shortness of breath R53.83 Other fatigue I10 Essential (primary) hypertension E66.9 Obesity, unspecified R94.31 Abnormal electrocardiogram [ECG] [EKG] Office Visit 11/13/2016 10:45a Surgical Christy Angel N63 Unspecified lump [facility] Farrah Diego MD in breast N64.4 Mastodynia Office Visit 05/20/2016 2:30p Surgical Markus PJimmy K64.1 Second degree [facility] MD Candace, hemorrhoids FACS K62.5 Hemorrhage of anus and rectum Office Visit 09/23/2015 11:12a [facility] Scott N17.9 Acute kidney Assoc,odilia Eid M.D. failure, Hospitalists unspecified R29.6 Repeated falls M79.7 Fibromyalgia Office Visit 09/19/2015 10:17a [facility] Oskar N17.9 Acute kidney Assoc,pc MD Jean-Paul failure, Hospitalists unspecified S06.0x1A Concussion w Loc of 30 minutes or less, init S01.81xA Laceration w/o foreign body of oth part of head, init encntr I10 Essential (primary) hypertension Office Visit 09/18/2015 [facility] Cedric N17.9 Acute kidney 10:16a Assoc,odilia AKINS M.D. failure, Hospitalists unspecified S06.0x1A Concussion w Loc of 30 minutes or less, init S01.81xA Laceration w/o foreign body of oth part of head, init encntr Office Visit 06/01/2015 11:00a Orthopedic Omkar Muller, M54.32 Sciatica , left Services Of David side CJessica M76.32 Iliotibial band syndrome, left leg Office Visit 09/10/2014 [facility] 719.41 Pain Joint 5:24p Assoc,odilia AKINS M.D. Shoulder Hospitalists [facility] Plan of Treatment Future Appointment(s):10/26/2018 11:00 am - Iron Varela N.P. at [place] [facility] Of [facility]09/17/2018 - SHELLY Pool64.59 Other signs and symptoms in breastFollow up:As needed
--- OUTSIDE RECORDS SUMMARY | 2018-11-05 15:55 | XMS REPORT | Continuity of Care Document ---
:1945 External Reference #:[id number] Author Name Barbara Castro MD Address [address] [place] [address] Care Team Providers Name Role Phone Barbara Castro MD Care Team Information Folder Seamer Unavailable Payers Date Identification Numbers Payment Provider Subscriber Effective: 2012 Policy Number: [id number] Medicare Part B Katherine Bang Group Name: [facility] [address] PayID: [id number] [place] [address] Effective: 2012 Policy Number: [facility] Options Katherine Bang [id number] PayID: [id number] [address] [place] [address] Effective: 2012 Policy Number: [id number] Medicare Part B Katherine Bang Expires: 2014 Group Name: [facility] [address] PayID: [id number] [place] [address] Expires: 2014 Policy Number: [facility] Corinne Bang [id number] PayID: [id number] [facility] [id number] [place] [address] Problems Active Problems Provider Date Benign essential hypertension Barbara Castro MD Onset: 02/23/2008 Peptic reflux disease Barbara Castro MD Onset: 01/29/2013 Spinal stenosis of lumbar region Barbara Castro MD Onset: 05/16/2014 Chronic pain syndrome Barbara Castro MD Onset: 05/16/2014 Lumbosacral stenosis Barbara Castro MD Onset: 01/16/2015 Essential hypertension Barbara Castro MD Onset: 01/16/2015 Essential hypertension Barbara Castro MD Onset: 02/21/2015 Family History Date Family Member(s) Observation Comments First Son Parkinson's Disease First Daughter Parkinson's Disease Social History Type Date Description Comments Sex Unknown Tobacco Use Start: Unknown Never Smoked Cigarettes Tobacco Use Start: Unknown Patient has never smoked Smoking Status Reviewed: 10/19/18 Patient has never smoked Allergies, Adverse Reactions, Alerts Active Allergies Reaction Severity Comments Date Sulfa 01/29/2006 Inderal Memory Loss 01/29/2006 Quinidine 01/29/2006 Beta Blockers 01/29/2006 Paxil 09/21/2015 Cipro 09/21/2015 Medications Active Medications SIG Qnty Indications Ordering Date Provider Aspirin Ec 1 by mouth H53.412 [facility], 10/19/[address] every other Barbara Kirkland MD day with food Hydrochlorothiazide take 1 tablet 30tabs I10 [facility], 06/29/2018 25mg Tablets by mouth every Barbara Kirkland MD morning Vitamin D3 1 by mouth qwk E55.9 [facility], 06/29/2018 5000Unit Capsules Barbara Kirkland MD [facility]etron 1 [facility] 05/[facility]2018 4mg Tablets Dispers three times a Barbara Kirkland MD day as needed n/v Sucralfate 10ml qd and 400ml K21.0 [facility] 01/26/2018 1GM/10ML Suspension may take 1/2 Barbara Kirkland MD hour prior to eating for prn stomach pain R10.84 Diclofenac Sodium apply 1 gram per 200gm G89.4 Barbara Castro 05/30/2017 1% Gel joint four times MD Burke a day as needed for pain Fluticasone Propionate 2 sprays in each 16units Barbara Castro 2017 nostril daily MD Burke 50mcg/Act Suspension TENS Unit dx: lbp G89.4 Barbara Castro 01/31/2017 MD Burek Flector apply patch twice 60units S39.012A Barbara Castro 10/14/2016 1.3% Patches a day as needed MD Burke for acute pain G89.4 Narcan as needed 2units G89.4 Barbara Castro 06/07/2016 4mg/0.1ML Liquid intranasal for MD Burke emergency overdose only Ferrous Sulfate 2x/wk 30tabs D50.9 [facility] 02/26/2016 325(65Fe) MD Burke mg Tablets Premarin . 5 g every night 42.500gm N95.2 [facility] 10/24/2015 0.625mg/GM Cream at bedtime x 2 wks MD Burke then 2x/wk Lorazepam take 1 tablet by 60tabs F41.9 [facility] 09/26/2015 1mg Tablets mouth two times MD Burke daily as needed maximum daily dose of 2 per day Oxycodone-Acetaminophen 1 by mouth twice a 90tabs G89.4 [facility] 09/26/2014 day may take third MD Burke 10-325mg Tablets as needed Vitamin B12 1 po qod D51.9 [facility] 09/25/2012 1000mcg Tablets MD Burke ER Pantoprazole Sodium Take 1 Tablet By 180tabs K21.0 [facility] 2008 40mg Mouth qd MD Burke Tablets Benazepril HCL 1 by mouth qam I10 Unknown 20mg Tablets Probiotic Colon Support 1 by mouth every Unknown day Capsules Chlorhexidine Gluconate swish and spit 15ml Unknown once a day as 0.12% Solution needed for recurrent mouth ulcers Gabapentin 1 by mouth twice a 150caps G89.4 [facility] 300mg Capsules day 3 every night MD Burke at bedtime History Medications 8 Hour Arthritis one tab three times a 90tabs R10.84 J[facility], 04/23/2018 - Pain Reliever day for back pain Enedina Byers, 06/29/2018 650mg RN [place] [employer] Tablets ER Amlodipine Besylate 1 by mouth every day I10 [facility], 04/17/2018 - Barbara 04/17/2018 5mg Tablets MD Burke Zolpidem Tartrate take 1/2-1 tablet by 30tabs G47.01 [facility], 04/17/2018 - mouth at bedtime Barbara 05/15/2018 10mg Tablets nightly as needed for MD Burke sleep maximum daily dose of 1 per day Tetracycline HCL 1 po qid 28caps [facility], 05/20/2017 - Barbara 05/22/2017 250mg Capsules MD Burke Nitrofurantoin 1 by mouth twice a day 14[facility] 05/19/2017 - Monohyd Macro Barbara 08/15/2017 100mg MD Burke Capsules Benazepril HCL 1 by mouth every day I10 [facility], 05/16/2017 - 10mg Barbara 04/23/2018 Tablets MD Burke Amlodipine Besylate 1 by mouth every day I10 [facility], 05/16/2017 - Barbara 04/17/2018 10mg Tablets MD Burke Cephalexin 1 by mouth four times 28caps N30.01 [facility], 05/16/2017 - 500mg a day Barbara 05/19/2017 Capsules MD Burke Nitrofurantoin 1 by mouth twice a day 14caps N30.01 [facility], 05/16/2017 - Monohyd Macro Barbara 05/16/2017 100mg MD Burke Capsules Phenazopyridine HCL 1 [facility] 05[facility]15[facility]2017 - a day as needed Barbara 08/15/2017 100mg Tablets MD Burke Nitrofurantoin 1 by mouth twice a day 14caps N39.0 [facility], 10/14/2016 - Monohyd Macro Barbara 01/27/2017 100mg MD Burke Capsules Diclofenac Sodium apply 1 gram per joint 100gm M25.511 [facility], 2016 - 1% four times a day as Barbara 10/14/2016 Gel needed for pain MD Burke Flector apply patch twice a 60units [facility], 07/25/2016 - 1.3% Patches day as needed Barbara 08/02/2016 MD Burke Lidoderm apply as directed 1-3 60units [facility], 05/06/2016 - 5% Patches patches on x 12 hours Barbara 10/14/2016 MD Burke Blood Draw 2x/month-bmp (for med I10 [facility], 12/18/2015 - nanagement) Barbara 01/27/2017 MD Burke [facility]orolac q 2 wks M48.07 [facility] 12[facility] - Tromethamine Barbara 06/07/2016 60mg/2ML MD Burke Solution Metronidazole 1 by mouth two times a [facility] 10/26/2015 - 500mg day x 7 d no etoh with Barbara 12/18/2015 Tablets MD Burke Gabapentin Take One To Three 90caps F41.9 [facility], 10/10/2015 - 300mg Capsules By Mouth Barbara 01/27/2017 Capsules Every Night AT Bedtime MD Burke as Needed Lorazepam 1 by mouth every night 30tabs F41.9 [facility], 08/14/2015 - 2mg Tablets at bedtime Barbara 09/26/2015 MD Burke Tizanidine HCL 1 by mouth three times 90tabs M48.07 [facility], 08/04/2015 - 4mg a day as needed Barbara 09/26/2015 Tablets MD Burke Voltaren apply 1 g per joint 300gm [facility], 07/31/2015 - 1% Gel four times a day as Barbara 09/26/2015 needed MD Burke Amoxicillin 1 by mouth three times 30tabs [facility], 07/18/2015 - 500mg a day Barbara 09/21/2015 Tablets MD Burke Tizanidine HCL take 3 tablets by 90tabs M48.07 [facility], 06/20/2015 - 2mg mouth every night at Barbara 08/04/2015 Tablets bedtime as needed MD Burke monitor bp's closely Cephalexin 1 by mouth four times 28tabs [facility], 05/29/2015 - 500mg a day Barbara 07/10/2015 Tablets MD Burke TENS Unit 1units M48.07 [facility], 05/26/2015 - Barbara 09/26/2015 MD Burke Gabapentin take 1 to 3 capsules 90caps M48.07 [facility], 02/21/2015 - 300mg by mouth every evening Barbara 08/04/2015 Capsules at bedtime as needed MD Burke Carisoprodol take 1/2 to 1 every 30tabs G47.00 [facility], 11/22/2014 - 350mg night at bedtime as Barbara 06/20/2015 Tablets needed sleep/muscle MD Burke spasm Lorazepam 1-3 every night at 90tabs F41.9 [facility], 10/21/2014 - 1mg Tablets bedtime as needed Barbara 08/14/2015 sleep/nerves MD Burke Sertraline HCL 1 by mouth every day 30tabs 309.81 [facility], 10/17/2014 - 50mg Barbara 10/17/2014 Tablets MD Burke Paroxetine HCL take one half x 4 d 30tabs 309.81 [facility], 10/17/2014 - 20mg then one tablet by Barbara 10/18/2014 Tablets mouth once daily at MD Burke bedtime Oxycontin 1 po bid-dose increase 60tabs 338.4 [facility], 09/26/2014 - 40mg Tab ER Barbara 10/17/2014 12H Abuse-Det MD Burke Oxycontin 1 by mouth twice a day 60tabs 338.4 [facility], 09/12/2014 - 30mg Tab ER Barbara 09/26/2014 12H Abuse-Det MD Burke Hydromorphone HCL 1-2 pill by mouth 60tabs 338.4 [facility], 09/12/2014 - 2mg every 6 hours as Barbara 09/26/2014 Tablets needed pain MD Burke Augmentin 1 tab by mouth twice a 20tabs Siomara Ortiz 08/18/2014 - 875-125mg day x 10 days MD Shelly 09/12/2014 Tablets Ondansetron HCL 1 by mouth three times 30tabs 787.02 [facility], 07/11/2014 - 4mg a day as needed n/v Barbara 11/15/2014 Tablets MD Burke Fentanyl on x 3 d then replace 10units 338.4 [facility], 07/11/2014 - 100mcg/HR every 3 d Barbara 09/12/2014 Patches 72HR MD Burke Fentanyl on x 3 d 10units 338.4 [facility], 06/13/2014 - 75mcg/HR Barbara 07/11/2014 Patches 72HR MD Burke Amlodipine Besylate Take 1 Tablet By Mouth 30tabs I10 [facility], 06/07/2014 - Every Day Barbara 05/16/2017 5mg Tablets MD Burke Benazepril HCL Take 1 Tablet By Mouth 90tabs I10 [facility], 06/07/2014 - 20mg Every Day Barbara 05/16/2017 Tablets MD Burke Metaxalone take 1/2-1 po bid 1 po 90tabs 719.41 [facility], 05/16/2014 - 800mg qhs prn Barbara 01/16/2015 Tablets MD Burke Levofloxacin 1 by mouth every day 14tabs 595.0 [facility], 05/02/2014 - 500mg Barbara 05/16/2014 Tablets MD Burke Levofloxacin 1 by mouth every day 10tabs 461.0 [facility], 04/05/2014 - 500mg Barbara 05/02/2014 Tablets MD Donald Kirkland to painful area 60units [facility], 03/14/2014 - 1.3% Patches twice a day dx: new Barbara 10/24/2015 acute shoulder pain, MD Burke post op Fluticasone Inhale 2 Sprays Into 16units J30.1 [facility], 02/22/2014 - Propionate Each Nostril One Time Barbara 01/27/2017 50mcg/Act Daily MD uBrke Suspension Fentanyl on x 3d 10units 338.4 [facility], 01/25/2014 - 50mcg/HR Barbara 06/13/2014 Patches 72HR MD Burke Amoxicillin 1 by mouth twice a day 20tabs 780.60 [facility], 01/25/2014 - 875mg Barbara 02/22/2014 Tablets MD Burke Oxycodone-Acetaminop 1/2-1 by mouth four 120tabs 338.4 [facility], 2013 - hen times a day as needed Barbara 09/12/2014 10-325mg Tablets pain MD Burke Work Note this pt has no medical [facility], 05/17/2013 - contraindications to Barbara 08/27/2013 fulltime employment MD Burke Proair HFA Inhale 2 Puffs By 8.5units [facility], 03/30/2013 - Mouth Four Times A Day Barbara 04/17/2018 108(90Base) mcg/Act as Needed MD Burke Aerosol Alprazolam 1/2-2 po tid prn 10tabs [facility], 11/13/2012 - 0.25mg anxiety Enedina C, 01/29/2013 Tablets RN [employer] Viibryd 1 po qd 30tabs 296.31 [facility], 08/24/2012 - 40mg Tablets Barbara 09/25/2012 MD Burke Lidoderm apply as directed 1-3 30units 789.01 [facility], 06/02/2012 - 5% Patches patches on x 12 hrs Barbara 05/17/2013 MD Burke Augmentin one tab bid till gone 28tabs [facility], 05/14/2012 - 875-125mg Enedina C, 06/02/2012 Tablets RN MS SUNDAR Proair HFA 2 p qid prn 1Can 461.0 [facility], 04/10/2012 - Barbara 03/30/2013 108(90Base) mcg/ac MD Burke Aerosol Amoxicillin/Potassiu 1 po bid 28tabs 461.0 [facility], 04/10/2012 - burke Clavulanate Barbara 05/14/2012 MD Burke 875-125mg Tablets Oxycodone/Acetaminop 1/2-1 po Qid prn pain 120tabs 733.90 [facility], 2011 - hen Barbara 10/18/2013 10-325mg Tablets MD Burke Carisoprodol /2-1 by mouth four 120tabs 338.4 [facility], 03/24/2012 - 350mg times a day as needed Barbara 10/21/2014 Tablets MD Chen Kirkland Spica bilat dx: dequervain's 2units 727.04 [facility], 03/24/2012 - Barbara 06/02/2012 MD Burke Tramadol HCL ER take one tablet by 90tabs 338.4 [facility], 03/24/2012 - 100mg mouth tid as needed Barbara 05/17/2013 Tablets ER 24HR MD Burke Premarin use intravaginally 42.5units 627.3 [facility], 02/04/2012 - 0.625mg/GM twice weekly as Barbara 05/17/2013 Cream directed MD Burek Dexilant 1 po qd 90caps 787.02 [facility], 02/04/2012 - 60mg Barbara 03/24/[address] MD Burke Azithromycin 2 tabs day one and 1 1Pack 461.0 [facility], 11/04/2011 - 250mg tab daily till gone Barbara 12/09/2011 Tablets MD Burke Amlodipine take one capsule by 30caps 401.1 [facility], 11/04/2011 - Besylate/Benazepril mouth every day Barbara 06/07/2014 Hydrochloride MD Burke 5-20mg Capsules Amlodipine Besylate 1 po qd 30tabs 401.1 [facility], 10/15/2011 - Barbara 10/15/2011 5mg Tablets MD Burke Amlodipine 1 po qd 30caps 401.1 [facility], 10/15/2011 - Besylate/Benazepril Barbara 10/15/2011 HCL MD Burke 5-40mg Capsules Amlodipine 1 po qd 30caps 401.1 [facility], 10/15/2011 - Besylate/Benazepril Barbara 11/04/2011 Hydrochloride MD Burke 5-10mg Capsules Robitussin ac 10 ml qid prn 120ml 466.0 [facility], 07/19/2011 - Barbara 10/15/2011 MD Burke Medrol Dosepak as dir 1Pack 461.0 [facility], 07/19/2011 - 4mg Barbara 10/15/2011 Tablets MD Burke Azithromycin 2 tabs day one and 1 1Pack 461.0 [facility], 07/19/2011 - 250mg tab daily till gone Barbara 10/15/2011 Tablets MD Burke Meloxicam take 2 tablet by mouth 60tabs 719.49 [facility], 06/21/2011 - 7.5mg every day for pain Barbara 02/04/2012 Tablets MD Burke Gabapentin take 1 capsules by 120caps 338.4 [facility], 06/21/2011 - 300mg mouth twice a day and Barbara 11/15/2014 Capsules 2 at bedtime MD Burke Azithromycin 2 tabs day one and 1 6tabs [facility], 03/01/2011 - 250mg tab daily till gone Enedina C, 05/10/2011 Tablets RN [place] [employer] Tramadol HCL take 1 to 2 tablets 4 60tabs [facility], 11/30/2010 - 50mg times a day as needed Barbara 03/24/2012 Tablets for pain. MD Donald Kirkland to painful area 60units 726.5 [facility], 11/30/2010 - 1.3% Patches bid Barbara 03/30/2013 MD Burke Alprazolam 1/2-2 po tid prn 10tabs [facility], 10/08/2010 - 0.25mg anxiety Barbara 10/15/2011 Tablets MD Burke Tramadol HCL ER 1 PO bid prn 60tabs [facility], 08/10/2010 - 100mg Barbara 11/30/2010 Tablets ER 24HR MD Burke Tramadol HCL take 1 to 2 tablets 4 20tabs 729.1 [facility], 07/24/2010 - 50mg times a day as needed Barbara 08/10/2010 Tablets for pain. MD Burke Percocet 1/2-1 po tid prn pain 90tabs 733.90 [facility], 04/24/2010 - 10-325mg Barbara 03/24/2012 Tablets MD Burke Flonase 1 Shickley q Nostril qd 16gm [facility], 04/04/2010 - 50mcg/Act Barbara 05/17/2013 Suspension MD Burke Ciprofloxacin HCL 1 po bid 14tabs 787.91 [facility], 01/26/2010 - Barbara 07/24/2010 500mg Tablets MD Burke Proctofoam HC apply pr bid prn 10gm 569.3 [facility], 01/26/2010 - 1-1% Barbara 07/24/2010 Foam MD Burke Blood Draw cbc, bmp 401.1 [facility], 01/26/2010 - dx: Barbara 07/19/2011 HTN MD Burke Flovent HFA 2 p bid rise mouth 1Can [facility], 08/29/2009 - 44mcg/Act after Enedina Byers, 06/02/2012 Aerosol RN [place] [employer] Symbicort 2 P bid 786.2 [facility], 02/27/2009 - Barbara 08/29/2009 160-4.5mcg/A Aerosol MD Burke Silvadene to aff area bid 1LGTube 786.2 [facility], 02/27/2009 - 1% Cream Barbara 01/26/2010 MD Burke Zithromax Z-Kobe as dir 1Pak 466.0 [facility], 02/27/2009 - 250mg Barbara 01/26/2010 Tablets MD Burke Meclizine HCL 1/2-1 po tid prn 20tabs 780.4 [facility], 02/07/2009 - 25mg Barbara 07/24/2010 Tablets MD Burke Prednisone 4tabs qam x 3 days 30tabs 493.00 [facility], 02/07/2009 - 10mg then 3 po qam x 3d Barbara 02/27/2009 Tablets then 2 po qam x 3d MD Burke then 1 po qam x 3 d Lidoderm apply as directed 1-3 30units 493.00 [facility], 02/07/2009 - 5% Patches patches on x 12 hrs Barbara 01/26/2010 MD Burke Ventolin HFA 2 p qid prn sob 1Can 493.00 Jens, 02/07/2009 - Enedina C, 04/10/2012 108(90Base) Aerosol RN [employer] Amoxicillin 1 po bid 20tabs [facility], 01/30/2009 - 875mg Barbara 02/27/2009 Tablets MD Burke Premarin Use Intravaginally 42.5units 627.3 [facility], 01/23/2009 - W/Applicator Twice Weekly as Barbara 02/04/2012 Directed MD Burke 0.625mg/GM Cream Aspirin 1 po qd 435.9 [facility], 01/23/2009 - 81mg Tablets Barbara 08/27/2013 MD Burke Blood Draw cbc, cmp, esr, crp, 268.9 [facility], 01/23/2009 - lipid panel, 25 oh vit Barbara 02/27/2009 D, TSH MD Burke dx: 719.49, 401.1, tremor Vitamin D 2 po bid E55.9 [facility], 07/22/2008 - 1000Unit Barbara 06/29/2018 Capsules MD Burke [facility] D 1 PO qd 268.9 [facility] 03/22[facility] - 1000Unit Barbara 07/22/2008 Tablets MD Burke Vosol HC to ears 4 gtt qid prn 1Bottle 268.9 [facility], 03/22/2008 - 1% Barbara 01/26/2010 MD Burke Vitamin D 1 PO QWK X 8 WKS 8caps Matthew, 02/25/2008 - 47401Rrds Barbara 03/22/2008 Capsules MD Burke Intal Inhaler 2 p bid prn 1Can [facility], 02/23/2008 - Barbara 08/29/2009 800mcg/Act Aerosol MD Burke Cymbalta 1 PO qd X 1 Week With Sample 296.32 Matthew, 02/23/2008 - 30mg Caps DR Anthony Sheriff 60 MG Barbara 03/01/2008 Part MD Burke Cymbalta 1 PO qd 30caps 296.32 [facility], 02/23/2008 - 60mg Caps Barbara 03/22/2008 Part MD Burke Fexofenadine HCL 1 po qd prn 30tabs [facility], 01/02/2007 - Barbara 05/17/2013 180mg Tablets MD Burke Medrol Dosepak as Dir 1Pack 724.2 [facility], 11/25/2006 - 4mg Barbara 01/02/2007 Tablets MD Burke Lidoderm apply as directed 1-3 30units 724.2 [facility], 11/25/2006 - 5% Patches patches on x 12 hrs Barbara 07/22/2008 MD Vineet Kirklandt-N 100 1 po qid prn pain 60tabs 724.2 [facility], 11/25/2006 - 100 Barbara 04/24/2010 Tablets MD Burke Physical Therapy eval and treat lbp [facility], 11/25/2006 - Barbara 01/02/2007 MD Burke Aleve 2 PO bid 724.2 [facility], 10/20/2006 - Barbara 07/22/2008 MD Burke Soma 1/2-1 po tid prn 90tabs 724.2 [facility], 09/30/2006 - 350mg Tablets Barbara 03/24/2012 MD Burke Stool Sample test for c diff 787.91 [facility], 09/30/2006 - dx: Barbara 07/22/2008 diarrhea following abx MD Burke Protonix 1 PO qd X 2 WKS Then Sample 530.11 [facility], 09/30/2006 - 40mg Tablets prn Barbara 02/27/2009 DR Burke MD Physical Therapy eval and treat l ankle 845.00 [facility], 09/30/2006 - Barbara 01/02/2007 MD Burke Lisinopril 1 po qd 30tabs 401.1 [facility], 01/29/2006 - 10mg Barbara 10/15/2011 Tablets MD Burke Lunesta one po qhs prn 30tabs [facility], 01/29/2006 - 3mg Tablets Enedina C, 09/30/2006 RN [place] [employer] Bernadette bid 60tabs [facility], 01/29/2006 - 60mg Tablets Enedina C, 09/30/2006 RN [place] [employer] Flonase 1 Shickley q Nostril qd 1units [facility], 01/29/2006 - 50mcg/Shickley Barbara 04/04/2010 Suspension MD Burke Lortab 1 po q4 hours prn pain 60tabs 733.90 [facility], 01/29/2006 - 7.5mg;500 mg Enedina C, 01/29/2006 Tablets RN [facility] [employer] Percocet 1/2-1 po tid prn pain 50tabs 733.90 [facility], 01/29/2006 - 10mg;325 mg Barbara 04/24/2010 Tablets MD Burke Metronidazole 1 by mouth three times Unknown - 250mg a day 06/29/2018 Tablets Medications Administered in Office Medication SIG Qnty Indications Ordering Provider Date Depo Medrol 80 MG Barbara Castro MD 07/10/2015 Injection Depo Medrol 80 MG Barbara Castro MD 02/21/2015 Injection Depo Medrol 80 MG Barbara Castro MD 02/21/2015 Injection Depo Medrol 80 MG Barbara Castro MD 02/04/2012 Injection Depo Medrol 80 MG Barbara Castro MD 02/04/2012 Injection PPD Nurses Schedule Amalia 04/29/2011 Injection Depo Medrol 80 MG Barbara Castro MD 11/30/2010 Injection Immunizations CPT Code Status Date Vaccine Lot # 50910 Given 03/03/2003 Immunization Td 7 Yrs Or Older 89767 Refused 04/17/2018 Influenza Vac, Quadrivalent, Split, 0.5mL Dosage, Im Use 20849 Refused 02/26/2016 Pneumococcal 23 Immunization Adult Or Immunosuppressed Patient 62414 Refused 02/26/2016 Tetanus And Diptheria Toxoids For Adult Use- preservative free 36811 Refused 02/26/2016 Influenza Virus Vaccine,Quadrivalent,Split,Preserv Free, 0.5mL,Im 08100 Refused 02/26/2016 Prevnar 13 Pneumococal Conjugate Vaccine Vital Signs Date Vital Result Comment 10/19/2018 3:09pm Weight 192.00 lb Heart Rate 92 /min BP Systolic 112 mmHg BP Diastolic 72 mmHg Height 64 inches 5'4" BMI (Body Mass Index) 33.0 kg/m2 08/03/2018 2:02pm Weight 195.00 lb Heart Rate 84 /min BP Systolic 112 mmHg BP Diastolic 68 mmHg Height 64 inches 5'4" BMI (Body Mass Index) 33.5 kg/m2 06/29/2018 10:23am Weight 200.00 lb Heart Rate 72 /min BP Systolic 152 mmHg BP Diastolic 98 mmHg BP Systolic Recheck 146 mmHg PTS Cuff BP Diastolic Recheck 99 mmHg PTS Cuff Height 64 inches 5'4" BMI (Body Mass Index) 34.3 kg/m2 04/23/2018 11:37am Weight 201.00 lb Heart Rate 114 /min BP Systolic 138 mmHg BP Diastolic 96 mmHg Height 64 inches 5'4" BMI (Body Mass Index) 34.5 kg/m2 04/17/2018 8:13am Weight 205.00 lb Heart Rate 80 /min BP Systolic 120 mmHg BP Diastolic 78 mmHg Height 64 inches 5'4" BMI (Body Mass Index) 35.2 kg/m2 01/26/2018 10:16am Weight 208.25 lb Heart Rate 95 /min BP Systolic 112 mmHg BP Diastolic 84 mmHg Height 64 inches 5'4" BMI (Body Mass Index) 35.7 kg/m2 12/05/2017 11:18am Weight 197.00 lb Heart Rate 76 /min BP Systolic 120 mmHg BP Diastolic 78 mmHg Height 64 inches 5'4" BMI (Body Mass Index) 33.8 kg/m2 10/10/2017 12:27pm Weight 203.00 lb Heart Rate 96 /min BP Systolic 120 mmHg BP Diastolic 76 mmHg Height 64 inches 5'4" BMI (Body Mass Index) 34.8 kg/m2 08/15/2017 11:33am Weight 211.00 lb Heart Rate 60 /min BP Systolic 126 mmHg BP Diastolic 80 mmHg Height 64 inches 5'4" BMI (Body Mass Index) 36.2 kg/m2 05/16/2017 2:34pm Weight 211.00 lb Heart Rate 88 /min BP Systolic 128 mmHg BP Diastolic 78 mmHg Height 64 inches 5'4" BMI (Body Mass Index) 36.2 kg/m2 01/27/2017 10:25am Body Temperature 98.5 F Weight 210.00 lb Heart Rate 80 /min BP Systolic 132 mmHg BP Diastolic 82 mmHg Height 64 inches 5'4" BMI (Body Mass Index) 36.0 kg/m2 10/14/2016 4:39pm Body Temperature 97.9 F Weight 205.00 lb Heart Rate 80 /min BP Systolic 126 mmHg BP Diastolic 80 mmHg Height 64 inches 5'4" BMI (Body Mass Index) 35.2 kg/m2 08/02/2016 3:04pm Weight 200.00 lb Heart Rate 76 /min BP Systolic 128 mmHg BP Diastolic 76 mmHg Height 64 inches 5'4" BMI (Body Mass Index) 34.3 kg/m2 06/07/2016 4:01pm Body Temperature 98.3 F Weight 202.00 lb Heart Rate 80 /min BP Systolic 130 mmHg BP Diastolic 80 mmHg Height 64 inches 5'4" BMI (Body Mass Index) 34.7 kg/m2 02/26/2016 3:21pm Weight 206.00 lb Heart Rate 80 /min BP Systolic 134 mmHg BP Diastolic 84 mmHg Height 64 inches 5'4" BMI (Body Mass Index) 35.4 kg/m2 12/18/2015 3:28pm Weight 195.00 lb Heart Rate 98 /min BP Systolic 136 mmHg BP Diastolic 80 mmHg Height 64 inches 5'4" BMI (Body Mass Index) 33.5 kg/m2 10/24/2015 2:24pm Weight 189.00 lb Heart Rate 98 /min BP Systolic 128 mmHg BP Diastolic 74 mmHg BP Systolic Recheck 118 mmHg BP Diastolic Recheck 68 mmHg Height 64 inches 5'4" BMI (Body Mass Index) 32.4 kg/m2 10/10/2015 2:01pm Weight 185.00 lb Heart Rate 88 /min BP Systolic 140 mmHg BP Diastolic 82 mmHg BP Systolic Recheck 158 mmHg PTS Cuff BP Diastolic Recheck 110 mmHg PTS Cuff Height 64 inches 5'4" BMI (Body Mass Index) 31.8 kg/m2 09/26/2015 11:18am Weight 184.00 lb Heart Rate 120 /min BP Systolic 122 mmHg BP Diastolic 92 mmHg Height 64 inches 5'4" BMI (Body Mass Index) 31.6 kg/m2 09/21/2015 12:56pm Weight 190.38 lb Heart Rate 92 /min BP Systolic 104 mmHg BP Diastolic 75 mmHg Height 64 inches 5'4" BMI (Body Mass Index) 32.7 kg/m2 07/10/2015 4:47pm Weight 200.00 lb Heart Rate 88 /min BP Systolic 160 mmHg BP Diastolic 100 mmHg BP Systolic Recheck 142 mmHg BP Diastolic Recheck 96 mmHg Height 64 inches 5'4" BMI (Body Mass Index) 34.3 kg/m2 05/26/2015 1:05pm Weight 193.00 lb Heart Rate 80 /min BP Systolic 130 mmHg BP Diastolic 82 mmHg Height 64 inches 5'4" BMI (Body Mass Index) 33.1 kg/m2 02/21/2015 1:04pm Weight 181.00 lb Heart Rate 92 /min BP Systolic 120 mmHg BP Diastolic 80 mmHg Height 64 inches 5'4" BMI (Body Mass Index) 31.1 kg/m2 01/16/2015 12:57pm Weight 176.00 lb Heart Rate 88 /min BP Systolic 120 mmHg BP Diastolic 78 mmHg Height 64 inches 5'4" BMI (Body Mass Index) 30.2 kg/m2 11/15/2014 10:16am Weight 183.00 lb Heart Rate 88 /min BP Systolic 128 mmHg BP Diastolic 78 mmHg Height 64 inches 5'4" BMI (Body Mass Index) 31.4 kg/m2 10/17/2014 8:51am Weight 185.00 lb Heart Rate 88 /min BP Systolic 120 mmHg BP Diastolic 90 mmHg Height 64 inches 5'4" BMI (Body Mass Index) 31.8 kg/m2 09/26/2014 3:39pm Weight 185.00 lb Heart Rate 88 /min BP Systolic 136 mmHg BP Diastolic 92 mmHg Height 64 inches 5'4" BMI (Body Mass Index) 31.8 kg/m2 09/12/2014 1:21pm Weight 187.38 lb Heart Rate 113 /min BP Systolic 101 mmHg BP Diastolic 74 mmHg Height 64 inches 5'4" BMI (Body Mass Index) 32.2 kg/m2 08/18/2014 2:42pm Weight 188.00 lb Heart Rate 87 /min BP Systolic 131 mmHg BP Diastolic 86 mmHg Height 64 inches 5'4" BMI (Body Mass Index) 32.3 kg/m2 08/01/2014 3:03pm Body Temperature 98.9 F Weight 184.00 lb Heart Rate 80 /min BP Systolic 140 mmHg BP Diastolic 82 mmHg Height 64 inches 5'4" BMI (Body Mass Index) 31.6 kg/m2 07/11/2014 11:10am Weight 186.00 lb Heart Rate 80 /min BP Systolic 126 mmHg BP Diastolic 72 mmHg Height 64 inches 5'4" BMI (Body Mass Index) 31.9 kg/m2 06/13/2014 12:36pm Weight 192.00 lb Heart Rate 60 /min BP Systolic 130 mmHg BP Diastolic 74 mmHg Height 64 inches 5'4" BMI (Body Mass Index) 33.0 kg/m2 05/16/2014 2:49pm Body Temperature 99.1 F Weight 191.00 lb Heart Rate 88 /min BP Systolic 124 mmHg BP Diastolic 78 mmHg Height 64 inches 5'4" BMI (Body Mass Index) 32.8 kg/m2 05/02/2014 2:18pm Body Temperature 98.9 F Weight 193.00 lb Heart Rate 80 /min BP Systolic 130 mmHg BP Diastolic 80 mmHg Height 64 inches 5'4" BMI (Body Mass Index) 33.1 kg/m2 04/05/2014 4:21pm Body Temperature 99.3 F Weight 197.00 lb Heart Rate 80 /min BP Systolic 130 mmHg BP Diastolic 78 mmHg Height 64 inches 5'4" BMI (Body Mass Index) 33.8 kg/m2 02/22/2014 2:05pm Body Temperature 98.8 F Weight 202.00 lb Heart Rate 76 /min BP Systolic 110 mmHg BP Diastolic 72 mmHg Height 64 inches 5'4" BMI (Body Mass Index) 34.7 kg/m2 01/25/2014 3:18pm Body Temperature 98.7 F Weight 201.00 lb Heart Rate 76 /min BP Systolic 130 mmHg BP Diastolic 84 mmHg Height 64 inches 5'4" BMI (Body Mass Index) 34.5 kg/m2 08/27/2013 3:30pm Weight 200.00 lb Heart Rate 88 /min BP Systolic 126 mmHg BP Diastolic 78 mmHg Height 64 inches 5'4" BMI (Body Mass Index) 34.3 kg/m2 03/30/2013 8:02am Weight 204.00 lb Heart Rate 88 /min BP Systolic 126 mmHg BP Diastolic 76 mmHg Height 64 inches 5'4" BMI (Body Mass Index) 35.0 kg/m2 01/29/2013 1:56pm Weight 203.00 lb Heart Rate 99 /min BP Systolic 119 mmHg BP Diastolic 78 mmHg 09/25/2012 11:38am Weight 200.00 lb Heart Rate 88 /min BP Systolic 100 mmHg BP Diastolic 64 mmHg Height 64 inches 5'4" BMI (Body Mass Index) 34.3 kg/m2 08/24/2012 12:13pm Weight 204.00 lb Heart Rate 92 /min BP Systolic 128 mmHg BP Diastolic 88 mmHg Height 64 inches 5'4" BMI (Body Mass Index) 35.0 kg/m2 06/02/2012 11:24am Weight 201.00 lb Heart Rate 88 /min BP Systolic 132 mmHg BP Diastolic 88 mmHg Height 64 inches 5'4" BMI (Body Mass Index) 34.5 kg/m2 05/14/2012 1:29pm Weight 209.00 lb Heart Rate 71 /min BP Systolic 121 mmHg BP Diastolic 90 mmHg 04/10/2012 2:46pm Body Temperature 99.0 F Weight 199.00 lb Heart Rate 76 /min BP Systolic 130 mmHg BP Diastolic 86 mmHg Height 64 inches 5'4" BMI (Body Mass Index) 34.2 kg/m2 03/24/2012 11:10am Weight 204.00 lb Heart Rate 76 /min BP Systolic 130 mmHg BP Diastolic 80 mmHg Height 64 inches 5'4" BMI (Body Mass Index) 35.0 kg/m2 02/04/2012 11:31am Weight 204.00 lb Heart Rate 88 /min BP Systolic 126 mmHg BP Diastolic 78 mmHg Height 64.75 inches 5'4.75" BMI (Body Mass Index) 34.2 kg/m2 11/04/2011 11:28am Weight 196.00 lb Heart Rate 88 /min BP Systolic 120 mmHg BP Diastolic 78 mmHg BP Systolic Recheck 125 mmHg 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 BP Diastolic Recheck 82 mmHg 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 Height 64.75 inches 5'4.75" BMI (Body Mass Index) 32.9 kg/m2 10/15/2011 2:04pm Weight 196.00 lb Heart Rate 72 /min BP Systolic 110 mmHg BP Diastolic 70 mmHg Height 64.75 inches 5'4.75" BMI (Body Mass Index) 32.9 kg/m2 07/19/2011 11:45am Body Temperature 97.7 F Weight 203.00 lb Heart Rate 76 /min BP Systolic 126 mmHg BP Diastolic 84 mmHg Height 64.75 inches 5'4.75" BMI (Body Mass Index) 34.0 kg/m2 06/21/2011 2:00pm Weight 200.00 lb Heart Rate 88 /min BP Systolic 120 mmHg BP Diastolic 88 mmHg Height 64.75 inches 5'4.75" BMI (Body Mass Index) 33.5 kg/m2 11/30/2010 12:04pm Weight 195.00 lb Heart Rate 80 /min BP Systolic 122 mmHg BP Diastolic 80 mmHg 08/20/2010 12:51pm Weight 193.00 lb Heart Rate 72 /min BP Systolic 104 mmHg BP Diastolic 66 mmHg 07/24/2010 3:41pm Weight 199.00 lb Heart Rate 80 /min BP Systolic 112 mmHg BP Diastolic 72 mmHg Height 64.75 inches 5'4.75" BMI (Body Mass Index) 33.4 kg/m2 01/26/2010 3:51pm Body Temperature 97.7 F Weight 202.00 lb Heart Rate 88 /min BP Systolic 114 mmHg BP Diastolic 74 mmHg 08/29/2009 2:45pm Body Temperature 97.9 F Weight 202.00 lb Heart Rate 80 /min BP Systolic 108 mmHg BP Diastolic 72 mmHg 08/29/2009 2:34pm Weight 169.00 lb Heart Rate 92 /min BP Systolic 130 mmHg BP Diastolic 72 mmHg 02/27/2009 1:59pm Body Temperature 96.7 F Weight 201.00 lb Heart Rate 96 /min BP Systolic 108 mmHg BP Diastolic 70 mmHg 02/07/2009 3:23pm Weight 200.00 lb Heart Rate 77 /min BP Systolic 142 mmHg BP Diastolic 99 mmHg BP Systolic Recheck 138 mmHg BP Diastolic Recheck 92 mmHg 01/23/2009 3:24pm Weight 200.00 lb Heart Rate 92 /min BP Systolic 126 mmHg BP Diastolic 78 mmHg Height 64.5 inches 5'4.50"With Shoes BMI (Body Mass Index) 33.8 kg/m2 07/22/2008 2:09pm Weight 200.00 lb Heart Rate 72 /min BP Systolic 120 mmHg BP Diastolic 80 mmHg 03/22/2008 2:14pm Weight 200.00 lb Heart Rate 88 /min BP Systolic 120 mmHg BP Diastolic 83 mmHg 02/23/2008 2:39pm Body Temperature 97.4 F Weight 196.00 lb Heart Rate 88 /min BP Systolic 120 mmHg BP Diastolic 80 mmHg 01/02/2007 3:12pm Weight 197.00 lb Heart Rate 70 /min BP Systolic 112 mmHg BP Diastolic 76 mmHg 11/25/2006 10:57am Weight 201.00 lb Heart Rate 70 /min BP Systolic 134 mmHg BP Diastolic 88 mmHg 10/20/2006 5:23pm Weight 198.00 lb Heart Rate 120 /min BP Systolic 132 mmHg BP Diastolic 86 mmHg Urine Dipstick - Blood NEGATIVE Urine Dipstick - Protein NEGATIVE Urine Dipstick - Glucose NEGATIVE 09/30/2006 3:36pm Weight 192.00 lb Stated Heart Rate 64 /min BP Systolic 138 mmHg BP Diastolic 90 mmHg Urine Dipstick - Blood NEGATIVE Urine Dipstick - Protein NEGATIVE Urine Dipstick - Glucose NEGATIVE 01/29/2006 11:13am Weight 200.00 lb Heart Rate 72 /min BP Systolic 108 mmHg BP Diastolic 62 mmHg Results Test Date Facility Test Result H/L Range Note Drugs Of 08/03/2018 [facility] Amphetamines,Uri NEGATIVE <1000 ng/mL Abuse,Urine-[facility] ne Barbiturates,Urine NEGATIVE <200 ng/mL Benzodiazepines, Urine NEGATIVE <200 ng/mL Bupernorphrine/Norbu,Urine NEGATIVE <10 ng/mL Cocaine Metabolites,Urine NEGATIVE <300 ng/mL Methadone,Urine NEGATIVE <300 ng/mL Opiates,Urine NEGATIVE <300 ng/mL Oxycodone,Urine POSITIVE Abnormal <100 ng/mL Phencyclidine,Urine NEGATIVE <25 ng/mL Cannabinoids,Urine NEGATIVE <50 ng/mL Laboratory test 06/30/2018 [facility] Urine Culture Microbiology res <SEE 1 finding NOTE> CBC with Auto 06/29/2018 [facility] WBC 5.8 K/uL 4.1-11.0 2 Diff-fcmg RBC 4.66 M/uL 4.00-5.40 Hemoglobin 14.6 gm/dL 12.0-16.0 Hematocrit 43.3 % 36.0-47.0 MCV 93.0 fL 80.0-97.0 MCH 31.4 pg 27.0-32.0 MCHC 33.8 g/dL 32.0-36.0 RDW 14.3 % 11.5-14.5 PLT Count 180 K/ul 140-400 MPV 10.6 FL 7.1-10.7 Neutrophil 61.4 % 35.0-75.0 Lymphocyte 29.2 % 16.0-52.0 Monocyte 6.9 % 2.0-10.0 Eosinophil 1.9 % 0.0-5.0 Basophil 0.6 % 0.0-4.0 Abs Neutrophils 3.5 K/uL 2.1-8.0 Abs Lymphocytes 1.7 K/uL 0.8-5.5 Abs Monocytes 0.4 K/uL 0.1-1.0 Abs Eosinophils 0.1 K/uL 0.0-0.5 Abs Basophils 0.0 K/uL 0.0-0.3 Iron Panel 06/29/2018 [facility] Iron, Total 68 g/dL 50-170 Transferrin 308.0 mg/dL 203.0-362.0 Tibc (calc) 431 g/dL 261-478 % Iron Saturation 15.8 % 13.0-45.0 Lipid Treatment 06/29/2018 [facility] Cholesterol 166 mg/dL 50-199 Triglycerides 170 mg/dL 30-200 HDL 41 mg/dL 35-85 3 Chol/ HDL Ratio 4.0 ratio 3.7-5.6 VLDL 34 mg/dL High 2-29 LDL (Calc) 91 mg/dL 20-99 4 Alt 12 U/L 3-42 Ast 19 U/L 8-42 Basic (BMP) 06/29/2018 [facility] Sodium 143 mmol/L 135-146 5 Potassium 3.8 mmol/L 3.5-5.2 Chloride# 104 mmol/L 97-110 6 Carbon Dioxide 30 mmol/L 24-34 Glucose 101 mg/dL 70-105 BUN 10 mg/dL 6-26 Creatinine 0.9 mg/dL 0.5-1.4 Calcium 9.9 mg/dL 8.5-10.2 Non Milly Egfr >60 >60 7 Milly Egfr >60 >60 8 Anion Gap 9 mmol/L 5-15 9 Laboratory test finding 06/29/2018 [facility] Vitamin D 25 Hydroxy 65 ng/mL 30-100 10 Vitamin B12 528 pg/mL 180-914 TSH 2.28 uIU/mL 0.35-4.94 Laboratory test finding 04/23/2018 [facility] Lipase 23 U/L 11-82 CBC with Auto Diff-fcmg 04/23/2018 [facility] WBC 5.4 K/uL 4.1-11.0 RBC 4.57 M/uL 4.00-5.40 Hemoglobin 14.7 gm/dL 12.0-16.0 Hematocrit 43.8 % 36.0-47.0 MCV 95.9 fL 80.0-97.0 MCH 32.2 pg High 27.0-32.0 MCHC 33.5 g/dL 32.0-36.0 RDW 14.6 % High 11.5-14.5 PLT Count 192 K/ul 140-400 MPV 10.4 FL 7.1-10.7 Neutrophil 58.9 % 35.0-75.0 Lymphocyte 28.9 % 16.0-52.0 Monocyte 10.2 % High 2.0-10.0 Eosinophil 1.3 % 0.0-5.0 Basophil 0.7 % 0.0-4.0 Abs Neutrophils 3.2 K/uL 2.1-8.0 Abs Lymphocytes 1.6 K/uL 0.8-5.5 Abs Monocytes 0.6 K/uL 0.1-1.0 Abs Eosinophils 0.1 K/uL 0.0-0.5 Abs Basophils 0.0 K/uL 0.0-0.3 Comprehensive Met Panel-[facility] 04/23/2018 [facility] Sodium 144 mmol/L 135- 146 11 Potassium 4.1 mmol/L 3.5-5.2 Chloride# 101 mmol/L 97-110 12 Carbon Dioxide 31 mmol/L 24-34 Glucose 99 mg/dL 70-105 BUN 8 mg/dL 6-26 Creatinine 1.0 mg/dL 0.5-1.4 Calcium 10.1 mg/dL 8.5-10.2 Total Protein 6.6 g/dL 6.0-8.0 Albumin 4.3 g/dL 3.6-4.9 Globulin 2.3 g/dL 2.0-3.5 A/G Ratio 1.9 Ratio 1.0-2.2 Total Bilirubin 0.8 mg/dL 0.1-1.3 Alkaline Phosphatase 56 U/L 24-140 Alt 12 U/L 3-42 Ast 22 U/L 8-42 Milly Egfr >60 >60 13 Non Milly Egfr 57 Low >60 14 Anion Gap 12 mmol/L 5-15 15 Drugs Of 12/05/2017 [facility] Amphetamines,Urine NEGATIVE <1000 ng/mL Abuse,Urine-[facility] Barbiturates,Urine NEGATIVE <200 ng/mL Benzodiazepines, Urine NEGATIVE <200 ng/mL Bupernorphrine/Norbu,Urine NEGATIVE <10 ng/mL Cocaine Metabolites,Urine NEGATIVE <300 ng/mL Methadone,Urine NEGATIVE <300 ng/mL Opiates,Urine NEGATIVE <300 ng/mL Oxycodone,Urine POSITIVE Abnormal <100 ng/mL Phencyclidine,Urine NEGATIVE <25 ng/mL Cannabinoids,Urine NEGATIVE <50 ng/mL [facility]/hr High 0-20 16 CRP (C-Reactive) 0.42 mg/dL 0.00-0.75 Lyme Igm/Igg AB -RL 10/10/2017 [place] Lyme Igm/Igg AB @ NEGATIVE (Neg) 17, 18 [facility] 700 pg/mL 180-914 finding Vitamin D 25 Hydroxy 69 ng/mL 30-100 19 Iron [facility], Total 92 g/dL 50-170 Transferrin 299.0 mg/dL 203.0-362.0 Tibc (calc) 419 g/dL 261-478 % Iron Saturation 22.0 % 13.0-45.0 Lipid 08/15/2017 [facility] Cholesterol 161 mg/dL 50-199 Triglycerides 164 mg/dL 30-200 HDL 43 mg/dL 35-85 20 Chol/ HDL Ratio 3.8 ratio 3.7-5.6 VLDL 33 mg/dL High 2-29 LDL (Calc) 85 mg/dL 20-99 21 Comprehensive Met Panel-[facility] 08/15/2017 [facility] Sodium 141 mmol/L 135- 146 22 Potassium 3.5 mmol/L 3.5-5.2 Chloride# 101 mmol/L 97-110 23 Carbon Dioxide 31 mmol/L 24-34 Glucose 97 mg/dL 70-105 BUN 10 mg/dL 6-26 Creatinine 0.8 mg/dL 0.5-1.4 Calcium 9.5 mg/dL 8.5-10.2 Total Protein 7.0 g/dL 6.0-8.0 Albumin 4.6 g/dL 3.6-4.9 Globulin 2.4 g/dL 2.0-3.5 A/G Ratio 1.9 Ratio 1.0-2.2 Total Bilirubin 0.6 mg/dL 0.1-1.3 Alkaline Phosphatase 54 U/L 24-140 Alt 12 U/L 3-42 Ast 18 U/L 8-42 Milly Egfr >60 >60 24 Non Milly Egfr >60 >60 25 Anion Gap 9 mmol/L 5-15 26 CBC with Auto Diff-fcmg 08/15/2017 [facility] WBC 5.7 K/uL 4.1-11.0 RBC 4.46 M/uL 4.00-5.40 Hemoglobin 14.3 gm/dL 12.0-16.0 Hematocrit 42.3 % 36.0-47.0 MCV 94.8 fL 80.0-97.0 MCH 32.1 pg High 27.0-32.0 MCHC 33.9 g/dL 32.0-36.0 RDW 14.3 % 11.5-14.5 PLT Count 179 K/ul 140-400 MPV 9.5 FL 7.1-10.7 Neutrophil 55.6 % 35.0-75.0 Lymphocyte 34.3 % 16.0-52.0 Monocyte 7.4 % 2.0-10.0 Eosinophil 2.3 % 0.0-5.0 Basophil 0.4 % 0.0-4.0 Abs Neutrophils 3.2 K/uL 2.1-8.0 Abs Lymphocytes 2.0 K/uL 0.8-5.5 Abs Monocytes 0.4 K/uL 0.1-1.0 Abs Eosinophils 0.1 K/uL 0.0-0.5 Abs Basophils 0.0 K/uL 0.0-0.3 Laboratory test 05/16/2017 [facility] Urine Microbiology res Abnormal 27 finding Culture <SEE NOTE> CMB Reflex 01/27/2017 [facility] CKMB 1.2 ng/mL (0.0- [phone] 5.0) CKMB Relative Index 1.0 {index_val} (0.0-4.0) Laboratory test finding 01/27/2017 [facility] Troponin I <0.06 ng/mL (0.00- 0.10) 28 CKMB Panel-RL 01/27/2017 [facility] CK 119 U/L (26-192) 29 CBC With Auto Diff 01/27/2017 [facility] WBC 8.0 K/uL 4.1-11.0 RBC 4.56 M/uL 4.00-5.40 Hemoglobin 14.9 gm/dL 12.0-16.0 Hematocrit 44.3 % 36.0-47.0 MCV 97.3 fL High 80.0-97.0 MCH 32.6 pg High 27.0-32.0 MCHC 33.5 g/dL 32.0-36.0 RDW 14.8 % High 11.5-14.5 PLT Count 200 K/ul 140-400 MPV 9.9 FL 7.1-10.7 Neutrophil 55.7 % 35.0-75.0 Lymphocyte 34.6 % 16.0-52.0 Monocyte 7.0 % 2.0-10.0 Eosinophil 2.4 % 0.0-5.0 Basophil 0.3 % 0.0-4.0 Abs Neutrophils 4.5 K/uL 2.1-8.0 Abs Lymphocytes 2.8 K/uL 0.8-5.5 Abs Monocytes 0.6 K/uL 0.1-1.0 Abs Eosinophils 0.2 K/uL 0.0-0.5 Abs Basophils 0.0 K/uL 0.0-0.3 Laboratory test finding 01/27/2017 [facility] Ferritin 24.4 ng/ml 11.0- 306.0 Iron Panel 01/27/2017 [facility] Iron, Total 156 g/dL 50-170 Transferrin 350.0 mg/dL 203.0-362.0 Tibc (calc) 490 g/dL High 261-478 % Iron Saturation 31.8 % 13.0-45.0 Comprehensive Met Panel-[facility] 01/27/2017 [facility] Sodium 144 mmol/L 135- 146 30 Potassium 3.9 mmol/L 3.5-5.2 Chloride# 104 mmol/L 97-110 31 Carbon Dioxide 25 mmol/L 24-34 Glucose 96 mg/dL 70-105 BUN 14 mg/dL 6-26 Creatinine 0.9 mg/dL 0.5-1.4 Calcium 10.1 mg/dL 8.5-10.2 Total Protein 7.6 g/dL 6.0-8.0 Albumin 4.8 g/dL 3.6-4.9 Globulin 2.8 g/dL 2.0-3.5 A/G Ratio 1.7 Ratio 1.0-2.2 Total Bilirubin 0.7 mg/dL 0.1-1.3 Alkaline Phosphatase 54 U/L 24-140 Alt 23 U/L 3-42 Ast 29 U/L 8-42 Milly Egfr >60 >60 32 Non Milly Egfr >60 >60 33 Anion Gap 15 mmol/L 7-16 34 Laboratory test finding 01/27/2017 [facility] Vitamin B12 876 pg/mL 180- 914 Vit D25oh 63 ng/mL 31-100 TSH 3.18 uIU/mL 0.35-4.94 Free T4 0.89 ng/dL 0.70-1.48 Magnesium 1.9 mg/dL 1.5-2.7 Lipid 01/27/2017 [facility] Cholesterol 166 mg/dL 50-199 Triglycerides 158 mg/dL 30-200 HDL 50 mg/dL 35-85 35 Chol/ HDL Ratio 3.3 ratio Low 3.7-5.6 VLDL 32 mg/dL High 2-29 LDL (Calc) 85 mg/dL 20-99 36 Laboratory test 01/27/2017 [facility] Urine Culture Microbiology res 37 finding <SEE NOTE> Laboratory test 01/27/2017 [facility] NT Pro BNP 52 pg/mL (0-125) 38 finding Drugs Of 10/14/2016 [facility] Amphetamines,Ur Negative <1000 Abuse,Urine-[facility] ine ng/mL Barbiturates,Urine Negative <200 ng/mL Benzodiazepines, Urine Negative <200 ng/mL Bupernorphrine/Norbu,Urine Negative <10 ng/mL Cocaine Metabolites,Urine Negative <300 ng/mL Methadone,Urine Negative <300 ng/mL Opiates,Urine Negative <300 ng/mL Oxycodone,Urine Positive Abnormal <100 ng/mL Phencyclidine,Urine Negative <25 ng/mL Cannabinoids,Urine Negative <50 ng/mL Laboratory test 10/14/2016 [facility] Urine Culture Microbiology res 39 finding <SEE NOTE> Laboratory test 02/26/2016 [facility] TSH 0.60 uIU/mL 0.35-4.9 40 finding 4 Vit D,25 Hydroxy 63 ng/mL 31-100 Vitamin B12 575 pg/mL 180-914 Iron Panel 02/26/2016 [facility] Iron, Total 37 g/dL Low 50-170 Transferrin 372.5 mg/dL High 203.0-362.0 Tibc (calc) 522 g/dL High 261-478 % Iron Saturation 7.1 % Low 13.0-45.0 Lipid 02/26/2016 [facility] Cholesterol 160 mg/dL 50-199 Triglycerides 157 mg/dL 30-200 HDL 45 mg/dL 35-85 41 Chol/ HDL Ratio 3.6 ratio Low 3.7-5.6 VLDL 31 mg/dL High 2-29 LDL (Calc) 84 mg/dL 20-99 42 Comprehensive Metabolic (CMP) 02/26/2016 [facility] Sodium 139 mmol/L 134- 142 Potassium 4.4 mmol/L 3.5-5.2 Chloride 103 mmol/L 97-109 Carbon Dioxide 32 mmol/L 24-34 Glucose 108 mg/dL High 70-105 BUN 9 mg/dL 6-26 Creatinine 0.9 mg/dL 0.5-1.4 Calcium 9.8 mg/dL 8.5-10.2 Total Protein 6.9 g/dL 6.0-8.0 Albumin 4.3 g/dL 3.6-4.9 Globulin 2.6 g/dL 2.0-3.5 A/G Ratio 1.7 Ratio 1.0-2.2 Total Bilirubin 0.5 mg/dL 0.1-1.3 Alkaline Phosphatase 58 U/L 24-140 Alt 11 U/L 3-42 Ast 20 U/L 8-42 Anion Gap 8 mmol/L 6-14 Milly Egfr >60 >60 43 Non Milly Egfr >60 >60 44 CBC With Auto Diff 02/26/2016 [facility] WBC 6.2 K/uL 4.1-11.0 RBC 4.13 M/uL 4.00-5.40 Hemoglobin 10.7 gm/dL Low 12.0-16.0 Hematocrit 34.0 % Low 36.0-47.0 MCV 82.2 fL 80.0-97.0 MCH 26.0 pg Low 27.0-32.0 MCHC 31.6 g/dL Low 32.0-36.0 RDW 18.7 % High 11.5-14.5 PLT Count 199 K/ul 140-400 Neutrophil 63.5 % 35.0-75.0 Lymphocyte 24.8 % 16.0-52.0 Monocyte 6.6 % 2.0-10.0 Eosinophil 4.6 % 0.0-5.0 Basophil 0.5 % 0.0-4.0 Abs Neutrophils 3.9 K/uL 2.1-8.0 Abs Lymphocytes 1.5 K/uL 0.8-5.5 Abs Monocytes 0.4 K/uL 0.1-1.0 Abs Eosinophils 0.3 K/uL 0.0-0.5 Abs Basophils 0.0 K/uL 0.0-0.3 Affirm 10/24/2015 [facility] Trichomonas Vaginalis Negative Negative Gardnerella Vaginalis Positive Abnormal Negative Noemí Species Negative Negative Laboratory test 10/10/2015 [facility] Methylmalonic Acid 0.23 umol/L (0.00- 0.40) 45, 46 finding (S) Laboratory test 10/10/2015 [facility] TSH 1.31 uIU/mL 0.35-4.94 finding Vitamin B12 482 pg/mL 180-914 Folate 7.5 ng/ml 5.9-24.8 Urine Culture Microbiology res <SEE NOTE> 47 Iron Panel 10/10/2015 [facility] Iron, Total 35 g/dL Low 50-170 Transferrin 377.7 mg/dL High 203.0-362.0 Tibc (calc) 529 g/dL High 261-478 % Iron Saturation 6.6 % Low 13.0-45.0 Comprehensive Metabolic (CMP) 10/10/2015 [facility] Sodium 139 mmol/L 134- 142 Potassium 4.1 mmol/L 3.5-5.2 Chloride 101 mmol/L 97-109 Carbon Dioxide 32 mmol/L 24-34 Glucose 118 mg/dL High 70-105 BUN 14 mg/dL 6-26 Creatinine 0.8 mg/dL 0.5-1.4 Calcium 10.2 mg/dL 8.5-10.2 Total Protein 7.6 g/dL 6.0-8.0 Albumin 4.7 g/dL 3.6-4.9 Globulin 2.9 g/dL 2.0-3.5 A/G Ratio 1.6 Ratio 1.0-2.2 Total Bilirubin 0.7 mg/dL 0.1-1.3 Alkaline Phosphatase 47 U/L 24-140 Alt 11 U/L 3-42 Ast 13 U/L 8-42 Anion Gap 10 mmol/L 6-14 Milly Egfr >60 >60 48 Non Milly Egfr >60 >60 49 CBC With Auto Diff 10/10/2015 [facility] WBC 5.7 K/uL 4.1-11.0 RBC 4.46 M/uL 4.00-5.40 Hemoglobin 12.3 gm/dL 12.0-16.0 Hematocrit 37.7 % 36.0-47.0 MCV 84.5 fL 80.0-97.0 MCH 27.5 pg 27.0-32.0 MCHC 32.6 g/dL 32.0-36.0 RDW 17.2 % High 11.5-14.5 PLT Count 232 K/ul 140-400 Neutrophil 62.7 % 35.0-75.0 Lymphocyte 27.8 % 16.0-52.0 Monocyte 6.1 % 2.0-10.0 Eosinophil 3.0 % 0.0-5.0 Basophil 0.4 % 0.0-4.0 Abs Neutrophils 3.6 K/uL 2.1-8.0 Abs Lymphocytes 1.6 K/uL 0.8-5.5 Abs Monocytes 0.3 K/uL 0.1-1.0 Abs Eosinophils 0.2 K/uL 0.0-0.5 Abs Basophils 0.0 K/uL 0.0-0.3 Laboratory test 07/10/2015 [facility] Urine Culture Microbiology res Abnormal 50 finding <SEE NOTE> Laboratory test 05/26/2015 [facility] Urine Culture Microbiology res Abnormal 51 finding <SEE NOTE> CBC With Auto 01/16/2015 [facility] WBC 5.3 K/uL 4.1-11 Diff .0 RBC 4.37 M/uL 4.00-5.40 Hemoglobin 11.2 gm/dL Low 12.0-16.0 Hematocrit 36.1 % 36.0-47.0 MCV 82.8 fL 80.0-97.0 MCH 25.6 pg Low 27.0-32.0 MCHC 30.9 g/dL Low 32.0-36.0 RDW 18.0 % High 11.5-14.5 PLT Count 199 K/ul 140-400 Neutrophil 64.9 % 35.0-75.0 Lymphocyte 24.0 % 16.0-52.0 Monocyte 8.2 % 2.0-10.0 Eosinophil 2.5 % 0.0-5.0 Basophil 0.4 % 0.0-4.0 Abs Neutrophils 3.4 K/uL 2.1-8.0 Abs Lymphocytes 1.3 K/uL 0.8-5.5 Abmon 0.4 K/uL 0.1-1.0 Abs Eosinophils 0.1 K/uL 0.0-0.5 Abs Basophils 0.0 K/uL 0.0-0.3 Comprehensive Metabolic (CMP) 01/16/2015 [facility] Sodium 142 mmol/L 134- 142 Potassium 4.1 mmol/L 3.5-5.2 Chloride 104 mmol/L 97-109 Carbon Dioxide 31 mmol/L 24-34 Glucose 115 mg/dL High 70-105 BUN 12 mg/dL 6-26 Creatinine 0.7 mg/dL 0.5-1.4 Calcium 9.2 mg/dL 8.5-10.2 Total Protein 6.8 g/dL 6.0-8.0 Albumin 4.5 g/dL 3.6-4.9 Globulin 2.3 g/dL 2.0-3.5 A/G Ratio 2.0 Ratio 1.0-2.2 Total Bilirubin 0.3 mg/dL 0.1-1.3 Alkaline Phosphatase 48 U/L 24-140 Alt 8 U/L 3-42 Ast 14 U/L 8-42 Anion Gap 11 mmol/L 6-14 Milly Egfr >60 >60 52 Non Milly Egfr >60 >60 53 Lipid 01/16/2015 [facility] Cholesterol 177 mg/dL 50-199 Triglycerides 145 mg/dL 30-200 HDL 55 mg/dL 35-85 54 Chol/ HDL Ratio 3.2 ratio Low 3.7-5.6 VLDL 29 mg/dL 2-29 LDL (Calc) 93 mg/dL 20-99 55 CBC With Auto Diff 08/01/2014 [facility] WBC 4.7 K/uL 4.1-11.0 56 RBC 4.38 M/uL 4.00-5.40 Hemoglobin 11.6 gm/dL Low 12.0-16.0 Hematocrit 36.1 % 36.0-47.0 MCV 82.4 fL 80.0-97.0 MCH 26.4 pg Low 27.0-32.0 MCHC 32.0 g/dL 32.0-36.0 RDW 17.5 % High 11.5-14.5 PLT Count 200 K/ul 140-400 Neutrophil 58.3 % 35.0-75.0 Lymphocyte 29.1 % 16.0-52.0 Monocyte 8.2 % 2.0-10.0 Eosinophil 3.8 % 0.0-5.0 Basophil 0.6 % 0.0-4.0 Abs Neutrophils 2.8 K/uL 2.1-8.0 Abs Lymphocytes 1.4 K/uL 0.8-5.5 Abmon 0.4 K/uL 0.1-1.0 Abs Eosinophils 0.2 K/uL 0.0-0.5 Abs Basophils 0.0 K/uL 0.0-0.3 Basic (BMP) 08/01/2014 [facility] Sodium 141 mmol/L 134-142 Potassium 4.8 mmol/L 3.5-5.2 Chloride 105 mmol/L 97-109 Carbon Dioxide 31 mmol/L 24-34 Glucose 92 mg/dL 70-105 BUN 13 mg/dL 6-26 Creatinine 0.8 mg/dL 0.5-1.4 Calcium 9.5 mg/dL 8.5-10.2 Anion Gap 10 mmol/L 6-14 Non Milly Egfr >60 >60 57 Milly Egfr >60 >60 58 Laboratory test 05/02/2014 [facility] Urine Microbiology res Abnormal 59, 60 finding Culture <SEE NOTE> CBC With Auto 05/02/2014 [facility] WBC 6.1 K/uL 4.1-1 Diff 1.0 RBC 4.54 M/uL 4.00-5.40 Hemoglobin 12.2 gm/dL 12.0-16.0 Hematocrit 38.0 % 36.0-47.0 MCV 83.7 fL 80.0-97.0 MCH 26.8 pg Low 27.0-32.0 MCHC 32.1 g/dL 32.0-36.0 RDW 18.3 % High 11.5-14.5 PLT Count 215 K/ul 140-400 Neutrophil 44.6 % 35.0-75.0 Lymphocyte 41.8 % 16.0-52.0 Monocyte 9.3 % 2.0-10.0 Eosinophil 3.9 % 0.0-5.0 Basophil 0.4 % 0.0-4.0 Abs Neutrophils 2.7 K/uL 2.1-8.0 Abs Lymphocytes 2.5 K/uL 0.8-5.5 Abmon 0.6 K/uL 0.1-1.0 Abs Eosinophils 0.2 K/uL 0.0-0.5 Abs Basophils 0.0 K/uL 0.0-0.3 Laboratory test finding 05/02/2014 [facility] TSH 1.90 uIU/mL 0.34-5.60 Free T4 0.75 ng/dL 0.50-1.60 Esr 22 mm/hr High 0-20 Hepatitis C Virus Antibody Non reactive Non reactive Comprehensive Metabolic (CMP) 05/02/2014 [facility] Sodium 141 mmol/L 134- 142 Potassium 4.1 mmol/L 3.5-5.2 Chloride 104 mmol/L 97-109 Carbon Dioxide 30 mmol/L 24-34 Glucose 81 mg/dL 70-105 BUN 14 mg/dL 6-26 Creatinine 0.8 mg/dL 0.5-1.4 Calcium 9.7 mg/dL 8.5-10.2 Total Protein 7.1 g/dL 6.0-8.0 Albumin 4.6 g/dL 3.6-4.9 Globulin 2.5 g/dL 2.0-3.5 A/G Ratio 1.8 Ratio 1.0-2.2 Total Bilirubin 0.5 mg/dL 0.1-1.3 Alkaline Phosphatase 59 U/L 24-140 Alt 16 U/L 3-42 Ast 32 U/L 8-42 Anion Gap 11 mmol/L 6-14 Milly Egfr >60 >60 61 Non Milly Egfr >60 >60 62 Rout Urine W/ Micro -RL 04/05/2014 [facility] Color LEXY Appearance TURBID Spec Grav Urine 1.034 High (1.003-1.030) PH Urine 5.5 (5.0-7.5) Leuk Esterase 1+ Abnormal (Neg) Nitrite Urine NEGATIVE (Neg) Protein Urine NEGATIVE (Neg) Glucose Urine NEGATIVE (Neg) Ketone Urine NEGATIVE (Neg) Urobilinogen 0.2 mg/dL (0-1.0) Bilirubin Urine 1+ Abnormal (Neg) 63 Blood/HGB Urine NEGATIVE (Neg) Urine WBC 0-2 [HPF] (0-5) Urine RBC 0-2 [HPF] (0-2) Amorphous 4+ [HPF] Caox Crystals 3+ [HPF] 64 Laboratory test 04/05/2014 [facility] Urine Culture Microbiology res Abnormal 65 finding <SEE NOTE> Laboratory test 01/25/2014 [facility] Urine Culture Microbiology res 66 finding <SEE NOTE> CBC With Auto 03/30/2013 [facility] WBC 8.4 K/uL 4.1-11 Diff .0 RBC 4.19 Consistent <SEE NOTE> M/uL 4.00-5.40 67 Hemoglobin 11.1 Consistent <SEE NOTE> gm/dL Low 12.0-16.0 68 Hematocrit 34.1 % Low 36.0-47.0 MCV 81.4 fL 80.0-97.0 MCH 26.6 pg Low 27.0-32.0 MCHC 32.7 g/dL 32.0-36.0 RDW 18.1 % High 11.5-14.5 PLT Count 211 K/ul 140-400 Neutrophil 66.2 % 35.0-75.0 Lymphocyte 21.7 % 16.0-52.0 Monocyte 8.4 % 2.0-10.0 Eosinophil 3.4 % 0.0-5.0 Basophil 0.3 % 0.0-4.0 Abs Neutrophils 5.6 K/uL 2.1-8.0 Abs Lymphocytes 1.8 K/uL 0.8-5.5 Abmon 0.7 K/uL 0.1-1.0 Abs Eosinophils 0.3 K/uL 0.0-0.5 Abs Basophils 0.0 K/uL 0.0-0.3 Iron Panel 03/30/2013 [facility] Iron, Total 26 g/dL Low 50-170 Transferrin 373.3 mg/dL High 203.0-362.0 Tibc (calc) 523 g/dL High 261-478 % Iron Saturation 5.0 % Low 13.0-45.0 CBC With Auto Diff 01/29/2013 [facility] WBC 6.8 K/uL 4.1-11.0 69 RBC 4.30 M/uL 4.00-5.40 Hemoglobin 11.4 gm/dL Low 12.0-16.0 Hematocrit 35.7 % Low 36.0-47.0 MCV 83.1 fL 80.0-97.0 MCH 26.5 pg Low 27.0-32.0 MCHC 31.9 g/dL Low 32.0-36.0 RDW 17.5 % High 11.5-14.5 PLT Count 221 K/ul 140-400 Neutrophil 63.5 % 35.0-75.0 Lymphocyte 25.1 % 16.0-52.0 Monocyte 6.9 % 2.0-10.0 Eosinophil 3.9 % 0.0-5.0 Basophil 0.6 % 0.0-4.0 Abs Neutrophils 4.3 K/uL 2.1-8.0 Abs Lymphocytes 1.7 K/uL 0.8-5.5 Abmon 0.5 K/uL 0.1-1.0 Abs Eosinophils 0.3 K/uL 0.0-0.5 Abs Basophils 0.0 K/uL 0.0-0.3 Comprehensive Metabolic (CMP) 01/29/2013 [facility] Sodium 141 mmol/L 134- 142 Potassium 5.0 mmol/L 3.5-5.2 Chloride 105 mmol/L 97-109 Carbon Dioxide 31 mmol/L 24-34 Glucose 110 mg/dL High 70-105 BUN 18 mg/dL 6-26 Creatinine 1.0 mg/dL 0.5-1.4 Calcium 10.2 mg/dL 8.5-10.2 Total Protein 7.2 g/dL 6.0-8.0 Albumin 4.6 g/dL 3.6-4.9 Globulin 2.6 g/dL 2.0-3.5 A/G Ratio 1.8 Ratio 1.0-2.2 Total Bilirubin 0.4 mg/dL 0.1-1.3 Alkaline Phosphatase 64 U/L 24-140 Alt 11 U/L 3-42 Ast 18 U/L 8-42 Anion Gap 10 mmol/L 6-14 Milly Egfr >60 >60 70 Non Milly Egfr 54 Low >60 71 Laboratory test finding 01/29/2013 [facility] Vitamin B12 365 pg/mL 180- 914 Vit D,25 Hydroxy 48 ng/mL 31-100 CBC With Auto Diff 08/24/2012 [facility] WBC 5.7 K/uL 4.1-11.0 72 RBC 4.25 M/uL 4.00-5.40 Hemoglobin 12.2 gm/dL 12.0-16.0 Hematocrit 37.8 % 36.0-47.0 MCV 89.1 fL 80.0-97.0 MCH 28.7 pg 27.0-32.0 MCHC 32.2 g/dL 32.0-36.0 RDW 16.4 % High 11.5-14.5 PLT Count 207 K/ul 140-400 Neutrophil 49.6 % 35.0-75.0 Lymphocyte 36.4 % 16.0-52.0 Monocyte 7.1 % 2.0-10.0 Eosinophil 6.3 % High 0.0-5.0 Basophil 0.6 % 0.0-4.0 Abs Neutrophils 2.8 K/uL 2.1-8.0 Abs Lymphocytes 2.1 K/uL 0.8-5.5 Abs Monocytes 0.4 K/uL 0.1-1.0 Abs Eosinophils 0.4 K/uL 0.0-0.5 Abs Basophils 0.0 K/uL 0.0-0.3 Comprehensive Metabolic (CMP) 08/24/2012 [facility] Sodium 140 mmol/L 134- 142 Potassium 4.7 mmol/L 3.5-5.2 Chloride 102 mmol/L 97-109 Carbon Dioxide 33 mmol/L 24-34 Glucose 105 mg/dL 70-105 BUN 12 mg/dL 6-26 Creatinine 0.9 mg/dL 0.5-1.4 Calcium 9.9 mg/dL 8.5-10.2 Total Protein 7.1 g/dL 6.0-8.0 Albumin 4.3 g/dL 3.6-4.9 Globulin 2.8 g/dL 2.0-3.5 A/G Ratio 1.5 Ratio 1.0-2.2 Total Bilirubin 0.3 mg/dL 0.1-1.3 Alkaline Phosphatase 64 U/L 24-140 Alt 13 U/L 3-42 Ast 20 U/L 8-42 Anion Gap 10 mmol/L 6-14 Milly Egfr >60 >60 73 Non Milly Egfr >60 >60 74 Laboratory test finding 08/24/2012 [facility] Vitamin B12 314 pg/mL 180- 914 Magnesium 2.0 mg/dL 1.5-2.7 Esr 17 mm/hr 0-20 Laboratory test 06/02/2012 [facility] Urine Culture Microbiology res 75 finding <SEE NOTE> Laboratory test 06/02/2012 [facility] Pap SEE NOTE 76 finding Laboratory test 03/24/2012 [facility] Vit D,25 Hydroxy 48 ng/mL 31-100 finding Amylase 47 U/L 29-103 Lipase 28 U/L 11-82 CBC With Auto Diff 03/24/2012 [facility] WBC 6.2 K/uL 4.1-11.0 RBC 4.08 M/uL 4.00-5.40 Hemoglobin 13.1 gm/dL 12.0-16.0 Hematocrit 38.5 % 36.0-47.0 MCV 94.2 fL 80.0-97.0 MCH 32.2 pg High 27.0-32.0 MCHC 34.2 g/dL 32.0-36.0 RDW 14.9 % High 11.5-14.5 PLT Count 189 K/ul 140-400 Neutrophil 58.4 % 35.0-75.0 Lymphocyte 30.9 % 16.0-52.0 Monocyte 7.1 % 2.0-10.0 Eosinophil 3.1 % 0.0-5.0 Basophil 0.5 % 0.0-4.0 Abs Neutrophils 3.6 K/uL 2.1-8.0 Abs Lymphocytes 1.9 K/uL 0.8-5.5 Abs Monocytes 0.4 K/uL 0.1-1.0 Abs Eosinophils 0.2 K/uL 0.0-0.5 Abs Basophils 0.0 K/uL 0.0-0.3 Comprehensive Metabolic (CMP) 03/24/2012 [facility] Sodium 142 mmol/L 134- 142 Potassium 4.1 mmol/L 3.5-5.2 Chloride 102 mmol/L 97-109 Carbon Dioxide 32 mmol/L 24-34 Glucose 109 mg/dL High 70-105 BUN 13 mg/dL 6-26 Creatinine 1.0 mg/dL 0.5-1.4 Calcium 9.9 mg/dL 8.5-10.2 Total Protein 7.0 g/dL 6.0-8.0 Albumin 4.5 g/dL 3.6-4.9 Globulin 2.5 g/dL 2.0-3.5 A/G Ratio 1.8 Ratio 1.0-2.2 Total Bilirubin 0.5 mg/dL 0.1-1.3 Alkaline Phosphatase 62 U/L 24-140 Alt 13 U/L 3-42 Ast 17 U/L 8-42 Anion Gap 12 mmol/L 6-14 Milly Egfr >60 >60 77 Non Milly Egfr 59 Low >60 78 CBC With Auto Diff 02/04/2012 [facility] WBC 5.6 K/uL 4.1-11.0 RBC 3.98 M/uL Low 4.00-5.40 Hemoglobin 12.7 gm/dL 12.0-16.0 Hematocrit 37.8 % 36.0-47.0 MCV 95.1 fL 80.0-97.0 MCH 31.9 pg 27.0-32.0 MCHC 33.6 g/dL 32.0-36.0 RDW 15.1 % High 11.5-14.5 PLT Count 184 K/ul 140-400 Neutrophil 52.5 % 35.0-75.0 Lymphocyte 35.5 % 16.0-52.0 Monocyte 7.3 % 2.0-10.0 Eosinophil 4.1 % 0.0-5.0 Basophil 0.6 % 0.0-4.0 Abs Neutrophils 3.0 K/uL 2.1-8.0 Abs Lymphocytes 2.0 K/uL 0.8-5.5 Abs Monocytes 0.4 K/uL 0.1-1.0 Abs Eosinophils 0.2 K/uL 0.0-0.5 Abs Basophils 0.0 K/uL 0.0-0.3 Laboratory test 02/04/2012 [facility] TSH 1.97 uIU/mL 0.34-5.60 finding Laboratory test 02/04/2012 [facility] H Pylori AB <0.40 U/ML (<0.90) 79 finding Igg Laboratory test 02/23/2008 [facility] (Do not Use) Esr 17 MM/HR 0-20 80 finding [facility] [place], [place] [id number] [phone] TSH 2.03 uIU/ml 0.34-5.60 Vitamin D, 25 Hydroxy 21 ng/mL 19-58 CMP 09/25/2001 [facility] (Do not Use) Sodium 142 mmol/L 137-145 [facility] [place] [address] [phone] Potassium 3.8 mmol/L 3.6-5.0 Chloride 102 mmol/L [...] 85 U/L 38-126 Laboratory test finding 09/25/2001 [facility] (Do not Use) Esr 17 MM/HR 0-20 [facility] [place] [address] [phone] TSH 1.13 uIU/ml 0.50-6.00 81 CBC 09/25/2001 [facility] (Do not Use) WBC 5.4 K/ul 4.1-10.9 [facility] [place] [address] [phone] RBC 4.54 M/ul 4.2-6.3 Hemoglobin 14.2 GM/dl [...] Absolute Basophils 0.0 K/ul Low 0.1-0.3 1 Microbiology results SOURCE [facility] FINAL RESULT 25,000 CFU/ML Mixed urogenital iona consistent with contamination. Request fresh specimen if indicated. 2 This sample is drawn by:NB. 3 Per NCEP ATP III Guidelines: Results lower than 40 mg/dL are suggestive of increased risk for coronary artery disease. Results > or=to 60 mg/dL are considered a negative risk factor. 4 Per NCEP ATP III Guidelines: Normal Population <130 Patients with medical conditions: CHD/DM Optimal: <100 Borderline high: 130-159 High: 160-189 Very high: >189 5 Updated reference range on new analyzer 6 Updated reference range on new analyzer 7 Concerning GFR Guidelines: Normal function or [...] that are excreted by the kidneys. 8 Concerning GFR Guidelines for Americans: Normal function or mild renal disease, if clinically at risk: >/=60 mL/min Moderately decreased: 30-59 Severely decreased: 15-29 Renal failure: <15 9 Updated Reference Range 10 Clinical Guidelines for recommended serum 25(OH)Vitamin D Deficient at less than 20 ng/mL Insufficient at 20 to <30 ng/mL Sufficient at 30-100 ng/mL Toxicity at greater than 100 ng/mL 11 Updated reference range on new analyzer 12 Updated reference range on new analyzer 13 Concerning GFR Guidelines for Americans: Normal function or mild renal disease, if clinically at risk: >/=60 mL/min Moderately decreased: 30-59 Severely decreased: 15-29 Renal failure: <15 14 Concerning GFR Guidelines: Normal function or mild [...] drugs that are excreted by the kidneys. 15 Updated Reference Range 16 Specimen received unspun This sample is drawn by:[facility]PH[facility]. 17 This sample is drawn by:[facility]PHANI. 18 A Negative serologic test for Lyme Disease indicates no serologic evidence of infection with B burgdorferi at the time this specimen was collected. A repeat specimen should be collected in 2 to 4 weeks if clinically indicated. Unless otherwise specified, testing performed by [facility] [address] [place] [id number] 19 Clinical Guidelines for recommended serum 25(OH)Vitamin D Deficient at less than 20 ng/mL Insufficient at 20 to <30 ng/mL Sufficient at 30-100 ng/mL Toxicity at greater than 100 ng/mL 20 Per NCEP ATP III Guidelines: Results lower than 40 mg/dL are suggestive of increased risk for coronary artery disease. Results > or=to 60 mg/dL are considered a negative risk factor. 21 Per NCEP ATP III Guidelines: Normal Population <130 Patients with medical conditions: CHD/DM Optimal: <100 Borderline high: 130-159 High: 160-189 Very high: >189 22 Updated reference range on new analyzer 23 Updated reference range on new analyzer 24 Concerning GFR Guidelines for Americans: Normal function or mild renal disease, if clinically at risk: >/=60 mL/min Moderately decreased: 30-59 Severely decreased: 15-29 Renal failure: <15 25 Concerning GFR Guidelines: Normal function or mild [...] drugs that are excreted by the kidneys. 26 Updated Reference Range 27 Microbiology results SOURCE Clean C[facility] Midstream COLONY COUNT >100,000 CFU/ML FINAL RESULT Staphylococcus epidermidis (Isolate 1) Sensitivity Analysis Isolate 1 --------- CIPROFLOXACIN <=1 S GENTAMYCIN <=4 S LINEZOLID 2 S NITROFURANTOIN <=32 S TETRACYCLINE <=4 S TRIMETHOPRIM/SULFAMETHOXAZ > R VANCOMYCIN 2 S S=Sensitive;I=Indeterminate;R=Resistant 28 TROPONIN LEVELS TWO TIMES THE UPPER LIMIT OF NORMAL ARE MORE PREDICTIVE OF MYOCARDIAL INJURY THAN LESSER ELEVATIONS. ([facility] 361:9, 2009) Unless otherwise specified, testing performed by Laboratory [employer] [facility] [place] [address] 29 Unless otherwise specified, testing performed by [facility] [facility] [place] [address] 30 Updated reference range on new analyzer 31 Updated reference range on new analyzer 32 Concerning GFR Guidelines for Americans: Normal function or mild renal disease, if clinically at risk: >/=60 mL/min Moderately decreased: 30-59 Severely decreased: 15-29 Renal failure: <15 33 Concerning GFR Guidelines: Normal function or mild [...] drugs that are excreted by the kidneys. 34 Updated reference range on new analyzer 35 Per NCEP ATP III Guidelines: Results lower than 40 mg/dL are suggestive of increased risk for coronary artery disease. Results > or=to 60 mg/dL are considered a negative risk factor. 36 Per NCEP ATP III Guidelines: Normal Population <130 Patients with medical conditions: CHD/DM Optimal: <100 Borderline high: 130-159 High: 160-189 Very high: >189 37 Microbiology results SOURCE Clean Catch Midstream FINAL RESULT No growth 38 Unless otherwise specified, testing performed [place] [address] 39 Microbiology results SOURCE Clean Catch Midstream FINAL RESULT <10,000 CFU/ML Urogenital iona consistent with contamination. Request fresh specimen if indicated. 40 Fax Phone This sample is drawn by:STEPHANI. 41 Per NCEP ATP III Guidelines: Results lower than 40 mg/dL are suggestive of increased risk for coronary artery disease. Results > or=to 60 mg/dL are considered a negative risk factor. 42 Per NCEP ATP III Guidelines: Normal Population <130 Patients with medical conditions: CHD/DM Optimal: <100 Borderline high: 130-159 High: 160-189 Very high: >189 43 Concerning GFR Guidelines for Americans: Normal function or mild renal disease, if clinically at risk: >/=60 mL/min Moderately decreased: 30-59 Severely decreased: 15-29 Renal failure: <15 44 Concerning GFR Guidelines: Normal function or mild [...] drugs that are excreted by the kidneys. 45 This sample is drawn by:STEPHANI. 46 PLEASE NOTE: METHOD IS LC/MS/MS Unless otherwise specified, testing performed [place] [address] 47 Microbiology results SOURCE URINE FINAL RESULT No growth 48 Concerning GFR Guidelines for Americans: Normal function or mild renal disease, if clinically at risk: >/=60 mL/min Moderately decreased: 30-59 Severely decreased: 15-29 Renal failure: <15 49 Concerning GFR Guidelines: Normal function or mild [...] drugs that are excreted by the kidneys. 50 Microbiology results SOURCE URINE COLONY COUNT 50,000 CFU/ML FINAL RESULT Beta hemolytic strep group B. NOTE: Streptococcal sensitivities are predictable and are therefore not routinely performed. If you need specific antibiotics tested, please consult the laboratory. 51 Microbiology results SOURCE URINE COLONY COUNT 25,000 CFU/ML FINAL RESULT Beta Hemolytic Streptococci Group B 52 Concerning GFR Guidelines for Americans: Normal function or mild renal disease, if clinically at risk: >/=60 mL/min Moderately decreased: 30-59 Severely decreased: 15-29 Renal failure: <15 53 Concerning GFR Guidelines: Normal function or mild [...] drugs that are excreted by the kidneys. 54 Per NCEP ATP III Guidelines: Results lower than 40 mg/dL are suggestive of increased risk for coronary artery disease. Results > or=to 60 mg/dL are considered a negative risk factor. 55 Per NCEP ATP III Guidelines: Normal Population <130 Patients with medical conditions: CHD/DM Optimal: <100 Borderline high: 130-159 High: 160-189 Very high: >189 56 This sample is drawn by:[email or web address] RESULTS [phone] Concerning GFR Guidelines: Normal function or mild [...] drugs that are excreted by the kidneys. 58 Concerning GFR Guidelines for Americans: Normal function or mild renal disease, if clinically at risk: >/=60 mL/min Moderately decreased: 30-59 Severely decreased: 15-29 Renal failure: <15 59 This sample is drawn by:[facility]PH[facility]. 60 Microbiology results SOURCE URINE COLONY COUNT 50,000 CFU/ML FINAL RESULT Beta hemolytic strep group B. NOTE: Streptococcal sensitivities are predictable and are therefore not routinely performed. If you need specific antibiotics tested, please consult the laboratory. 61 Concerning GFR Guidelines for Americans: Normal function or mild renal disease, if clinically at risk: >/=60 mL/min Moderately decreased: 30-59 Severely decreased: 15-29 Renal failure: <15 62 Concerning GFR Guidelines: Normal function or mild [...] drugs that are excreted by the kidneys. 63 CONFIRMATION TEST TEMPORARILY NOT AVAILABLE DUE TO A NATIONAL REAGENT BACKORDER. 64 Unless otherwise specified, testing performed by [facility] [address] [address] 65 Microbiology results SOURCE URINE COLONY COUNT 75,000 CFU/ML FINAL RESULT Beta hemolytic strep group B. NOTE: Streptococcal sensitivities are predictable and are therefore not routinely performed. If you need specific antibiotics tested, please consult the laboratory. 66 Microbiology results SOURCE URINE FINAL RESULT Mixed urethral iona consistent with contamination. No further workup. 67 4.19 Consistent with previous result(s). 68 11.1 Consistent with previous result(s). 69 This sample is drawn by:CT 70 Concerning GFR Guidelines for Americans: Normal function or mild renal disease, if clinically at risk: >/=60 mL/min Moderately decreased: 30-59 Severely decreased: 15-29 Renal failure: <15 71 Concerning GFR Guidelines: Normal function or mild [...] drugs that are excreted by the kidneys. 72 This sample is drawn by:NB. 73 Concerning GFR Guidelines for Americans: Normal function or mild renal disease, if clinically at risk: >/=60 mL/min Moderately decreased: 30-59 Severely decreased: 15-29 Renal failure: <15 74 Concerning GFR Guidelines: Normal function or mild [...] drugs that are excreted by the kidneys. 75 Microbiology results SOURCE URINE FINAL RESULT No growth 76 LABORATORY [employer] [facility] [employer] [place] [address] GYNECOLOGIC CYTOLOGY REPORT Accession Number: [id number] Source of Specimen(s): A: [facility] Vaginal/ Cervical/ [...] Signed Out By Ya De La Fuente SCT(ASCP)([facility]) Admitting Officer: Odilia Santiago CT(ASCP) [facility] QC Reviewed: Y Unless otherwise specified, testing performed [facility] [address] [address] 77 Concerning GFR Guidelines for Americans: Normal function or mild renal disease, if clinically at risk: >/=60 mL/min Moderately decreased: 30-59 Severely decreased: 15-29 Renal failure: <15 78 Concerning GFR Guidelines: Normal function or mild [...] drugs that are excreted by the kidneys. 79 < 0.90 NEGATIVE > 0.89 AND < 1.09 INDETERMINATE > 1.09 POSITIVE Unless otherwise specified, testing performed by [facility] [employer] [address] [place] [id number] 80 This sample is drawn by:STEPHANI 81 New Method as of 09/17/01 using Third Generation TSH methodolgy Procedures Date Code Description Status 09/15/2018 [id number] Mammogram Completed 08/15/2017 31635 Brief Emotional/Behav Assessment W/ Scoring Doc Per Completed Standard Inst 08/15/2017 29717 Electrocardiogram Complete Completed 06/25/2017 [id number] Mammogram Completed 01/27/2017 50869 Electrocardiogram Complete Completed 05/22/2016 [id number] Colonoscopy Completed 03/15/2016 [id number] Mammogram Completed 08/19/2015 [id number] Colonoscopy Completed 08/17/2015 [id number] Colonoscopy Completed 07/10/2015 94303 Inject/Drain Joint/Bursa Major W/Out Ultrasound Completed Guidance 02/21/201568129 Inject/Drain Joint/Bursa Major W/Out Ultrasound Completed Guidance 02/21/201582220 Inject/Drain Joint/Bursa Major W/Out Ultrasound Completed Guidance 01/30/2015 [id number] Mammogram Completed 01/16/2015 15123 Electrocardiogram Complete Completed 08/01/2014 05030 Electrocardiogram Complete Completed 09/17/2012 [id number] Bone Mineral Density Test Completed 09/17/2012 [id number] Mammogram Completed 04/29/2011 45338 Admin Of Inj (Therapeutic Phrophylactic Or Diagnostic Completed Subq Inj 11/30/201003800 Inject/Drain Joint/Bursa Major W/Out Ultrasound Completed Guidance 11/30/2010 61244 Electrocardiogram Complete Completed 08/09/2010 [id number] Mammogram Completed 07/24/2010 86240 Electrocardiogram Complete Completed 03/15/2010 [id number] Colonoscopy Completed 01/23/2009 17376 Electrocardiogram Complete Completed 09/26/2008 [id number] Mammogram Completed 03/09/2008 98612 Mammography Screening Bilateral Completed 08/20/2000 17674 Electrocardiogram Complete Completed Encounters Type Date Location Provider Dx Diagnosis Office Visit 08/03/2018 Barbara Rivera E66.9 Obesity, unspecified 2:00p [facility] I10 Essential (primary) hypertension G89.4 Chronic pain syndrome M48.07 Spinal stenosis, lumbosacral region M70.60 Trochanteric bursitis, unspecified hip F41.9 Anxiety disorder, unspecified G47.01 Insomnia due to medical condition D50.9 Iron deficiency anemia, unspecified K21.0 Gastro-esophageal reflux disease with esophagitis 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 Z68.33 Body mass index (BMI) 33.0-33.9, adult Office Visit 06/29/2018 10:45a Barbara Rivera I10 Essential ( primary) [facility] hypertension G89.4 Chronic pain syndrome M48.07 Spinal stenosis, lumbosacral region F41.9 Anxiety disorder, unspecified G47.01 Insomnia due to medical condition D50.9 Iron deficiency anemia, unspecified K21.0 Gastro-esophageal reflux disease with esophagitis F33.40 Major depressive disorder, recurrent, in remission, unsp E55.9 Vitamin D deficiency, unspecified D51.9 Vitamin B12 deficiency anemia, unspecified E04.2 Nontoxic multinodular goiter Z68.34 Body mass index (BMI) 34.0-34.9, adult Office Visit 04/23/2018 10:40a Enedina Jiang, R10.84 Generalized abdominal RN [facility] pain I10 Essential (primary) hypertension Z68.34 Body mass index (BMI) 34.0-34.9, adult Office Visit 01/26/2018 10:00a Rex Stafford PA Z01.818 Encounter for other preprocedural examination I10 Essential (primary) hypertension F33.40 Major depressive disorder, recurrent, in remission, unsp M16.0 Bilateral primary osteoarthritis of hip M54.5 Low back pain M48.07 Spinal stenosis, lumbosacral region G89.4 Chronic pain syndrome R51 Headache E04.2 Nontoxic multinodular goiter Z68.35 Body mass index (BMI) 35.0-35.9, adult Office Visit 12/05/2017 11:00a Barbara Rivera I10 Essential ( primary) [facility] hypertension R51 Headache G89.4 Chronic pain syndrome M25.50 Pain in unspecified joint K21.0 Gastro-esophageal reflux disease with esophagitis E55.9 Vitamin D deficiency, unspecified D51.9 Vitamin B12 deficiency anemia, unspecified M16.0 Bilateral primary osteoarthritis of hip Z68.33 Body mass index (BMI) 33.0-33.9, adult Office Visit 10/10/2017 11:30a Barbara Rivera I10 Essential ( primary) [facility] hypertension F33.40 Major depressive disorder, recurrent, in remission, unsp R51 Headache M54.5 Low back pain G89.4 Chronic pain syndrome F41.9 Anxiety disorder, unspecified M25.50 Pain in unspecified joint Z68.34 Body mass index (BMI) 34.0-34.9, adult Office Visit 08/15/2017 11:00a Barbara Rivera Z00.01 Encounter for [facility] general adult medical exam w abnormal findings I10 Essential (primary) hypertension F33.40 Major depressive disorder, recurrent, in remission, unsp N95.2 Postmenopausal atrophic vaginitis F41.9 Anxiety disorder, unspecified M54.5 Low back pain G89.4 Chronic pain syndrome D50.9 Iron deficiency anemia, unspecified E55.9 Vitamin D deficiency, unspecified D51.9 Vitamin B12 deficiency anemia, unspecified R00.2 Palpitations Z12.11 Encounter for screening for malignant neoplasm of colon Z12.31 Encntr screen mammogram for malignant neoplasm of breast E04.2 Nontoxic multinodular goiter K21.0 Gastro-esophageal reflux disease with esophagitis Z13.89 Encounter for screening for other disorder M25.551 Pain in RIGHT hip M13.0 Polyarthritis, unspecified Z01.818 Encounter for other preprocedural examination Z68.36 Body mass index (BMI) 36.0-36.9, adult Office Visit 05/16/2017 2:15p Barbara Rivera N30.01 Acute cystitis with MD [facility] hematuria D48.5 Neoplasm of uncertain behavior of skin N95.2 Postmenopausal atrophic vaginitis I10 Essential (primary) hypertension S39.012A Strain of muscle, fascia and tendon of lower back, init F41.9 Anxiety disorder, unspecified Office Visit 01/27/2017 10:30a Barbara Rivera I10 Essential ( primary) MD [facility] hypertension R06.02 Shortness of breath H53.9 Unspecified visual disturbance G89.4 Chronic pain syndrome F41.9 Anxiety disorder, unspecified D50.9 Iron deficiency anemia, unspecified E55.9 Vitamin D deficiency, unspecified D51.9 Vitamin B12 deficiency anemia, unspecified R00.2 Palpitations N39.0 Urinary tract infection, site not specified Office Visit 10/14/2016 4:15p Barbara Rivera I10 Essential ( primary) MD [facility] hypertension D50.9 Iron deficiency anemia, unspecified M48.07 Spinal stenosis, lumbosacral region G89.4 Chronic pain syndrome M25.511 Pain in RIGHT shoulder F41.9 Anxiety disorder, unspecified N39.0 Urinary tract infection, site not specified D73.89 Other diseases of spleen Z12.11 Encounter for screening for malignant neoplasm of colon R92.2 Inconclusive mammogram N64.4 Mastodynia 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 Office Visit 08/02/2016 3:00p Barbara Rivera I10 Essential ( primary) MD [facility] hypertension G89.4 Chronic pain syndrome M48.07 Spinal stenosis, lumbosacral region D50.9 Iron deficiency anemia, unspecified D73.89 Other diseases of spleen R25.3 Fasciculation F41.9 Anxiety disorder, unspecified 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 M25.511 Pain in RIGHT shoulder M25.512 Pain in LEFT shoulder Office Visit 06/07/2016 4:00p Barbara Rivera I10 Essential ( primary) MD [facility] hypertension G89.4 Chronic pain syndrome M48.07 Spinal stenosis, lumbosacral region D50.9 Iron deficiency anemia, unspecified K64.8 Other hemorrhoids R19.7 Diarrhea, unspecified D73.89 Other diseases of spleen F41.9 Anxiety disorder, unspecified R25.3 Fasciculation Office Visit 02/26/2016 3:15p Barbara Rivera Z00.00 Encntr for general MD [facility] adult medical exam w/o abnormal findings I10 Essential (primary) hypertension G89.4 Chronic pain syndrome M48.07 Spinal stenosis, lumbosacral region F41.9 Anxiety disorder, unspecified D50.9 Iron deficiency anemia, unspecified N95.2 Postmenopausal atrophic vaginitis D51.9 Vitamin B12 deficiency anemia, unspecified E55.9 Vitamin D deficiency, unspecified M54.2 Cervicalgia K21.0 Gastro-esophageal reflux disease with esophagitis Z12.31 Encntr screen mammogram for malignant neoplasm of breast Z12.11 Encounter for screening for malignant neoplasm of colon F33.40 Major depressive disorder, recurrent, in remission, unsp R63.5 Abnormal weight gain Office Visit 12/18/2015 3:00p Barbara Rivera Essential ( primary) MD [facility] hypertension G89.4 Chronic pain syndrome M48.07 Spinal stenosis, lumbosacral region Office Visit 10/24/2015 2:00p Barbara Rivera Essential ( primary) MD [facility] hypertension G89.4 Chronic pain syndrome F41.9 Anxiety disorder, unspecified D50.9 Iron deficiency anemia, unspecified N95.2 Postmenopausal atrophic vaginitis Office Visit 10/10/2015 1:45p Barbara Rivera Essential ( primary) MD [facility] hypertension R55 Syncope and collapse G89.4 Chronic pain syndrome F41.9 Anxiety disorder, unspecified D64.9 Anemia, unspecified D51.9 Vitamin B12 deficiency anemia, unspecified E55.9 Vitamin D deficiency, unspecified N39.0 Urinary tract infection, site not specified M54.2 Cervicalgia Office Visit 09/26/2015 11:00a Barbara Rivera MD R55 Syncope and collapse N18.9 Chronic kidney disease, unspecified G89.4 Chronic pain syndrome F41.9 Anxiety disorder, unspecified Z79.899 Other skilled nursing (current) drug therapy I10 Essential (primary) hypertension S06.0x1A Concussion w Loc of 30 minutes or less, init Office Visit 09/21/2015 1:00p Enedina Jiang, RN R55 Syncope and collapse [employer] Z48.02 Encounter for removal of sutures G89.4 Chronic pain syndrome Office Visit 07/10/2015 4:45p Barbara Rivera M25.511 Pain in RIGHT MD [facility] shoulder G89.4 Chronic pain syndrome I10 Essential (primary) hypertension M70.62 Trochanteric bursitis, LEFT hip M48.07 Spinal stenosis, lumbosacral region N30.00 Acute cystitis without hematuria Office Visit 05/26/2015 1:00p Barbara Rivera MD G89.4 Chronic pain syndrome I10 Essential (primary) hypertension M16.12 Unilateral primary osteoarthritis, LEFT hip N30.00 Acute cystitis without hematuria M48.07 Spinal stenosis, lumbosacral region M70.62 Trochanteric bursitis, LEFT hip K21.0 Gastro-esophageal reflux disease with esophagitis F41.9 Anxiety disorder, unspecified Office Visit 02/21/2015 1:00p Barbara Rivera Z00.00 Encntr for general MD [facility] adult medical exam w/o abnormal findings M70.62 Trochanteric bursitis, LEFT hip G89.4 Chronic pain syndrome M48.07 Spinal stenosis, lumbosacral region K21.0 Gastro-esophageal reflux disease with esophagitis G47.00 Insomnia, unspecified F41.9 Anxiety disorder, unspecified I10 Essential (primary) hypertension Z00.01 Encounter for general adult medical exam w abnormal findings Office Visit 01/16/2015 1:00p Barbara Rivera Z00.01 Encounter for MD [facility] general adult medical exam w abnormal findings G89.4 Chronic pain syndrome I10 Essential (primary) hypertension K21.0 Gastro-esophageal reflux disease with esophagitis M48.07 Spinal stenosis, lumbosacral region Z12.39 Encounter for oth screening for malignant neoplasm of breast Z12.11 Encounter for screening for malignant neoplasm of colon G47.00 Insomnia, unspecified F41.9 Anxiety disorder, unspecified Office Visit 11/15/2014 10:30a Barbara Rivera MD 300.00 Anxiety State Unspec 338.4 Chronic Pain Syndrome 719.41 Pain Joint Shoulder Region 787.01 Nausea W/ Vomiting 787.91 Diarrhea 362.50 Macular Degeneration Senile Unspec Office Visit 10/17/2014 8:45a Barbara Rivera MD 401.1 Hypertension Benign 338.4 Chronic Pain Syndrome 719.41 Pain Joint Shoulder Region 787.02 Nausea Alone 530.11 Esophagitis Reflux 477.0 Rhinitis Allergic Due To Pollen 362.50 Macular Degeneration Senile Unspec 309.81 Posttraumatic Stress Disorder Office Visit 09/26/2014 2:45p Barbara Rivera MD 338.4 Chronic Pain Syndrome 401.1 Hypertension Benign Office Visit 09/12/2014 1:00p Barbara Rivera MD 401.1 Hypertension Benign 338.4 Chronic Pain Syndrome 719.41 Pain Joint Shoulder Region 724.02 Spinal Stenosis Lumbar Region 787.02 Nausea Alone 461.8 Sinusitis Acute Other Office Visit 08/18/2014 2:40p Siomara White MD 461.8 Sinusitis Acute Other Office Visit 08/01/2014 3:00p Barbara Rivera 719.41 Pain Joint Shoulder MD [facility] Region 338.4 Chronic Pain Syndrome 787.02 Nausea Alone V72.81 Examination Preoperative Cardiovascular 401.1 Hypertension Benign Office Visit 07/11/2014 11:15a Barbara Rivera 719.41 Pain Joint Shoulder MD [facility] Region 338.4 Chronic Pain Syndrome 724.02 Spinal Stenosis Lumbar Region 787.02 Nausea Alone 401.1 Hypertension Benign Office Visit 06/13/2014 11:15a Barbara Rivera 724.02 Spinal Stenosis MD [facility] Lumbar Region 719.41 Pain Joint Shoulder Region 338.4 Chronic Pain Syndrome 401.1 Hypertension Benign 788.41 Urinary Frequency 598.9 Urethral Stricture Unspec 296.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 Moderate Office Visit 05/16/2014 2:45p Barbara Rivera 719.41 Pain Joint Shoulder MD [facility] Region 724.02 Spinal Stenosis Lumbar Region 788.41 Urinary Frequency 780.60 Fever, Unspecified 338.4 Chronic Pain Syndrome Office Visit 05/02/2014 2:00p Barbara Rivera MD 788.41 Urinary Frequency 595.0 Cystitis Acute 780.60 Fever, Unspecified 041.02 Streptococcus Group B 787.02 Nausea Alone 783.21 Loss Of Weight 280.8 Iron Deficiency Anemia Other Spec 338.4 Chronic Pain Syndrome 789.07 Pain Abdominal Generalized 719.45 Pain Joint Pelvic Region & Thigh V69.8 Lifestyle Related Problems Other Office Visit 04/05/2014 4:00p Barbara Rivera 461.0 Sinusitis Acute MD [facility] Maxillary 724.2 Lumbago 595.0 Cystitis Acute 719.45 Pain Joint Pelvic Region & Thigh Office Visit 02/22/2014 1:15p Barbara Rivera MD V70.0 Exam ( Adult) General Medical Routine AT [facility] 401.1 Hypertension Benign 780.60 Fever, Unspecified 338.4 Chronic Pain Syndrome 530.11 Esophagitis Reflux V76.10 Screening For Malignant Neoplasm Breast V76.51 Special Screening For Malignant Neoplasms Colon 477.0 Rhinitis Allergic Due To Pollen 780.52 Sleep Disturbance, Insomnia Unspecified Office Visit 01/25/2014 3:15p Barbara Rivera MD 780.60 Fever, Unspecified 338.4 Chronic Pain Syndrome 532.30 Duodenal Ulcer Acute W/O Hemorrhage Or Perforation W/O Obstr 268.9 Vitamin D Deficiency Unspec 281.1 Vitamin B12 Deficiency Anemia Other 401.1 Hypertension Benign 780.52 Sleep Disturbance, Insomnia Unspecified Office Visit 08/27/2013 3:30p Barbara Rivera MD 401.1 Hypertension Benign 338.4 Chronic Pain Syndrome 530.11 Esophagitis Reflux 296.31 Depressive Disorder Major Recurrent Mild 719.49 Pain Joint Multiple Sites 368.9 Visual Disturbances Unspec Office Visit 03/30/2013 8:00a Barbara Rivera MD 401.1 Hypertension Benign 338.4 Chronic Pain Syndrome 285.9 Anemia Unspec 530.11 Esophagitis Reflux Office Visit 01/29/2013 2:00p Barbara Rivera MD 401.1 Hypertension Benign 338.4 Chronic Pain Syndrome 530.11 Esophagitis Reflux 281.1 Vitamin B12 Deficiency Anemia Other 268.9 Vitamin D Deficiency Unspec 790.21 Impaired Fasting Glucose 593.2 Cyst Kidney Acquired Office Visit 09/25/2012 11:00a Barbara Rivera 296.31 Depressive Disorder MD [facility] Major Recurrent Mild 401.1 Hypertension Benign V82.81 Screening For Osteoporosis 532.30 Duodenal Ulcer Acute W/O Hemorrhage Or Perforation W/O Obstr Office Visit 08/24/2012 11:00a Barbara Rivera MD 401.1 Hypertension Benign 532.30 Duodenal Ulcer Acute W/O Hemorrhage Or Perforation W/O Obstr 593.2 Cyst Kidney Acquired 719.49 Pain Joint Multiple Sites 281.1 Vitamin B12 Deficiency Anemia Other 275.2 Metabolic Disorder Magnesium V76.10 Screening For Malignant Neoplasm Breast V82.81 Screening For Osteoporosis 783.1 Weight Gain Abnormal 296.31 Depressive Disorder Major Recurrent Mild 719.40 Pain Joint Site Unspec Office Visit 06/02/2012 10:45a Barbara Rivera V72.31 Routine Overhead Garage Door Hanger MD [facility] Examination 401.1 Hypertension Benign 780.60 Fever, Unspecified V76.10 Screening For Malignant Neoplasm Breast V82.81 Screening For Osteoporosis 780.52 Sleep Disturbance, Insomnia Unspecified 790.21 Impaired Fasting Glucose 268.9 Vitamin D Deficiency Unspec 530.11 Esophagitis Reflux 789.01 Pain Abdominal RIGHT Upper Quadrant V70.0 Exam (Adult) General Medical Routine AT [facility] 789.06 Pain Abdominal Epigastric 627.3 Atrophic Vaginitis Postmenopausal Office Visit 05/14/2012 1:00p Enedina Jiang, 780.60 Fever, Unspecified RN [employer] Office Visit 04/10/2012 2:30p aBrbara Rivera 461.0 Sinusitis Acute MD [facility] Maxillary Office Visit 03/24/2012 10:45a Barbara Rivera 401.1 Hypertension Mikael Kirkland MD 787.02 Nausea Alone 726.5 Enthesopathy Of Hip Region 338.4 Chronic Pain Syndrome 727.04 Tenosynovitis Radial Styloid 789.06 Pain Abdominal Epigastric Office Visit 02/04/2012 11:15a Barbara Rivera MD 787.02 Nausea Alone 401.1 Hypertension Benign 338.4 Chronic Pain Syndrome 726.5 Enthesopathy Of Hip Region Office Visit 11/04/2011 11:00a Barbara Rivera MD 401.1 Hypertension Benign 461.0 Sinusitis Acute Maxillary Office Visit 10/15/2011 1:45p Barbara Rivera MD 786.51 Pain Precordial 401.1 Hypertension Benign 719.49 Pain Joint Multiple Sites Office Visit 07/19/2011 11:00a Barbara Rivera MD 401.1 Hypertension Benign 780.52 Sleep Disturbance, Insomnia Unspecified 719.49 Pain Joint Multiple Sites 461.0 Sinusitis Acute Maxillary 790.21 Impaired Fasting Glucose 466.0 Bronchitis Acute Office Visit 06/21/2011 1:45p Barbara Rivera 726.5 Enthesopathy Of Hip MD [facility] Region 780.52 Sleep Disturbance, Insomnia Unspecified 401.1 Hypertension Benign 719.49 Pain Joint Multiple Sites 786.51 Pain Precordial Office Visit 11/30/2010 11:30a Barbara Rivera MD 401.1 Hypertension Benign 726.5 Enthesopathy Of Hip Region 786.51 Pain Precordial Office Visit 08/20/2010 12:45p Barbara Rivera MD 611.72 Lump Or Mass Breast 786.2 Cough 726.5 Enthesopathy Of Hip Region 401.1 Hypertension Benign Office Visit 07/24/2010 2:30p Barbara Rivera MD 401.1 Hypertension Benign 786.2 Cough V76.10 Screening For Malignant Neoplasm Breast 729.1 Myalgia & Myositis Unspec 611.72 Lump Or Mass Breast Office Visit 01/26/2010 3:45p Barbara Rivera MD 723.1 Cervicalgia 787.91 Diarrhea 569.3 Hemorrhage Rectum & Anus 401.1 Hypertension Benign Office Visit 08/29/2009 2:30p Barbara Rivera 466.0 Bronchitis Acute MD [facility] Office Visit 02/27/2009 1:30p Barbara Rivera 786.2 Cough MD [facility] Office Visit 02/07/2009 2:00p Barbara Rivera 493.00 Asthma Extrinsic MD [facility] Unspecified 780.4 Dizziness & Giddiness Office Visit 01/23/2009 3:00p Barbara Rivera V72.31 Routine Overhead Garage Door Hanger MD [facility] Examination 268.9 Vitamin D Deficiency Unspec 719.49 Pain Joint Multiple Sites 401.1 Hypertension Benign 296.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 Moderate 477.0 Rhinitis Allergic Due To Pollen 627.3 Atrophic Vaginitis Postmenopausal 333.1 Tremor Essential & Other Forms 435.9 TIA Ischemia Cerebral Transient Unspec 530.11 Esophagitis Reflux V76.51 Special Screening For Malignant Neoplasms Colon Office Visit 07/22/2008 2:00p Barbara Rivera 268.9 Vitamin D Deficiency MD [facility] Unspec 719.49 Pain Joint Multiple Sites 401.1 Hypertension Benign V76.10 Screening For Malignant Neoplasm Breast Office Visit 03/22/2008 2:00p Barbara Rivera 296.32 Depressive Disorder MD [facility] Major Recurrent Moderate 268.9 Vitamin D Deficiency Unspec Office Visit 02/23/2008 2:15p Barbara Rivera 719.49 Pain Joint Multiple MD [facility] Sites 401.1 Hypertension Benign 530.11 Esophagitis Reflux 296.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 Moderate V76.10 Screening For Malignant Neoplasm Breast Office Visit 01/02/2007 2:45p Barbara Rivera MD 724.2 Lumbago 477.0 Rhinitis Allergic Due To Pollen Office Visit 11/25/2006 10:00a Barbara Rivera MD 724.2 Lumbago Office Visit 10/20/2006 4:45p Barbara Rivera MD 724.2 Lumbago 530.11 Esophagitis Reflux Office Visit 09/30/2006 3:30p Barbara Rievra MD 401.1 Hypertension Benign 845.00 Sprains & Strains Ankle Unspec Site 787.91 Diarrhea 530.11 Esophagitis Reflux 724.2 Lumbago Office Visit 01/29/2006 11:00a Enedina Jiang, 733.90 Bone & Cartilage RN [place] [employer] Disorder Unspec 719.41 Pain Joint Shoulder Region 401.1 Hypertension Benign Office Visit 03/03/2003 9:40a Barbara Rivera 627.2 Menopausal Or Female MD [facility] Climacteric State, Symptomatic Office Visit 08/17/2002 11:00a Barbara Rivera 627.2 Menopausal Or Female MD [facility] Climacteric State, Symptomatic 733.90 Bone & Cartilage Disorder Unspec Office Visit 10/23/2001 1:30p Barbara Rivera MD 780.79 Malaise And Fatigue Other 789.00 Pain Abdominal Unspec Site 780.52 Sleep Disturbance, Insomnia Unspecified Office Visit 09/25/2001 1:50p Barbara Rivera MD 780.79 Malaise And Fatigue Other 789.00 Pain Abdominal Unspec Site 789.36 Swelling Mass Or Lump Abdominal/Pelvic Epigastric 240.9 Goiter Unspec 790.0 Red Blood Cells Abnormality 729.1 Myalgia & Myositis Unspec Office Visit 08/20/2000 6:50p Manpreet Herr MD Plan of Treatment Future Appointment(s):11/17/2018 1:30 pm - Barbara Castro MD at [id number] - Barbara Castro MDE66.9 Obesity, 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, LEFT eyeNew Medication:Aspirin Ec 81 mg - 1 by mouth every other day with foodFollow up:11/17I10 Essential (primary) [id number] Anxiety disorder, bfpgoquqafyE07.9 Iron deficiency anemia, cybuuunffgmD56.33 Body mass index (BMI) 33.0-33.9, adult
[2018-11-05 16:36] LABS: ABS Basophils 0.1 10^3/ul (0-0.2); ABS Eosinophils 0.1 10^3/ul (0-0.6); ABS Lymphocytes 2.7 10^3/ul (1.0-4.8); ABS Monocytes 0.5 10^3/ul (0-0.8); ABS Neutrophils 4.3 10^3/ul (1.5-7.7); Eosinophil % 1.4 %; Hematocrit 41 % (35-47); Hemoglobin 13.9 g/dL (12.0-16.0); Lymphocyte % 35.8 %; Mean Corpuscular HGB Conc 34 g/dL (31-36); Mean Corpuscular Hemoglobin 33 pg (27-31); Mean Corpuscular Volume 98 fL (80-97); Mean Platelet Volume 9.2 fL (7.4-10.4); Nucleated Red Blood Cells % 0.1; Platelet Count 179 10^3/uL (150-450); Red Blood Count 4.19 10^6 /uL (3.70-4.87); Red Cell Distribution Width 15 % (10-15); White Blood Count 7.7 10^3/uL (3.5-10.8)
[2018-11-05 16:45] LABS: Activated Partial Thrombo Time 34.3 seconds (26.0-38.0); INR 0.95 (0.82-1.09)
[2018-11-05 16:56] LABS: Albumin 4.5 g/dL (3.2-5.2); Albumin/Globulin Ratio 1.6 (1-3); BUN/Creatinine Ratio 17.2 (8-20); Calcium 10.3 mg/dL (8.6-10.3); EGFR African American 55.7 (>60); EGFR Non-African American 46.1 (>60); Globulin 2.9 g/dL (2-4); HDL Cholesterol 43.8 mg/dL; Potassium 3.4 mmol/L (3.5-5.0); Total Bilirubin 0.6 mg/dL (0.2-1.0); Total Protein 7.4 g/dL (6.4-8.9)
[2018-11-05] MEDS ORDERED: predniSONE TAB* 20 MG PO ONE ×2 (19:51→20:42)
--- NOTE | 2018-11-05 19:58 | ED ---
Headache - HPI Summary HPI Summary: Pt is a 73 y/o F presenting to the ED with a chief complaint of a headache. She has hx of ocular migraine headaches, and she was recently hospitalized for the headache, accompanied by visual changes and weakness. This episode, her headache lasted for four days, and on 11/03/18 she states her R side gave out causing her to fall. Today, 11/05/18, she stated it happened again, and she called Dr. Young office who recommended coming in to be evaluated. Currently, she reports feeling shakey, unsteady on her feet, with accompanying blocks in her vision, and headache. She denies CP, SOB, or dizziness. - History Of Current Complaint Chief Complaint: EDHeadache Stated Complaint: SENT BY DR AVINA STROKE PER PATIENT Time Seen by Provider: 11/05/18 19:11 Hx Obtained From: Patient Onset/Duration: Gradual Onset, Started days ago, Still Present Initially Headache Was: Moderate Currently Pain Is: Moderate Timing: Constant, Days Character: Migraine Location of Headache: Diffuse Aggravating Factor: Nothing Allevating Factors: Nothing Associated Signs And Symptoms: Visual Changes - Allergies/Home Medications Allergies/Adverse Reactions: Allergies Allergy/AdvReac Type Severity Reaction Status Date / Time ciprofloxacin [From Cipro] Allergy Nausea Verified 08/14/18 10:50 diltiazem Allergy Insomnia, Verified 08/14/18 10:50 head pressure, HTN duloxetine [From Cymbalta] Allergy Vomiting Verified 10/13/18 16:00 paroxetine [From Paxil] Allergy Shakes Verified 08/14/18 10:50 quinidine Allergy Rash Verified 08/14/18 10:50 Sulfa (Sulfonamide Allergy Unknown Verified 08/14/18 10:50 Antibiotics) Reaction Details verapamil Allergy Insomnia, Verified 08/14/18 10:50 head pressure Beta-Blockers AdvReac Intermediate See Comment Verified 10/13/18 15:39 (Beta-Adrenergic Bloc PMH/Surg Hx/FS Hx/Imm Hx Previously Healthy: No Endocrine/Hematology History: Reports: Hx Thyroid Disease - 5 POLYPS FOUND 1 NEG 4 REMAINING ON NO MEDS Denies: Hx Diabetes, Hx Anemia Cardiovascular History: Reports: Hx Angina, Hx Hypertension Denies: Hx Congestive Heart Failure, Hx Coronary Artery Disease, Hx Hypercholesterolemia, Hx Myocardial Infarction, Hx Pacemaker/ICD, Hx Valvular Heart Disease, Other Cardiovascular Problems/Disorders Respiratory History: Reports: Hx Asthma - A CHILD GI History: Reports: Hx Gall Bladder Disease - [place] 1967, Hx Ulcer - bleeding ulcers in past, Other GI Disorders - HX OF POLYPS IN COLON Denies: Hx Jaundice History: Reports: Other Problems/Disorders - UTIs Denies: Hx Renal Disease Musculoskeletal History: Reports: Hx Arthritis - GENERALIZED, Hx Back Problems, Hx Bursitis, Hx Fibromyalgia - pt describes as having for "years", Hx Orthopedic Injury - torn right shoulder, Hx Osteoporosis Denies: Hx Rheumatoid Arthritis Sensory History: Reports: Hx Cataracts - BILAT, Hx Contacts or Glasses Denies: Hx Deafness, Hx Hearing Aid Opthamlomology History: Reports: Hx Cataracts - BILAT, Hx Contacts or Glasses Neurological History: Reports: Hx Headaches, Hx Migraine - 2-3 WEEKLY LAST ONE 01/23/18, Hx Nerve Disease - 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 Psychiatric History: Denies: Hx Anxiety, Hx Attention Deficit Hyperactivity Disorder, Hx Eating Disorder, Hx Depression, Hx Panic Disorder, Hx Post Traumatic Stress Disorder, Hx Inpatient Treatment, Hx Community Mental Health Tx, Hx Schizophrenia, Hx Bipolar Disorder, Hx Suicide Attempt, Hx of Violent Episodes Against Others, Hx Substance Abuse, Other Psychiatric Issues/Disorders - Cancer History Hx Chemotherapy: No Hx Radiation Therapy: No - Surgical History Surgery Procedure, Year, and Place: CHOLECYSECTOMY; RIGHT LUMPECTOMY; RIGHT RTC REPAIR; BILAT CATARACTS; TUBAL LIGATION; HYSTERECTOMY Hx Anesthesia Reactions: No Infectious Disease History: No Infectious Disease History: Denies: Hx Clostridium Difficile, Hx Hepatitis, Hx Human Immunodeficiency Virus (HIV), Hx of Known/Suspected MRSA, Hx Shingles, Hx Tuberculosis, Hx Known/ Suspected VRE, Hx Known/Suspected VRSA, History Other Infectious Disease, Traveled Outside the [place] in Last 30 Days - Family History Known Family History: Negative: Blood Disorder - Social History Alcohol Use: None Alcohol Amount: 1 DRINK Hx Substance Use: No Substance Use Type: Reports: None Hx Tobacco Use: No Smoking Status (MU): Never Smoked Tobacco Have You Smoked in the Last Year: No Review of Systems Positive: Other - feels shakey Positive: Other - visual changes; some visual loss Negative: Chest Pain Negative: Shortness Of Breath Neurological: Negative - dizziness Positive: Headache, Weakness All Other Systems Reviewed And Are Negative: Yes Physical Exam - Summary Physical Exam Summary: Constitutional: Well-developed, Well-nourished, Alert. (-) Distressed Skin: Warm, Dry HENT: Normocephalic; Atraumatic Eyes: Conjunctiva normal Neck: Musculoskeletal ROM normal neck. (-) JVD, (-) Stridor, (-) Tracheal deviation Cardio: Rhythm regular, rate in mid-90s, Heart sounds normal; Intact distal pulses; The pedal pulses are 2+ and symmetric. Radial pulses are 2+ and symmetric. Pulmonary/Chest wall: Effort normal. (-) Respiratory distress, (-) Wheezes, (-) Rales Abd: Soft, (-) tenderness, (-) Distension, (-) Guarding, (-) Rebound Musculoskeletal: (-) Edema, no bony deformity or tenderness in any part of UE. Neuro: Alert, Oriented x3, no pronator drift, cranial nerves intact, coordination intact, gait is stable, there are no objective findings. Psych: Mood and affect Normal Triage Information Reviewed: Yes Vital Signs On Initial Exam: Initial Vitals Temp Pulse Resp BP Pulse Ox 98.9 F 125 18 119/99 93 11/05/18 15:30 11/05/18 15:30 11/05/18 15:30 11/05/18 15:30 11/05/18 15:30 Vital Signs Reviewed: Yes Diagnostics - Vital Signs Vital Signs Temp Pulse Resp BP Pulse Ox 11/05/18 17:35 98.3 F 101 18 120/86 92 11/05/18 15:30 98.9 F 125 18 119/99 93 - Laboratory Lab Results: Lab Results 11/05/18 11/05/18 11/05/18 Range/Units 16:26 16:26 16:26 WBC 7.7 (3.5-10.8) 10^3/uL RBC 4.19 (3.70-4.87) 10^6 /uL Hgb 13.9 (12.0-16.0) g/dL Hct 41 (35-47) % MCV 98 H (80-97) fL MCH 33 H (27-31) pg MCHC 34 (31-36) g/dL RDW 15 (10-15) % Plt Count 179 (150-450) 10^3/uL MPV 9.2 (7.4-10.4) fL Neut % (Auto) 56.1 % Lymph % (Auto) 35.8 % Guthrie % (Auto) 6.0 % Eos % (Auto) 1.4 % Baso % (Auto) 0.7 % Absolute Neuts (auto) 4.3 (1.5-7.7) 10^3/ul Absolute Lymphs (auto) 2.7 (1.0-4.8) 10^3/ul Absolute Monos (auto) 0.5 (0-0.8) 10^3/ul Absolute Eos (auto) 0.1 (0-0.6) 10^3/ul Absolute Basos (auto) 0.1 (0-0.2) 10^3/ul Absolute Nucleated RBC 0.0 10^3/ul Nucleated RBC % 0.1 INR (Anticoag Therapy) 0.95 (0.82-1.09) APTT 34.3 (26.0-38.0) seconds Sodium 141 (135-145) mmol/L Potassium 3.4 L (3.5-5.0) mmol/L Chloride 103 (101-111) mmol/L Carbon Dioxide 31 (22-32) mmol/L Anion Gap 7 (2-11) mmol/L BUN 20 (6-24) mg/dL Creatinine 1.16 H (0.51-0.95) mg/dL Est GFR ( Amer) 55.7 (>60) Est GFR (Non-Af Amer) 46.1 (>60) BUN/Creatinine Ratio 17.2 (8-20) Glucose 107 H (70-100) mg/dL Lactic Acid (0.5-2.0) mmol/L Calcium 10.3 (8.6-10.3) mg/dL Total Bilirubin 0.60 (0.2-1.0) mg/dL AST 24 (13-39) U/L ALT 20 (7-52) U/L Alkaline Phosphatase 51 (34-104) U/L Troponin I 0.00 (<0.04) ng/mL Total Protein 7.4 (6.4-8.9) g/dL Albumin 4.5 (3.2-5.2) g/dL Globulin 2.9 (2-4) g/dL Albumin/Globulin Ratio 1.6 (1-3) Triglycerides 247 mg/dL Cholesterol 166 mg/dL LDL Cholesterol 73 mg/dL HDL Cholesterol 43.8 mg/dL 11/05/18 Range/Units 16:26 WBC (3.5-10.8) 10^3/uL RBC (3.70-4.87) 10^6 /uL Hgb (12.0-16.0) g/dL Hct (35-47) % MCV (80-97) fL MCH (27-31) pg MCHC (31-36) g/dL RDW (10-15) % Plt Count (150-450) 10^3/uL MPV (7.4-10.4) fL Neut % (Auto) % Lymph % (Auto) % Guthrie % (Auto) % Eos % (Auto) % Baso % (Auto) % Absolute Neuts (auto) (1.5-7.7) 10^3/ul Absolute Lymphs (auto) (1.0-4.8) 10^3/ul Absolute Monos (auto) (0-0.8) 10^3/ul Absolute Eos (auto) (0-0.6) 10^3/ul Absolute Basos (auto) (0-0.2) 10^3/ul Absolute Nucleated RBC 10^3/ul Nucleated RBC % INR (Anticoag Therapy) (0.82-1.09) APTT (26.0-38.0) seconds Sodium (135-145) mmol/L Potassium (3.5-5.0) mmol/L Chloride (101-111) mmol/L Carbon Dioxide (22-32) mmol/L Anion Gap (2-11) mmol/L BUN (6-24) mg/dL Creatinine (0.51-0.95) mg/dL Est GFR ( Amer) (>60) Est GFR (Non-Af Amer) (>60) BUN/Creatinine Ratio (8-20) Glucose (70-100) mg/dL Lactic Acid 1.5 (0.5-2.0) mmol/L Calcium (8.6-10.3) mg/dL Total Bilirubin (0.2-1.0) mg/dL AST (13-39) U/L ALT (7-52) U/L Alkaline Phosphatase (34-104) U/L Troponin I (<0.04) ng/mL Total Protein (6.4-8.9) g/dL Albumin (3.2-5.2) g/dL Globulin (2-4) g/dL Albumin/Globulin Ratio (1-3) Triglycerides mg/dL Cholesterol mg/dL LDL Cholesterol mg/dL HDL Cholesterol mg/dL Result Diagrams: 11/05/18 16:26 11/05/18 16:26 Lab Statement: Any lab studies that have been ordered have been reviewed, and results considered in the medical decision making process. - CT Brain CT CT Interpretation Completed By: Radiologist Summary of CT Findings: No intracranial mass or hemorrhage is noted. ED physician has reviewed this report. - EKG 1602 Cardiac Rate: Tachycardia - 109bpm EKG Rhythm: Sinus Tachycardia ST Segment: Normal Ectopy: None Summary of EKG Findings: An EKG at 1602 reveals sinus tachycardia at 109bpm, nml axis, nml intervals. No STEMI. No acute changes. Headache Course/Dx - Course Course Of Treatment: Pt is a 73 y/o F presenting to the ED with a chief complaint of a headache. She has hx of ocular migraine headaches, and she was recently hospitalized for the headache, accompanied by visual changes and weakness. Currently, she reports feeling shakey, unsteady on her feet, with accompanying blocks in her vision, and headache. She denies CP, SOB, or dizziness. Brain CT. No intracranial mass or hemorrhage is noted. An EKG at 1602 reveals sinus tachycardia at 109bpm, nml axis, nml intervals. No STEMI. No acute changes. Pts hematology shows MCV of 98, and MCH of 33. Pts chemistry shows Potassium of 3.4, and Creatinine of 1.16. The pt's physical exam is normal. There are no neurological deficits to be noted. I spoke with Dr. Caal at 1946 about the pt's present condition. He states that when she called the office, she was describing what he thought may have been a TIA, but he was not entirely sure, so he recommended the ED for a workup. He states it may be a complex migraine, and that the CT without contrast is enough to be done in the ED, given the prior hx of MRI and Head CTAs. He does not recommend any other imaging. He recommended 125mg IV Solumedrol, and to send her home with that medication. I will be giving the pt 60mg PO Prednisone. Pt will be sent home with dx of headache. She is stable and agreeable with this plan. - Diagnoses Provider Diagnoses: Headache Discharge - Sign-Out/Discharge Documenting (check all that apply): Patient Departure Patient Received Moderate/Deep Sedation with Procedure: No - Discharge Plan Condition: Good Disposition: HOME Prescriptions: methylPREDNISolone [Medrol] 10 mg PO DAILY 7 Days #23 methylPREDNISolone [Medrol] 10 mg PO DAILY 7 Days #23 tab Patient Education Materials: Methylprednisolone (By mouth), Acute Headache (ED) Referrals: Milo Caal MD [Medical Doctor] - Barbara Jacinto MD [Primary Care Provider] - - Billing Disposition and Condition Condition: GOOD Disposition: Home - Attestation Statements Document Initiated by Scribe: Yes Documenting Scribe: Mirna Julio Provider For Whom Gumaro is Documenting (Include Credential): Sb Rodriguez MD. Scribe Attestation: Mirna Park, scribed for Sb Rodriguez MD. on 11/06/18 at 0619. Scribe Documentation Reviewed: Yes Provider Attestation: The documentation as recorded by the scribe, Mirna Julio accurately reflects the service I personally performed and the decisions made by me, Sb Rodriguez MD. Status of Scribe Document: Viewed Consult Consult: I spoke with Dr. Caal at 1946 about the pt's present condition. He states that when she called the office, she was describing what he thought may have been a TIA, but he was not entirely sure, so he recommended the ED for a workup. He states it may be a complex migraine, and that the CT without contrast is enough to be done in the ED, given the prior hx of MRI and Head CTAs. He does not recommend any other imaging. He recommended 125mg IV Solumedrol, and to send her home with that medication.
[2018-11-05 20:15] VITALS: BP 130/98
[2018-11-05] MEDS ORDERED: predniSONE TAB* 20 MG ONE (20:40)
== END 2018-11-05 20:14 | disposition home or self-care (01) ==
LOC: ED 15:27
DX: R51 Headache (principal); I10 Essential (primary) hypertension; Z88.1 Allergy status to other antibiotic agents; Z88.2 Allergy status to sulfonamides; Z88.8 Allergy status to other drugs, medicaments and biological substances
CPT/HCPCS: 36415; 70450; 80053; 80061; 83605; 84484; 85025; 85610; 85730; 93005; 99283; J7512

== ENCOUNTER 2019-04-06 11:04 | Observation (INO) | payer MEDICARE ==
[2019-04-06 11:37] LABS: ABS Eosinophils 0.1 10^3/ul (0-0.6); ABS Lymphocytes 2.3 10^3/ul (1.0-4.8); ABS Monocytes 0.3 10^3/ul (0-0.8); ABS Neutrophils 3.6 10^3/ul (1.5-7.7); Eosinophil % 2.1 %; Hematocrit 37 % (35-47); Hemoglobin 12.6 g/dL (12.0-16.0); Lymphocyte % 35.8 %; Mean Corpuscular HGB Conc 34 g/dL (31-36); Mean Corpuscular Hemoglobin 32 pg (27-31); Mean Corpuscular Volume 95 fL (80-97); Mean Platelet Volume 8.9 fL (7.4-10.4); Platelet Count 215 10^3/uL (150-450); Red Blood Count 3.95 10^6 /uL (3.70-4.87); Red Cell Distribution Width 16 % (10-15); White Blood Count 6.3 10^3/uL (3.5-10.8)
[2019-04-06 11:38] LABS: INR 0.95 (0.82-1.09)
--- OUTSIDE RECORDS SUMMARY | 2019-04-06 12:06 | XMS REPORT | Continuity of Care Document ---
:1945 External Reference #:[id number] Author Name Aldo Conroy M.D. (transmitted by agent of provider Hannah Larry) Address [address] [facility] [address] [place] [address] Care Team Providers Name Role Phone Barbara Castro MD - Internal Care Team Information Emr Analyst Medicine Aldo Conroy MD FAC - Care Team Information Emr Analyst [phone] Cardiovascular Disease Problems Active Problems Provider Date Sciatica Omkar [...] with no listings for parenteral iron at [facility]; [facility] consult 04/13/17 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out aura, not refractory Luis Felipe Caal M.D. Onset: 2018 Muscle weakness Luis Felipe Caal M.D. Onset: 02/05/2019 Low back pain Luis Felipe Caal M.D. Onset: 02/05/2019 History of cerebrovascular accident without Luis Felipe Caal M.D. Onset: 02/2019 residual deficits Social History Type Date Description Comments Sex Unknown ETOH Use Denies alcohol use Tobacco Use Start: Unknown Patient has never smoked Recreational Drug Use Denies Drug Use Smoking Status Reviewed: 04/01/19 Patient has never smoked Exercise Type/Frequency Exercises sporadically Exercise Type/Frequency physical therapy Allergies, Adverse Reactions, Alerts Active Allergies Reaction [...] Medications SIG Qnty Indications Ordering Date Provider Lasix 1 by mouth 30tabs Qutaybjayleen S. 04/01/2019 20mg Tablets every day David Conroy Buspirone HCL take 1 tab Unknown 03/01/2019 30mg Tablets twice a day Benazepril HCL one by mouth 60tabs Qutaybeh S. 05/21/2018 20mg Tablets daily David Conroy Proair Digihaler as needed Unknown 108mcg/Act Aerosol Mirtazapine 1 every Unknown 7.5mg Tablets evening as needed for sleep Vitamin B-2 1 tab by mouth Unknown 100mg Tablets once day Adult Aspirin Regimen one daily Other Ordering 81mg Provider Tablets Carafate Take 10ML (2 Unknown 1GM/10ML Suspension [...] Unknown 50mcg/Act nostril qd.prn Suspension Gabapentin 2 tablets at 150caps Iron 300mg Capsules bedtime Antoine Varela.José Miguel Flector apply 1 patch Unknown 1.3% Patches [...] 1 tab per week Unknown 5000Unita Tablets Medications Administered in Office Medication SIG Qnty Indications Ordering Provider Date Depomedrol 40MG Michelle Arenas M.D. 03/05/2019 Injection Depomedrol 40MG Michelle Arenas M.D. 03/05/2019 Injection Depomedrol 40MG Michelle Arenas M.D. 07/20/2018 Injection Depomedrol 40MG Michelle Arenas M.D. 07/20/2018 Injection Triamcinolone (Kenalog) Miguel Brown MD 11/25/2017 Injection Triamcinolone (Kenalog) Miguel Brown MD 11/25/2017 Injection Triamcinolone (Kenalog) Miguel Brown MD 10/10/2017 Injection Triamcinolone (Kenalog) Miguel Brown MD 10/10/2017 Injection Triamcinolone (Kenalog) Miguel Brown MD 08/28/2017 Injection Triamcinolone (Kenalog) Miguel Brown MD 08/28/2017 Injection Immunizations Description No Information Available Vital Signs Date Vital Result Comment 04/01/2019 3:33pm Height 62.5 inches 5'2.50" Weight 209.12 lb with shoes Heart Rate 104 /min BP Systolic Sitting 126 mmHg Lue (Large cuff) BP Diastolic Sitting 88 mmHg Lue (Large cuff) BP Systolic Standing 126 mmHg BP Diastolic Standing 84 mmHg BMI (Body Mass Index) 37.6 kg/m2 Ejection Fraction 60%-65% echocardiogram 10/12/18 03/05/2019 1:00pm Height 62.5 inches 5'2.50" Weight 205.00 lb Heart Rate 91 /min BP Systolic 122 mmHg BP Diastolic 74 mmHg Respiratory Rate 18 /min Pain Level 3 BMI (Body Mass Index) 36.9 kg/m2 Results Description No Information Available Procedures Date Code Description Status 04/01/2019 18196 EKG Tracing & Interpretation Completed 03/05/2019 70055 Injection Single Tendon Origin/Insertion Completed 03/02/2019 66803 EKG Tracing & Interpretation Completed 11/06/2018 82313 Event Monitor/Phys Review/Interp. Completed 10/12/2018 85184 ECHO Transthorasic Realtime 2D W Doppler & Color Flow Completed Hosp 09/15/2018 [id number] Mammogram Completed 06/25/2017 [id number] Mammogram Completed 03/15/2016 [id number] Mammogram Completed 08/17/2015 [id number] Colonoscopy Completed 03/15/2010 [id number] Colonoscopy Completed Medical Devices Description No Information Available Encounters Type Date Location Provider Dx Diagnosis Office Visit 03/02/2019 [facility] Qutaybeh S. I10 Essential ( primary) 9:30a David Conroy hypertension I47.1 Supraventricular tachycardia R00.2 Palpitations E66.9 Obesity, unspecified R94.31 Abnormal electrocardiogram [ECG] [EKG] Office Visit 02/05/2019 [facility] Luis Felipe G43.009 Migraine w/o 11:45a Neurologic David Caal aura, not [facility] intractable, w/o status migrainosus M62.81 Muscle weakness (generalized) M54.5 Low back pain R00.2 Palpitations Z86.73 Prsnl hx of TIA (TIA), and cereb infrc w/o resid deficits Office Visit 01/01/2019 8:45a [facility] Michelle Arenas, M25.551 Pain in right at [place] M.D. hip M25.552 Pain in left hip W19.xxxD Unspecified fall, subsequent encounter M16.11 Unilateral primary osteoarthritis, right hip M16.12 Unilateral primary osteoarthritis, left hip Office Visit 12/25/2018 9:45a [facility] Luann Maxwell, M25.551 Pain in at [place] PA-C right hip M25.552 Pain in left hip M25.511 Pain in right shoulder M25.512 Pain in left shoulder W19.xxxA Unspecified fall, initial encounter Office Visit 12/07/2018 3:00p [facility] Iron Varela M79.7 Fibromyalgia [facility] N.P. G43.009 Migraine w/o aura, not intractable, w/o status migrainosus M62.81 Muscle weakness (generalized) M54.5 Low back pain Office Visit 11/06/2018 [facility] Iron MBrady.7 Fibromyalgia 10:30a [facility] Avery N.José Miguel G43.009 Migraine w/o aura, not intractable, w/o status migrainosus R00.2 Palpitations M79.604 Pain in right leg M62.81 Muscle weakness (generalized) Office Visit 10/26/2018 11:00a [facility] Iron Varela M79.7 Fibromyalgia [facility] N.P. G43.009 Migraine w/o aura, not intractable, w/o status migrainosus R00.2 Palpitations Office Visit 10/15/2018 [facility] Chay Colin D50.9 Iron deficiency 11:00a MD Farhan anemia, unspecified K21.9 Gastro-esophageal reflux disease without esophagitis Z79.899 Other inspector electromechanical (current) drug therapy E66.9 Obesity, unspecified R19.7 Diarrhea, unspecified K59.00 Constipation, unspecified R51 Headache M79.7 Fibromyalgia K27.7 Chronic peptic ulcer, site unsp, w/o hemorrhage or perf Office 10/13/2018 [facility]b G43.109 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 Visit 7:00a Clinic MD Antonella aura, not intractable, w/o status migrainosus Q21.1 Atrial septal defect Office Visit 10/13/2018 [facility] Gavi Dominguez, G43.101 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 8:50a Assoc,pc VIOLIN RESTORER aura, not Hospitalists intractable, with status migrainosus I10 Essential (primary) hypertension Q21.1 Atrial septal defect Office 10/12/2018 [facility] Kelechi Alegria G43.109 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 Visit 7:00a Jimbo Mcdonald M.D. aura, not intractable, w/o status migrainosus Office 10/12/2018 [facility] H53.40 Unspecified Visit 8:50a Assoc, Hospitalists MD Maik visual field defects I10 Essential (primary) hypertension G47.00 Insomnia, unspecified Assessments Date Code Description Provider 04/01/2019 E66.9 Obesity, unspecified Aldo Conroy M.D. 04/01/2019 R00.2 Palpitations Aldo Conroy M.D. 04/01/2019 R00.0 Tachycardia, unspecified Aldo Conroy M.D. 04/01/2019 R06.02 Shortness of breath Aldo Conroy M.D. 04/01/2019 R07.9 Chest pain, unspecified Aldo Conroy M.D. 03/05/2019 M25.552 Pain in left hip Michelle Arenas M.D. 03/05/2019 M25.551 Pain in right hip Michelle Arenas M.D. 03/05/2019 M70.61 Trochanteric bursitis, right hip Michelle Arenas M.D. 03/05/2019 M70.62 Trochanteric bursitis, left hip Michelle Arenas M.D. 03/02/2019 I10 Essential (primary) hypertension Aldo Conroy M.D. 03/02/2019 I47.1 Supraventricular tachycardia Aldo Conroy M.D. 03/02/2019 R00.2 Palpitations Aldo Conroy M.D. 03/02/2019 E66.9 Obesity, unspecified Aldo Conroy M.D. 03/02/2019 R94.31 Abnormal electrocardiogram [ECG] Aldo Conroy M.D. [EKG] 02/05/2019 G43.009 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out aura, not Luis Felipe Caal M.D. intractable, without status migra 02/05/2019 M62.81 Muscle weakness (generalized) Luis Felipe Caal M.D. 02/05/2019 M54.5 Low back pain Luis Felipe Caal M.D. 02/05/2019 R00.2 Palpitations Luis Felipe aCal M.D. 02/05/2019 Z86.73 Personal history of transient Luis Felipe Caal M.D. ischemic attack (TIA), and cerebral infarction without residual deficits 01/01/2019 M25.551 Pain in right hip Michelle Arenas M.D. 01/01/2019 M25.552 Pain in left hip Michelle Arenas M.D. 01/01/2019 W19.xxxD Unspecified fall, subsequent Michelle Arenas M.D. encounter 01/01/2019 M16.11 Unilateral primary osteoarthritis, Michelle Arenas M.D. right hip 01/01/2019 M16.12 Unilateral primary osteoarthritis, Michelle Arenas M.D. left hip 12/25/2018 M25.551 Pain in right hip Luann Drumyudithler, PA-C 12/25/2018 M25.552 Pain in left hip Luann Drumyudithler, PA-C 12/25/2018 M25.511 Pain in right shoulder Luann Drumyudithler, PA-C 12/25/2018 M25.512 Pain in left shoulder Luann Drumyudithler, PA-C 12/25/2018 W19.xxxA Unspecified fall, initial encounter Luann Maxwell PA-C 12/07/2018 M79.7 Fibromyalgia Iron Varela, N.P. 12/07/2018 G43.009 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out aura, not Iron Varela, N.P. intractable, without status migra 12/07/2018 M62.81 Muscle weakness (generalized) Iron Varela, N.P. 12/07/2018 M54.5 Low back pain Iron Varela, N.P. 11/06/2018 R00.2 Palpitations Aldo Conroy M.D. 11/06/2018 M79.7 Fibromyalgia Iron Varela, N.P. 11/06/2018 G43.009 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out aura, not Iron Varela, N.P. intractable, without status migra 11/06/2018 R00.2 Palpitations Iron Varela, N.P. 11/06/2018 M79.604 Pain in right leg Iron Varela, N.P. 11/06/2018 M62.81 Muscle weakness (generalized) Ironbrendan Varela, N.P. 10/26/2018 M79.7 Fibromyalgia Iron Varela, N.P. 10/26/2018 G43.009 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out aura, not Iron Varela, N.P. intractable, without status migra 10/26/2018 R00.2 Palpitations Iron Varela, N.P. 10/15/2018 D50.9 Iron deficiency anemia, unspecified Chay Real MD 10/15/2018 K21.9 Gastro-esophageal reflux disease Chay Real MD without esophagitis 10/15/2018 Z79.899 Other inspector electromechanical (current) drug Chay Real MD therapy 10/15/2018 E66.9 Obesity, unspecified Chay Real MD 10/15/2018 R19.7 Diarrhea, unspecified Chay Real MD 10/15/2018 K59.00 Constipation, unspecified Chay Real MD 10/15/2018 R51 Headache Chay Real MD 10/15/2018 M79.7 Fibromyalgia Chay Real MD 10/15/2018 K27.7 Chronic peptic ulcer, site Chay Real MD unspecified, without hemorrhage o 10/13/2018 G43.109 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 aura, not intractable, Sb Berman MD without status migrainosus 10/13/2018 G43.101 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 aura, not intractable, Gavi Angelica, VIOLIN RESTORER with status migrainosus 10/13/2018 Q21.1 Atrial septal defect Sb Berman MD 10/13/2018 I10 Essential (primary) hypertension Gavi Angelica, VIOLIN RESTORER 10/13/2018 Q21.1 Atrial septal defect Gavi Angelica, VIOLIN RESTORER 10/12/2018 G43.109 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 aura, not intractable, Kelechi Mcdonald M.D. without status migrainosus 10/12/2018 H53.40 Unspecified visual field defects Karolyn Pleitez MD 10/12/2018 I63.9 Cerebral infarction, unspecified Anton Taylor M.D. 10/12/2018 I10 Essential (primary) hypertension Karolyn Pleitez MD 10/12/2018 G47.00 Insomnia, unspecified Karolyn Pleitez MD Plan of Treatment Future Appointment(s):06/08/2019 10:00 am - Aldo Conroy M.D. at [facility]05/05/2019 11:30 am - Aldo Conroy M.D. at [facility]04/09/2019 9:00 am - Traveling ECHO 1 at [facility]2019 1:00 pm - Michelle Arenas M.D. at [facility] at [facility]/10/2019 4: 00 pm - Iron Varela N.P. at [facility]04/01/2019 - Aldo Conroy M.D.E66.9 Obesity, unspecifiedNew Labs:Basic Metabolic Panel, Ordered: 04/01/19R00.2 PxapgrbnudpaE88.0 Tachycardia, unspecifiedNew Orders:[facility], Ordered: 04/01/19R06.02 Shortness of breathNew Orders:Echocardiogram, Scheduled: 04/09/19Follow up:ov 2019 or 06/2019 to discuss all stqkgB12.9 Chest pain, unspecifiedNew Orders: Stress Test, Pharmacologic Nuclear (Lexiscan), Scheduled: 05/05/19 Functional Status Description No Information Available Mental Status Description No Information Available Referrals Refer to Dr Reason for Referral Status Appt Date Gunnar Wooten MD Sent [address] [place] [address] [phone] Aldo Conroy MD [facility] Sent [address] [facility] [address] [place] [address] [phone]
--- OUTSIDE RECORDS SUMMARY | 2019-04-06 12:07 | XMS REPORT | Continuity of Care Document ---
:1945 External Reference #:[id number] Author Name Michelle Arenas M.D. (transmitted by agent of provider Teresita Moreno) Address [address] [place] [id number] Care Team Providers Name Role Phone Barbara Castro MD - Internal Care Team Information Gold Leaf Printer Medicine Aldo Conroy MD [facility] - Care Team Information Gold Leaf Printer [phone] Cardiovascular Disease Problems Active Problems Provider Date [...] with no listings for parenteral iron at [facility]; [facility] consult 04/13/17 History of cerebrovascular accident without Luis Felipe Caal M.D. Onset: 02/2019 residual deficits Low back pain Luis Felipe Caal M.D. Onset: 02/05/2019 Muscle weakness Luis Felipe Caal M.D. Onset: 02/05/2019 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out aura, not refractory Luis Felipe Caal M.D. Onset: 2018 Social History Type Date Description Comments Sex Unknown ETOH Use Currently consumes alcohol Tobacco Use Start: Unknown Patient has never smoked Recreational Drug Use Denies Drug Use Smoking Status Reviewed: 03/05/19 Patient has never smoked Exercise Type/Frequency Exercises [...] Medications SIG Qnty Indications Ordering Date Provider Buspirone HCL take 1 tab Unknown 03/01/2019 30mg Tablets twice a day Benazepril HCL one by mouth 60tabs Qutaybeh S. 05/21/2018 20mg Tablets daily David Conroy Mirtazapine 1 every Unknown 7.5mg Tablets evening as needed for sleep Vitamin B-2 1 tab by mouth Unknown 100mg Tablets twice a day Adult Aspirin Regimen one daily Other Ordering 81mg Provider Tablets Carafate Take 10ML (2 Unknown 1GM/10ML Suspension Teaspoonfuls) By Mouth Up To 4 Times Daily, Take 1/2 Hour Prior To Eating For Stomach Pain Hydrochlorothiazide Take 1 Tablet Unknown 25mg Tablets By Mouth Every Morning Pantoprazole Sodium 1 daily Unknown 40mg Tablets Diclofenac Sodium apply 1 grams Unknown 1% Gel as needed at hs Iron (Ferrous Gluconate) 1 by mouth Unknown 65mg twice a week Tablets Fluticasone Propionate 2 sprays each Unknown 50mcg/Act nostril qd.prn Suspension Gabapentin 2 tablets in 150caps Iron 300mg Capsules evening 2 Varela, N.P. tablets at bedtime Flector apply 1 patch Unknown 1.3% Patches [...] Available Vital Signs Date Vital Result Comment 03/05/2019 1:00pm Height 62.5 inches 5'2.50" Weight 205.00 lb Heart Rate 91 /min BP Systolic 122 mmHg BP Diastolic 74 mmHg Respiratory Rate 18 /min Pain Level 3 BMI (Body Mass Index) 36.9 kg/m2 03/02/2019 9:21am Height 62.5 inches 5'2.50" Weight 206.00 lb with shoes Heart Rate 104 /min left radial BP Systolic Sitting 118 mmHg ule reg cuff BP Diastolic Sitting 62 mmHg ule reg cuff BP Systolic Standing 118 mmHg ule reg cuff BP Diastolic Standing 62 mmHg ule reg cuff BMI (Body Mass Index) 37.1 kg/m2 Ejection Fraction 60%-65% echo 10/12/18 Results Description No Information Available Procedures Date Code Description Status 03/05/2019 Inject/Drain Joint/Bursa Major W/O US Completed 03/05/2019 Inject/Drain Joint/Bursa Major W/O US Completed 03/02/2019 49832 EKG Tracing & Interpretation Completed 11/06/2018 43876 Event Monitor/Phys Review/Interp. Completed 10/12/2018 78922 ECHO Transthorasic Realtime 2D W Doppler & Color Flow Completed Hosp 09/15/2018 [id number] Mammogram Completed 06/25/2017 [id number] Mammogram Completed 03/15/2016 [id number] Mammogram Completed 08/17/2015 [id number] Colonoscopy Completed 03/15/2010 [id number] Colonoscopy Completed Medical Devices Description No Information Available Encounters Type Date Location Provider Dx Diagnosis Office Visit 02/05/2019 [facility] Luis Felipe Caal, G43.009 Migraine w/o aura, 11:45a [facility] David not intractable, w/o status migrainosus M62.81 Muscle weakness (generalized) M54.5 Low back pain R00.2 Palpitations Z86.73 Prsnl hx of TIA (TIA), and cereb infrc w/o resid deficits Office Visit 01/01/2019 8:45a [facility] Michelle Arenas, M25.551 Pain in right at [place] M.D. hip M25.552 Pain in left hip W19.xxxD Unspecified fall, subsequent encounter M16.11 Unilateral primary osteoarthritis, right hip M16.12 Unilateral primary osteoarthritis, left hip Office Visit 12/25/2018 9:45a [facility] Luann Maxwell, M25.551 Pain in at [place] PA-C right hip M25.552 Pain in left hip M25.511 Pain in right shoulder M25.512 Pain in left shoulder W19.xxxA Unspecified fall, initial encounter Office Visit 12/07/2018 3:00p [facility] Iron Varela, M79.7 Fibromyalgia [facility] N.PJimmy G43.009 Migraine w/o aura, not intractable, w/o status migrainosus M62.81 Muscle weakness (generalized) M54.5 Low back pain Office Visit 11/06/2018 [facility] Iron M79.7 Fibromyalgia 10:30a Clinic Avery N.P. G43.009 Migraine w/o aura, not intractable, w/o status migrainosus R00.2 Palpitations M79.604 Pain in right leg M62.81 Muscle weakness (generalized) Office Visit 10/26/2018 11:00a [facility] Iron Varela M79.7 Fibromyalgia [facility] N.P. G43.009 Migraine w/o aura, not intractable, w/o status migrainosus R00.2 Palpitations Office Visit 10/15/2018 [facility] Chay Colin D50.9 Iron deficiency 11:00a MD Farhan anemia, unspecified K21.9 Gastro-esophageal reflux disease without esophagitis Z79.899 Other halfway (current) drug therapy E66.9 Obesity, unspecified R19.7 Diarrhea, unspecified K59.00 Constipation, unspecified R51 Headache M79.7 Fibromyalgia K27.7 Chronic peptic ulcer, site unsp, w/o hemorrhage or perf Office 10/13/2018 [facility] G43.109 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 Visit 7:00a Clinic MD Antonella aura, not intractable, w/o status migrainosus Q21.1 Atrial septal defect Office Visit 10/13/2018 [facility] Gavi Dominguez, G43.101 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 8:50a Assocpc SUPERVISOR SANDBLASTER aura, not Hospitalists intractable, with status migrainosus I10 Essential (primary) hypertension Q21.1 Atrial septal defect Office 10/12/2018 [facility] Kelechi Alegria G43.109 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 Visit 7:00a Clinic David Mcdonald aura, not intractable, w/o status migrainosus Office 10/12/2018 [facility] Karolyn H53.40 Unspecified Visit 8:50a Assoc,pc Hospitalists MD Maik visual field defects I10 Essential (primary) hypertension G47.00 Insomnia, unspecified Office Visit 09/17/2018 1:00p Surgical Christy Angel N64.59 Other signs and [facility] MD Johnathon symptoms in breast Assessments Date Code Description Provider 03/05/2019 M25.552 Pain in left hip Michelle [...] 03/02/2019 E66.9 Obesity, unspecified Aldo Conroy M.D. 02/05/2019 G43.009 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out aura, not Luis Felipe Caal M.D. intractable, without status migra 02/05/2019 M62.81 Muscle weakness (generalized) Luis Felipe Caal M.D. 02/05/2019 M54.5 Low back pain Luis Felipe Caal M.D. 02/05/2019 R00.2 Palpitations Luis Felipe Caal M.D. 02/05/2019 Z86.73 Personal history of transient Luis Felipe Caal M.D. ischemic attack (TIA), and cerebral infarction without residual deficits 01/01/2019 M25.551 Pain in right hip Michelle Arenas M.D. 01/01/2019 M25.552 Pain in left hip Michelle Arenas M.D. 01/01/2019 W19.xxxD Unspecified fall, subsequent Michelle Arenas M.D. encounter 01/01/2019 M16.11 Unilateral primary osteoarthritisMichelle M.D. right hip 01/01/2019 M16.12 Unilateral primary osteoarthritisMichelle M.D. left hip 12/25/2018 M25.551 Pain in right hip Luann Maxwell PA-C 12/25/2018 M25.552 Pain in left hip Luann Maxwell PA-C 12/25/2018 M25.511 Pain in right shoulder Luann Maxwell PA-C 12/25/2018 M25.512 Pain in left shoulder Luann Maxwell PA-C 12/25/2018 W19.xxxA Unspecified fall, initial encounter Luann NGUYEN Maxwell 12/07/2018 M79.7 Fibromyalgia Iron Varela, N.P. 12/07/2018 [...] Varela, N.P. 11/06/2018 M62.81 Muscle weakness (generalized) Iron Varela, N.P. 10/26/2018 M79.7 Fibromyalgia Iron Varela, N.P. 10/26/2018 G43.009 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out aura, not Iron Varela, N.P. intractable, without status migra 10/26/2018 R00.2 Palpitations Iron Varela, N.P. 10/15/2018 D50.9 Iron deficiency anemia, unspecified Chay Real MD 10/15/2018 K21.9 Gastro-esophageal reflux disease Chay Real MD without esophagitis 10/15/2018 Z79.899 Other intermediate designer (current) drug Chay Real MD therapy 10/15/2018 [...] 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 aura, not intractable, Gavi Angelica, SUPERVISOR SANDBLASTER with status migrainosus 10/13/2018 Q21.1 Atrial septal defect Sb Berman MD 10/13/2018 I10 Essential (primary) hypertension Gavi Angelica, SUPERVISOR SANDBLASTER 10/13/2018 Q21.1 Atrial septal defect Gavi Angelica, SUPERVISOR SANDBLASTER 10/12/2018 G43.109 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 aura, not intractable, Kelechi Mcdonald M.D. without status migrainosus 10/12/2018 H53.40 Unspecified visual field defects Karolyn Pleitez MD 10/12/2018 I63.9 Cerebral infarction, unspecified Anton Taylor M.D. 10/12/2018 I10 Essential (primary) hypertension Karolyn Pleitez MD 10/12/2018 G47.00 Insomnia, unspecified Karolyn Pleitez MD 09/17/2018 N64.59 Other signs and symptoms in breast Christy Angel Diego MD Plan of Treatment Future Appointment(s):2019 1:00 pm - Michelle Arenas M.D. at [facility]05/10/2019 4:00 pm - Iron Varela N.P. at [facility]03/05/2019 - Michelle Arenas M.D.M25.552 Pain in left hipFollow up:Follow up: 3 mqkfmpU48.551 Pain in right hipM70.61 Trochanteric bursitis, right hipM70.62 Trochanteric bursitis, left hip Functional Status Description No Information Available Mental Status Description No Information Available Referrals Refer to Dr Reason for Referral Status Appt Date Gunnar Wooten MD Sent [address] [place] [address] [phone] Aldo Conroy MD [facility] [address] [facility] [address] [place] [address] [phone]
--- OUTSIDE RECORDS SUMMARY | 2019-04-06 12:07 | XMS REPORT | Continuity of Care Document ---
:1945 External Reference #:[id number] Author Name Carlin Marcus Care Team Providers Name Role Phone Barbara Castro MD - Internal Care Team Information Laboratory Geneticist Medicine Aldo Conroy MD FAC - Care Team Information Laboratory Geneticist [phone] Cardiovascular Disease Problems Active Problems Provider Date [...] with no listings for parenteral iron at [facility]; [facility] consult 04/13/17 History of cerebrovascular accident [...] Use Denies Drug Use Smoking Status Reviewed: 02/05/19 Patient has never smoked Exercise Type/Frequency Exercises [...] Provider Benazepril HCL one by mouth 60tabs Aldo S. 05/21/2018 20mg Tablets daily David Conroy Mirtazapine 1 every in the Unknown 7.5mg Tablets morning Vitamin B-2 1 tab by mouth Unknown [...] Brown MD 11/25/2017 Injection Triamcinolone (Kenalog) Miguel rBown MD 11/25/2017 Injection Triamcinolone (Kenalog) Miguel Brown MD 10/10/2017 Injection Triamcinolone (Kenalog) Miguel Brown MD 10/10/2017 Injection Triamcinolone (Kenalog) Miguel Brown MD 08/28/2017 Injection Triamcinolone (Kenalog) Miguel Brown MD 08/28/2017 Injection Immunizations Description No Information Available Vital Signs Date Vital Result Comment 02/05/2019 11:23am Height 65 inches 5'5" Weight 199.00 lb Heart Rate 112 /min BP Systolic 119 mmHg BP Diastolic 88 mmHg BMI (Body Mass Index) 33.1 kg/m2 01/01/2019 8:29am Height 65 inches 5'5" Weight 200.00 lb Heart Rate 86 /min BP Systolic 128 mmHg BP Diastolic 80 mmHg Respiratory Rate 14 /min Pain Level 7 BMI (Body Mass Index) 33.3 kg/m2 Results Description No Information Available Procedures Date Code Description Status 11/06/2018 86827 Event Monitor/Phys Review/Interp. Completed 10/12/2018 88181 ECHO Transthorasic Realtime 2D W Doppler & Color Flow Completed Hosp 09/15/2018 [id number] Mammogram Completed 06/25/2017 [id number] Mammogram Completed 03/15/2016 [id number] Mammogram Completed 08/17/2015 [id number] Colonoscopy Completed 03/15/2010 [id number] Colonoscopy Completed Medical Devices Description No Information Available Encounters Type Date Location Provider Dx Diagnosis Office Visit 02/05/2019 [facility] aSmuelandre , G43.009 Migraine w/o aura, 11:45a [facility] M.D. not intractable, w/o status migrainosus M62.81 Muscle weakness (generalized) M54.5 Low back pain R00.2 Palpitations Z86.73 Prsnl hx of TIA (TIA), and cereb infrc w/o resid deficits Office Visit 01/01/2019 8:45a [facility] Michelle Arenas, M25.551 Pain in right at [place] M.D. hip M25.552 Pain in left hip W19.xxxD Unspecified fall, subsequent encounter M16.11 Unilateral primary osteoarthritis, right hip M16.12 Unilateral primary osteoarthritis, left hip Office Visit 12/25/2018 9:45a [facility] Luann Maxwell, M25.551 Pain in at [place] PA-C right hip M25.552 Pain in left hip M25.511 Pain in right shoulder M25.512 Pain in left shoulder W19.xxxA Unspecified fall, initial encounter Office Visit 12/07/2018 3:00p [facility] Altaf Monterroso Fibromyalgia [facility] N.PJimmy G43.009 Migraine w/o aura, not intractable, w/o status migrainosus M62.81 Muscle weakness (generalized) M54.5 Low back pain Office Visit 11/06/2018 [facility] Iron Solitario Fibromyalgia 10:30a [facility] Avery N.PJimmy G43.009 Migraine w/o aura, not intractable, w/o status migrainosus R00.2 Palpitations M79.604 Pain in right leg M62.81 Muscle weakness (generalized) Office Visit 10/26/2018 11:00a [facility] Altaf Monterroso Fibromyalgia [facility] N.PiJmmy G43.009 Migraine w/o aura, not intractable, w/o status migrainosus R00.2 Palpitations Office Visit 10/15/2018 [facility] Chay Colin D50.9 Iron deficiency 11:00a MD Farhan anemia, unspecified K21.9 Gastro-esophageal reflux disease without esophagitis Z79.899 Other fdc (current) drug therapy E66.9 Obesity, unspecified R19.7 Diarrhea, unspecified K59.00 Constipation, unspecified R51 Headache M79.7 Fibromyalgia K27.7 Chronic peptic ulcer, site unsp, w/o hemorrhage or perf Office 10/13/2018 [facility] G43.109 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 Visit 7:00a Clinic MD Antonella aura, not intractable, w/o status migrainosus Q21.1 Atrial septal defect Office Visit 10/13/2018 [facility] Gavi Angelica, G43.101 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 8:50a Assoc,pc [employer] aura, not Hospitalists intractable, with status migrainosus I10 Essential (primary) hypertension Q21.1 Atrial septal defect Office 10/12/2018 [facility] Kelechi Alegria G43.109 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 Visit 7:00a Clinic David Mcdonald aura, not intractable, w/o status migrainosus Office 10/12/2018 [facility] Karolyn H53.40 Unspecified Visit 8:50a Assoc,[facility] Hospitalists MD Maik visual field defects I10 Essential (primary) hypertension G47.00 Insomnia, unspecified Office Visit 09/17/2018 1:00p Surgical Christy Angel N64.59 Other signs and [facility] Diego MD symptoms in breast Assessments Date Code Description Provider 02/05/2019 G43.009 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out aura, not Luis [...] M.D. 01/01/2019 W19.xxxD Unspecified fall, subsequent Michelle Dagoberto, M.D. encounter 01/01/2019 M16.11 Unilateral primary osteoarthritis, Michelle Arenas M.D. right hip 01/01/2019 M16.12 Unilateral primary osteoarthritis, Michelle Arenas M.D. left hip 12/25/2018 M25.551 Pain in right hip Luann Maxwell, PA-C 12/25/2018 M25.552 Pain in left hip Luann Hans, PA-C 12/25/2018 M25.511 Pain in right shoulder Luann Maxwell, PA-C 12/25/2018 M25.512 Pain in left shoulder Luann Maxwell, PA-C 12/25/2018 W19.xxxA Unspecified fall, initial encounter Luann Maxwell, KIARA-C 12/07/2018 M79.7 Fibromyalgia Iron Varela, N.P. 12/07/2018 G43.009 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out aura, not Iron Varela, N.P. intractable, without status migra 12/07/2018 M62.81 Muscle weakness (generalized) Iron Varela, N.P. 12/07/2018 M54.5 Low back pain Iron Vraela, N.P. 11/06/2018 R00.2 Palpitations Aldo Conroy M.D. [...] Real MD without esophagitis 10/15/2018 Z79.899 Other fdc (current) drug Chay Real MD therapy 10/15/2018 [...] 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 aura, not intractable, Gavi Angelica, [employer] with status migrainosus 10/13/2018 Q21.1 Atrial septal defect Sb Berman MD 10/13/2018 I10 Essential (primary) hypertension Gavi Angelica, [employer] 10/13/2018 Q21.1 Atrial septal defect Gavi Angelica, [employer]ANT 10/12/2018 G43.109 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 aura, not intractable, Kelechi Mcdonald M.D. without status migrainosus 10/12/2018 H53.40 Unspecified visual field defects Karolyn Pleitez MD 10/12/2018 I63.9 Cerebral infarction, unspecified Anton Taylor M.D. 10/12/2018 I10 Essential (primary) hypertension Karolyn Pleitez MD 10/12/2018 G47.00 Insomnia, unspecified Karolyn Pleitez MD 09/17/2018 N64.59 Other signs and symptoms in breast Christy Diego MD Plan of Treatment Future Appointment(s):05/10/2019 4:00 pm - Iron Vareal N.P. at [facility]03/05/2019 1:00 pm - Michelle Arenas M.D. at [facility] at Xsucps2602/05/2019 - Luis Felipe Caal M.D.G43.009 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out aura, not intractable, without status migraFollow up:Follow up in 3 months with ZelalemM62.81 Muscle weakness (generalized)M54.5 Low back painR00.2 PebtcccrwfleS21.73 Personal history of transient ischemic attack (TIA), and cerebral infarction without residualdeficits Functional Status Description No Information Available Mental Status Description No Information Available Referrals Refer to Dr Reason for Referral Status Appt Date Gunnar Wooten MD Sent [address] [place], [place] [id number] [phone] Aldo Conroy MD [facility] Sent [address] [facility] [facility] [address] [place] [address] [phone]
--- OUTSIDE RECORDS SUMMARY | 2019-04-06 12:07 | XMS REPORT | Continuity of Care Document ---
:1945 External Reference #:[id number] Author Name Aldo Conroy M.D. (transmitted by agent of provider Hannah Larry) Address [address] [place] [address] Care Team Providers Name Role Phone Barbara Castro MD - Internal Care Team Information [place] [facility] Aldo Conroy MD FAC - Care Team Information [place] [facility] Cardiovascular Disease Problems Active Problems Provider Date [...] with no listings for parenteral iron at [facility]; [facility] consult 04/13/17 History of cerebrovascular accident [...] Use Denies Drug Use Smoking Status Reviewed: 03/02/19 Patient has never smoked Exercise Type/Frequency Exercises [...] Available Vital Signs Date Vital Result Comment 03/02/2019 9:21am Height 62.5 inches 5'2.50" Weight 206.00 lb with shoes Heart Rate 104 /min left radial BP Systolic Sitting 118 mmHg ule reg cuff BP Diastolic Sitting 62 mmHg ule reg cuff BP Systolic Standing 118 mmHg ule reg cuff BP Diastolic Standing 62 mmHg ule reg cuff BMI (Body Mass Index) 37.1 kg/m2 Ejection Fraction 60%-65% echo 10/12/18 02/05/2019 11:23am Height 65 inches 5'5" Weight 199.00 lb Heart Rate 112 /min BP Systolic 119 mmHg BP Diastolic 88 mmHg BMI (Body Mass Index) 33.1 kg/m2 Results Description No Information Available Procedures Date Code Description Status 03/02/2019 68695 EKG Tracing & Interpretation Completed 11/06/2018 21498 Event Monitor/Phys Review/Interp. Completed 10/12/2018 33191 ECHO Transthorasic Realtime 2D W Doppler & Color Flow Completed Hosp 09/15/2018 [id number] Mammogram Completed 06/25/2017 [id number] Mammogram Completed 03/15/2016 [id number] Mammogram Completed 08/17/2015 [id number] Colonoscopy Completed 03/15/2010 [id number] Colonoscopy Completed Medical Devices Description No Information Available Encounters Type Date Location Provider Dx Diagnosis Office Visit 02/05/2019 [facility] Luis Felipe Caal, G43.009 Migraine w/o aura, 11:45a [facility] M.DJimmy not intractable, w/o status migrainosus M62.81 Muscle weakness (generalized) M54.5 Low back pain R00.2 Palpitations Z86.73 Prsnl hx of TIA (TIA), and cereb infrc w/o resid deficits Office Visit 01/01/2019 8:45a [facility] Michelle Arenas, M25.551 Pain in right at [place] M.D. hip M25.552 Pain in left hip W19.xxxD Unspecified fall, subsequent encounter M16.11 Unilateral primary osteoarthritis, right hip M16.12 Unilateral primary osteoarthritis, left hip Office Visit 12/25/2018 9:45a [facility] Luann Maxwell, M25.551 Pain in at [place] PA-C right hip M25.552 Pain in left hip M25.511 Pain in right shoulder M25.512 Pain in left shoulder W19.xxxA Unspecified fall, initial encounter Office Visit 12/07/2018 3:00p [facility] Altaf Monterroso Fibromyalgia [facility] N.P. G43.009 Migraine w/o aura, not intractable, w/o status migrainosus M62.81 Muscle weakness (generalized) M54.5 Low back pain Office Visit 11/06/2018 [facility] Iron Solitario Fibromyalgia 10:30a [facility] Avery N.P. G43.009 Migraine w/o aura, not intractable, w/o status migrainosus R00.2 Palpitations M79.604 Pain in right leg M62.81 Muscle weakness (generalized) Office Visit 10/26/2018 11:00a [facility] Iron Varela, M79.7 Fibromyalgia [facility] N.P. G43.009 Migraine w/o aura, not intractable, w/o status migrainosus R00.2 Palpitations Office Visit 10/15/2018 [facility] Gastroenterology Chay Colin D50.9 Iron deficiency 11:00a MD Farhan anemia, unspecified K21.9 Gastro-esophageal reflux disease without esophagitis Z79.899 Other financial services consultant (current) drug therapy E66.9 Obesity, unspecified R19.7 Diarrhea, unspecified K59.00 Constipation, unspecified R51 Headache M79.7 Fibromyalgia K27.7 Chronic peptic ulcer, site unsp, w/o hemorrhage or perf Office 10/13/2018 [facility] Sb G43.109 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 Visit 7:00a Clinic MD Antonella aura, not intractable, w/o status migrainosus Q21.1 Atrial septal defect Office Visit 10/13/2018 [facility] Gavi Dominguez, G43.101 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 8: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 [employer]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, not Hospitalists intractable, with status migrainosus I10 Essential (primary) hypertension Q21.1 Atrial septal defect Office 10/12/2018 [facility] Kelechi Alegria G43.109 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 Visit 7:00a Clinic David Mcdonald aura, not intractable, w/o status migrainosus Office 10/12/2018 [facility] Karolyn H53.40 Unspecified Visit 8:50a Assoc,pc Hospitalists MD Maik visual field defects I10 Essential (primary) hypertension G47.00 Insomnia, unspecified Office Visit 09/17/2018 1:00p Surgical Christy Angel N64.59 Other signs and [facility] MD Johnathon symptoms in breast Assessments Date Code Description Provider 03/02/2019 I10 Essential (primary) hypertension Aldo Conroy M.D. 03/02/2019 I47.1 Supraventricular tachycardia Aldo Conroy M.D. 03/02/2019 R00.2 Palpitations Marita Drummond.D. 03/02/2019 E66.9 Obesity, unspecified Aldo Conroy M.D. [...] 12/25/2018 M25.551 Pain in right hip Luann Hans, PA-C 12/25/2018 M25.552 Pain in left hip Luann Hans, PA-C 12/25/2018 M25.511 Pain in right shoulder Luann Hans, PA-C 12/25/2018 M25.512 Pain in left shoulder Luann Drmarybel, PA-C 12/25/2018 W19.xxxA Unspecified fall, initial encounter BENJAMIN CrockettC 12/07/2018 M79.7 Fibromyalgia Iron Varela, N.P. 12/07/2018 G43.009 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out aura, not Iron Varela, N.P. intractable, without status migra 12/07/2018 M62.81 Muscle weakness (generalized) Iron Varela, N.P. 12/07/2018 M54.5 Low back pain Iron Varela, N.P. 11/06/2018 R00.2 Palpitations Aldo Conroy M.D. 11/06/2018 M79.7 Fibromyalgia Ironre Varela, N.P. 11/06/2018 G43.009 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out aura, [...] Real MD without esophagitis 10/15/2018 Z79.899 Other financial services consultant (current) drug Chay Real MD therapy 10/15/2018 E66.9 Obesity, unspecified Chay Real MD 10/15/2018 R19.7 Diarrhea, unspecified Chay Real MD 10/15/2018 K59.00 Constipation, unspecified Chya Real MD 10/15/2018 R51 Headache Chay Real MD 10/15/2018 M79.7 Fibromyalgia Chay Real MD 10/15/2018 K27.7 Chronic peptic ulcer, site Chay Real MD unspecified, without hemorrhage o 10/13/2018 G43.109 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 aura, not intractable, Sb Berman MD without status migrainosus 10/13/2018 G43.101 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 aura, not intractable, 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 without status migrainosus 10/12/2018 H53.40 Unspecified visual field defects Karolyn Pleitez MD 10/12/2018 I63.9 Cerebral infarction, unspecified Anton Taylor M.D. 10/12/2018 I10 Essential (primary) hypertension Karolyn Pleitez MD 10/12/2018 G47.00 Insomnia, unspecified Karolyn Pleitez MD 09/17/2018 N64.59 Other signs and symptoms in breast Christy Angel Diego MD Plan of Treatment Future Appointment(s):05/10/2019 4:00 pm - Iron Varela N.P. at [facility]03/05/2019 1:00 pm - Michelle Arenas M.D. at [facility] at Ohhopw8603/02/2019 - Aldo Conroy M.D.I10 Essential ( primary) hypertensionFollow up:one yr ovI47.1 Supraventricular niylysyxdtbB76.2 PaoimgobejpoU92.9 Obesity, unspecified Functional Status Description No Information Available Mental Status Description No Information Available Referrals Refer to Reason for Referral Status Appt Date Gunnar Wooten MD Sent [address] [place], [place] [id number] [phone] Aldo Con[address] MD [facility] [address] [place] [address] [phone]
--- OUTSIDE RECORDS SUMMARY | 2019-04-06 12:07 | XMS REPORT | Continuity of Care Document ---
:1945 External Reference #:[id number] Author Name Barbara Castro MD Address [address] [place] [id number] Care Team Providers Name Role Phone Kristopher Sparks MD - Orthopaedic Care Team Information Student Records Coordinator [phone] Surgery Edson Benavides MD Care Team Information Student Records Coordinator [phone] yaz phipps md Care Team Information Student Records Coordinator [phone] Laron Roberts Care Team Information Student Records Coordinator [phone] Problems Active Problems Provider Date Benign essential hypertension Barbara Castro MD Onset: 02/23/2008 Peptic reflux disease Barbara Castro MD Onset: 01/29/2013 Spinal stenosis of lumbar region Barbara Castro MD Onset: 05/16/2014 Chronic pain syndrome Barbara Castro MD Onset: 05/16/2014 Lumbosacral stenosis Barbara Castro MD Onset: 01/16/2015 Essential hypertension Barbara Castro MD Onset: 01/16/2015 Essential hypertension Barbara Castro MD Onset: 02/21/2015 Social History Type Date Description Comments Sex Unknown Tobacco Use Start: Unknown Never Smoked Cigarettes Tobacco Use Start: Unknown Patient has never smoked Smoking Status Reviewed: 02/16/19 Patient has never smoked Allergies, Adverse Reactions, Alerts Active Allergies Reaction Severity Comments Date Sulfa 01/29/2006 Inderal Memory Loss 01/29/2006 Quinidine 01/29/2006 Beta Blockers 01/29/2006 Paxil 09/21/2015 Cipro 09/21/2015 Medications Active Medications SIG Qnty Indications Ordering Date Provider Mirtazapine take one 30tabs F51.05 [facility], 02/01/2019 15mg Tablets tablet by Barbara Kirkland MD mouth at bedtime prn Buspirone HCL 1 by mouth 60tabs F41.9 [facility], 01/26/2019 30mg Tablets twice a day Barbara Kirkland MD Aspirin Ec 1 by mouth H53.412 [facility], 10/19/[address] 3x/wk food per Barbara Kirkland MD neuro Hydrochlorothiazide take 1 tablet 30tabs I10 [facility], 06/29/2018 25mg Tablets by mouth every Barbara Kirkland MD morning Vitamin D3 1 by mouth qwk E55.9 [facility], 06/29/2018 5000Unit Capsules Barbara Kirkland MD Ondansetron 1 by mouth 30tabs [facility], 05/01/2018 4mg Tablets Dispers three times a Barbara Kirkland MD day as needed n/v Sucralfate 10ml every day 400ml K21.0 [facility], 01/26/2018 1GM/10ML Suspension and may take Barbara Kirkland MD 1/2 hour prior to eating for as needed stomach pain R10.84 Diclofenac Sodium apply 1 gram per 200gm G89.4 [facility] 05/30/2017 1% joint four times MD Marita Gel a day as needed for pain TENS Unit dx: [facility]4 [facility] 01/31/2017 MD Marita Flector apply patch twice 60units S39.012A [facility] 10/14/2016 1.3% Patches a day as needed MD Marita for acute pain G89.4 Narcan as needed 2units G89.4 [facility] 06/07/2016 4mg/0.1ML Liquid intranasal for MD Marita emergency overdose only Ferrous Sulfate 2x/wk 30tabs D50.9 [facility] 02/26/2016 325(65Fe) MD Marita mg Tablets DR Premarin . 5 g every night 42.500gm N95.2 [facility] 10/24/2015 0.625mg/GM Cream at bedtime x 2 wks MD Marita then 2x/wk Lorazepam take 1 tablet by 60tabs F41.9 [facility] 09/26/2015 1mg Tablets mouth two times MD Marita daily as needed maximum daily dose of 2 per day Oxycodone-Acetaminophen 1 by mouth twice a 90tabs G89.4 Barbara Castro 09/26/2014 day may take third MD Marita 10-325mg Tablets as needed Vitamin B12 1 sl q mos D51.9 Barbara Castro 09/25/2012 1000mcg Tablets MD Marita ER Pantoprazole Sodium Take 1 Tablet By 180tabs K21.0 Barbara Castro 2008 40mg Mouth Two Times MD Marita Tablets DR Daily Gabapentin take 1 capsule by 150caps G89.4 Matthew Barbara 300mg Capsules mouth two times MD Marita daily prn and take 3 capsules by mouth at bedtime Chlorhexidine Gluconate swish and spit 15ml Unknown once a day as 0.12% Solution needed for recurrent mouth ulcers Probiotic Colon Support 1 by mouth every Unknown day Capsules Benazepril HCL 1 by mouth qam I10 Unknown 20mg Tablets History Medications Nitrofurantoin Monohyd 1 by mouth 14caps Barbara Castro 01/28/2019 - Macro twice a day MD Marita 02/16/2019 100mg Capsules Mirtazapine take 1 tablet 30tabs F51.05 Barbara Castro 01/26/2019 - 7.5mg Tablets by mouth every MD Marita 02/01/2019 night at bedtime Medications Administered in Office Medication SIG Qnty [...] CPT Code Status Date Vaccine Lot # [id number] Given 03/03/2003 Immunization Td 7 Yrs Or Older [id number] Refused 02/16/2019 Influenza Vac, Quadrivalent, Split, 0.5mL Dosage, [place] Use [id number] Refused 02/16/2019 Influenza Vac, Quadrivalent, Split, 0.5mL Dosage, [place] Use [id number] Refused 04/17/2018 Influenza Vac, Quadrivalent, Split, 0.5mL Dosage, Im Use 17694 Refused 02/26/2016 Pneumococcal 23 Immunization Adult Or Immunosuppressed Patient [id number] Refused 02/26/2016 Tetanus And Diptheria Toxoid 7 Years And Older Preserv Free 32961 Refused 02/26/2016 Influenza Virus Vaccine,Quadrivalent,Split,Preserv Free, 0.5mL,[place] [address] Refused 02/26/2016 Prevnar 13 Pneumococal Conjugate Vaccine Vital Signs Date Vital Result Comment 02/16/2019 2:13pm Weight 209.00 lb Heart Rate 80 /min BP Systolic 128 mmHg BP Diastolic 76 mmHg Height 64 inches 5'4" BMI (Body Mass Index) 35.9 kg/m2 01/26/2019 11:09am Body Temperature 98.4 F Weight 203.00 lb Heart Rate 80 /min BP Systolic 116 mmHg BP Diastolic 76 mmHg Height 64 inches 5'4" BMI (Body Mass Index) 34.8 kg/m2 Results Test Date Facility Test Result H/L Range Note Laboratory test finding 01/26/2019 [facility] TSH 3.13 uIU/mL 0.35-4.94 1 Free T4 0.93 ng/dL 0.70-1.48 Laboratory test 01/26/2019 [facility] T3 Total 1.0 ng/mL (0.6-1.8) 2 finding Laboratory test 01/26/2019 [facility] Urine Microbiology res Abnormal 3 finding Culture <SEE NOTE> Drugs Of 01/26/2019 [facility] Amphetamines NEGATIVE <1000 ng/mL Abuse,Urine-FCM ,Urine G Barbiturates,Urine NEGATIVE <200 ng/mL Benzodiazepines, Urine POSITIVE Abnormal <200 ng/mL Bupernorphrine/Norbu,Urine NEGATIVE <10 ng/mL Cocaine Metabolites,Urine NEGATIVE <300 ng/mL Methadone,Urine NEGATIVE <300 ng/mL Opiates,Urine POSITIVE Abnormal <300 ng/mL Oxycodone,Urine POSITIVE Abnormal <100 ng/mL Phencyclidine,Urine NEGATIVE <25 ng/mL Cannabinoids,Urine NEGATIVE <50 ng/mL CBC Auto Diff 01/19/2019 [facility] White Blood 6.7 10^3/uL Normal 3.5-10.8 Count Red Blood Count 4.42 10^6/uL Normal 3.70-4.87 Hemoglobin 14.5 g/dL Normal 12.0-16.0 Hematocrit 42 % Normal 35-47 Mean Corpuscular Volume 95 fL Normal 80-97 Mean Corpuscular Hemoglobin 33 pg High 27-31 Mean Corpuscular HGB Conc 34 g/dL Normal 31-36 Red Cell Distribution Width 14 % Normal 10-15 Platelet Count 203 10^3/uL Normal 150-450 Mean Platelet Volume 10.0 fL Normal 7.4-10.4 Abs Neutrophils 3.0 10^3/uL Normal 1.5-7.7 Abs Lymphocytes 3.0 10^3/uL Normal 1.0-4.8 Abs Monocytes 0.5 10^3/uL Normal 0-0.8 Abs Eosinophils 0.2 10^3/uL Normal 0-0.6 Abs Basophils 0.0 10^3/uL Normal 0-0.2 Abs Nucleated RBC 0.0 10^3/uL Granulocyte % 44.9 % Lymphocyte % 45.2 % Monocyte % 7.0 % Eosinophil % 2.5 % Basophil % 0.4 % Nucleated Red Blood Cells % 0.1 Iron & Iron Binding 01/19/2019 [facility] Iron 82 g/dL Normal 50-212 Capacity Unsaturated Iron Binding < 502 g/dL Total Iron Binding Capacity 517 g/dL High 250-450 Transferrin 369 mg/dL High 203-362 % Iron Saturation 16 % Normal 15-55 Laboratory test 01/19/2019 [facility] Ferritin 25.7 ng/mL Normal 11-307 finding Vitamin D Total 25(Oh) 57.0 ng/mL High 20-50 4 CBC with Auto Diff-fcmg 11/17/2018 [facility] WBC 7.6 K/uL 4.1-11.0 RBC 3.91 M/uL Low 4.00-5.40 Hemoglobin 13.3 gm/dL 12.0-16.0 Hematocrit 38.9 % 36.0-47.0 MCV 99.7 fL High 80.0-97.0 MCH 34.0 pg High 27.0-32.0 MCHC 34.1 g/dL 32.0-36.0 RDW 13.8 % 11.5-14.5 PLT Count 170 K/ul 140-400 MPV 10.3 FL 7.1-10.7 Neutrophil 57.6 % 35.0-75.0 Lymphocyte 34.5 % 16.0-52.0 Monocyte 6.7 % 2.0-10.0 Eosinophil 0.8 % 0.0-5.0 Basophil 0.4 % 0.0-4.0 Abs Neutrophils 4.4 K/uL 2.1-8.0 Abs Lymphocytes 2.6 K/uL 0.8-5.5 Abs Monocytes 0.5 K/uL 0.1-1.0 Abs Eosinophils 0.1 K/uL 0.0-0.5 Abs Basophils 0.0 K/uL 0.0-0.3 Iron Panel 11/17/2018 [facility] Iron, Total 55 g/dL 50-170 Transferrin 278.0 mg/dL 203.0-362.0 Tibc (calc) 389 g/dL 261-478 % Iron Saturation 14.1 % 13.0-45.0 Basic (BMP) 11/17/2018 [facility] Sodium 141 mmol/L 135-146 5 Potassium 4.3 mmol/L 3.5-5.2 Chloride# 103 mmol/L 97-110 6 Carbon Dioxide 27 mmol/L 24-34 Glucose 102 mg/dL 70-105 BUN 20 mg/dL 6-26 Creatinine 1.1 mg/dL 0.5-1.4 Calcium 9.9 mg/dL 8.5-10.5 7 Female Egfr 52 Low >60 8 Male Egfr 69 >60 9 Anion Gap 11 mmol/L 5-15 10 Laboratory test finding 11/17/2018 [facility] Vitamin D 25 Hydroxy 49 ng/mL 30-100 11 Vitamin B12 337 pg/mL 180-914 Affirm 11/17/2018 [facility] Trichomonas Vaginalis Negative Negative Gardnerella Vaginalis Negative Negative Noemí Species Negative Negative 1 This sample is drawn by:NB. 2 Unless otherwise specified, testing performed by [facility] [address] [place] [id number] 3 Microbiology results SOURCE Clean Catch Midstream COLONY COUNT >100,000 CFU/ML PRELIMINARY RESULT Gram positive cocci. ID & Sensitivity to Follow. 01/27/2019 3:14 PM FINAL RESULT Staphylococcus epidermidis (Isolate 1) Sensitivity Analysis Isolate 1 --------- CIPROFLOXACIN <=1 S GENTAMYCIN <=4 S LINEZOLID 2 S NITROFURANTOIN <=32 S TETRACYCLINE <=4 S TRIMETHOPRIM/SULFAMETHOXAZ <=0.5/9.5 S VANCOMYCIN 2 S S=Sensitive;I=Indeterminate;R=Resistant 4 Total 25-Hydroxyvitamin D2 and D3 (25-OH-VitD) <10 ng/mL (severe deficiency) 10-19 ng/mL (mild to moderate deficiency) 20-50 ng/mL (optimum levels) 51-80 ng/mL (increased risk of hypercalciuria) >80 ng/mL (toxicity possible) 5 Updated reference range on new analyzer 6 Updated reference range on new analyzer 7 Updated reference range 08-26-2018 8 Concerning GFR Guidelines for Americans: Normal function or mild renal disease, if clinically at risk: >/= 60 mL/min Moderately decreased: 30-59 Severely decreased: 15-29 Renal failure: <15 There is reduced accuracy above 60ml/min/1.73 m squared, but the numeric value may be clinically useful in the near 60 range 9 Concerning GFR Guidelines: Normal function or mild renal disease, if clinically at risk: >/= 60 mL/min Moderately decreased: 30-59 Severely decreased: 15-29 Renal failure: <15 There is reduced accuracy above 60ml/min/1.73 m squared, but the numeric value may be clinically useful in the near 60 range Glomerular Filtration Rate (GFR) is estimated based on the CKD-EPI equation, which assumes a steady state for [...] drugs that are excreted by the kidneys. 10 Updated Reference Range 11 Clinical Guidelines for recommended serum 25(OH)Vitamin D Deficient at less than 20 ng/mL Insufficient at 20 to <30 ng/mL Sufficient at 30-100 ng/mL Toxicity at greater than 100 ng/mL Procedures Date Code Description Status 09/15/2018 [id number] Mammogram Completed 06/25/2017 [id number] Mammogram Completed 05/22/2016 [id number] Colonoscopy Completed 03/15/2016 [id number] Mammogram Completed 08/19/2015 [id number] Colonoscopy Completed 08/17/2015 [id number] Colonoscopy Completed 01/30/2015 [id number] Mammogram Completed 09/17/2012 [id number] Bone Mineral Density Test Completed 09/17/2012 [id number] Mammogram Completed 08/09/2010 [id number] Mammogram Completed 03/15/2010 [id number] Colonoscopy Completed 09/26/2008 [id number] Mammogram Completed Medical Devices Description No Information Available Encounters Type Date Location Provider Dx Diagnosis Office Visit 01/26/2019 Barbara Rivera E66.9 Obesity, unspecified 10:30a MD Marita G89.4 Chronic pain syndrome F41.9 Anxiety disorder, unspecified N39.0 Urinary tract infection, site not specified F51.05 Insomnia due to other mental disorder 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 N35.82 Other urethral stricture, female K21.0 Gastro-esophageal reflux disease with esophagitis E04.2 Nontoxic multinodular goiter Z68.34 Body mass index (BMI) 34.0-34.9, adult Office Visit 11/17/2018 1:30p Barbara Rivera Z00.01 Encounter for MD Marita general adult medical exam w abnormal findings H53.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, LEFT eye F41.9 Anxiety disorder, unspecified D50.9 Iron deficiency anemia, unspecified I10 Essential (primary) hypertension G89.4 Chronic pain syndrome M48.07 Spinal stenosis, lumbosacral region K21.0 Gastro-esophageal reflux disease with esophagitis E04.2 Nontoxic multinodular goiter E55.9 Vitamin D deficiency, unspecified Z12.31 Encntr screen mammogram for malignant neoplasm of breast Z13.31 Encounter for screening for depression D51.9 Vitamin B12 deficiency anemia, unspecified Q21.1 Atrial septal defect L28.0 Lichen simplex chronicus N76.0 Acute vaginitis Office Visit 10/19/2018 3:00p Barbara Rivera E66.9 Obesity, unspecified MD Mraita H53.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, LEFT eye I10 Essential (primary) hypertension F41.9 Anxiety disorder, unspecified D50.9 Iron deficiency anemia, unspecified Z68.33 Body mass index (BMI) 33.0-33.9, adult Assessments Date Code Description Provider 02/16/2019 E66.9 Obesity, unspecified Barbara Castro MD 02/16/2019 F41.9 Anxiety disorder, unspecified Barbara Castro MD 02/16/2019 F51.05 Insomnia due to other mental disorder Barbara Castro MD 02/16/2019 G89.4 Chronic pain syndrome Barbara Castro MD 02/16/2019 Z68.35 Body mass index (BMI) 35.0-35.9, adult Barbara Castro MD 01/26/2019 E66.9 Obesity, unspecified Barbara Castro MD 01/26/2019 G89.4 Chronic pain syndrome Barbara Castro MD 01/26/2019 F41.9 Anxiety disorder, unspecified Babrara Castro MD 01/26/2019 N39.0 Urinary tract infection, site not specified Barbara Castro MD 01/26/2019 F51.05 Insomnia due to other mental disorder Barbara Castro MD 01/26/2019 Z79.891 [facility] (current) use of opiate analgesic Barbara Castro MD 01/26/2019 N35.82 Other urethral stricture, female Barbara Castro MD 01/26/2019 K21.0 Gastro-esophageal reflux disease with Barbara Castro MD esophagitis 01/26/2019 E04.2 Nontoxic multinodular goiter Barbara Castro MD 01/26/2019 Z68.34 Body mass index (BMI) 34.0-34.9, adult Barbara Castro MD 01/26/2019 E04.2 Nontoxic multinodular goiter [facility] 01/26/2019 N39.0 Urinary tract infection, site not specified [facility] 01/26/2019 Z79.891 [facility] (current) use of opiate analgesic [facility] 11/17/2018 Z00.01 Encounter for general adult medical Barbara Castro MD examination with abnorma 11/17/2018 H53.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, LEFT eye Barbara Castro MD 11/17/2018 F41.9 Anxiety disorder, unspecified Barbara Castro MD 11/17/2018 E55.9 Vitamin D deficiency, unspecified [facility] 11/17/2018 D50.9 Iron deficiency anemia, unspecified Barbara Castro MD 11/17/2018 I10 Essential (primary) hypertension Barbara Castro MD 11/17/2018 G89.4 Chronic pain syndrome Barbara Castro MD 11/17/2018 M48.07 Spinal stenosis, lumbosacral region Barbara Castro MD 11/17/2018 K21.0 Gastro-esophageal reflux disease with Barbara Castro MD esophagitis 11/17/2018 E04.2 Nontoxic multinodular goiter Barbara Castro MD 11/17/2018 E55.9 Vitamin D deficiency, marioified Barbara Castro MD 11/17/2018 Z12.31 Encounter for screening mammogram for Barbara Castro MD malignant neoplasm of 11/17/2018 Z13.31 Encounter for screening for depression Barbara Castro MD 11/17/2018 D51.9 Vitamin B12 deficiency anemia, unspecified Barbara Castro MD 11/17/2018 Q21.1 Atrial septal defect Barbara Castro MD 11/17/2018 L28.0 Lichen simplex chronicus Barbara Castro MD 11/17/2018 N76.0 Acute vaginitis Barbara Castro MD 11/17/2018 D50.9 Iron deficiency anemia, unspecified [facility] 11/17/2018 D51.9 Vitamin B12 deficiency anemia, unspecified [facility] 11/17/2018 N76.0 Acute vaginitis [facility] 10/19/2018 E66.9 Obesity, unspecified Barbara Castro MD 10/19/2018 H53.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, LEFT eye Barbara Castro MD 10/19/2018 I10 Essential (primary) hypertension Barbara Castro MD 10/19/2018 F41.9 Anxiety disorder, marioified Barbara Castro MD 10/19/2018 D50.9 Iron deficiency anemia, unspecified Barbara Castro MD 10/19/2018 Z68.33 Body mass index (BMI) 33.0-33.9, adult Barbara Castro MD Plan of Treatment Future Appointment(s):05/03/2019 1:00 pm - Barbara Castro MD at [id number] - Barbara Castro MDE66.9 Obesity, jmfqtertyosW07.9 Anxiety disorder, unspecifiedFollow up:2-3 mosF51.05 Insomnia due to other mental tyigdcjeU13.4 Chronic pain narjcyadB38.35 Body mass index (BMI) 35.0-35.9, adult Functional Status Description No Information Available Mental Status Description No Information Available Referrals Refer to Reason for Referral Status Appt Date Cely Varghese MD Closed [address] [place] [phone]
[2019-04-06 12:21] LABS: Albumin 4.2 g/dL (3.2-5.2); Albumin/Globulin Ratio 1.7 (1-3); BUN/Creatinine Ratio 21.2 (8-20); Calcium 9.6 mg/dL (8.6-10.3); EGFR Non-African American 39.7 (>60); Globulin 2.5 g/dL (2-4); Potassium 3.5 mmol/L (3.5-5.0); Total Bilirubin 0.4 mg/dL (0.2-1.0); Total Protein 6.7 g/dL (6.4-8.9)
--- NOTE | 2019-04-06 16:51 | ED ---
Shortness of Breath - HPI Summary HPI Summary: The patient is a 73 y/o F presenting to [facility] with a chief complaint of SOB and chest pressure related to fluid retention for the last month. She reports that she was sent in by Dr. Conroy for urinary and fluid retention that she has been experiencing for the last few months that has worsened over the last few weeks as she has developed dyspnea on exertion. She states that she has urgency to urinate but has decreased output. She has seen Dr. Lopez for a urethral expansion which didnt seem to work. He believes that her symptoms may be attributed to a neurogenic bladder secondary to chronic back problems. She additionally c/o weakness in the legs that causes her falls. Currently, her symptoms are rated 5/10 in severity. No history of CHF. She sees Dr. Conroy for tachycardia and blood pressure. PMHx: thyroid disease, angina, HTN, tachyarrhythmia, asthma, GERD, arthritis, back problems, fibromyalgia, neuropathy. Nonsmoker, rare EtOH, no substance use. Medications reviewed. Allergies noted. - History of Current Complaint Chief Complaint: EDShortnessOfBreath Time Seen by Provider: 04/06/19 16:20 Hx Obtained From: Patient Onset/Duration: Gradual Onset, Lasting Weeks, Still Present Current Severity: Moderate Dyspnea At: Exertion Aggravating Factors: Other - ambulation Alleviating Factors: Nothing Associated Signs & Symptoms: Chest Pain Unrelated to Cough - Allergy/Home Medications Allergies/Adverse Reactions: Allergies Allergy/AdvReac Type Severity Reaction Status Date / Time ciprofloxacin [From Cipro] Allergy Nausea Verified 04/06/19 14:42 diltiazem Allergy Insomnia, Verified 04/06/19 14:42 head pressure, HTN duloxetine [From Cymbalta] Allergy Vomiting Verified 04/06/19 14:42 paroxetine [From Paxil] Allergy Shakes Verified 04/06/19 14:42 quinidine Allergy Rash Verified 04/06/19 14:42 Sulfa (Sulfonamide Allergy Unknown Verified 04/06/19 14:42 Antibiotics) Reaction Details verapamil Allergy Insomnia, Verified 04/06/19 14:42 head pressure Beta-Blockers AdvReac Intermediate See Comment Verified 04/06/19 14:42 (Beta-Adrenergic Bloc PMH/Surg Hx/FS Hx/Imm Hx Endocrine/Hematology History: Reports: Hx Thyroid Disease - 5 POLYPS FOUND 1 NEG 4 REMAINING ON NO MEDS Denies: Hx Diabetes, Hx Anemia Cardiovascular History: Reports: Hx Angina, Hx Hypertension, Other Cardiovascular Problems/Disorders - tachyarrhythmia Denies: Hx Congestive Heart Failure, Hx Coronary Artery Disease, Hx Hypercholesterolemia, Hx Myocardial Infarction, Hx Pacemaker/ICD, Hx Valvular Heart Disease Respiratory History: Reports: Hx Asthma - A CHILD GI History: Reports: Hx Gall Bladder Disease - [place] 1968, Hx Ulcer - bleeding ulcers in past, Other GI Disorders - HX OF POLYPS IN COLON Denies: Hx Jaundice History: Reports: Other Problems/Disorders - UTIs Denies: Hx Renal Disease Musculoskeletal History: Reports: Hx Arthritis - GENERALIZED, Hx Back Problems, Hx Bursitis, Hx Fibromyalgia - pt describes as having for "years", Hx Orthopedic Injury - torn right shoulder, Hx Osteoporosis Denies: Hx Rheumatoid Arthritis Sensory History: Reports: Hx Cataracts - BILAT, Hx Contacts or Glasses, Hx Hearing Problem - "partially deaf" Denies: Hx Deafness, Hx Hearing Aid Opthamlomology History: Reports: Hx Cataracts - BILAT, Hx Contacts or Glasses Neurological History: Reports: Hx Headaches, Hx Migraine - 2-3 WEEKLY LAST ONE 01/23/18, Hx Nerve Disease - 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 Psychiatric History: Denies: Hx Anxiety, Hx Attention Deficit Hyperactivity Disorder, Hx Eating Disorder, Hx Depression, Hx Panic Disorder, Hx Post Traumatic Stress Disorder, Hx Inpatient Treatment, Hx Community Mental Health Tx, Hx Schizophrenia, Hx Bipolar Disorder, Hx Suicide Attempt, Hx of Violent Episodes Against Others, Hx Substance Abuse, Other Psychiatric Issues/Disorders - Cancer History Hx Chemotherapy: No Hx Radiation Therapy: No - Surgical History Surgery Procedure, Year, and Place: CHOLECYSECTOMY; RIGHT LUMPECTOMY; RIGHT RTC REPAIR; BILAT CATARACTS; TUBAL LIGATION; HYSTERECTOMY Hx Anesthesia Reactions: No Infectious Disease History: No Infectious Disease History: Denies: Hx Clostridium Difficile, Hx Hepatitis, Hx Human Immunodeficiency Virus (HIV), Hx of Known/Suspected MRSA, Hx Shingles, Hx Tuberculosis, Hx Known/ Suspected VRE, Hx Known/Suspected VRSA, History Other Infectious Disease, Traveled Outside the [place] in Last 30 Days - Family History Known Family History: Positive: Hypertension Negative: Blood Disorder - Social History Alcohol Use: Rare Alcohol Amount: 2 month Hx Substance Use: No Substance Use Type: Reports: None Hx Tobacco Use: No Smoking Status (MU): Never Smoked Tobacco Have You Smoked in the Last Year: No Review of Systems Positive: Chest Pain - pressure Positive: Shortness Of Breath Positive: urgency - increased, other - urinary retention Positive: Edema Positive: Weakness - BLE All Other Systems Reviewed And Are Negative: Yes Physical Exam - Summary Physical Exam Summary: Constitutional: Well-developed, Well-nourished, Alert. (-) Distressed Skin: Warm, Dry HENT: Normocephalic; Atraumatic Eyes: Conjunctiva normal Neck: Musculoskeletal ROM normal neck. (-) JVD, (-) Stridor, (-) Nuchal rigidity Cardio: Rhythm regular, rate normal, Heart sounds normal; Intact distal pulses; Radial pulses are 2+ and symmetric. (-) Murmur Pulmonary/Chest wall: Effort normal. (-) Respiratory distress, (-) Wheezes, (-) Rales Abd: Soft, (-) tenderness, (-) Distension, (-) Guarding, (-) Rebound Musculoskeletal: (-) Edema Lymph: (-) Cervical adenopathy Neuro: Alert, Oriented x3, Full strength 5/5 in BLE, SILT. Psych: Mood and affect Normal Triage Information Reviewed: Yes Vital Signs On Initial Exam: Initial Vitals Temp Pulse Resp BP Pulse Ox 98.3 F 111 18 115/72 95 04/06/19 11:12 04/06/19 11:12 04/06/19 11:12 04/06/19 11:12 04/06/19 11:12 Vital Signs Reviewed: Yes Procedures - Sedation Patient Received Moderate/Deep Sedation with Procedure: No Diagnostics - Vital Signs Vital Signs Temp Pulse Resp BP Pulse Ox 04/06/19 15:32 99.2 F 94 16 118/77 92 04/06/19 13:27 98.4 F 98 16 117/81 94 04/06/19 11:12 98.3 F 111 18 115/72 95 - Laboratory Lab Results: Lab Results 04/06/19 04/06/19 04/06/19 Range/Units 11:14 11:14 11:14 WBC 6.3 (3.5-10.8) 10^3/uL RBC 3.95 (3.70-4.87) 10^6 /uL Hgb 12.6 (12.0-16.0) g/dL Hct 37 (35-47) % MCV 95 (80-97) fL MCH 32 H (27-31) pg MCHC 34 (31-36) g/dL RDW 16 H (10-15) % Plt Count 215 (150-450) 10^3/uL MPV 8.9 (7.4-10.4) fL Neut % (Auto) 57.7 % Lymph % (Auto) 35.8 % Smyth % (Auto) 4.2 % Eos % (Auto) 2.1 % Baso % (Auto) 0.2 % Absolute Neuts (auto) 3.6 (1.5-7.7) 10^3/ul Absolute Lymphs (auto) 2.3 (1.0-4.8) 10^3/ul Absolute Monos (auto) 0.3 (0-0.8) 10^3/ul Absolute Eos (auto) 0.1 (0-0.6) 10^3/ul Absolute Basos (auto) 0.0 (0-0.2) 10^3/ul Absolute Nucleated RBC 0.0 10^3/ul Nucleated RBC % 0.0 INR (Anticoag Therapy) 0.95 (0.82-1.09) Sodium 140 (135-145) mmol/L Potassium 3.5 (3.5-5.0) mmol/L Chloride 102 (101-111) mmol/L Carbon Dioxide 26 (22-32) mmol/L Anion Gap 12 H (2-11) mmol/L BUN 28 H (6-24) mg/dL Creatinine 1.32 H (0.51-0.95) mg/dL Est GFR ( Amer) 48.0 (>60) Est GFR (Non-Af Amer) 39.7 (>60) BUN/Creatinine Ratio 21.2 H (8-20) Glucose 162 H (70-100) mg/dL Calcium 9.6 (8.6-10.3) mg/dL Total Bilirubin 0.40 (0.2-1.0) mg/dL AST 24 (13-39) U/L ALT 21 (7-52) U/L Alkaline Phosphatase 62 (34-104) U/L Troponin I 0.00 (<0.03) ng/mL B-Natriuretic Peptide (<=100) pg/mL Total Protein 6.7 (6.4-8.9) g/dL Albumin 4.2 (3.2-5.2) g/dL Globulin 2.5 (2-4) g/dL Albumin/Globulin Ratio 1.7 (1-3) 04/06/19 04/06/19 Range/Units 11:14 13:59 WBC (3.5-10.8) 10^3/uL RBC (3.70-4.87) 10^6 /uL Hgb (12.0-16.0) g/dL Hct (35-47) % MCV (80-97) fL MCH (27-31) pg MCHC (31-36) g/dL RDW (10-15) % Plt Count (150-450) 10^3/uL MPV (7.4-10.4) fL Neut % (Auto) % Lymph % (Auto) % Smyth % (Auto) % Eos % (Auto) % Baso % (Auto) % Absolute Neuts (auto) (1.5-7.7) 10^3/ul Absolute Lymphs (auto) (1.0-4.8) 10^3/ul Absolute Monos (auto) (0-0.8) 10^3/ul Absolute Eos (auto) (0-0.6) 10^3/ul Absolute Basos (auto) (0-0.2) 10^3/ul Absolute Nucleated RBC 10^3/ul Nucleated RBC % INR (Anticoag Therapy) (0.82-1.09) Sodium (135-145) mmol/L Potassium (3.5-5.0) mmol/L Chloride (101-111) mmol/L Carbon Dioxide (22-32) mmol/L Anion Gap (2-11) mmol/L BUN (6-24) mg/dL Creatinine (0.51-0.95) mg/dL Est GFR ( Amer) (>60) Est GFR (Non-Af Amer) (>60) BUN/Creatinine Ratio (8-20) Glucose (70-100) mg/dL Calcium (8.6-10.3) mg/dL Total Bilirubin (0.2-1.0) mg/dL AST (13-39) U/L ALT (7-52) U/L Alkaline Phosphatase (34-104) U/L Troponin I 0.00 (<0.03) ng/mL B-Natriuretic Peptide 11 (<=100) pg/mL Total Protein (6.4-8.9) g/dL Albumin (3.2-5.2) g/dL Globulin (2-4) g/dL Albumin/Globulin Ratio (1-3) Result Diagrams: 04/06/19 11:14 04/06/19 11:14 Lab Statement: Any lab studies that have been ordered have been reviewed, and results considered in the medical decision making process. - Radiology CXR Radiology Interpretation Completed By: Radiologist Summary of Radiographic Findings: Impression: No active cardiopulmonary disease is noted. ED physician has reviewed this report. - EKG 1106 Cardiac Rate: Tachycardia - 106 BPM EKG Rhythm: Sinus Tachycardia EKG Comparison: No Significant Change - Compared to 11/05/18, no significant changes Summary of EKG Findings: An EKG at 1106 reveals sinus tachycardia at 106 BPM. T- wave inversions in V1. No STEMI. ED physician has reviewed and interpreted this EKG. Course/Dx - Course Course Of Treatment: 73-year-old female with a history of hypertension and tachycardia presents with one month of worsening dyspnea and exertional chest pain. Shortness of breath ddx: Concern for ACS. Plan for admission, serial troponins negative 2. EKG w/o new changes. Will likely require stress. Also consider: COPD exacerbation/asthma - no h/o COPD, no wheezing on exam. Low suspicion. PNA - no sputum production, no fevers or chills. No leukocytosis. CXR w/o infiltrate. Low suspicion. PTX - breath sounds equal, no risk factors for PTX, CXR w/o e/o PTX. CHF - no h/o CHF, no BLE edema, CXR w/o pulmonary edema. PE - no risk factors for PE, no unilateral leg swelling. Patient also reporting concern for urinary retention, bladder scan w less than 50 mL of urine. Patient states she seen Dr. Lopez before possible urethral stricture. They're now concerned about neurogenic bladder secondary to degenerative disc disease. This has been going on for >1 month. Strength 5/5 in lower extremities, no appreciable decreased sensation. Denies saddle anesthesia. Relayed concerns to the hospitalist regarding back pain/urinary symptoms. - Diagnoses Provider Diagnoses: Dyspnea, Urinary retention - Physician Notifications Discussed Care of Patient With: Anton Taylor - cardiology Time Discussed With Above Provider: 16:50 Instructed by Provider To: Other - I discussed the patient's case with Dr. Taylor , and he argees with plan for admission. I spoke with Dr. Easton from [facility], and she accepts the patient for admission at 1700. Discharge ED - Sign-Out/Discharge Documenting (check all that apply): Patient Departure - Patient accepted for admission by Dr. Easton. - Discharge Plan Condition: Stable Disposition: ADMITTED TO [facility] Referrals: Barbara Jacinto MD [Primary Care Provider] - - Billing Disposition and Condition Condition: STABLE Disposition: Admitted to [facility] - Attestation Statements Document Initiated by Gumaro: Yes Documenting Scribe: Dinah Rodriguez Provider For Whom Gumaro is Documenting (Include Credential): Dr. Sindi Rosenberg MD Scribe Attestation: I, Dinah Rodriugez, scribed for Dr. Sindi Rosenberg MD on 04/06/19 at 1744. Scribe Documentation Reviewed: Yes Provider Attestation: The documentation as recorded by the Dinah husain accurately reflects the service I personally performed and the decisions made by me, Dr. Sindi Rosenberg MD Status of Scribe Document: Viewed
--- NOTE | 2019-04-06 18:17 | CONSULT ---
Subjective Date of Service: 04/06/19 Interval History: Ms. Bang is a 73 yo F with PMH of HTN, PUD, CVA, PFO, lumbar stenosis, DARRICK; who presented to the ED today after being sent by Dr. Conroy's office. She has been having problems with urinary retention recently for which she follows with Dr. Lopez. He has been working her up for neurogenic bladder. She has chronic back pain for which she sees Dr. Hanks for steroid injections. Recently , over the last month, she has been experiencing worsening SOB on exertion and chest pressure. Symptoms are worse when her bladder is full and she feels bloated. She does have urinary urgency, but poor output. Normally, PVR in Jessica's office is "up to 8 oz" and in the ED today is 30mL per patient. Denies any chest pain, jaw pain, arm pain. Family History: Findings - Mother with CVA, Alzheimer's, colon cancer. Brother with HTN. Social History: Findings - Lives alone. 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 Past Medical History: Findings - HTN, PUD, CVA, PFO, occular headaches, DARRICK Review of Systems - Measurements Intake and Output: Intake and Output Last 24 Hours 04/04/19 04/05/19 04/06/19 04/07/19 06:59 06:59 06:59 06:59 Weight 208 lb - Review of Systems Constitutional Symptoms: Positive: Weight Gain, Weakness Dermatology: Positive: Normal HEENT: Positive: Normal Eyes: Positive: Normal Thyroid: Positive: Normal Pulmonary: Positive: Exercise Intolerance Cardiology: Positive: Edema, Other - chest pressure Gastroenterology: Positive: Other - Bloating Objective Vital Signs - 8 hr 04/06/19 04/06/19 04/06/19 11:12 13:27 15:32 Temperature 98.3 F 98.4 F 99.2 F Pulse Rate 111 98 94 Respiratory 18 16 16 Rate Blood Pressure 115/72 117/81 118/77 (mmHg) O2 Sat by Pulse 95 94 92 Oximetry Result Diagrams: 04/06/19 11:14 04/06/19 11:14 Additional Lab and Data: Lab Results 04/06/19 04/06/19 04/06/19 Range/Units 11:14 11:14 11:14 WBC 6.3 (3.5-10.8) 10^3/uL RBC 3.95 (3.70-4.87) 10^6 /uL Hgb 12.6 (12.0-16.0) g/dL Hct 37 (35-47) % MCV 95 (80-97) fL MCH 32 H (27-31) pg MCHC 34 (31-36) g/dL RDW 16 H (10-15) % Plt Count 215 (150-450) 10^3/uL MPV 8.9 (7.4-10.4) fL Neut % (Auto) 57.7 % Lymph % (Auto) 35.8 % Blanco % (Auto) 4.2 % Eos % (Auto) 2.1 % Baso % (Auto) 0.2 % Absolute Neuts (auto) 3.6 (1.5-7.7) 10^3/ul Absolute Lymphs (auto) 2.3 (1.0-4.8) 10^3/ul Absolute Monos (auto) 0.3 (0-0.8) 10^3/ul Absolute Eos (auto) 0.1 (0-0.6) 10^3/ul Absolute Basos (auto) 0.0 (0-0.2) 10^3/ul Absolute Nucleated RBC 0.0 10^3/ul Nucleated RBC % 0.0 INR (Anticoag Therapy) 0.95 (0.82-1.09) Sodium 140 (135-145) mmol/L Potassium 3.5 (3.5-5.0) mmol/L Chloride 102 (101-111) mmol/L Carbon Dioxide 26 (22-32) mmol/L Anion Gap 12 H (2-11) mmol/L BUN 28 H (6-24) mg/dL Creatinine 1.32 H (0.51-0.95) mg/dL Est GFR ( Amer) 48.0 (>60) Est GFR (Non-Af Amer) 39.7 (>60) BUN/Creatinine Ratio 21.2 H (8-20) Glucose 162 H (70-100) mg/dL Calcium 9.6 (8.6-10.3) mg/dL Total Bilirubin 0.40 (0.2-1.0) mg/dL AST 24 (13-39) U/L ALT 21 (7-52) U/L Alkaline Phosphatase 62 (34-104) U/L Troponin I 0.00 (<0.03) ng/mL B-Natriuretic Peptide (<=100) pg/mL Total Protein 6.7 (6.4-8.9) g/dL Albumin 4.2 (3.2-5.2) g/dL Globulin 2.5 (2-4) g/dL Albumin/Globulin Ratio 1.7 (1-3) 04/06/19 04/06/19 Range/Units 11:14 13:59 WBC (3.5-10.8) 10^3/uL RBC (3.70-4.87) 10^6 /uL Hgb (12.0-16.0) g/dL Hct (35-47) % MCV (80-97) fL MCH (27-31) pg MCHC (31-36) g/dL RDW (10-15) % Plt Count (150-450) 10^3/uL MPV (7.4-10.4) fL Neut % (Auto) % Lymph % (Auto) % Blanco % (Auto) % Eos % (Auto) % Baso % (Auto) % Absolute Neuts (auto) (1.5-7.7) 10^3/ul Absolute Lymphs (auto) (1.0-4.8) 10^3/ul Absolute Monos (auto) (0-0.8) 10^3/ul Absolute Eos (auto) (0-0.6) 10^3/ul Absolute Basos (auto) (0-0.2) 10^3/ul Absolute Nucleated RBC 10^3/ul Nucleated RBC % INR (Anticoag Therapy) (0.82-1.09) Sodium (135-145) mmol/L Potassium (3.5-5.0) mmol/L Chloride (101-111) mmol/L Carbon Dioxide (22-32) mmol/L Anion Gap (2-11) mmol/L BUN (6-24) mg/dL Creatinine (0.51-0.95) mg/dL Est GFR ( Amer) (>60) Est GFR (Non-Af Amer) (>60) BUN/Creatinine Ratio (8-20) Glucose (70-100) mg/dL Calcium (8.6-10.3) mg/dL Total Bilirubin (0.2-1.0) mg/dL AST (13-39) U/L ALT (7-52) U/L Alkaline Phosphatase (34-104) U/L Troponin I 0.00 (<0.03) ng/mL B-Natriuretic Peptide 11 (<=100) pg/mL Total Protein (6.4-8.9) g/dL Albumin (3.2-5.2) g/dL Globulin (2-4) g/dL Albumin/Globulin Ratio (1-3) Assessment/Plan - Billing Plan By Medical Problem: 1. 2. VTE PPX: Diet: Code Status: Admission Status and Rationale:
[2019-04-06] MEDS ORDERED: oxyCODONE/Acetamin 5/325 MG* TAB PO PRN (18:51)
[2019-04-06] MEDS ORDERED: Enoxaparin(*) 40 MG/0.4 ML SYR SUBCUT SCH (20:00)
[2019-04-06] MEDS ORDERED: Gabapentin CAP(*) 300 MG PO SCH (21:00)
[2019-04-06] MEDS ORDERED: Lisinopril TAB* 10 MG PO SCH (21:00)
--- NOTE | 2019-04-06 21:08 | HP ---
CC: Dr. Barbara Castro; Dr. Cortez Lopez; Dr. Aldo Conroy * HISTORY AND PHYSICAL: DATE OF ADMISSION: 04/06/19 PRIMARY CARE PROVIDER: Dr. Barbara Castro. UROLOGIST: Dr. Cortez Lopez. DISC PAD GRINDING MACHINE FEEDER: Dr. Aldo Conroy. ATTENDING PHYSICIAN: Dr. Yusra Arriola.* (DICTATED BY KODY ZEPEDA NP) CHIEF COMPLAINT: Shortness of breath. HISTORY OF PRESENT ILLNESS: Ms. Bang is a 73-year-old female with past medical history of hypertension, CVA, PUD, lumbar stenosis, ocular headaches, and iron deficiency anemia, who presents to the emergency room today with complaints of shortness of breath. Reportedly, the patient was sent by Dr. Conroy's office. She saw Dr. Conroy last week. At that time, she complained to him about some feelings of chest pressure and dyspnea on exertion. His office called her back today to inquire about her how she is feeling and when she indicated that her symptoms are still present, they instructed her to come to the emergency room. The patient has been following with Dr. Lopez for urinary retention, which has been a chronic problem, though significantly worse within the last month. Most of the time, she has urinary urgency, though has low output. She does see Dr. Lopez frequently and notes that in his office, she can have postvoid residual of up to "8 ounces. " Reportedly, Dr. Lopez had attempted a urethral extension on her, which was not successful. She does have periods where her abdomen becomes quite bloated and painful due to urinary retention. It is during those times that she feels her dyspnea at its worse. She does experience some episodes of chest pressure during these episodes, but she denies any chest pain, diaphoresis, dizziness, jaw pain, or arm pain. At this point, in the emergency room, she is asymptomatic. She does have an appointment tomorrow with Dr. Lopez for further evaluation for neurogenic bladder. She also follows with Dr. Hanks, as she does receive steroid injections in her lumbar back. In the emergency room, the patient had lab work, which was mostly unremarkable except for a very mildly elevated creatinine. She had 3 negative troponins and a normal BMP. Vitals were noted to be stable. There was some questionable desaturation on room air, though during my exam, the patient saturated 94% on room air the entire time. Because of the concern for her cardiac status, the hospitalist service was asked to evaluate for admission. PAST MEDICAL HISTORY: 1. Hypertension. 2. Peptic ulcer disease. 3. Lumbar stenosis. 4. Ocular headaches. 5. Iron deficiency anemia. 6. Patent foramen ovale. PAST SURGICAL HISTORY: 1. Cholecystectomy. 2. Right lumpectomy. 3. Rotator cuff repair. 4. Bilateral cataracts removal. 5. Partial hysterectomy. HOME MEDICATIONS: 1. Benazepril 40 mg p.o. at bedtime. 2. Buspirone 30 mg p.o. b.i.d. 3. Cholecalciferol 5000 units p.o. weekly. 4. Diclofenac 1% gel one application topically daily p.r.n. pain. 5. Diclofenac 1.3% patch, 1 patch transdermal daily p.r.n. pain. 6. Fluticasone 2 sprays both nares daily. 7. Gabapentin 600 mg p.o. bedtime. 8. Melatonin 10 mg p.o. at bedtime p.r.n. insomnia. 9. Vitamin B12 1000 mcg sublingual monthly. 10. Percocet 10/325, half tab p.o. daily p.r.n. pain. 11. Pantoprazole 40 mg p.o. daily. 12. Vitamin B complex 1 cap p.o. daily. ALLERGIES: CIPROFLOXACIN, DILTIAZEM, DULOXETINE, PAROXETINE, QUINIDINE, SULFA, VERAPAMIL, BETA BLOCKERS. FAMILY HISTORY: The patient's mother had a history of CVA, colon cancer, and Alzheimer's. Her brother had a history of hypertension. SOCIAL HISTORY: The patient denies tobacco or recreational drug use. She drinks rarely. 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 The patient's daughter would be her surrogate decision maker in the event she is unable to make her own decisions. REVIEW OF SYSTEMS: An 11-point review of systems was performed and all the pertinent positive and negative findings are in the HPI. All other systems are negative. PHYSICAL EXAMINATION GENERAL: Ms. Bang is a well-developed, well-nourished, elderly, white female, sitting in bed, in no acute distress. She appears her stated age. VITAL SIGNS: emp 99.2, heart rate 86, respiratory rate 16, oxygen saturation 93 % on room air, blood pressure 106/79. HEENT: Head is atraumatic, normocephalic. Visual garcia are grossly intact. Pupils are equal, round, and reactive to light and accommodation. Extraocular movements intact. Oral mucous membranes moist. NECK: Thyroid not palpable. Trachea midline. No lymphadenopathy. RESPIRATORY: Symmetrical chest expansion. Lungs are clear to auscultation throughout. No rhonchi, wheezes, or rales. CARDIAC: Regular rate and rhythm. S1, S2 present. No murmurs, rubs, or gallops. No JVD. ABDOMEN: Soft, nontender to palpation. Bowel sounds normoactive throughout. EXTREMITIES: Skin warm and smooth bilaterally. No edema. No clubbing or cyanosis. NEUROLOGIC: Awake, alert, and oriented x4. Cranial nerves II through XII are grossly intact. Moves all extremities. DIAGNOSTIC STUDIES/LAB DATA: WBC 6.3, RBC 3.95, hemoglobin 12.6, hematocrit 37 , platelets 215. INR is 0.95. Sodium 140, potassium 3.5, chloride 102, carbon dioxide 26, BUN 20, creatinine 1.32, glucose 152. Troponin 0.00 x3. BNP 11. EKG shows sinus tachycardia with a rate of 115. No ST changes, QTc 457. Chest x-ray reads as no active cardiopulmonary disease. ASSESSMENT AND PLAN: Ms. Bang is a 73-year-old female with past medical history of hypertension, peptic ulcer disease, cerebrovascular accident, lumbar stenosis, and iron deficiency anemia, who presents to the emergency room today with complaints of shortness of breath. The patient will be admitted to observation for: 1. Shortness of breath on exertion. This certainly does not appear to be congestive heart failure. The patient did have an echocardiogram back in September. Ejection fraction at that time was 60% to 65%. At this point, she appears euvolemic on exam and has a BNP of 11. Regardless, we will recheck an echo in the morning, though I have very low suspicion for any significant abnormalities. 2. Chest pressure. Again, this is not found to be cardiac related, as the patient adamantly denies any chest pain and notes that the pressure is worst when her bladder is full, as she was due to have a stress test as an outpatient in the next coming weeks, though at this point we will make her n.p.o. after midnight and do a stress test in the morning, though again, she did have 3 negative troponins and no EKG changes. She does have a HEART score of 3 making her low risk. 3. Urinary retention. This has been a chronic issue for the patient and in the emergency room, postvoid residual was noted to be 50 mL, which the patient reports is low for her. She does report that Dr. Lopez was working her up for neurogenic bladder and there was some talk of getting an MRI, as there was concern that her lumbar stenosis was contributing to her urinary retention. At this point, we will check an MRI. We will see her here in the hospital and I will speak with Dr. Lopez if there are any further urinary concerns. Creatinine is very mildly elevated though not significant. So, there is no evidence of any acute kidney injury. 4. Hypertension. The patient is normotensive in the emergency room. Benazepril is non-formulary, so she will be continued on lisinopril here in the hospital. 5. Peptic ulcer disease. Continue pantoprazole. 6. Lumbar stenosis. Continue Percocet and check MRI as above. 7. Iron deficiency anemia. The patient is not anemic at this time. She does follow with Dr. Benavides, though there are no acute hematological concerns. 8. DVT prophylaxis. According to the DVT Risk Assessment, the patient scores a 3, putting her at high risk, so I have ordered Lovenox. 9. Code status. The patient would be a full code. 10. FEN. The patient does not require any fluid resuscitation or electrolyte repletion. She can have a regular diet tonight and then will be n.p.o. after midnight for her stress test in the morning. TIME SPENT: Approximately 90 minutes was spent on this admission, greater than half of that time was spent [id number] with the patient obtaining my history, performing my physical exam, and reviewing the plan of care. This case has been discussed with my attending, Dr. Arriola, who is in agreement with the plan of care. KODY ZEPEDA, VIDEO GAMES STORYWRITER [id number]/CPS #: [id number] HERIBERTO
[2019-04-06] MEDS: busPIRone TAB* 30 MG PO SCH (21:43)
[2019-04-06] MEDS ORDERED: Pantoprazole TAB * 40 MG TAB PO SCH (22:00)
[2019-04-06] MEDS ORDERED: Mirtazapine TAB* 15 MG PO SCH (23:00)
[2019-04-07] MEDS ORDERED: CMC:Diclofenac 1% GEL (NF) 100 GM TUBE TOPICAL PRN (00:18)
[2019-04-07 06:04] LABS: ABS Eosinophils 0.1 10^3/ul (0-0.6); ABS Lymphocytes 2.7 10^3/ul (1.0-4.8); ABS Monocytes 0.5 10^3/ul (0-0.8); ABS Neutrophils 2.7 10^3/ul (1.5-7.7); Eosinophil % 1.8 %; Hematocrit 36 % (35-47); Hemoglobin 12.3 g/dL (12.0-16.0); Lymphocyte % 45.3 %; Mean Corpuscular HGB Conc 34 g/dL (31-36); Mean Corpuscular Hemoglobin 32 pg (27-31); Mean Corpuscular Volume 94 fL (80-97); Mean Platelet Volume 8.4 fL (7.4-10.4); Nucleated Red Blood Cells % 0.1; Platelet Count 214 10^3/uL (150-450); Red Blood Count 3.82 10^6 /uL (3.70-4.87); Red Cell Distribution Width 16 % (10-15)
[2019-04-07 06:25] LABS: BUN/Creatinine Ratio 14.3 (8-20); Calcium 9.5 mg/dL (8.6-10.3); EGFR African American 30.4 (>60); EGFR Non-African American 25.1 (>60); Potassium 4.2 mmol/L (3.5-5.0)
[2019-04-07] MEDS ORDERED: Fluticasone NASAL SPRAY 50MCG* 16 gm SPRAY BTL BOTH NARES SCH (09:00)
[2019-04-07] MEDS ORDERED: Regadenoson* 0.4 MG/5 ML SYRINGE ONE (09:03)
[2019-04-07] MEDS ORDERED: Aminophylline IV* 25 MG/ML 10 ML VIAL ONE (09:03)
--- NOTE | 2019-04-07 09:23 | ECHO ---
*[facility]* [place] [address] Fax #: [phone] Transthoracic Echocardiogram Patient: Katherine Bang : 1945 Study Date: 04/07/2019 Age: 73 Gender: F HR: 77 bpm Height: 63 in /160 cm BSA: 1.97 m^2 Weight: 207.6 lb /94.3 kg BMI: 36.8 kg/m^2 *Can Feeder: * Blanche Carcamo [facility] *Referring Physician: * Gavi Dominugez ; Cortez Lopez *Reading Physician: * Jamila Sheriff MD Indications: SOB. History: Patent foramen ovale. Positive bubble study on previous echo. Cerebrovascular accident. Risk factors: Hypertension. Conclusions Summary: - Left ventricle: The cavity size is below normal. Wall thickness is mildly to moderately increased. Systolic function is normal. The estimated ejection fraction is 55-60%. Left ventricular diastolic function parameters are normal for the patient's age. - Right ventricle: Systolic function is normal. - Aorta: The ascending aorta internal dimension in the A-P direction, maximal systolic dimension is 3.7 cm. - Ascending aorta: The ascending aorta is mildly dilated. - Pulmonary arteries: Systolic pressure is within the normal range. The peak pressure during systole by Doppler is 20.0 mm Hg. - Compared with prior echocardiogram of 10/12/18, ejection fraction is table, prior echocardiogram shoed patent foramen ovale with bubbles. Study data: Transthoracic echocardiogram. Procedure: Transthoracic echocardiography was performed. Image quality was adequate. Technically limited parasternal and subcostal views. Complete 2D, spectral Doppler, and color flow Doppler. Location: Bedside. Patient status: Inpatient. Patient room number: 450 01. Rhythm: Normal sinus rhythm. Findings Left ventricle: The cavity size is below normal. Wall thickness is mildly to moderately increased. Systolic function is normal. The estimated ejection fraction is 55-60%. Wall motion is normal; there are no regional wall motion abnormalities. Left ventricular diastolic function parameters are normal for the patient's age. Right ventricle: The cavity size is normal. Systolic function is normal. Left atrium: The atrium is normal in size. Right atrium: The atrium is normal in size. Atrial septum: Positive bubble study on previous echocardiogram. Mitral valve: The leaflets are normal thickness. There is no evidence of stenosis. There is no significant regurgitation. Aortic valve: The valve is probably trileaflet. There is no evidence of stenosis. There is no significant regurgitation. Tricuspid valve: The leaflets are normal thickness. There is no evidence of stenosis. There is trace regurgitation. Pulmonic valve: Not well visualized. There is no significant regurgitation. Aorta: Aortic root: The aortic root is appears normal and mildly dilated. Ascending aorta: The ascending aorta is mildly dilated. Aortic arch: The aortic arch is appears normal. Pericardium: There is no significant pericardial effusion. Pulmonary arteries: Not well visualized. Systolic pressure is within the normal range. Systemic veins: Inferior vena cava: Not well visualized. Measurements Left ventricle Value Ref Aortic valve continued Value Ref DEJUAN, LAX (L) 3.7 cm 3.8 - 5.2 Mean grad, S 3.0 mm Hg ----- ESD, LAX 2.4 cm 2.2 - 3.5 Peak grad, S 5.0 mm Hg ----- FS, LAX 35 % 27 - 45 PW, ED, LAX (H) 1.3 cm 0.6 - 0.9 Mitral valve Value Ref E', lat phyllis, TDI (L) 7.9 cm/sec >=10.0 Peak E 0.6 m/sec - ---- E/e', lat phyllis, 8 Peak A 0.82 m/sec ---- - TDI Decel time 224 ms ----- E', med phyllis, TDI 7.1 cm/sec >=7.0 Peak E/A ratio 0.74 - ---- E/e', med phyllis, 8 TDI Pulmonic valve Value Ref E', avg, TDI 7.5 cm/sec Peak v, S 0.5 m/sec ---- - E/e', avg, TDI 8 <=14 Peak grad, S 1.0 mm Hg - ---- LVOT Value Ref Tricuspid valve Value Ref Peak leann, S 0.98 m/sec TR peak v 2.13 m/sec <=2.8 Mean grad, S 2 mm Hg Peak RV-RA grad, S 18 mm Hg ----- Ventricular septum Value Ref Aortic root Value Ref IVS, ED (H) 1.2 cm 0.6 - 0.9 Root diam 3.9 cm <4.1 Right ventricle Value Ref Ascending aorta Value Ref DEJUAN, LAX 3.1 cm AAo AP diam, S 3.7 cm ----- DEJUAN minor ax, A4C 2.1 cm 1.9 - 3.5 mid Aortic arch Value Ref Pressure, S 21 mm Hg Arch diam 2.5 cm ----- Left atrium Value Ref Decending aorta Value Ref AP dim, ES 3.40 cm 2.70 - Kamini peak leann 0.75 m/sec ----- 3.80 ML dim, A4C 4.0 cm Pulmonary artery Value Ref SI dim, A4C 4.9 cm Pressure, S 20.0 mm Hg ----- Vol/bsa, ES, A/L 25 ml/m^2 16 - 34 Pulmonary veins Value Ref Right atrium Value Ref Peak v, S 0.53 m/sec ----- SI dim, ES 5.0 cm 3.4 - 5.3 Peak v, D 0.34 m/sec ----- ML dim, ES, A4C 3.8 cm 2.6 - 4.4 Peak S/D ratio 1.6 ----- Estimated RAP 3 mm Hg A rev duration 106 ms ----- Aortic valve Value Ref Phyllis diam, ED 2.4 cm Peak v, S 1.08 m/sec VTI, S 19.6 cm Legend: (L) and (H) stefany values outside specified reference range. Prepared and electronically signed by Jamila Sheriff MD 04/07/2019 09:23
[2019-04-07] MEDS: busPIRone TAB* 30 MG PO SCH (11:16)
[2019-04-07] MEDS ORDERED: Albuterol HFA INHALER* 8 gm MDI INH PRN (12:31)
[2019-04-07 13:02] VITALS: BP 102/67
[2019-04-07 16:36] LABS: BUN/Creatinine Ratio 15.1 (8-20); Calcium 9.2 mg/dL (8.6-10.3); EGFR African American 31.2 (>60); EGFR Non-African American 25.7 (>60); Potassium 4.1 mmol/L (3.5-5.0)
--- NOTE | 2019-04-07 22:16 | DS ---
CC: Dr. Barbara Castro; Dr. Aldo Conroy; Dr. Cortez Lopez * DISCHARGE SUMMARY: DATE OF ADMISSION: 04/06/19 DATE OF DISCHARGE: 04/07/19 PRIMARY CARE PHYSICIAN: Dr. Barbara Castro. CLINICAL RESEARCH MANAGER: Dr. Aldo Conroy. UROLOGIST: Dr. Cortez Lopez. ATTENDING PHYSICIAN: Dr. Sarai Cole.* (DICTATED BY KODY ZEPEDA NP) PRIMARY DIAGNOSES: 1. Urinary retention. 2. Acute kidney injury. SECONDARY DIAGNOSES: 1. Hypertension. 2. Peptic ulcer disease. 3. Lumbar stenosis. 4. Iron deficiency anemia. STUDIES WHILE IN THE HOSPITAL: 1. EKG on 04/06/19 shows tachycardia with a rate of 115, no ST changes. 2. Chest x-ray on 04/06/19 reads as no active cardiopulmonary disease. 3. Lumbar spine MRI on 04/06/19 reads as multilevel spondylitic changes of the lumbar spine which are unchanged from prior MRI; however, there are inferiorly oriented disc extrusions at L2-3 that have slightly increased in severity as detailed in the body of the report. No evidence of severe canal narrowing or cauda equina compression. 4. Transthoracic echocardiogram on 04/07/19 reads as the left ventricular cavity size is below normal. Wall thickness is mildly to moderately increased. Systolic function is normal. The estimated ejection fraction is 55% to 60%. Left ventricular diastolic function parameters are normal for the patient's age. Right ventricular systolic function is normal. The ascending aorta internal dimension in the AP direction maximal systolic dimension is 3.7 cm. The ascending aorta is mildly dilated. Systolic pressure in the pulmonary arteries is within normal range. The peak pressure during systole by Doppler is 20 mmHg. Compared to a prior echocardiogram of 10/12/18, ejection fraction is stable, prior echocardiogram showed patent foramen ovale with bubble study. 5. Cardiac nuclear stress test on 04/07/19 reads as no definite fixed or reversible perfusion defect is identified. Normal ejection fraction. Assessment is low risk. HISTORY OF PRESENT ILLNESS AND HOSPITAL COURSE: Ms. Bang is a 73-year-old female with past medical history of hypertension, peptic ulcer disease, CVA, lumbar stenosis with known PFO and iron deficiency anemia, who presented to the emergency room on 04/06/19 with complaints of shortness of breath. Please see the history and physical by myself for complete summary of the events leading up to his hospitalization. In short, the patient has been experiencing worsening urinary retention recently and has been seeing Dr. Lopez. He has been working her up for possible neurogenic bladder. She actually was scheduled to have an appointment with him today for which he was going to have her start self-cathing. Nonetheless, the patient has been experiencing some shortness of breath and chest pressure. She reports that these symptoms are worse when her bladder is full and she is unable to empty it. Symptoms are improved after sufficient urination. She had expressed concern about her symptoms to her supervisor adult education and was instructed to come to the emergency room. In the emergency room, she had imaging as noted above. She had a mildly elevated creatinine of 1.3. She had 3 negative troponins and a normal BMP. HEART score was noted to be 3, making her low risk. There was some concern about desaturation on room air while in the emergency room, though it is unclear if those were accurate readings as the patient has otherwise been saturating well on room air. She was admitted by the hospitalist service. The patient had an uneventful night. No significant chest pressure or shortness of breath. She had an echocardiogram with results noted above. She additionally had a stress test today which was noted to be low risk. She has had some difficulty with urinary retention during the day today and overnight. This was pretty typical for her. She was noted to have a bump in creatinine this morning to 1.9. She was able to empty her bladder later this afternoon after drinking some caffeine and post-void residual at that point was 38 mL. I did recheck a BMP this afternoon at 1600 and creatinine was again noted to be 1.9. I suspect the creatinine is mildly elevated due to this intermittent urinary retention and I think that the acute kidney injury is postrenal. Though at this point, the patient remains stable and is suitable for discharge home with appropriate followup. On exam, she offers no complaints. She is alert and oriented x4. She has no focal neurological deficits. Heart has a regular rate and rhythm with no murmurs, rubs or gallops. Lungs are clear to auscultation without rhonchi, wheezes or rubs. Abdomen is soft and nontender to palpation. Bowel sounds are normoactive. There is no edema. Physical exam is otherwise benign. Ms. Bang is stable for discharge today. Most recent vitals are as follows: Temp 97.9, heart rate 76, respiratory rate 16, oxygen saturation 98% on room air , blood pressure 102/67. DISCHARGE MEDICATIONS: Continued medications: 1. Aspirin 81 mg p.o. daily. 2. Avapro 40 mg p.o. at bedtime. 3. Buspirone 30 mg p.o. b.i.d. 4. Diclofenac 1% gel 1 application topically p.r.n. pain. 5. Fluticasone 2 sprays both nares daily. 6. Gabapentin 600 mg p.o. at bedtime. 7. Mirtazapine 50 mg p.o. at bedtime. 8. Pantoprazole 40 mg p.o. daily. 9. Cholecalciferol 5000 units p.o. weekly. 10. DayQuil 30 mL p.o. daily p.r.n. congestion. 11. Diclofenac 1.3% patch 1 patch transdermal daily p.r.n. pain. 12. Melatonin 2 mg p.o. at bedtime p.r.n. insomnia. 13. Vitamin B12 1000 mcg sublingual monthly. 14. Percocet 10/325, 0.5 tabs p.o. daily p.r.n. pain. 15. Vitamin B complex 1 tab p.o. daily. DISCHARGE PLAN: Ms. Bang will be discharged home. Activity will be as tolerated. Diet will be regular as tolerated. She can continue her usual medications and I have not made any changes. The patient will need a repeat BMP which I have instructed her to have drawn by at the latest. She did have an appointment to follow up with Dr. Lopez today which unfortunately needed to be canceled, though she will call his office tomorrow morning to schedule another appointment and she believes that she will be able to get in either this Friday or next Friday. She can follow up with her supervisor adult education as needed, though there are no acute cardiology concerns at this point. She should follow up with her primary care physician in the next 4 to 7 days. She has been advised to return to the hospital or nearest emergency room for any worsening of symptoms, shortness of breath, lightheadedness, dizziness, chest discomfort, high fevers, chills, night sweats , loss of consciousness or any other worrisome signs or symptoms. DISCHARGE CONDITION: Stable. DISCHARGE DISPOSITION: To home. This is a summarized report of a complex medical history and hospital stay. For further details, please see the entire medical record. TIME SPENT: Approximately 50 minutes were spent on this discharge. KODY ZEPEDA NP [id number]/CPS #: [id number] HERIBERTO
[2019-04-08] MEDS ORDERED: Aspirin EC TAB* 81 MG TAB.EC PO SCH (09:00)
== END 2019-04-07 18:55 | disposition home or self-care (01) ==
LOC: ED 11:04 → MEDTELE 18:27
PROVIDERS: ADMIT Internal Medicine; ATTEND Internal Medicine
DX: R33.9 Retention of urine, unspecified (principal); N17.9 Acute kidney failure, unspecified; I10 Essential (primary) hypertension; K27.9 Peptic ulcer, site unspecified, unspecified as acute or chronic, without hemorrhage or perforation; M48.061 Spinal stenosis, lumbar region without neurogenic claudication; R06.02 Shortness of breath; D50.9 Iron deficiency anemia, unspecified; Z79.82 Long term (current) use of aspirin; Z79.899 Other long term (current) drug therapy; Z86.73 Personal history of transient ischemic attack (TIA), and cerebral infarction without residual deficits
CPT/HCPCS: 36415; 71045; 72148; 78452; 80048; 80053; 83880; 84484; 85025; 85610; 93005; 93017; 93306; 96372; 99284; A9270-GY; A9502; G0378; J0280; J1650; J2785

== ENCOUNTER 2019-05-10 13:33 | Emergency (ER) | payer MEDICARE ==
[2019-05-10 13:57] LABS: ABS Basophils 0.1 10^3/ul (0-0.2); ABS Eosinophils 0.1 10^3/ul (0-0.6); ABS Lymphocytes 1.7 10^3/ul (1.0-4.8); ABS Monocytes 0.3 10^3/ul (0-0.8); ABS Neutrophils 3.6 10^3/ul (1.5-7.7); Eosinophil % 1.5 %; Hematocrit 36 % (35-47); Hemoglobin 12.1 g/dL (12.0-16.0); Lymphocyte % 29.3 %; Mean Corpuscular HGB Conc 34 g/dL (31-36); Mean Corpuscular Hemoglobin 32 pg (27-31); Mean Corpuscular Volume 94 fL (80-97); Mean Platelet Volume 9.2 fL (7.4-10.4); Platelet Count 225 10^3/uL (150-450); Red Blood Count 3.83 10^6 /uL (3.70-4.87); Red Cell Distribution Width 16 % (10-15); White Blood Count 5.7 10^3/uL (3.5-10.8)
[2019-05-10 14:03] LABS: INR 0.99 (0.82-1.09)
--- OUTSIDE RECORDS SUMMARY | 2019-05-10 14:03 | XMS REPORT | Continuity of Care Document ---
:1945 External Reference #:[id number] Author Name Carlin Marcus Care Team Providers Name Role Phone Barbara Castro MD - Internal Care Team Information Welding Operator Medicine Aldo Conroy MD FAC - Care Team Information Welding Operator Cardiovascular Disease Problems Active Problems Provider Date [...] with no listings for parenteral iron at [facility]; [facility] consult 04/13/17 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out aura, not [...] Date Provider Lasix 1 by mouth 30tabs Aldo S. 04/01/2019 20mg Tablets every day David Conroy Buspirone HCL take 1 tab Unknown 03/01/2019 30mg Tablets twice a day Benazepril HCL one by mouth 60tabs Aldo [...] tablets at 150caps Iron 300mg Capsules bedtime Cong Varela apply 1 patch Unknown 1.3% Patches to [...] Available Procedures Date Code Description Status 04/01/2019 37871 EKG Tracing & Interpretation Completed 03/05/2019 90186 Injection Single Tendon Origin/Insertion Completed 03/02/2019 70396 EKG Tracing & Interpretation Completed 11/06/2018 70404 Event Monitor/Phys Review/Interp. Completed 10/12/2018 77595 ECHO Transthorasic Realtime 2D W Doppler & Color Flow Completed Hosp 09/15/2018 [id number] Mammogram Completed 06/25/2017 [id number] Mammogram Completed 03/15/2016 [id number] Mammogram Completed 08/17/2015 [id number] Colonoscopy Completed 03/15/2010 [id number] Colonoscopy Completed Medical Devices Description No Information Available Encounters Type Date Location Provider Dx Diagnosis Office Visit 04/01/2019 [facility] Georgiatalala S. R00.2 Palpitations 4:00p David Conroy R00.0 Tachycardia, unspecified R06.02 Shortness of breath R07.9 Chest pain, unspecified Office Visit 03/02/2019 9:30a [facility] Georgiatalala S. I10 Essential David Conroy (primary) hypertension I47.1 Supraventricular tachycardia R00.2 Palpitations E66.9 Obesity, unspecified R94.31 Abnormal electrocardiogram [ECG] [EKG] Office Visit 02/05/2019 [place] Luis Felipe G43.009 Migraine w/o 11:45a Neurologic David Caal aura, not [facility] intractable, w/o status migrainosus M62.81 Muscle weakness (generalized) M54.5 Low back pain R00.2 Palpitations Z86.73 Prsnl hx of TIA (TIA), and cereb infrc w/o resid deficits Office Visit 01/01/2019 8:45a [facility] Michelle Arenas, M25.551 Pain in right at [place] M.D. hip M25.552 Pain in left hip W19.xxxD Unspecified fall, subsequent encounter M16.11 Unilateral primary osteoarthritis, right hip M16.12 Unilateral primary osteoarthritis, left hip Office Visit 12/25/2018 9:45a [facility] Luann Maxwell, M25.551 Pain in at [place] PA-C right hip M25.552 Pain in left hip M25.511 Pain in right shoulder M25.512 Pain in left shoulder W19.xxxA Unspecified fall, initial encounter Office Visit 12/07/2018 3:00p [facility] Iron Varela MBrady.7 Fibromyalgia [facility] N.P. G43.009 Migraine w/o aura, not intractable, w/o status migrainosus M62.81 Muscle weakness (generalized) M54.5 Low back pain Office Visit 11/06/2018 [facility] Iron Tarango.7 Fibromyalgia 10:30a [facility] Avery N.P. G43.009 Migraine w/o aura, not intractable, w/o status migrainosus R00.2 Palpitations M79.604 Pain in right leg M62.81 Muscle weakness (generalized) Office Visit 10/26/2018 11:00a [facility] Iron Varela M79.7 Fibromyalgia [facility] N.P. G43.009 Migraine w/o aura, not intractable, w/o status migrainosus R00.2 Palpitations Office Visit 10/15/2018 [facility] Chay Colin D50.9 Iron deficiency 11:00a MD Farhan anemia, unspecified K21.9 Gastro-esophageal reflux disease without esophagitis Z79.899 Other ad terminal makeup operator (current) drug therapy E66.9 Obesity, unspecified R19.7 Diarrhea, unspecified K59.00 Constipation, unspecified R51 Headache M79.7 Fibromyalgia K27.7 Chronic peptic ulcer, site unsp, w/o hemorrhage or perf Office 10/13/2018 [facility] G43.109 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 Visit 7:00a Jimbo Berman MD aura, not intractable, w/o status migrainosus Q21.1 Atrial septal defect Office Visit 10/13/2018 [facility] Gavi Dominguez, G43.101 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 8:50a Assoc,pc [employer] aura, not Hospitalists intractable, with status migrainosus I10 Essential (primary) hypertension Q21.1 Atrial septal defect Office 10/12/2018 [facility] Kelechi Alegria G43.109 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 Visit 7:00a Jimbo Mcdonald M.D. aura, not intractable, w/o status migrainosus Office 10/12/2018 [facility] H53.40 Unspecified Visit 8:50a Assoc, Hospitalists MD Maik visual field defects I10 Essential (primary) hypertension G47.00 Insomnia, unspecified Assessments Date Code Description Provider 04/01/2019 R00.2 Palpitations Aldo Conroy M.D. 04/01/2019 [...] 12/25/2018 M25.552 Pain in left hip Luann Drumheller, PA-C 12/25/2018 M25.511 Pain in right shoulder [...] 11/06/2018 G43.009 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out aura, not Iron Avery, N.P. intractable, without status migra 11/06/2018 R00.2 Palpitations Ironbrendan Varela, N.P. 11/06/2018 M79.604 Pain in right leg Iron Avery, N.P. 11/06/2018 M62.81 Muscle weakness (generalized) Ironbrendan Varela, N.P. 10/26/2018 M79.7 Fibromyalgia Ironbrendan Varela, N.P. 10/26/2018 G43.009 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out aura, not Ironbrendan Varela, N.P. intractable, without status migra 10/26/2018 R00.2 Palpitations Iron Avery, N.P. 10/15/2018 D50.9 Iron deficiency anemia, unspecified Chay Real MD 10/15/2018 K21.9 Gastro-esophageal reflux disease Chay Real MD without esophagitis 10/15/2018 Z79.899 Other halfway (current) drug Chay Real MD therapy 10/15/2018 [...] 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 aura, not intractable, Gavi Angelica, [employer] [place] with status migrainosus 10/13/2018 Q21.1 Atrial septal defect Sb Berman MD 10/13/2018 I10 Essential (primary) hypertension Gavi Angelica, [employer] [place] 10/13/2018 Q21.1 Atrial septal defect Gavi Angelica, [employer] [place] 10/12/2018 G43.109 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 aura, not intractable, Kelechi Mcdonald M.D. without status migrainosus 10/12/2018 H53.40 Unspecified visual field defects Karolyn Pleitez MD 10/12/2018 I63.9 Cerebral infarction, unspecified Anton Taylor M.D. 10/12/2018 I10 Essential (primary) hypertension Karolyn Pleitez MD 10/12/2018 G47.00 Insomnia, unspecified Karolyn Pleitez MD Plan of Treatment Future Appointment(s):06/08/2019 10:00 am - Aldo Conroy M.D. at [facility]05/05/2019 11:30 am - Aldo Conroy M.D. at [facility]2019 1:00 pm - Michelle Arenas M.D. at [facility]05/10/2019 4:00 pm - Iron Varela N.P. at [facility]03/05/2019 - Michelle Arenas M.D.M25.552 Pain in left hipFollow up:Follow up : 3 ywtlgeW77.551 Pain in right hipM70.61 Trochanteric bursitis, right hipM70.62 Trochanteric bursitis, left hip Functional Status Description No Information Available Mental Status Description No Information Available Referrals Refer to Dr Reason for Referral Status Appt Date Gunnar Wooten MD Sent [address] [place], [place] [id number] [phone] Aldo Conroy MD [facility] [address] [place], [place] [address] [phone]
--- OUTSIDE RECORDS SUMMARY | 2019-05-10 14:03 | XMS REPORT | Continuity of Care Document ---
:1945 External Reference #:[id number] Author Name Iron Varela N.P. (transmitted by agent of provider Marko Ceja) Address [address], [place] [address] Care Team Providers Name Role Phone Barbara Castro MD - Internal Care Team Information Inspector And Hand Packager Medicine Aldo Conroy MD FAC - Care Team Information Inspector And Hand Packager [phone] Cardiovascular Disease Cortez Lopez MD - Urology Care Team Information Inspector And Hand Packager [phone] Edson Benavides M.D. - Hematology & Care Team Information Inspector And Hand Packager [phone] Oncology Problems Active Problems Provider Date Sciatica Omkar [...] with no listings for parenteral iron at [facility]; [facility] consult 04/13/17 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out aura, not refractory Luis Felipe Caal M.D. Onset: 2018 Muscle weakness Luis Felipe Caal M.D. Onset: 02/05/2019 Low back pain Luis Felipe Caal M.D. Onset: 02/05/2019 History of cerebrovascular accident without Luis Felipe Caal M.D. Onset: 02/2019 residual deficits Social History Type Date Description Comments Sex Unknown Tobacco Use Start: Unknown Never Smoked Cigarettes Smoking Status Reviewed: 05/10/19 Never Smoked Cigarettes ETOH Use Denies alcohol use Tobacco Use Start: Unknown Patient has never smoked Recreational Drug Use Denies Drug Use Exercise Type/Frequency Exercises sporadically Exercise Type/Frequency physical [...] Medications Active Medications SIG Qnty Indications Ordering Provider Date Buspirone HCL take 1 tab twice Unknown 03/01/2019 30mg a day Tablets Benazepril HCL one by mouth 60tabs Georgiatalala S. 05/21/2018 20mg daily David Conroy Tablets Lasix 1 by mouth every Unknown 20mg Tablets day Proair Digihaler as needed Unknown 108mcg/Act Aerosol Vitamin B-2 1 tab by mouth Unknown 100mg once day Tablets Adult Aspirin Regimen one daily Other Ordering Provider 81mg Tablets Carafate Take 10ML (2 Unknown 1GM/10ML Teaspoonfuls) By Suspension Mouth Up To 4 Times Daily, Take 1/2 Hour Prior To Eating For Stomach Pain Pantoprazole Sodium 1 daily Unknown 40mg Tablets Diclofenac Sodium apply 1 grams Unknown 1% as needed at hs Gel Iron (Ferrous 1 by mouth twice Unknown Gluconate) a week 65mg Tablets Fluticasone 2 sprays each Unknown Propionate nostril qd.prn 50mcg/Act Suspension Gabapentin 1 tablets at 150caps Iron Varela, 300mg bedtime N.P. Capsules Flector apply 1 patch to Unknown 1.3% Patches the skin as needed Vitamin B12 1 by mouth once Unknown 1000mcg a month Tablets ER Melatonin hs prn Unknown 10mg Tablets Dayquil 15cc prn Unknown Vitamin B Complex 1 by mouth twice Unknown weekly Tablets Vitamin D 1 tab per week Unknown 5000Unita Tablets History Medications Lasix 1 by mouth every 30tabs Aldo Alegria 04/01/2019 - 20mg day David Conroy 04/13/2019 Tablets Medications Administered in Office Medication SIG [...] Available Vital Signs Date Vital Result Comment 05/10/2019 11:29am Height 62.5 inches 5'2.50" Weight 207.00 lb Heart Rate 121 /min BP Systolic 110 mmHg BP Diastolic 82 mmHg BMI (Body Mass Index) 37.3 kg/m2 04/13/2019 2:22pm Height 62.5 inches 5'2.50" Weight 208.00 lb with shoes Heart Rate 100 /min left radial BP Systolic Sitting 124 mmHg Lue, reg cuff BP Diastolic Sitting 76 mmHg Lue, reg cuff BP Systolic Standing 120 mmHg Lue, reg cuff BP Diastolic Standing 76 mmHg Lue, reg cuff BMI (Body Mass Index) 37.4 kg/m2 Ejection Fraction 55%-60% echocardiogram 04/07/19 Results Test Acquired Date Facility Test Result H/L Range Note Basic Metabolic 05/07/2019 [facility] Sodium 144 mmol/L Normal 135-[address] [place] [address] [phone] Potassium 3.5 mmol/L Normal 3.5-5.0 Chloride 104 mmol/L Normal 101-111 Co2 Carbon Dioxide 32 mmol/L Normal 22-32 Anion Gap 8 mmol/L Normal 2-11 Glucose 116 mg/dL High 70-100 Blood Urea Nitrogen 19 mg/dL Normal 6-24 Creatinine 1.00 mg/dL High 0.51-0.95 BUN/Creatinine Ratio 19.0 Normal 8-20 Calcium 9.5 mg/dL Normal 8.6-10.3 Egfr Non- 54.7 >60 Egfr 66.1 >60 1 Basic Metabolic 04/13/2019 [facility] Sodium 139 mmol/L Normal 135-[address] [place] [address] [phone] Potassium 3.8 mmol/L Normal 3.5-5.0 Chloride 102 mmol/L Normal 101-111 Co2 Carbon Dioxide 30 mmol/L Normal 22-32 Anion Gap 7 mmol/L Normal 2-11 Glucose 115 mg/dL High 70-100 Blood Urea Nitrogen 22 mg/dL Normal 6-24 Creatinine 1.24 mg/dL High 0.51-0.95 BUN/Creatinine Ratio 17.7 Normal 8-20 Calcium 9.5 mg/dL Normal 8.6-10.3 Egfr Non- 42.6 >60 Egfr 51.6 >60 2 CBC Auto 04/13/2019 [facility] White Blood 6.8 10^3/uL Normal 3.5-10.[address] [place] [address] [phone] Red Blood Count 3.98 10^6/uL Normal 3.70-4.87 Hemoglobin 12.5 g/dL Normal 12.0-16.0 Hematocrit 37 % Normal 35-47 Mean Corpuscular Volume 93 fL Normal 80-97 Mean Corpuscular Hemoglobin 31 pg Normal 27-31 Mean Corpuscular HGB Conc 34 g/dL Normal 31-36 Red Cell Distribution Width 16 % High 10-15 Platelet Count 215 10^3/uL Normal 150-450 Mean Platelet Volume 9.6 fL Normal 7.4-10.4 Abs Neutrophils 4.1 10^3/uL Normal 1.5-7.7 Abs Lymphocytes 2.1 10^3/uL Normal 1.0-4.8 Abs Monocytes 0.4 10^3/uL Normal 0-0.8 Abs Eosinophils 0.1 10^3/uL Normal 0-0.6 Abs Basophils 0.0 10^3/uL Normal 0-0.2 Abs Nucleated RBC 0.0 10^3/uL Granulocyte % 60.8 % Lymphocyte % 31.2 % Monocyte % 6.4 % Eosinophil % 1.2 % Basophil % 0.4 % Nucleated Red Blood Cells % 0.0 1 Because ethnic data is not always readily [...] 15-29 5 Kidney failure <15 (or dialysis) 2 Because ethnic data is not always [...] 15-29 5 Kidney failure <15 (or dialysis) Procedures Date Code Description Status 04/07/2019 21093 ECHO Transthorasic Realtime 2D W Doppler & Color Flow Completed Hosp 04/07/2019 40171 Treadmill Interp/Report Only Completed 04/07/2019 04111 Stress Test Supervsn W/Out I/R Completed 04/01/2019 21919 EKG Tracing & Interpretation Completed 03/05/2019 86503 Injection Single Tendon Origin/Insertion Completed 03/02/2019 33995 EKG Tracing & Interpretation Completed 09/15/2018 [id number] Mammogram Completed 06/25/2017 [id number] Mammogram Completed 03/15/2016 [id number] Mammogram Completed 08/17/2015 [id number] Colonoscopy Completed 03/15/2010 [id number] Colonoscopy Completed Medical Devices Description No Information Available Encounters Type Date Location Provider Dx Diagnosis Office Visit 05/10/2019 [facility] Iron Varela, R00.2 Palpitations 11:30a [facility] [employer] N[facility] R06.02 Shortness of breath R07.89 Other chest pain R00.0 Tachycardia, unspecified G43.109 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 aura, not intractable, w/o status migrainosus Office Visit 04/13/2019 2:30p [facility] Bibiana Altman NP R00.2 Palpitations I10 Essential (primary) hypertension E78.5 Hyperlipidemia, unspecified N17.9 Acute kidney failure, unspecified Office Visit 04/07/2019 9:08a 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 Gavi Angelica, R06.02 Shortness of Assoc,pc COURIER DRIVER breath Hospitalists R07.89 Other chest pain R33.9 Retention of urine, unspecified I10 Essential (primary) hypertension Office Visit 04/01/2019 4:00p [facility] Qutaybeh S. R00.2 Palpitations David Conroy R00.0 Tachycardia, unspecified R06.02 Shortness of breath R07.9 Chest pain, unspecified Office Visit 03/02/2019 9:30a [facility] Qutaybeh S. I10 Essential David Conroy (primary) hypertension I47.1 Supraventricular tachycardia R00.2 Palpitations E66.9 Obesity, unspecified R94.31 Abnormal electrocardiogram [ECG] [EKG] Office Visit 02/05/2019 [facility] Luis Felipe G43.009 Migraine w/o 11:45a Pilar Caal M.D. aura, not [facility] intractable, w/o status migrainosus M62.81 Muscle weakness (generalized) M54.5 Low back pain R00.2 Palpitations Z86.73 Prsnl hx of TIA (TIA), and cereb infrc w/o resid deficits Office Visit 01/01/2019 8:45a [facility] Michelle Arenas, M25.551 Pain in right at [facility].D. hip M25.552 Pain in left hip W19.xxxD Unspecified fall, subsequent encounter M16.11 Unilateral primary osteoarthritis, right hip M16.12 Unilateral primary osteoarthritis, left hip Office Visit 12/25/2018 9:45a [facility] Luann Maxwell, M25.551 Pain in at [place] PA-C right hip M25.552 Pain in left hip M25.511 Pain in right shoulder M25.512 Pain in left shoulder W19.xxxA Unspecified fall, initial encounter Office Visit 12/07/2018 3:00p [facility] Iron Varela M79.7 Fibromyalgia [facility] N.P. G43.009 Migraine w/o aura, not intractable, w/o status migrainosus M62.81 Muscle weakness (generalized) M54.5 Low back pain Assessments Date Code Description Provider 05/10/2019 R00.2 Palpitations Iron Varela, N.P. 05/10/2019 R06.02 Shortness of breath Iron Varela, N.P. 05/10/2019 R07.89 Other chest pain Iron Varela, N.P. 05/10/2019 R00.0 Tachycardia, unspecified Iron Varela, N.P. 05/10/2019 G43.109 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 aura, not intractable, Iron Varela, N.P. without status migrainosus 04/13/2019 R00.2 Palpitations Bibiana Thuman, COURIER DRIVER 04/13/2019 I10 Essential (primary) hypertension Bibiana Thuman, COURIER DRIVER 04/13/2019 E78.5 Hyperlipidemia, unspecified Bibiana Thuman, COURIER DRIVER 04/13/2019 N17.9 Acute kidney failure, unspecified Bibiana Thuman, COURIER DRIVER 04/07/2019 R33.9 Retention of urine, unspecified Gavi Angleica, COURIER DRIVER 04/07/2019 R06.02 Shortness of breath Jamila Sheriff M.D. 04/07/2019 N17.9 Acute kidney failure, unspecified Gavi Angelica, COURIER DRIVER 04/07/2019 R06.02 Shortness of breath Matheus Sebastian MD, [facility] 04/07/2019 I10 Essential (primary) hypertension Gavi Angelica, COURIER DRIVER 04/06/2019 R06.02 Shortness of breath Gavi Angelica, COURIER DRIVER 04/06/2019 R07.89 Other chest pain Gavi Angelica, COURIER DRIVER 04/06/2019 R33.9 Retention of urine, unspecified Gavi Angelica, COURIER DRIVER 04/06/2019 I10 Essential (primary) hypertension Gavi Angelica, COURIER DRIVER 04/01/2019 R00.2 Palpitations Aldo Conroy M.D. 04/01/2019 R00.0 Tachycardia, unspecified Aldo Conroy M.D. 04/01/2019 R06.02 Shortness of breath Aldo Conroy M.D. 04/01/2019 R07.9 Chest pain, unspecified Aldo Conroy M.D. 03/05/2019 M25.552 Pain in left hip Michelle Dagoberto, M.D. 03/05/2019 M25.551 Pain in right hip [...] M25.551 Pain in right hip Luann Maxwell, NGUYEN 12/25/2018 M25.552 Pain in left hip Luann Maxwell, KIARA-C 12/25/2018 M25.511 Pain in right shoulder Luann Maxwell, BENJAMINC 12/25/2018 M25.512 Pain in left shoulder Luann Maxwell, KIARA-C 12/25/2018 W19.xxxA Unspecified fall, initial encounter Luann MaxwellNGUYEN 12/07/2018 M79.7 Fibromyalgia Iron Varela, N.P. 12/07/2018 G43.009 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out aura, not Iron Varela, N.P. intractable, without status migra 12/07/2018 M62.81 Muscle weakness (generalized) Iron Varela N.P. 12/07/2018 M54.5 Low back pain Iron Varela, N.P. Plan of Treatment Future Appointment(s):08/20/2019 11:00 am - Luis Felipe Caal M.D. at [facility]106/08/2019 10:00 am - Aldo Conroy M.D. at [facility]05/10/2019 - Iron Varela, N.P.R00.2 FfetcufwwlsrT76.02 Shortness of iltxgwJ46.89 Other chest painR00.0 Tachycardia, aotykfpkpovA82.109 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 aura, not intractable, without status migrainosusFollow up:3 months Functional Status Description No Information Available Mental Status Description No Information Available Referrals Description No Information Available
--- OUTSIDE RECORDS SUMMARY | 2019-05-10 14:03 | XMS REPORT | Continuity of Care Document ---
:1945 External Reference #:[id number] Author Name Bibiana Altman NP (transmitted by agent of provider Florence Quesada) Address [address] [place] [address] Care Team Providers Name Role Phone Barbara Castro MD - Internal Care Team Information Principal Android Developer Medicine Aldo Conroy MD FAC - Care Team Information Principal Android Developer [phone] Cardiovascular Disease Cortez Lopez MD - Urology Care Team Information Principal Android Developer [phone] Edson Benavides M.D. - Hematology & Care Team Information Principal Android Developer [phone] Oncology Problems Active Problems Provider Date Sciatica [...] with no listings for parenteral [place] [facility] [place] [facility] [place] 04/13/17 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out aura, not [...] Use Denies Drug Use Smoking Status Reviewed: 04/13/19 Patient has never smoked Exercise Type/Frequency Exercises [...] one daily Other Ordering 81mg Provider Tablets DR Goff Take 10ML (2 Unknown 1GM/10ML Suspension Teaspoonfuls) [...] each Unknown 50mcg/Act nostril qd.prn Suspension Gabapentin 1 tablets at 150caps Iron 300mg Capsules bedtime Antoine Varela.PJimmy Flector apply 1 patch Unknown 1.3% Patches [...] Medications Lasix 1 by mouth every 30tabs Ququinn SJimmy 04/01/2019 - 20mg day David Conroy 04/13/2019 [...] Available Vital Signs Date Vital Result Comment 04/13/2019 2:22pm Height 62.5 inches 5'2.50" Weight 208.00 lb with shoes Heart Rate 100 /min left radial BP Systolic Sitting 124 mmHg Lue, reg cuff BP Diastolic Sitting 76 mmHg Lue, reg cuff BP Systolic Standing 120 mmHg Lue, reg cuff BP Diastolic Standing 76 mmHg Lue, reg cuff BMI (Body Mass Index) 37.4 kg/m2 Ejection Fraction 55%-60% echocardiogram 04/07/19 04/01/2019 3:33pm Height 62.5 inches 5'2.50" Weight 209.12 lb with shoes Heart Rate 104 /min BP Systolic Sitting 126 mmHg Lue (Large cuff) BP Diastolic Sitting 88 mmHg Lue (Large cuff) BP Systolic Standing 126 mmHg BP Diastolic Standing 84 mmHg BMI (Body Mass Index) 37.6 kg/m2 Ejection Fraction 60%-65% echocardiogram 10/12/18 Results Description No Information Available Procedures Date Code Description Status 04/01/2019 17744 EKG Tracing & Interpretation Completed 03/05/2019 92719 Injection Single Tendon Origin/Insertion Completed 03/02/2019 03085 EKG Tracing & Interpretation Completed 11/06/2018 00650 Event Monitor/Phys Review/Interp. Completed 09/15/2018 [id number] Mammogram Completed 06/25/2017 [id number] Mammogram Completed 03/15/2016 16185750 Mammogram Completed 08/17/2015 [id number] Colonoscopy Completed 03/15/2010 [id number] Colonoscopy Completed Medical Devices Description No Information Available Encounters Type Date Location Provider Dx Diagnosis Office Visit 04/01/2019 [facility] Aldo SJimmy R00.2 Palpitations 4:00p David Conroy R00.0 Tachycardia, unspecified R06.02 Shortness of breath R07.9 Chest pain, unspecified Office Visit 03/02/2019 9:30a [facility] Aldo Alegria I10 Essential David Conroy (primary) hypertension I47.1 Supraventricular tachycardia R00.2 Palpitations E66.9 Obesity, unspecified R94.31 Abnormal electrocardiogram [ECG] [EKG] Office Visit 02/05/2019 [facility] Felipe G43.009 Migraine w/o 11:45a Neurolog[facility] David Caal aura, not [facility] intractable, w/o status migrainosus M62.81 Muscle weakness (generalized) M54.5 Low back pain R00.2 Palpitations Z86.73 Prsnl hx of TIA (TIA), and cereb infrc w/o resid deficits Office Visit 01/01/2019 8:45a [facility] Michelle Arenas, M25.551 Pain in right at [place] M.D. hip M25.552 Pain in left hip W19.xxxD Unspecified fall, subsequent encounter M16.11 Unilateral primary osteoarthritis, right hip M16.12 Unilateral primary osteoarthritis, left hip Office Visit 12/25/2018 9:45a [facility] Luann Maxwell, M25.551 Pain in at [place] PA-C right hip M25.552 Pain in left hip M25.511 Pain in right shoulder M25.512 Pain in left shoulder W19.xxxA Unspecified fall, initial encounter Office Visit 12/07/2018 3:00p [facility] Emelina Monterroso.7 Fibromyalgia [facility] N.P. G43.009 Migraine w/o aura, not intractable, w/o status migrainosus M62.81 Muscle weakness (generalized) M54.5 Low back pain Office Visit 11/06/2018 [facility] Iron MBrady.7 Fibromyalgia 10:30a [facility] Avery N.P. G43.009 Migraine w/o aura, not intractable, w/o status migrainosus R00.2 Palpitations M79.604 Pain in right leg M62.81 Muscle weakness (generalized) Office Visit 10/26/2018 11:00a [facility] Emelina Monterroso.Daniel Fibromyalgia [facility] N[facility] 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 E66.9 Obesity, unspecified R19.7 Diarrhea, unspecified K59.00 Constipation, unspecified R51 Headache M79.7 Fibromyalgia K27.7 Chronic peptic ulcer, site unsp, w/o hemorrhage or perf Office 10/13/2018 [facility] G43.109 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 Visit 7:00a Clinic MD Antonella aura, not intractable, w/o status migrainosus Q21.1 Atrial septal defect Office Visit 10/13/2018 [facility] Gavi Dominguez, G43.101 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 8:50a [employer] SALES REPRESENTATIVE aura, not Hospitalists intractable, with status migrainosus I10 Essential (primary) hypertension Q21.1 Atrial septal defect Assessments Date Code Description Provider 04/13/2019 R00.2 Palpitations Bibiana Altman NP 04/13/2019 I10 Essential (primary) hypertension Bibiana Altman NP 04/13/2019 E78.5 Hyperlipidemia, unspecified Bibiana Altman NP 04/13/2019 N17.9 Acute kidney failure, unspecified Bibiana Altman NP 04/01/2019 R00.2 Palpitations Aldo Conroy M.D. 04/01/2019 [...] PA-C 12/25/2018 M25.512 Pain in left shoulder Luannlatha Maxwell PA-C 12/25/2018 W19.xxxA Unspecified fall, initial [...] Real MD without esophagitis 10/15/2018 Z79.899 Other termite treater (current) drug Chay Real MD therapy 10/15/2018 [...] G43.101 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 aura, not intractable, Gavi Dominguez NP with status migrainosus 10/13/2018 Q21.1 Atrial septal defect Sb Berman MD 10/13/2018 I10 Essential (primary) hypertension Gavi Dominguez, BRODY 10/13/2018 Q21.1 Atrial septal defect Gavi Dominguez, BRODY Plan of Treatment Future Appointment(s):05/10/2019 1:20 pm - Bibiana Altman NP at [facility]06/08/2019 10:00 am - Aldo Conroy M.D. at [facility]2019 1:00 pm - Michelle Arenas M.D. at [facility] at [id number]/10/2019 4:00 pm - Iron Varela N.P. at [facility]04/13/2019 - Bibiana Altman, NPR00.2 PalpitationsFollow up:follow up with ne Bibiana Altman CYBER SECURITY MANAGER-BC in 3-4 weeks.I10 Essential (primary) vnjiwqfrjgiwG26.5 Hyperlipidemia, etirowtaariJ37.9 Acute kidney failure, unspecified Functional Status Description No Information Available Mental Status Description No Information Available Referrals Refer to Reason for Referral Status Appt Date Gunnar Wooten MD [facility] [address] [place] [address] [phone] Aldo Conroy MD [facility] [address] [place] [address] [phone]
--- OUTSIDE RECORDS SUMMARY | 2019-05-10 14:03 | XMS REPORT | Continuity of Care Document ---
:1945 External Reference #:[id number] Author Name Barbara Castro MD Address [address] [place] [id number] Care Team Providers Name Role Phone Kristopher Sparks MD - Orthopaedic Care Team Information Last [facility] Surgery Edson Benavides MD Care Team Information Last Ironer [phone] yaz phipps md Care Team Information Last Ironer [phone] Laron Roberts Care Team Information Last Ironer [phone] Aldo Conroy MD - Care Team Information Last Ironer [phone] Cardiovascular Disease Problems Active Problems Provider Date Benign essential [...] Patient has never smoked Smoking Status Reviewed: 05/03/19 Patient has never smoked Allergies, Adverse Reactions, Alerts Active Allergies Reaction Severity Comments Date Sulfa 01/29/2006 Inderal Memory Loss 01/29/2006 Quinidine 01/29/2006 Beta Blockers 01/29/2006 Paxil 09/21/2015 Cipro 09/21/2015 Medications Active Medications SIG Qnty Indications Ordering Provider Date Albuterol Sulfate Inhale 2 Puffs 8.5units [facility] 03/02/2019 HFA By Mouth Four MD Marita 108(90Base) Times A Day as mcg/Act Aerosol Needed Fluticasone [place] 2 Sprays 16units [facility] 03/01/2019 Propionate Into Each MD Marita 50mcg/Act Nostril One Time Suspension Daily Mirtazapine Take 1 Tablet By 30tabs F51.05 [facility] 02/01/2019 15mg Mouth AT Bedtime MD Marita Tablets Buspirone HCL 1 by mouth twice 60tabs F41.9 [facility] 01/26/2019 30mg a day MD Marita Tablets Aspirin Ec 1 by mouth 3x/wk H53.412 [facility] 10/19/2018 81mg food per neuro MD Marita Tablets Vitamin D3 1 by mouth qwk E55.9 [facility] 06/29/2018 5000Unit MD Marita Capsules Ondansetron 1 by mouth three 30tabs [facility] 05/01/2018 4mg times a day as MD Marita Tablets Dispers needed n/v Sucralfate 10ml every day 400ml K21.0 [facility] 01/26/2018 1GM/10ML and may take 1/2 MD Marita Suspension hour prior to eating for as needed stomach pain R10.84 Diclofenac Sodium apply 1 gram per 200gm G89.4 [facility] 05/30/2017 1% joint four times MD Marita Gel a day as needed for pain TENS Unit dx: lbp G89.4 [facility] 01/31/2017 MD Marita Flector apply patch twice 60units S39.012A [facility] 10/14/2016 1.3% Patches a day as needed MD Marita for acute pain G89.4 Narcan as needed 2units G89.4 [facility] 06/07/2016 4mg/0.1ML Liquid intranasal for MD Marita emergency overdose only Ferrous Sulfate 2x/wk 30tabs D50.9 [facility] 02/26/2016 325(65Fe) MD Marita mg Tablets DR Premarin . 5 g every night 42.500gm N95.2 Matthew Barbara 10/24/2015 0.625mg/GM Cream at bedtime x 2 wks MD Marita then 2x/wk Lorazepam take 1 tablet by 60tabs F41.9 Matthew Barbara 09/26/2015 1mg Tablets mouth two times MD Marita daily as needed maximum daily dose of 2 per day Vitamin B12 1 sl q mos D51.9 Barbara Castro 09/25/2012 1000mcg Tablets MD Marita ER Pantoprazole Sodium Take 1 Tablet By 180tabs K21.0 Matthew Barbara 2008 40mg Mouth Two Times Marita, Tablets DR Daily Gabapentin take 1 capsule by 150caps G89.4 Matthew Barbara 300mg Capsules mouth two times MMD daily prn and take 3 capsules by mouth at bedtime Chlorhexidine Gluconate swish and spit 15ml Unknown once a day as 0.12% Solution needed for recurrent mouth ulcers Probiotic Colon Support 1 by mouth every Unknown day Capsules Benazepril HCL 1 by mouth qam I10 Unknown 20mg Tablets Furosemide 1 by mouth every I10 Unknown 20mg Tablets day History Medications Nitrofurantoin Monohyd 1 by mouth [...] CPT Code Status Date Vaccine Lot # [id number] Given 03/03/2003 Immunization Td 7 Yrs Or Older [id number] Refused 02/16/2019 Influenza Vac, Quadrivalent, Split, 0.5mL [place] [id number] Refused 02/16/2019 Influenza Vac, Quadrivalent, Split, 0.5mL Dosage, [place] Use [address]36 Refused 04/17/2018 Influenza Vac, Quadrivalent, Split, 0.5mL [place]os[place], [place] Use [address]01 Refused 02/26/2016 Pneumococcal 23 Immunization Adult Or Immunosuppressed Patient 88317 Refused 02/26/2016 Tetanus And Diptheria Toxoid 7 Years And Older Preserv Free 00096 Refused 02/26/2016 Influenza Virus Vaccine,Quadrivalent,Split,Preserv Free, 0.5mL,[place] [address] Refused 02/26/2016 Prevnar 13 Pneumococal Conjugate Vaccine Vital Signs Date Vital Result Comment 05/03/2019 12:55pm Weight 206.00 lb Heart Rate 128 /min BP Systolic 120 mmHg BP Diastolic 80 mmHg Height 64 inches 5'4" BMI (Body Mass Index) 35.4 kg/m2 02/16/2019 2:13pm Weight 209.00 lb Heart Rate 80 /min BP Systolic 128 mmHg BP Diastolic 76 mmHg Height 64 inches 5'4" BMI (Body Mass Index) 35.9 kg/m2 Results Test Acquired Facility Test Result H/L Range Note Date Urine Culture And 04/23/2019 [facility] Urine SEE RESULT 1 , 2 Sensitivities Culture BELOW Laboratory test 04/06/2019 [facility] Troponin I 0.00 ng/mL < 0.03 3 finding Laboratory test 04/06/2019 [facility] Troponin I 0.00 ng/mL < 0.03 4 finding Inr/Protime 04/06/2019 [facility] Inr 0.95 Normal 0.82-1.09 5 CBC Auto Diff 04/06/2019 [facility] White Blood 6.3 Normal 3.5 -10.8 Count 10^3/uL Red Blood Count 3.95 10^6/uL Normal 3.70-4.87 Hemoglobin 12.6 g/dL Normal 12.0-16.0 Hematocrit 37 % Normal 35-47 Mean Corpuscular Volume 95 fL Normal 80-97 Mean Corpuscular Hemoglobin 32 pg High 27-31 Mean Corpuscular HGB Conc 34 g/dL Normal 31-36 Red Cell Distribution Width 16 % High 10-15 Platelet Count 215 10^3/uL Normal 150-450 Mean Platelet Volume 8.9 fL Normal 7.4-10.4 Abs Neutrophils 3.6 10^3/uL Normal 1.5-7.7 Abs Lymphocytes 2.3 10^3/uL Normal 1.0-4.8 Abs Monocytes 0.3 10^3/uL Normal 0-0.8 Abs Eosinophils 0.1 10^3/uL Normal 0-0.6 Abs Basophils 0.0 10^3/uL Normal 0-0.2 Abs Nucleated RBC 0.0 10^3/uL Granulocyte % 57.7 % Lymphocyte % 35.8 % Monocyte % 4.2 % Eosinophil % 2.1 % Basophil % 0.2 % Nucleated Red Blood Cells % 0.0 Laboratory test 04/06/2019 [facility] B Type Natriuretic 11 pg/ mL <=100 finding Peptide Troponin I 0.00 ng/mL <0.03 6 Comp Metabolic Panel 04/06/2019 [facility] Sodium 140 mmol/L Normal 135-145 Potassium 3.5 mmol/L Normal 3.5-5.0 Chloride 102 mmol/L Normal 101-111 Co2 Carbon Dioxide 26 mmol/L Normal 22-32 Anion Gap 12 mmol/L High 2-11 Glucose 162 mg/dL High 70-100 Blood Urea Nitrogen 28 mg/dL High 6-24 Creatinine 1.32 mg/dL High 0.51-0.95 BUN/Creatinine Ratio 21.2 High 8-20 Calcium 9.6 mg/dL Normal 8.6-10.3 Total Protein 6.7 g/dL Normal 6.4-8.9 Albumin 4.2 g/dL Normal 3.2-5.2 Globulin 2.5 g/dL Normal 2-4 Albumin/Globulin Ratio 1.7 Normal 1-3 Total Bilirubin 0.40 mg/dL Normal 0.2-1.0 Alkaline Phosphatase 62 U/L Normal 34-104 Alt 21 U/L Normal 7-52 Ast 24 U/L Normal 13-39 Egfr Non- 39.7 >60 Egfr 48.0 >60 7 Drugs Of 01/26/2019 [facility] Amphetamines,Urine NEGATIVE <1000 ng/mL Abuse,Urine-[facility] Barbiturates,Urine NEGATIVE <200 ng/mL Benzodiazepines, Urine POSITIVE Abnormal <200 ng/mL Bupernorphrine/Norbu,Urine NEGATIVE <10 ng/mL Cocaine Metabolites,Urine NEGATIVE <300 ng/mL Methadone,Urine NEGATIVE <300 ng/mL Opiates,Urine POSITIVE Abnormal <300 ng/mL Oxycodone,Urine POSITIVE Abnormal <100 ng/mL Phencyclidine,Urine NEGATIVE <25 ng/mL Cannabinoids,Urine NEGATIVE <50 ng/mL Laboratory test 01/26/2019 [facility] Urine Culture Microbiology res Abnormal 8 finding <SEE NOTE> Laboratory test 01/26/2019 [facility] T3 Total 1.0 ng/mL (0.6- 9, 10 finding 1.8) Laboratory test 01/26/2019 [facility] TSH 3.13 uIU/mL 0.35- finding 4.94 Free T4 0.93 ng/dL 0.70-1.48 CBC Auto Diff 01/19/2019 [facility] White Blood 6.7 10^3/uL Normal 3.5-10.8 Count [...] % 0.1 Iron & Iron Binding 01/19/2019 [facility] Iron 82 g/dL Normal 50-212 Capacity Unsaturated Iron Binding < 502 g/dL Total Iron Binding Capacity 517 g/dL High 250-450 Transferrin 369 mg/dL High 203-362 % Iron Saturation 16 % Normal 15-55 Laboratory test 01/19/2019 [facility] Ferritin 25.7 ng/mL Normal 11-307 finding Vitamin D Total 25(Oh) 57.0 ng/mL High 20-50 11 CBC with Auto Diff-fcmg 11/17/2018 [facility] WBC [...] Basophils 0.0 K/uL 0.0-0.3 Iron Panel 11/17/2018 [facility] Iron, Total 55 g/dL 50-170 Transferrin 278.0 mg/dL 203.0-362.0 Tibc (calc) 389 g/dL 261-478 % Iron Saturation 14.1 % 13.0-45.0 Basic (BMP) 11/17/2018 [facility] Sodium 141 mmol/L 135-146 12 Potassium 4.3 mmol/L 3.5-5.2 Chloride# 103 mmol/L 97-110 13 Carbon Dioxide 27 mmol/L 24-34 Glucose 102 mg/dL 70-105 BUN 20 mg/dL 6-26 Creatinine 1.1 mg/dL 0.5-1.4 Calcium 9.9 mg/dL 8.5-10.5 14 Female Egfr 52 Low >60 15 Male Egfr 69 >60 16 Anion Gap 11 mmol/L 5-15 17 Laboratory test finding 11/17/2018 [facility] Vitamin D 25 Hydroxy 49 ng/mL 30-100 18 Vitamin B12 337 pg/mL 180-914 Affirm 11/17/2018 [facility] Trichomonas Vaginalis Negative Negative Gardnerella Vaginalis Negative Negative Noemí Species Negative Negative 1 [id number] 2 SEE RESULT BELOW Name: KATHERINE BANG : [address]: Cortez Lopez MD Acct: [id number] Unit: [id number] AGE: 73 Location: [facility] Re04/23/19 SEX: F Status: REG REF SPEC: [id number] ANDERSON: 04/23/19-15[address] [facility] [address]: Cortez Lopez MD REQ: [id number] RECD: 04/23/19 STATUS: [facility]ANGELIST GUTPA DR: Barbara Castro MD _ SOURCE: URINE SPDESC: ORDERED: Urine Culture COMMENTS: [id number] QUERIES: Urine Source: Random Procedure Result Reported Site Urine Culture Final 04/25/19- 0831 ML Organism 1 ESCHERICHIA COLI Swan Count >100,000 (Many) CFU/ML 1. ESCHERICHIA COLI M.I.C. RX --------- ------ Ampicillin <=2 S Cefazolin <=4 S Cefepime <=1 S Ceftriaxone <=1 S Ciprofloxacin <=0.25 S Gentamicin <=1 S Levofloxacin <=0.12 S Meropenem <=0.25 S Nitrofurantoin <=16 S Tetracycline <=1 S Pipercillin/Tazobactam <=4 S Trimethoprim/Sulfamethoxazole <=20 S Amoxicillin/Clavulanic Acid <=2 S Aztreonam <=1 S Contact the Microbiology Department for any additional antibiotic reporting. * [facility] - Main Lab . END OF REPORT DEPARTMENT OF PATHOLOGY, [address] [place] [address] Jona Head M.D. Director [facility] # [id number] 3 Troponin-I testing on Plasma Separator Tubes (PST) has a known false positive rate of 0.20-0.40%. All positive troponins reflex immediately to secondary confirmatory testing. Using the ActualSun 800 Access Immunoassay systems, the 99th percentile upper reference limit was demonstrated to be < 0.03 ng/mL. 4 Troponin-I testing on Plasma Separator Tubes (PST) has a known false positive rate of 0.20-0.40%. All positive troponins reflex immediately to secondary confirmatory testing. Using the ActiveSec DxI 800 Access Immunoassay systems, the 99th percentile upper reference limit was demonstrated to be < 0.03 ng/mL. 5 Standard intensity warfarin therapeutic range: 2.0-3.0 High intensity warfarin therapeutic range: 2.5-3.5 6 Troponin-I testing on Plasma Separator Tubes (PST) has a known false positive rate of 0.20-0.40%. All positive troponins reflex immediately to secondary confirmatory testing. Using the UnicYouView DxI 800 Access Immunoassay systems, the 99th percentile upper reference limit was demonstrated to be < 0.03 ng/mL. 7 Because ethnic data is not always readily [...] 15-29 5 Kidney failure <15 (or dialysis) 8 Microbiology results SOURCE Clean Catch Midstream COLONY COUNT >100,000 CFU/ML PRELIMINARY RESULT Gram positive cocci. ID & Sensitivity to Follow. 01/27/2019 3:14 PM FINAL RESULT Staphylococcus epidermidis (Isolate 1) Sensitivity Analysis Isolate 1 --------- CIPROFLOXACIN <=1 S GENTAMYCIN <=4 S LINEZOLID 2 S NITROFURANTOIN <=32 S TETRACYCLINE <=4 S TRIMETHOPRIM/SULFAMETHOXAZ <=0.5/9.5 S VANCOMYCIN 2 S S=Sensitive;I=Indeterminate;R=Resistant 9 This sample is drawn by:[facility]. 10 Unless otherwise specified, testing performed by [facility] [address] [place] [id number] 11 Total 25-Hydroxyvitamin D2 and D3 (25-OH-VitD) <10 ng/mL (severe deficiency) 10-19 ng/mL (mild to moderate deficiency) 20-50 ng/mL (optimum levels) 51-80 ng/mL (increased risk of hypercalciuria) >80 ng/mL (toxicity possible) 12 Updated reference range on new analyzer 13 Updated reference range on new analyzer 14 Updated reference range 08-26-2018 15 Concerning GFR Guidelines for Americans: Normal function or mild renal disease, if clinically at risk: >/= 60 mL/min Moderately decreased: 30-59 Severely decreased: 15-29 Renal failure: <15 There is reduced accuracy above 60ml/min/1.73 m squared, but the numeric value may be clinically useful in the near 60 range 16 Concerning GFR Guidelines: Normal function or mild [...] drugs that are excreted by the kidneys. 17 Updated Reference Range 18 Clinical Guidelines for recommended serum 25(OH)Vitamin D Deficient at less than 20 ng/mL Insufficient at 20 to <30 ng/mL Sufficient at 30-100 ng/mL Toxicity at greater than 100 ng/mL Procedures Date Code Description Status 09/15/2018 [id number] Mammogram Completed 06/25/2017 [id number] Mammogram Completed 05/22/2016 [id number] Colonoscopy Completed 03/15/2016 [id number] Mammogram Completed 08/19/2015 [id number] Colonoscopy Completed 08/17/2015 [id number] Colonoscopy Completed 01/30/2015 [id number] Mammogram Completed 09/17/2012 [id number] Bone Mineral Density Test Completed 09/17/2012 [id number] Mammogram Completed 08/09/2010 [id number] Mammogram Completed 03/15/2010 [id number] Colonoscopy Completed 09/26/2008 [id number] Mammogram Completed Medical Devices Description No Information Available Encounters Type Date Location Provider Dx Diagnosis Office Visit 02/16/2019 Barbara Rivera E66.9 Obesity, unspecified 2:00p MD Marita F41.9 Anxiety disorder, unspecified F51.05 Insomnia due to other mental disorder G89.4 Chronic pain syndrome Z68.35 Body mass index (BMI) 35.0-35.9, adult Office Visit 01/26/2019 10:30a Barbara Rivera E66.9 Obesity, unspecified MD Marita G89.4 Chronic pain syndrome F41.9 Anxiety disorder, unspecified N39.0 Urinary tract infection, site not specified F51.05 Insomnia due to other mental disorder 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 N35.82 Other [...] L28.0 Lichen simplex chronicus N76.0 Acute vaginitis Assessments Date Code Description Provider 05/03/2019 E66.9 Obesity, unspecified Barbara Castro MD 05/03/2019 I10 Essential (primary) hypertension Barbara Castro MD 05/03/2019 F33.40 Major depressive disorder, recurrent, in Barbara Castro MD remission, unspecif 05/03/2019 G89.4 Chronic pain syndrome Barbara Castro MD 05/03/2019 F51.05 Insomnia due to other mental disorder Barbara Castro MD 05/03/2019 F41.9 Anxiety disorder, unspecified Barbara Castro MD 05/03/2019 R00.2 Palpitations Barbara Castro MD 05/03/2019 N35.82 Other urethral stricture, female Barbara Castro MD 05/03/2019 E04.2 Nontoxic multinodular goiter Barbara Castro MD 05/03/2019 M48.07 Spinal stenosis, lumbosacral region Barbara Castro MD 05/03/2019 J20.9 Acute bronchitis, unspecified Barbara Castro MD 05/03/2019 R00.0 Tachycardia, unspecified Barbara Castro MD 05/03/2019 D50.9 Iron deficiency anemia, unspecified Barbara Castro MD 05/03/2019 I77.810 Thoracic aortic ectasia Barbara Castro MD 05/03/2019 Z68.35 Body mass index (BMI) 35.0-35.9, adult Barbara Castro MD 02/16/2019 E66.9 Obesity, unspecified Barbara Castro MD [...] Castro MD 01/26/2019 F41.9 Anxiety disorder, unspecified Barbara Castro MD 01/26/2019 N39.0 Urinary tract infection, site not specified Barbara Castro MD 01/26/2019 F51.05 Insomnia due to other mental disorder Barbara Castro MD 01/26/2019 Z79.891 [facility] (current) use of opiate analgesic Barbara Castro MD 01/26/2019 N35.82 Other urethral stricture, female Barbara Castro MD 01/26/2019 K21.0 Gastro-esophageal reflux disease with Barbara Castro MD esophagitis 01/26/2019 E04.2 Nontoxic multinodular goiter Barbara Castro MD 01/26/2019 Z68.34 Body mass index (BMI) 34.0-34.9, adult Barbara Castro MD 01/26/2019 E04.2 Nontoxic multinodular goiter [facility] 01/26/2019 N39.0 Urinary tract infection, site not specified [facility] 01/26/2019 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 [facility] 11/17/2018 Z00.01 Encounter for general adult medical Barbara Castro MD examination with abnorma 11/17/2018 H53.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, LEFT eye Barbara Castro MD 11/17/2018 F41.9 Anxiety disorder, unspecified Barbara Castro MD 11/17/2018 E55.9 Vitamin D deficiency, unspecified [facility] 11/17/2018 D50.9 Iron deficiency anemia, unspecified Barbara Castro MD 11/17/2018 I10 Essential (primary) hypertension Barbara Castro MD 11/17/2018 G89.4 Chronic pain syndrome Barbara Castro MD 11/17/2018 M48.07 Spinal stenosis, lumbosacral region Barbara Castro MD 11/17/2018 K21.0 Gastro-esophageal reflux disease with Barbara Castro MD esophagitis 11/17/2018 E04.2 Nontoxic multinodular goiter Barbara Castro MD 11/17/2018 E55.9 Vitamin D deficiency, unspecified Barbara Castro MD 11/17/2018 Z12.31 Encounter for [...] MD 11/17/2018 D50.9 Iron deficiency anemia, unspecified [facility] 11/17/2018 D51.9 Vitamin B12 deficiency anemia, unspecified [facility] 11/17/2018 N76.0 Acute vaginitis [facility] Plan of Treatment Future Appointment(s):09/03/2019 2:00 pm - Barbara Castro MD at [id number] - Barbara Castro MDE66.9 Obesity, etjbsbzbwjyP05 Essential (primary) hypertensionFollow up:4 mosF33.40 Major depressive disorder, recurrent, in remission, uukulsbjE82.4 Chronic pain jhqavjmxP13.05 Insomnia due to other mental agzoyavrL12.9 Anxiety disorder, pudwtistohaK30.2 OymhqxdaxeorJ17.82 Other urethral stricture, osgaobE77.2 Nontoxic multinodular pmiymiL89.07 Spinal stenosis, lumbosacral huqpwdX62.9 Acute bronchitis, jkyvteizkleC62.0 Tachycardia , qdlsknebvfgA17.9 Iron deficiency anemia, ycfastnjduyW50.810 Thoracic aortic qocjeeoI44.35 Body mass index (BMI) 35.0-35.9, adult Functional Status Description No Information Available Mental Status Description No Information Available Referrals Refer to Reason for Referral Status Appt Date Cely Varghese MD Closed [address] [place] [id number] [phone]
[2019-05-10 14:16] LABS: Albumin 4.2 g/dL (3.2-5.2); Albumin/Globulin Ratio 1.5 (1-3); BUN/Creatinine Ratio 13.5 (8-20); Calcium 9.2 mg/dL (8.6-10.3); EGFR African American 63.2 (>60); EGFR Non-African American 52.2 (>60); Globulin 2.8 g/dL (2-4); Potassium 3.3 mmol/L (3.5-5.0); Total Bilirubin 0.6 mg/dL (0.2-1.0)
--- NOTE | 2019-05-10 15:57 | ED ---
HPI Chest Pain - HPI Summary HPI Summary: Pt is a 73 y/o F presenting to the ED with a chief complaint of chest pain initially onset yesterday morning. Pt states she usually has some chest pressure with chronic shortness of breath and fatigue, but she woke up yesterday with more intense pain in the L anterior chest and LUQ, radiating to her back. She had two appointments today with physicians who both recommended she come here. She also reports dehydration, 5 episodes of diarrhea today, and a migraine. - History of Current Complaint Chief Complaint: EDChestPainROMI Time Seen by Provider: 05/10/19 13:53 Hx Obtained From: Patient Onset/Duration: Started Days Ago, Still Present Timing: Constant, Lasting Days Initial Severity: Mild Current Severity: Mild Pain Intensity: 3 Pain Scale Used: 0-10 Numeric Chest Pain Location: Left Anterior Chest Pain Radiates: Yes Chest Pain Radiates To:: Back Aggravating Factor(s): Nothing Alleviating Factor(s): Nothing Associated Signs and Symptoms: Positive: Chest Pain, Shortness of Breath - Additional Pertinent History Primary Care Physician: RON - Allergy/Home Medications Allergies/Adverse Reactions: Allergies Allergy/AdvReac Type Severity Reaction Status Date / Time ciprofloxacin [From Cipro] Allergy Nausea Verified 05/04/19 14:24 diltiazem Allergy Insomnia, Verified 05/04/19 14:24 head pressure, HTN duloxetine [From Cymbalta] Allergy Vomiting Verified 05/04/19 14:24 paroxetine [From Paxil] Allergy Shakes Verified 05/04/19 14:24 quinidine Allergy Rash Verified 05/04/19 14:24 Sulfa (Sulfonamide Allergy Unknown Verified 05/04/19 14:24 Antibiotics) Reaction Details verapamil Allergy Insomnia, Verified 05/04/19 14:24 head pressure Beta-Blockers AdvReac Intermediate See Comment Verified 05/04/19 14:24 (Beta-Adrenergic Bloc PMH/Surg Hx/FS Hx/Imm Hx Previously Healthy: Yes Endocrine/Hematology History: Reports: Hx Thyroid Disease - 5 POLYPS FOUND 1 NEG 4 REMAINING ON NO MEDS Denies: Hx Diabetes, Hx Anemia Cardiovascular History: Reports: Hx Angina, Hx Hypertension, Other Cardiovascular Problems/Disorders - tachyarrhythmia Denies: Hx Congestive Heart Failure, Hx Coronary Artery Disease, Hx Hypercholesterolemia, Hx Myocardial Infarction, Hx Pacemaker/ICD, Hx Valvular Heart Disease Respiratory History: Reports: Hx Asthma - A CHILD GI History: Reports: Hx Gall Bladder Disease - [place] 1968, Hx Ulcer - bleeding ulcers in past, Other GI Disorders - HX OF POLYPS IN COLON Denies: Hx Jaundice History: Reports: Other Problems/Disorders - UTIs Denies: Hx Renal Disease Musculoskeletal History: Reports: Hx Arthritis - GENERALIZED, Hx Back Problems, Hx Bursitis, Hx Fibromyalgia - pt describes as having for "years", Hx Orthopedic Injury - torn right shoulder, Hx Osteoporosis Denies: Hx Rheumatoid Arthritis Sensory History: Reports: Hx Cataracts - BILAT, Hx Contacts or Glasses, Hx Hearing Problem - "partially deaf" Denies: Hx Deafness, Hx Hearing Aid Opthamlomology History: Reports: Hx Cataracts - BILAT, Hx Contacts or Glasses Neurological History: Reports: Hx Headaches, Hx Migraine - 2-3 WEEKLY LAST ONE 01/23/18, Hx Nerve Disease - 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 Psychiatric History: Denies: Hx Anxiety, Hx Attention Deficit Hyperactivity Disorder, Hx Eating Disorder, Hx Depression, Hx Panic Disorder, Hx Post Traumatic Stress Disorder, Hx Inpatient Treatment, Hx Community Mental Health Tx, Hx Schizophrenia, Hx Bipolar Disorder, Hx Suicide Attempt, Hx of Violent Episodes Against Others, Hx Substance Abuse, Other Psychiatric Issues/Disorders - Cancer History Hx Chemotherapy: No Hx Radiation Therapy: No - Surgical History Surgery Procedure, Year, and Place: CHOLECYSECTOMY; RIGHT LUMPECTOMY; RIGHT RTC REPAIR; BILAT CATARACTS; TUBAL LIGATION; HYSTERECTOMY Hx Anesthesia Reactions: No Infectious Disease History: No Infectious Disease History: Denies: Hx Clostridium Difficile, Hx Hepatitis, Hx Human Immunodeficiency Virus (HIV), Hx of Known/Suspected MRSA, Hx Shingles, Hx Tuberculosis, Hx Known/ Suspected VRE, Hx Known/Suspected VRSA, History Other Infectious Disease, Traveled Outside the [place] in Last 30 Days - Family History Known Family History: Positive: Hypertension Negative: Blood Disorder - Social History Alcohol Use: None Alcohol Amount: 2 month Hx Substance Use: No Substance Use Type: Reports: None Hx Tobacco Use: No Smoking Status (MU): Never Smoked Tobacco Have You Smoked in the Last Year: No Review of Systems Positive: Fatigue, Other - dehydration Positive: Chest Pain Positive: Shortness Of Breath Positive: Headache All Other Systems Reviewed And Are Negative: Yes Physical Exam - Summary Physical Exam Summary: VITAL SIGNS: Reviewed. GENERAL: Patient is a well-developed and nourished female who is lying comfortable in the stretcher. Patient is not in any acute respiratory distress. HEAD AND FACE: No signs of trauma. No ecchymosis, hematomas or skull depressions. No sinus tenderness. EYES: PERRLA, EOMI x 2, No injected conjunctiva, no nystagmus. EARS: Hearing grossly intact. Ear canals and tympanic membranes are within normal limits. MOUTH: Oropharynx within normal limits. NECK: Supple, trachea is midline, no adenopathy, no JVD, no carotid bruit, no c- spine tenderness, neck with full ROM. CHEST: Symmetric, no tenderness at palpation. LUNGS: Clear to auscultation bilaterally. No wheezing or crackles. CVS: Regular rate and rhythm, S1 and S2 present, no murmurs or gallops appreciated. ABDOMEN: Soft, LUQ tenderness. No signs of distention. No rebound, no guarding, and no masses palpated. Bowel sounds are normal. EXTREMITIES: FROM in all major joints, no edema, no cyanosis or clubbing. NEURO: Alert and oriented x 3. No acute neurological deficits. Speech is normal and follows commands. SKIN: Dry and warm. Triage Information Reviewed: Yes Vital Signs On Initial Exam: Initial Vitals Temp Pulse Resp BP Pulse Ox 98.1 F 117 24 103/79 98 05/10/19 13:37 05/10/19 13:37 05/10/19 13:37 05/10/19 13:37 05/10/19 13:37 Vital Signs Reviewed: Yes Procedures - Sedation Patient Received Moderate/Deep Sedation with Procedure: No Diagnostics - Vital Signs Vital Signs Temp Pulse Resp BP Pulse Ox 05/10/19 15:32 110 22 127/101 99 05/10/19 13:37 98.1 F 117 24 103/79 98 - Laboratory Lab Results: Lab Results 05/10/19 05/10/19 05/10/19 Range/Units 13:48 13:48 13:48 WBC 5.7 (3.5-10.8) 10^3/uL RBC 3.83 (3.70-4.87) 10^6 /uL Hgb 12.1 (12.0-16.0) g/dL Hct 36 (35-47) % MCV 94 (80-97) fL MCH 32 H (27-31) pg MCHC 34 (31-36) g/dL RDW 16 H (10-15) % Plt Count 225 (150-450) 10^3/uL MPV 9.2 (7.4-10.4) fL Neut % (Auto) 62.2 % Lymph % (Auto) 29.3 % [place] % (Auto) 6.0 % Eos % (Auto) 1.5 % Baso % (Auto) 1.0 % Absolute Neuts (auto) 3.6 (1.5-7.7) 10^3/ul Absolute Lymphs (auto) 1.7 (1.0-4.8) 10^3/ul Absolute Monos (auto) 0.3 (0-0.8) 10^3/ul Absolute Eos (auto) 0.1 (0-0.6) 10^3/ul Absolute Basos (auto) 0.1 (0-0.2) 10^3/ul Absolute Nucleated RBC 0.0 10^3/ul Nucleated RBC % 0.0 INR (Anticoag Therapy) 0.99 (0.82-1.09) Sodium 143 (135-145) mmol/L Potassium 3.3 L (3.5-5.0) mmol/L Chloride 106 (101-111) mmol/L Carbon Dioxide 28 (22-32) mmol/L Anion Gap 9 (2-11) mmol/L BUN 14 (6-24) mg/dL Creatinine 1.04 H (0.51-0.95) mg/dL Est GFR ( Amer) 63.2 (>60) Est GFR (Non-Af Amer) 52.2 (>60) BUN/Creatinine Ratio 13.5 (8-20) Glucose 106 H (70-100) mg/dL Calcium 9.2 (8.6-10.3) mg/dL Total Bilirubin 0.60 (0.2-1.0) mg/dL AST 26 (13-39) U/L ALT 16 (7-52) U/L Alkaline Phosphatase 50 (34-104) U/L Troponin I 0.00 (<0.03) ng/mL Total Protein 7.0 (6.4-8.9) g/dL Albumin 4.2 (3.2-5.2) g/dL Globulin 2.8 (2-4) g/dL Albumin/Globulin Ratio 1.5 (1-3) Result Diagrams: 05/10/19 13:48 05/10/19 13:48 Lab Statement: Any lab studies that have been ordered have been reviewed, and results considered in the medical decision making process. - Radiology CXR Radiology Interpretation Completed By: Radiologist Summary of Radiographic Findings: No active cardiopulmonary disease is noted. ED physician has reviewed this report. - CT CT a/p CT Interpretation Completed By: Radiologist Summary of CT Findings: 1. Stable colonic diverticulosis without evidence for acute diverticulitis. 2. No other acute CT pathology. ED physician has reviewed this report. - EKG 1339 Cardiac Rate: Tachycardia - 114bpm EKG Rhythm: Sinus Tachycardia ST Segment: Normal Ectopy: None Summary of EKG Findings: EKG at 1339 shows sinus tachycardia at 114bpm with no ST elevations and a Q-wave in lead III. Similar to 04/06/19. Dr. Beal has reviewed and interpreted this EKG. Chest Pain Course/Dx - Course Assessment/Plan: Pt is a 73 y/o F presenting to the ED with a chief complaint of chest pain initially onset yesterday morning. Pt states she usually has some chest pressure with chronic shortness of breath and fatigue, but she woke up yesterday with more intense pain in the L anterior chest and LUQ, radiating to her back. She had two appointments today with physicians who both recommended she come here. She also reports dehydration, 5 episodes of diarrhea today, and a migraine. The work without a significant abnormality except for potassium of 3.3, creatinine is 1.04, glucose 106. . Troponin is 0.00. Chest x-ray impression: No acute pathology. Abdominopelvic CT impression: Unstable colonic diverticulosis no evidence of acute diverticulitis. No acute CT pathology. Second troponin 4 hours apart as 0.01. Therefore he seems that the patient does have an acute coronary syndrome. Abdominal pelvic CT is negative. The patient was given potassium for hypokalemia and now the patient will be discharged home with follow-up with the primary care physician. Patient is hemodynamically stable alert oriented 3. Patient reports that all symptoms have resolved. Patient Heart score is: 3 therefore, low suspicion for CAD. Patient is not hypoxic or tachycardic. Wells criteria 0. Therefore, no suspicion for PE. Patient has no abdominal bruit thus no suspicion for AAA. Patients pain does not radiate to the back and pain has resolved thus low suspicion for aortic dissection. I discussed all the findings and test results with the patient. Patient was instructed to return to the emergency room immediately if any of the symptoms return or worsen. Patient understands and agrees. Plan of care was discussed with the patient and patient understands and agrees. All questions were answered at patient satisfaction. There were no further complaints or concerns. PE before discharge: CVS: S1 and S2 present. No murmurs appreciated. Abdominal exam before discharge: Soft, non-tender. No signs of distention. No rebound no guarding, and no masses palpated. Bowel sounds are normal. Patient is alert and oriented x 3. Patient is hemodynamically stable. - Chest Pain Differential Diagnosis/HQI/PQRI: Acute NM, ACS, Angina, CHF, Chest Wall, GI Disease, Lower Respiratory Infection, Pulmonary Edema - Diagnoses Provider Diagnoses: Atypical chest pain, Upper abdominal pain Discharge ED - Sign-Out/Discharge Documenting (check all that apply): Patient Departure - Discharge Plan Condition: Stable Disposition: HOME Patient Education Materials: Chest Pain (ED) Referrals: Barbara Jacinto MD [Primary Care Provider] - Additional Instructions: Follow up with your primary care provider within the next 1-3 days. Return to the emergency department with any new or worsening symptoms. - Billing Disposition and Condition Condition: STABLE Disposition: Home - Attestation Statements Document Initiated by Orlinibe: Yes Documenting Scribe: Mirna Julio Provider For Whom Gumaro is Documenting (Include Credential): Alexandre Beal MD. Scribe Attestation: Mirna Park, wadeed for Alexandre Beal MD. on 05/10/19 at 2039. Scribe Documentation Reviewed: Yes Provider Attestation: The documentation as recorded by the Mirna husain accurately reflects the service I personally performed and the decisions made by me, Alexandre Beal MD. Status of Scribe Document: Viewed
[2019-05-10] MEDS ORDERED: Iodixanol* (CONTRAST) 320 MG/ML 100 ML SDV IV ONE (15:59)
[2019-05-10 19:19] VITALS: BP 128/79
== END 2019-05-10 19:15 | disposition home or self-care (01) ==
LOC: ED 13:33
DX: R07.89 Other chest pain (principal); R10.9 Unspecified abdominal pain; R06.02 Shortness of breath; E03.9 Hypothyroidism, unspecified; I10 Essential (primary) hypertension; R51 Headache; R53.83 Other fatigue; R94.31 Abnormal electrocardiogram [ECG] [EKG]
CPT/HCPCS: 36415; 71046; 74177; 80053; 84484; 85025; 85610; 93005; 99283; Q9967

== ENCOUNTER 2020-04-01 09:13 | Inpatient (IN) ==
[2020-04-01] MEDS ORDERED: Morphine 4 MG/ML VIAL (1 ml) IV ONE ×3 (09:21→13:36)
[2020-04-01] MEDS ORDERED: NS 0.9% 1000 ml BAG 1,000 ML IV ONE (09:21)
[2020-04-01] MEDS ORDERED: Ondansetron 4 mg VIAL 2 MG/ML 2 ml VIAL IV ONE ×2 (09:21→11:36)
[2020-04-01 09:58] LABS: ABS Lymphocytes 1.3 10^3/ul (1.0-4.8); ABS Monocytes 0.3 10^3/ul (0-0.8); ABS Neutrophils 7.8 10^3/ul (1.5-7.7); Eosinophil % 0.1 %; Hematocrit 41 % (35-47); Hemoglobin 13.9 g/dL (12.0-16.0); Lymphocyte % 14.1 %; Mean Corpuscular HGB Conc 34 g/dL (31-36); Mean Corpuscular Hemoglobin 34 pg (27-31); Mean Corpuscular Volume 98 fL (80-97); Mean Platelet Volume 9.3 fL (7.4-10.4); Platelet Count 184 10^3/uL (150-450); Red Blood Count 4.16 10^6 /uL (3.70-4.87); Red Cell Distribution Width 15 % (10-15); White Blood Count 9.6 10^3/uL (3.5-10.8)
[2020-04-01] MEDS ORDERED: Iodixanol (CONTRAST) 320 MG/ML 100 ML SDV IV ONE (09:58)
[2020-04-01] MEDS ORDERED: Famotidine IV 10 MG/ML 2 ml VIAL (20 mg) IV SLOW PU ONE (10:17)
[2020-04-01 10:25] LABS: ALT 29 U/L (7-52); Albumin 4.2 g/dL (3.2-5.2); Albumin/Globulin Ratio 1.2 (1-3); Alkaline Phosphatase 58 U/L (34-104); BUN/Creatinine Ratio 17.6 (8-20); Blood Urea Nitrogen 16 mg/dL (6-24); C Reactive Protein 14.89 mg/L (<8.01); CO2 Carbon Dioxide 27 mmol/L (22-32); Calcium 9.6 mg/dL (8.6-10.3); Chloride 99 mmol/L (101-111); EGFR African American 73.5 (>60); EGFR Non-African American 60.8 (>60); Globulin 3.4 g/dL (2-4); Glucose 174 mg/dL (70-100); Sodium 135 mmol/L (135-145); Total Protein 7.6 g/dL (6.4-8.9)
[2020-04-01 10:35] LABS: Anion Gap 9 mmol/L (2-11)
[2020-04-01 10:49] LABS: Lipase 9080 U/L (11.0-82.0)
[2020-04-01 10:56] LABS: Alcohol, S < 10 mg/dL (<10)
[2020-04-01 10:59] LABS: Cholesterol 162 mg/dL; HDL Cholesterol 43.4 mg/dL; LDL Cholesterol 96 mg/dL; Triglycerides 113 mg/dL
[2020-04-01 12:14] LABS: Potassium Redraw 4.2 mmol/L (3.5-5.0)
[2020-04-01] MEDS: Prochlorperazine 5 mg/ml 2 ml VIAL (10 mg) IV PRN ×2 (16:08→22:41)
[2020-04-01] MEDS: HYDROmorphone 1 MG/1 ML SYRINGE IV SLOW PU PRN ×3 (16:08→22:30)
[2020-04-01 16:47] LABS: Digoxin 0.6 ng/ml (0.8-2.0)
[2020-04-01] MEDS ORDERED: Digoxin IV 0.5 MG/2 ML AMP (0.25 MG/ML) IV SLOW PU ONE (17:00)
[2020-04-01] MEDS: NS 0.9% 1000 ml BAG 1,000 ML IV SCH (18:56)
[2020-04-01] MEDS: Ondansetron 4 mg VIAL 2 MG/ML 2 ml VIAL IV PRN (19:22)
[2020-04-01] MEDS: Nystatin TOP POWDER 15 GM BTL TOPICAL SCH ×2 (19:30→19:32)
[2020-04-01] MEDS: Famotidine IV 10 MG/ML 2 ml VIAL (20 mg) IV SLOW PU SCH (20:48)
[2020-04-02] MEDS: HYDROmorphone 1 MG/1 ML SYRINGE IV SLOW PU PRN ×2 (01:40→04:46)
[2020-04-02] MEDS: Ondansetron 4 mg VIAL 2 MG/ML 2 ml VIAL IV PRN ×2 (01:41→19:20)
[2020-04-02] MEDS: NS 0.9% 1000 ml BAG 1,000 ML IV SCH ×3 (04:43→23:00)
[2020-04-02] MEDS: Prochlorperazine 5 mg/ml 2 ml VIAL (10 mg) IV PRN (04:45)
[2020-04-02 06:19] LABS: ABS Eosinophils 0.1 10^3/ul (0-0.6); ABS Lymphocytes 1.9 10^3/ul (1.0-4.8); ABS Monocytes 0.5 10^3/ul (0-0.8); ABS Neutrophils 4.4 10^3/ul (1.5-7.7); Eosinophil % 0.9 %; Hematocrit 35 % (35-47); Hemoglobin 11.8 g/dL (12.0-16.0); Lymphocyte % 27.9 %; Mean Corpuscular HGB Conc 34 g/dL (31-36); Mean Corpuscular Hemoglobin 34 pg (27-31); Mean Corpuscular Volume 99 fL (80-97); Mean Platelet Volume 9.2 fL (7.4-10.4); Platelet Count 147 10^3/uL (150-450); Red Blood Count 3.49 10^6 /uL (3.70-4.87); Red Cell Distribution Width 15 % (10-15)
[2020-04-02 06:41] LABS: Albumin 3.6 g/dL (3.2-5.2); Albumin/Globulin Ratio 1.3 (1-3); BUN/Creatinine Ratio 19.3 (8-20); Calcium 8.4 mg/dL (8.6-10.3); EGFR African American 76.4 (>60); EGFR Non-African American 63.2 (>60); Globulin 2.8 g/dL (2-4); Total Bilirubin 0.6 mg/dL (0.2-1.0); Total Protein 6.4 g/dL (6.4-8.9)
[2020-04-02] MEDS: Nystatin TOP POWDER 15 GM BTL TOPICAL SCH ×3 (08:34→20:10)
[2020-04-02] MEDS: Famotidine IV 10 MG/ML 2 ml VIAL (20 mg) IV SLOW PU SCH (08:34)
[2020-04-02] MEDS: Pantoprazole VIAL 40 MG VIAL IV SCH (20:10)
[2020-04-03] MEDS: NS 0.9% 1000 ml BAG 1,000 ML IV SCH ×2 (07:59→20:47)
[2020-04-03] MEDS: Nystatin TOP POWDER 15 GM BTL TOPICAL SCH ×3 (08:00→20:48)
[2020-04-03] MEDS: Pantoprazole VIAL 40 MG VIAL IV SCH (20:47)
[2020-04-04] MEDS ORDERED: CMCS:Diclofenac 1% GEL (NF) 100 GM TUBE TOPICAL PRN (01:53)
[2020-04-04] MEDS: NS 0.9% 1000 ml BAG 1,000 ML IV SCH (05:38)
[2020-04-04] MEDS: Nystatin TOP POWDER 15 GM BTL TOPICAL SCH (10:20)
[2020-04-04 12:08] VITALS: BP 118/75
== END 2020-04-04 14:45 | disposition home or self-care (01) | DRG 440 ==
LOC: ED 09:13 → MED 14:39
PROVIDERS: ADMIT Internal Medicine; ATTEND Internal Medicine

== ENCOUNTER 2021-09-13 22:11 | Inpatient (IN) ==
[2021-09-13] MEDS ORDERED: Lactated Ringers 1000 ml BAG 1,000 ML IV ONE (22:43)
[2021-09-13 23:15] LABS: ABS Lymphocytes 1.2 10^3/ul (1.0-4.8); ABS Monocytes 0.5 10^3/ul (0-0.8); ABS Neutrophils 4.4 10^3/ul (1.5-7.7); Eosinophil % 0.4 %; Hematocrit 36 % (35-47); Hemoglobin 12.1 g/dL (12.0-16.0); Lymphocyte % 19.3 %; Mean Corpuscular HGB Conc 34 g/dL (31-36); Mean Corpuscular Hemoglobin 34 pg (27-31); Mean Corpuscular Volume 100 fL (80-97); Mean Platelet Volume 9.6 fL (7.4-10.4); Nucleated Red Blood Cells % 0.1; Platelet Count 157 10^3/uL (150-450); Red Blood Count 3.58 10^6 /uL (3.70-4.87); Red Cell Distribution Width 16 % (10-15); White Blood Count 6.1 10^3/uL (3.5-10.8)
[2021-09-13 23:20] LABS: High Sens Troponin Baseline 6 pg/mL (<15)
[2021-09-13 23:26] LABS: Albumin 4.3 g/dL (3.2-5.2); CO2 Carbon Dioxide 24 mmol/L (22-32); Chloride 104 mmol/L (101-111); Magnesium 1.4 mg/dL (1.9-2.7); Sodium 139 mmol/L (135-145)
[2021-09-13 23:32] LABS: Urine Appearance Cloudy; Urine Bilirubin Negative (Negative); Urine Blood 2+ (Negative); Urine Color Yellow; Urine Glucose Negative (Negative); Urine Ketones Negative (Negative); Urine Nitrite Negative (Negative); Urine Protein Negative (Negative); Urine Specific Gravity 1.006 (1.002-1.030); Urine Urobilinogen Negative (Negative)
[2021-09-13 23:32] LABS: ALT 23 U/L (7-52); Albumin/Globulin Ratio 1.5 (1-3); Alcohol, S < 13 mg/dL (<13); Alkaline Phosphatase 48 U/L (35-149); Blood Urea Nitrogen 15 mg/dL (6-24); Globulin 2.8 g/dL (2-4); Glucose 114 mg/dL (70-100); Total Protein 7.1 g/dL (6.4-8.9); eGFR CKD-EPI 43.6 (>60)
[2021-09-13 23:54] LABS: AST 41 U/L (13-39); Anion Gap 11 mmol/L (2-11); Potassium 4.5 mmol/L (3.5-5.0)
[2021-09-14 00:01] LABS: TSH Ultra Thyroid Stim Horm 1.09 mcIU/mL (0.34-5.60)
[2021-09-14 00:12] LABS: Urine Bacteria Absent (Absent); Urine Granular Casts Present (Absent); Urine Red Blood Cell Trace(0-2/hpf) (Absent); Urine Squamous Epithelial Cell Present (Absent); Urine White Blood Cell Trace(0-5/hpf) (Absent)
[2021-09-14 00:32] LABS: High Sensitivity Troponin 1 Hr 6 pg/mL (<15)
[2021-09-14] MEDS ORDERED: Magnesium Sulf 4 GM/100 ML IV 4,000 MG/100 ML BAG IVPB ONE (01:07)
[2021-09-14] MEDS ORDERED: Lactated Ringers 1000 ml BAG 1,000 ML IV ONE (01:07)
[2021-09-14] MEDS ORDERED: cefTRIAXone 1 gm/50 mL D5W 1 GM/50 ML BAG IV ONE (02:00)
[2021-09-14 02:19] LABS: C Reactive Protein 16.1 mg/L (<8.01)
[2021-09-14] MEDS ORDERED: oxyCODONE/Acetamin 10/325(NF) TAB PO PRN (02:24)
[2021-09-14] MEDS: Enoxaparin 40 MG/0.4 ML SYR SUBCUT SCH ×2 (02:50→02:57)
[2021-09-14] MEDS ORDERED: Dextrose 50% Syringe 50 ml 25 GM/50 ML SYRINGE IV PUSH PRN (03:23)
[2021-09-14] MEDS: oxyCODONE/Acetamin 5/325 mg TAB PO PRN ×3 (05:40→23:07)
[2021-09-14 06:13] LABS: ABS Lymphocytes 1.4 10^3/ul (1.0-4.8); ABS Monocytes 0.5 10^3/ul (0-0.8); ABS Neutrophils 2.7 10^3/ul (1.5-7.7); Hematocrit 36 % (35-47); Hemoglobin 11.7 g/dL (12.0-16.0); Lymphocyte % 30.5 %; Mean Corpuscular HGB Conc 33 g/dL (31-36); Mean Corpuscular Hemoglobin 33 pg (27-31); Mean Corpuscular Volume 101 fL (80-97); Nucleated Red Blood Cells % 0.1; Platelet Count 138 10^3/uL (150-450); Red Blood Count 3.56 10^6 /uL (3.70-4.87); Red Cell Distribution Width 16 % (10-15); White Blood Count 4.7 10^3/uL (3.5-10.8)
[2021-09-14 07:00] LABS: CO2 Carbon Dioxide 24 mmol/L (22-32); Calcium 9.5 mg/dL (8.6-10.3); Chloride 103 mmol/L (101-111); Sodium 137 mmol/L (135-145)
[2021-09-14] MEDS: Aspirin EC 81 mg TAB.EC (enteric coated) PO SCH (08:48)
[2021-09-14] MEDS: Enoxaparin 30 MG/0.3 ML SYR SUBCUT SCH (10:40)
[2021-09-14 16:06] LABS: Blood Urea Nitrogen 13 mg/dL (6-24); Creatine Kinase 1229 U/L (10-223); Glucose 146 mg/dL (70-100)
[2021-09-14 16:39] LABS: eGFR CKD-EPI 50.5 (>60)
[2021-09-14 16:40] LABS: Anion Gap 10 mmol/L (2-11)
[2021-09-14] MEDS ORDERED: NS 0.9% 1000 ml BAG 1,000 ML IV ONE (17:00)
[2021-09-14 17:55] LABS: Folate QNS ng/mL (5.90-24.80); Vitamin B12 QNS pg/mL (180-914)
[2021-09-14] MEDS ORDERED: ceFAZolin 2 GM in NS PREMIX 2 GM/100 ML BAG IVPB SCH ×2 (18:19→19:00)
[2021-09-14 18:26] LABS: Phosphorus 2.8 mg/dL (2.5-5.0); Potassium Redraw 4.4 mmol/L (3.5-5.0)
[2021-09-14 19:57] LABS: Folate 7.1 ng/mL (5.90-24.80)
[2021-09-15] MEDS: cefTRIAXone 1 gm/50 mL D5W 1 GM/50 ML BAG IV SCH (03:52)
[2021-09-15 05:38] LABS: ABS Eosinophils 0.2 10^3/ul (0-0.6); ABS Lymphocytes 1.5 10^3/ul (1.0-4.8); ABS Monocytes 0.4 10^3/ul (0-0.8); ABS Neutrophils 1.6 10^3/ul (1.5-7.7); Eosinophil % 5.7 %; Hematocrit 32 % (35-47); Hemoglobin 10.4 g/dL (12.0-16.0); Lymphocyte % 41.3 %; Mean Corpuscular HGB Conc 32 g/dL (31-36); Mean Corpuscular Hemoglobin 32 pg (27-31); Mean Corpuscular Volume 100 fL (80-97); Mean Platelet Volume 8.9 fL (7.4-10.4); Nucleated Red Blood Cells % 0.2; Platelet Count 127 10^3/uL (150-450); Red Cell Distribution Width 16 % (10-15); White Blood Count 3.7 10^3/uL (3.5-10.8)
[2021-09-15 05:59] LABS: Calcium 8.8 mg/dL (8.6-10.3); Magnesium 1.6 mg/dL (1.9-2.7); Potassium 4.3 mmol/L (3.5-5.0); eGFR CKD-EPI 59.1 (>60)
[2021-09-15] MEDS: Enoxaparin 30 MG/0.3 ML SYR SUBCUT SCH (09:51)
[2021-09-15] MEDS: Aspirin EC 81 mg TAB.EC (enteric coated) PO SCH (09:52)
[2021-09-15] MEDS: oxyCODONE/Acetamin 5/325 mg TAB PO PRN ×3 (10:15→20:27)
[2021-09-15] MEDS ORDERED: Magnesium Sulf 4 GM/100 ML IV 4,000 MG/100 ML BAG IVPB ONE (11:22)
[2021-09-16] MEDS: cefTRIAXone 1 gm/50 mL D5W 1 GM/50 ML BAG IV SCH (03:20)
[2021-09-16 08:04] LABS: Magnesium 2.3 mg/dL (1.9-2.7); Potassium 4.3 mmol/L (3.5-5.0); eGFR CKD-EPI 57.1 (>60)
[2021-09-16] MEDS ORDERED: NS 0.9% 1000 ml BAG 1,000 ML IV ONE (08:07)
[2021-09-16] MEDS: Aspirin EC 81 mg TAB.EC (enteric coated) PO SCH (08:41)
[2021-09-16] MEDS: Enoxaparin 30 MG/0.3 ML SYR SUBCUT SCH (08:43)
[2021-09-16] MEDS: oxyCODONE/Acetamin 5/325 mg TAB PO PRN (08:48)
[2021-09-16] MEDS ORDERED: NS 0.9% 500 ml BAG 500 ML IV ONE (09:52)
[2021-09-16 09:54] LABS: Calcium 8.8 mg/dL (8.6-10.3)
[2021-09-16 10:48] LABS: ABS Eosinophils 0.2 10^3/ul (0-0.6); ABS Lymphocytes 1.4 10^3/ul (1.0-4.8); ABS Monocytes 0.3 10^3/ul (0-0.8); ABS Neutrophils 1.9 10^3/ul (1.5-7.7); Eosinophil % 6.2 %; Hematocrit 33 % (35-47); Hemoglobin 10.7 g/dL (12.0-16.0); Lymphocyte % 36.2 %; Mean Corpuscular HGB Conc 33 g/dL (31-36); Mean Corpuscular Hemoglobin 32 pg (27-31); Mean Corpuscular Volume 100 fL (80-97); Mean Platelet Volume 8.5 fL (7.4-10.4); Nucleated Red Blood Cells % 0.1; Platelet Count 133 10^3/uL (150-450); Red Cell Distribution Width 16 % (10-15)
[2021-09-16 12:41] VITALS: BP 126/72
[2021-09-17 15:47] LABS: Albumin 3.2 g/dL (3.4-4.7); Albumin/Globulin Ratio 0.89; Gamma Globulin 1.2 g/dL (0.6-1.6); Total Protein(PEP) 6.8 g/dL (6.3 - 7.9)
[2021-09-20 18:54] LABS: Albumin 3.4 mg/dL; Albumin/Globulin Ratio 0.75; Gamma Globulin 1.8 mg/dL; Protein,Total, Random Urine 8 mg/dL
== END 2021-09-16 13:40 | disposition home or self-care (01) | DRG 74 ==
LOC: ED 22:11 → EDHOLD 09-14 01:01 → SUATTDRO 09-14 01:01 → EDHOLD 09-14 07:49 → MEDTELE 09-14 08:05
PROVIDERS: ADMIT Internal Medicine; ATTEND Internal Medicine

== ENCOUNTER 2022-05-07 09:18 | Inpatient (IN) ==
[2022-05-07] MEDS ORDERED: Lactated Ringers 1000 ml BAG 1,000 ML IV ONE ×2 (09:49→13:14)
[2022-05-07] MEDS ORDERED: Ondansetron 4 mg VIAL 2 MG/ML 2 ml VIAL IV ONE (09:49)
[2022-05-07 09:56] LABS: ABS Eosinophils 0.2 10^3/ul (0-0.6); ABS Lymphocytes 1.5 10^3/ul (1.0-4.8); ABS Monocytes 0.3 10^3/ul (0-0.8); ABS Neutrophils 3.3 10^3/ul (1.5-7.7); Eosinophil % 3.1 %; Hematocrit 31 % (35-47); Hemoglobin 10.3 g/dL (12.0-16.0); Lymphocyte % 28.4 %; Mean Corpuscular HGB Conc 33 g/dL (31-36); Mean Corpuscular Hemoglobin 34 pg (27-31); Mean Corpuscular Volume 102 fL (80-97); Mean Platelet Volume 9.1 fL (7.4-10.4); Platelet Count 121 10^3/uL (150-450); Red Blood Count 3.05 10^6 /uL (3.70-4.87); Red Cell Distribution Width 16 % (10-15); White Blood Count 5.3 10^3/uL (3.5-10.8)
[2022-05-07 10:17] LABS: Activated Partial Thrombo Time 28.8 seconds (26.0-38.0); INR 1.06 (0.88-1.18)
[2022-05-07 10:53] LABS: Albumin/Globulin Ratio 1.7 (1-3); Calcium 9.2 mg/dL (8.6-10.3); Globulin 2.4 g/dL (2-4); HDL Cholesterol 36.9 mg/dL; Total Bilirubin 0.4 mg/dL (0.2-1.0); Total Protein 6.4 g/dL (6.4-8.9); eGFR CKD-EPI 57.1 (>60)
[2022-05-07 11:42] LABS: High Sensitivity Troponin 1 Hr 4 pg/mL (<15)
[2022-05-07 12:47] LABS: Urine Appearance Clear; Urine Bilirubin Negative (Negative); Urine Blood Negative (Negative); Urine Color Yellow; Urine Glucose Negative (Negative); Urine Ketones Negative (Negative); Urine Nitrite Negative (Negative); Urine Protein Negative (Negative); Urine Specific Gravity 1.051 (1.002-1.030); Urine Urobilinogen Negative (Negative)
[2022-05-07 12:57] LABS: Urine Bacteria Absent (Absent); Urine Red Blood Cell 1+(3-5/hpf) (Absent); Urine Squamous Epithelial Cell Present (Absent); Urine White Blood Cell 1+(6-10/hpf) (Absent)
[2022-05-07] MEDS: Enoxaparin 40 MG/0.4 ML SYR SUBCUT SCH (13:28)
[2022-05-07 14:28] LABS: Magnesium 1.3 mg/dL (1.9-2.7)
[2022-05-07] MEDS ORDERED: Magnesium Sulf 4 GM/100 ML IV 4,000 MG/100 ML BAG IVPB ONE (14:31)
[2022-05-07] MEDS ORDERED: Dextrose 50% Syringe 50 ml 25 GM/50 ML SYRINGE IV PUSH PRN (14:33)
[2022-05-07] MEDS ORDERED: TRIAMCINOLONE PASTE 0.1% TOPICAL PRN (19:38)
[2022-05-07 19:59] LABS: Digoxin 0.3 ng/ml (0.8-2.0)
[2022-05-08] MEDS: oxyCODONE/Acetamin 5/325 mg TAB PO PRN ×3 (04:53→16:39)
[2022-05-08 06:17] LABS: ABS Eosinophils 0.1 10^3/ul (0-0.6); ABS Lymphocytes 1.6 10^3/ul (1.0-4.8); ABS Monocytes 0.4 10^3/ul (0-0.8); ABS Neutrophils 2.5 10^3/ul (1.5-7.7); Eosinophil % 2.6 %; Hematocrit 31 % (35-47); Hemoglobin 10.6 g/dL (12.0-16.0); Lymphocyte % 34.8 %; Mean Corpuscular HGB Conc 35 g/dL (31-36); Mean Corpuscular Hemoglobin 35 pg (27-31); Mean Corpuscular Volume 100 fL (80-97); Mean Platelet Volume 8.7 fL (7.4-10.4); Platelet Count 129 10^3/uL (150-450); Red Blood Count 3.07 10^6 /uL (3.70-4.87); Red Cell Distribution Width 16 % (10-15); White Blood Count 4.7 10^3/uL (3.5-10.8)
[2022-05-08 06:59] LABS: Albumin/Globulin Ratio 1.8 (1-3); Calcium 9.4 mg/dL (8.6-10.3); Globulin 2.2 g/dL (2-4); Potassium 4.1 mmol/L (3.5-5.0); Total Bilirubin 0.4 mg/dL (0.2-1.0); Total Protein 6.2 g/dL (6.4-8.9); eGFR CKD-EPI 59.1 (>60)
[2022-05-08] MEDS: Aspirin EC 81 mg TAB.EC (enteric coated) PO SCH (08:46)
[2022-05-08] MEDS: Fluticasone NASAL SPRAY 50MCG 16 gm SPRAY BTL INTRANASAL SCH (09:00)
[2022-05-08] MEDS ORDERED: POLYSACCHARIDE IRON COMPLEX 150 MG PO SCH (09:00)
[2022-05-08] MEDS: Enoxaparin 40 MG/0.4 ML SYR SUBCUT SCH (11:23)
[2022-05-09] MEDS: oxyCODONE/Acetamin 5/325 mg TAB PO PRN ×3 (04:36→20:38)
[2022-05-09 06:16] LABS: ABS Eosinophils 0.2 10^3/ul (0-0.6); ABS Lymphocytes 1.6 10^3/ul (1.0-4.8); ABS Monocytes 0.4 10^3/ul (0-0.8); ABS Neutrophils 2.5 10^3/ul (1.5-7.7); Eosinophil % 4.3 %; Hematocrit 32 % (35-47); Hemoglobin 10.7 g/dL (12.0-16.0); Lymphocyte % 34.5 %; Mean Corpuscular HGB Conc 33 g/dL (31-36); Mean Corpuscular Hemoglobin 34 pg (27-31); Mean Corpuscular Volume 103 fL (80-97); Nucleated Red Blood Cells % 0.1; Platelet Count 130 10^3/uL (150-450); Red Blood Count 3.11 10^6 /uL (3.70-4.87); Red Cell Distribution Width 16 % (10-15); White Blood Count 4.7 10^3/uL (3.5-10.8)
[2022-05-09 06:36] LABS: Calcium 9.4 mg/dL (8.6-10.3); Magnesium 1.6 mg/dL (1.9-2.7); Potassium 4.4 mmol/L (3.5-5.0); eGFR CKD-EPI 59.8 (>60)
[2022-05-09] MEDS: Fluticasone NASAL SPRAY 50MCG 16 gm SPRAY BTL INTRANASAL SCH (09:00)
[2022-05-09] MEDS: Aspirin EC 81 mg TAB.EC (enteric coated) PO SCH (09:37)
[2022-05-09] MEDS ORDERED: Magnesium Sulfate IV 3 GM in NS 0.9% 100 ml BAG 100 ML IVPB ONE (10:52)
[2022-05-09] MEDS: Enoxaparin 40 MG/0.4 ML SYR SUBCUT SCH (12:38)
[2022-05-09] MEDS ORDERED: Iodixanol (CONTRAST) 320 MG/ML 100 ML SDV IV ONE (13:26)
[2022-05-10] MEDS: oxyCODONE/Acetamin 5/325 mg TAB PO PRN (02:17)
[2022-05-10 06:48] LABS: ABS Eosinophils 0.2 10^3/ul (0-0.6); ABS Lymphocytes 1.9 10^3/ul (1.0-4.8); ABS Monocytes 0.4 10^3/ul (0-0.8); ABS Neutrophils 2.4 10^3/ul (1.5-7.7); Eosinophil % 4.3 %; Hematocrit 33 % (35-47); Lymphocyte % 38.6 %; Mean Corpuscular HGB Conc 34 g/dL (31-36); Mean Corpuscular Hemoglobin 35 pg (27-31); Mean Corpuscular Volume 103 fL (80-97); Mean Platelet Volume 9.1 fL (7.4-10.4); Platelet Count 151 10^3/uL (150-450); Red Blood Count 3.16 10^6 /uL (3.70-4.87); Red Cell Distribution Width 16 % (10-15); White Blood Count 4.8 10^3/uL (3.5-10.8)
[2022-05-10 07:11] LABS: Calcium 9.7 mg/dL (8.6-10.3); Magnesium 1.9 mg/dL (1.9-2.7); Potassium 4.2 mmol/L (3.5-5.0); eGFR CKD-EPI 53.9 (>60)
[2022-05-10 08:19] VITALS: BP 117/66
[2022-05-10] MEDS: Fluticasone NASAL SPRAY 50MCG 16 gm SPRAY BTL INTRANASAL SCH (09:24)
[2022-05-10] MEDS: Aspirin EC 81 mg TAB.EC (enteric coated) PO SCH (09:24)
[2022-05-10] MEDS: Enoxaparin 40 MG/0.4 ML SYR SUBCUT SCH (12:39)
== END 2022-05-10 13:30 | disposition home or self-care (01) | DRG 64 ==
LOC: EDHOLD 09:18 → ED 09:18 → MEDTELE 19:46 → SUATTDRO 05-09 13:51 → MEDTELE 05-09 22:33
PROVIDERS: ADMIT Hospitalist; ATTEND Internal Medicine